=== PATIENT | male | born 1960 | race Caucasian/White ===

== ENCOUNTER 2021-06-19 19:50 | Outpatient (CLI) | payer MEDICAID, SELFPAY | END 2021-06-19 19:51 | disposition home or self-care (01) | LOC: LBO 19:51 | PROVIDERS: PCP Preventive Medicine Undersea and Hyperbaric Medicine; Visit Provider Preventive Medicine Undersea and Hyperbaric Medicine | DX: C09.9 Malignant neoplasm of tonsil, unspecified (principal) | CPT/HCPCS: 36415; 82565 ==

== ENCOUNTER 2021-07-17 00:54 | Outpatient (RCR) | payer MEDICAID, SELFPAY ==
[2021-07-10 08:00] LABS: Absolute Basophil Count 0.07 10^3/uL (0.0-0.2); Absolute Monocyte Count 1.42 10^3/uL (0.1-0.8); Absolute Neutrophil Count 9.31 10^3/uL (1.2-6.7); Basophils % 0.5; Eosinophils % 2.4; HCT 42.5 % (40.0-50.0); HGB 13.8 g/dL (13.5-17.5); Immature Grans % 0.7; Lymphocytes % 21.7; MCH 30.5 pg (27.0-33.0); MCHC 32.5 % (32.0-36.0); MPV 11.3 fL (8.0-11.0); Monocytes % 9.9; Neutrophils % 64.8; Nucleated RBC 0 %; Platelet Count 319 10^3/uL (130-400); RBC 4.52 10^6/uL (4.36-5.78); RDW 15.9 % (11.8-14.1); RDW-SD 54.4 fL; WBC 14.36 10^3/uL (4.4-10.8)
[2021-07-10 08:08] LABS: Absolute Eosinophil Count 0.34 10^3/uL (0.0-0.7); Absolute Lymphocyte Count 3.12 10^3/uL (1.2-3.4)
[2021-07-10 08:14] LABS: ALT 14 U/L (16-63); AST 17 U/L (15-37); Albumin 3.5 g/dL (3.4-5.0); Alkaline Phosphatase 56 U/L (46-116); Anion Gap 8.1 mmol/L (3-11); BUN 22 mg/dL (7-18); Bilirubin, Total 0.6 mg/dL (0.2-1.0); CO2 27.9 mmol/L (21.0-32.0); CREATININE 1.1 mg/dL (0.70-1.30); Chloride 105 mmol/L (98-107); Glucose 92 mg/dL (74-106); Magnesium 2.1 mg/dL (1.8-2.4); Sodium 141 mmol/L (136-145)
[2021-07-10] MEDS: Normal Saline Flush 10 ML SYR IVP (10:00)
== END 2021-07-23 23:59 | disposition home or self-care (01) ==
LOC: INF 00:54
PROVIDERS: Nurse Practitioner Family; PCP Preventive Medicine Undersea and Hyperbaric Medicine; Visit Provider Internal Medicine Hematology & Oncology
DX: C09.9 Malignant neoplasm of tonsil, unspecified (principal)
CPT/HCPCS: 36591; 80053; 83735; 85025

== ENCOUNTER 2021-08-21 07:45 | Outpatient (RCR) | payer MEDICAID, SELFPAY ==
[2021-07-24] MEDS: Normal Saline Flush 10 ML SYR IVP (08:15)
[2021-07-24 08:28] LABS: Abs Immature Grans 0.02 10^3/uL (0.0-0.06); Absolute Basophil Count 0.03 10^3/uL (0.0-0.2); Absolute Eosinophil Count 0.14 10^3/uL (0.0-0.7); Absolute Lymphocyte Count 1.21 10^3/uL (1.2-3.4); Absolute Monocyte Count 0.65 10^3/uL (0.1-0.8); Basophils % 0.5; Eosinophils % 2.1; HCT 37.1 % (40.0-50.0); Immature Grans % 0.3; Lymphocytes % 18.5; MCH 30.6 pg (27.0-33.0); MCHC 32.3 % (32.0-36.0); MCV 94.6 fL (80-95); Monocytes % 9.9; Neutrophils % 68.7; Nucleated RBC 0 %; Platelet Count 199 10^3/uL (130-400); RBC 3.92 10^6/uL (4.36-5.78); RDW 14.4 % (11.8-14.1); RDW-SD 49.8 fL; WBC 6.55 10^3/uL (4.4-10.8)
[2021-07-24 08:43] LABS: ALT 20 U/L (16-63); AST 11 U/L (15-37); Albumin 3.3 g/dL (3.4-5.0); Alkaline Phosphatase 52 U/L (46-116); Anion Gap 7.7 mmol/L (3-11); BUN 22 mg/dL (7-18); Bilirubin, Total 0.4 mg/dL (0.2-1.0); CO2 30.3 mmol/L (21.0-32.0); CREATININE 1.1 mg/dL (0.70-1.30); Calcium 8.9 mg/dL (8.5-10.1); Chloride 103 mmol/L (98-107); Glucose 100 mg/dL (74-106); Magnesium 1.7 mg/dL (1.8-2.4); Potassium 3.9 mmol/L (3.5-5.1); Sodium 141 mmol/L (136-145); Total Protein 7.6 g/dL (6.4-8.2)
[2021-07-31] MEDS: Normal Saline Flush 10 ML SYR IVP (09:17)
[2021-07-31 09:31] LABS: Abs Immature Grans 0.01 10^3/uL (0.0-0.06); Absolute Basophil Count 0.02 10^3/uL (0.0-0.2); Absolute Lymphocyte Count 0.91 10^3/uL (1.2-3.4); Absolute Monocyte Count 0.51 10^3/uL (0.1-0.8); Absolute Neutrophil Count 2.55 10^3/uL (1.2-6.7); Basophils % 0.5; Eosinophils % 2.4; HCT 36.2 % (40.0-50.0); HGB 11.7 g/dL (13.5-17.5); Immature Grans % 0.2; Lymphocytes % 22.2; MCH 30.4 pg (27.0-33.0); MCHC 32.3 % (32.0-36.0); MPV 10.8 fL (8.0-11.0); Monocytes % 12.4; Neutrophils % 62.3; Nucleated RBC 0 %; Platelet Count 147 10^3/uL (130-400); RBC 3.85 10^6/uL (4.36-5.78); RDW 14.1 % (11.8-14.1); RDW-SD 48.5 fL
[2021-07-31 09:44] LABS: ALT 28 U/L (16-63); AST 14 U/L (15-37); Albumin 3.4 g/dL (3.4-5.0); Alkaline Phosphatase 54 U/L (46-116); BUN 31 mg/dL (7-18); Bilirubin, Total 0.6 mg/dL (0.2-1.0); CREATININE 1.2 mg/dL (0.70-1.30); Calcium 8.8 mg/dL (8.5-10.1); Chloride 102 mmol/L (98-107); Glucose 95 mg/dL (74-106); Magnesium 1.4 mg/dL (1.8-2.4); Potassium 4.2 mmol/L (3.5-5.1); Sodium 141 mmol/L (136-145); Total Protein 7.2 g/dL (6.4-8.2)
[2021-08-07] MEDS: Normal Saline Flush 10 ML SYR IVP (08:06)
[2021-08-07 08:10] LABS: Abs Immature Grans 0.01 10^3/uL (0.0-0.06); Absolute Basophil Count 0.01 10^3/uL (0.0-0.2); Absolute Eosinophil Count 0.04 10^3/uL (0.0-0.7); Absolute Neutrophil Count 2.18 10^3/uL (1.2-6.7); Basophils % 0.3; Eosinophils % 1.3; HGB 10.5 g/dL (13.5-17.5); Immature Grans % 0.3; Lymphocytes % 16.4; MCH 30.8 pg (27.0-33.0); MCHC 32.8 % (32.0-36.0); MCV 93.8 fL (80-95); MPV 10.3 fL (8.0-11.0); Monocytes % 9.9; Neutrophils % 71.8; Nucleated RBC 0 %; Platelet Count 102 10^3/uL (130-400); RBC 3.41 10^6/uL (4.36-5.78); RDW 13.8 % (11.8-14.1); RDW-SD 47.5 fL; WBC 3.04 10^3/uL (4.4-10.8)
[2021-08-07 08:37] LABS: Albumin 3.2 g/dL (3.4-5.0); Alkaline Phosphatase 51 U/L (46-116); BUN 31 mg/dL (7-18); Bilirubin, Total 0.4 mg/dL (0.2-1.0); CREATININE 1.3 mg/dL (0.70-1.30); Calcium 8.4 mg/dL (8.5-10.1); Estimated GFR 56.12 (mL/min/1.73m2); Glucose 92 mg/dL (74-106); Potassium 4.3 mmol/L (3.5-5.1); Sodium 143 mmol/L (136-145); Total Protein 6.6 g/dL (6.4-8.2)
[2021-08-07 08:38] LABS: ALT 32 U/L (16-63); AST 14 U/L (15-37); Anion Gap 5.7 mmol/L (3-11); CO2 33.3 mmol/L (21.0-32.0); Chloride 104 mmol/L (98-107); Magnesium 1.4 mg/dL (1.8-2.4)
[2021-08-14 08:26] LABS: Absolute Eosinophil Count 0.02 10^3/uL (0.0-0.7); Absolute Lymphocyte Count 0.73 10^3/uL (1.2-3.4); Absolute Monocyte Count 0.32 10^3/uL (0.1-0.8); Eosinophils % 0.6; HCT 30.3 % (40.0-50.0); Lymphocytes % 22.3; MCH 31.1 pg (27.0-33.0); MCV 94.1 fL (80-95); MPV 10.2 fL (8.0-11.0); Monocytes % 9.8; Neutrophils % 67.3; Nucleated RBC 0 %; RBC 3.22 10^6/uL (4.36-5.78); RDW 13.4 % (11.8-14.1); RDW-SD 46.4 fL; WBC 3.27 10^3/uL (4.4-10.8)
[2021-08-14] MEDS: Normal Saline Flush 10 ML SYR IVP (08:28)
[2021-08-14 08:39] LABS: ALT 24 U/L (16-63); AST 13 U/L (15-37); Albumin 3.3 g/dL (3.4-5.0); Alkaline Phosphatase 51 U/L (46-116); Anion Gap 6.8 mmol/L (3-11); BUN 22 mg/dL (7-18); Bilirubin, Total 0.5 mg/dL (0.2-1.0); CO2 31.2 mmol/L (21.0-32.0); CREATININE 1.3 mg/dL (0.70-1.30); Calcium 8.2 mg/dL (8.5-10.1); Chloride 103 mmol/L (98-107); Estimated GFR 56.12 (mL/min/1.73m2); Glucose 108 mg/dL (74-106); Magnesium 1.1 mg/dL (1.8-2.4); Potassium 4.1 mmol/L (3.5-5.1); Sodium 141 mmol/L (136-145); Total Protein 6.6 g/dL (6.4-8.2)
[2021-08-14 08:42] LABS: Platelet Count 82 10^3/uL (130-400)
[2021-08-21] MEDS: Normal Saline Flush 10 ML SYR IVP (07:57)
[2021-08-21 08:20] LABS: Abs Immature Grans 0.01 10^3/uL (0.0-0.06); Absolute Eosinophil Count 0.02 10^3/uL (0.0-0.7); Absolute Lymphocyte Count 0.39 10^3/uL (1.2-3.4); Absolute Monocyte Count 0.18 10^3/uL (0.1-0.8); Absolute Neutrophil Count 1.11 10^3/uL (1.2-6.7); Eosinophils % 1.2; HCT 26.1 % (40.0-50.0); HGB 8.7 g/dL (13.5-17.5); Immature Grans % 0.6; Lymphocytes % 22.8; MCH 31.4 pg (27.0-33.0); MCHC 33.3 % (32.0-36.0); MCV 94.2 fL (80-95); MPV 10.9 fL (8.0-11.0); Monocytes % 10.5; Neutrophils % 64.9; Nucleated RBC 0 %; Platelet Count 65 10^3/uL (130-400); RBC 2.77 10^6/uL (4.36-5.78); RDW 13.5 % (11.8-14.1); RDW-SD 46.2 fL
[2021-08-21 08:28] LABS: WBC 1.71 10^3/uL (4.4-10.8)
[2021-08-21 08:38] LABS: Diff Comment Diff Reviewed; RBC Morphology Normal
[2021-08-21 08:41] LABS: ALT 28 U/L (16-63); AST 13 U/L (15-37); Albumin 2.9 g/dL (3.4-5.0); Alkaline Phosphatase 49 U/L (46-116); Anion Gap 5.3 mmol/L (3-11); BUN 22 mg/dL (7-18); Bilirubin, Total 0.4 mg/dL (0.2-1.0); CO2 32.7 mmol/L (21.0-32.0); CREATININE 1.3 mg/dL (0.70-1.30); Calcium 7.8 mg/dL (8.5-10.1); Chloride 104 mmol/L (98-107); Estimated GFR 56.12 (mL/min/1.73m2); Glucose 92 mg/dL (74-106); Magnesium 1.1 mg/dL (1.8-2.4); Sodium 142 mmol/L (136-145); Total Protein 6.2 g/dL (6.4-8.2)
== END 2021-08-22 23:59 | disposition home or self-care (01) ==
LOC: INF 07:45
PROVIDERS: Nurse Practitioner Family; PCP Preventive Medicine Undersea and Hyperbaric Medicine; Visit Provider Internal Medicine Hematology & Oncology
DX: C09.9 Malignant neoplasm of tonsil, unspecified (principal); Z45.2 Encounter for adjustment and management of vascular access device
CPT/HCPCS: 36591; 80053; 83735; 85025

== ENCOUNTER 2021-08-28 02:05 | Outpatient (RCR) | payer MEDICAID, SELFPAY ==
[2021-08-28] MEDS: Normal Saline Flush 10 ML SYR IVP (08:15)
[2021-08-28 08:55] LABS: Absolute Lymphocyte Count 0.24 10^3/uL (1.2-3.4); Absolute Monocyte Count 0.14 10^3/uL (0.1-0.8); Absolute Neutrophil Count 0.57 10^3/uL (1.2-6.7); HCT 24.5 % (40.0-50.0); HGB 8.2 g/dL (13.5-17.5); Lymphocytes % 25.3; MCH 30.8 pg (27.0-33.0); MCHC 33.5 % (32.0-36.0); MCV 92.1 fL (80-95); MPV 10.4 fL (8.0-11.0); Monocytes % 14.7; Nucleated RBC 0 %; RBC 2.66 10^6/uL (4.36-5.78); RDW 13.7 % (11.8-14.1); RDW-SD 44.7 fL
[2021-08-28 09:07] LABS: WBC 0.95 10^3/uL (4.4-10.8)
[2021-08-28 09:18] LABS: Diff Comment Agrees w/ Instrument; Platelet Count 72 10^3/uL (130-400); RBC Morphology Normal
[2021-08-28 09:25] LABS: ALT 28 U/L (16-63); AST 15 U/L (15-37); Albumin 3.1 g/dL (3.4-5.0); Alkaline Phosphatase 44 U/L (46-116); Anion Gap 7.5 mmol/L (3-11); BUN 27 mg/dL (7-18); Bilirubin, Total 0.4 mg/dL (0.2-1.0); CO2 32.5 mmol/L (21.0-32.0); CREATININE 1.3 mg/dL (0.70-1.30); Calcium 7.4 mg/dL (8.5-10.1); Chloride 104 mmol/L (98-107); Estimated GFR 56.12 (mL/min/1.73m2); Glucose 100 mg/dL (74-106); Potassium 3.5 mmol/L (3.5-5.1); Sodium 144 mmol/L (136-145); Total Protein 6.2 g/dL (6.4-8.2)
== END 2021-09-22 23:59 | disposition home or self-care (01) ==
LOC: INF 02:05
PROVIDERS: Nurse Practitioner Family; PCP Preventive Medicine Undersea and Hyperbaric Medicine; Visit Provider Internal Medicine Hematology & Oncology
DX: C09.9 Malignant neoplasm of tonsil, unspecified (principal); Z45.2 Encounter for adjustment and management of vascular access device
CPT/HCPCS: 36591; 80053; 83735; 85025

== ENCOUNTER 2021-08-30 12:06 | Emergency (ER) | payer MEDICAID, SELFPAY ==
[2021-08-30 12:12] VITALS: BP 146/88; PULSE 61; RESP 18; TEMP 36.6; O2SAT 98
--- NOTE | 2021-08-30 12:15 | DI.US_ITS ---
Exam(s) US EXTREMITY VENOUS BI EXAM: US EXTREMITY VENOUS BI CLINICAL HISTORY: leg swelling and pain. TECHNIQUE: Bilateral lower extremity venous ultrasound performed using grayscale, color-flow, and sp ectral Doppler analysis. COMPARISON: No exams were available for comparison FINDINGS: The bilateral common femoral, femoral and popliteal veins demonstrate normal compressibility, augment ation, and color Doppler. The posterior tibial veins are patent. The saphenofemoral junctions are unr emarkable. There is no evidence of a Short's cyst. The soft tissues are unremarkable. IMPRESSION: Right: Negative for DVT Left: Negative for DVT DATA REPOSITORY:
--- NOTE | 2021-08-30 12:20 | ED.GENADUL_ITS ---
Discharge Plan Disposition Patient Disposition: HOME Condition: Stable Discharge Details Clinical Impression: Knee pain, Leg swelling Primary Care Provider: Tomy Pinto ED Provider: Oscar Perkins Home Meds and New Rx's Prescriptions: Continued metoprolol tartrate 100 mg tablet 100 mg PO BID RF: 0 meloxicam [Mobic] 7.5 mg tablet 7.5 mg PO BID PRNRF: 0 magnesium 100 mg Tablet 100 mg PO BID RF: 0 lorazepam 1 mg tablet 1 mg PO PRN PRNRF: 0 Discharge Instructions Instructions: Leg Edema (ED) Additional Instructions: your ultrasound did not show a blood clot follow up with your primary care provider and oncologist if you feel more ill, have severe worsening pain, difficulty breathing or fevers return to the emergency department Medical Decision Making 61 yo male who has oral cancer and goes to [facility] comes in with bilateral knee pain for weeks and today his provider advised he come here for an ultrasound for dvt as they felt his left leg was more swollen. He denies chest pain or dyspnea. He denies falls or trauma. He is ambulating at his baseline with a cane. He has mild pitting edema of both legs of the distal legs. He localizes the pain to the anterior knees and has no swelling or deformity. He has full range of motion of the knees and normal distal sensation and cap refill. I suspect his pain is due to osteoarthritis, given lack of trauma do not feel xrays indicated. Will obtian u/s to evaluate for dvt given his cancer history. u/s negative and he remains stable, no new symptoms, will d/c and have him f/u with his pcp and return precautions given Differential Diagnosis Differential Diagnosis: dvt, osteoarthritis HPI General Mode of arrival: ambulatory . Date/Time Provider Initiated Documentation: 08/30/21 12:13 . Limitations to Documentation: no limitations . Information obtained by: patient . History of Present Illness 61 year old M presents to the emergency department with the chief complaint of leg pain, described as moderate, Patient reports no radiation. Patient started experiencing this week(s) (1) and it has been constant. No relieving factors improve symptom(s), No exacerbating factors reported . Patient notes no other symptoms.. Patient did receive the following treatments prior to arrival, none Related Data Home Medications Medication Instructions Recorded Confirmed lorazepam 1 mg PO PRN PRN 08/30/21 08/30/21 magnesium 100 mg PO BID 08/30/21 08/30/21 meloxicam [Mobic] 7.5 mg PO BID PRN 08/30/21 08/30/21 metoprolol tartrate 100 mg PO BID 08/30/21 08/30/21 Allergies Allergy/AdvReac Type Severity Reaction Status Date / Time No Known Allergies Allergy Unverified 08/30/21 12:15 General Stated Complaint: Vascular LIDA: 3 Review of Systems All systems reviewed & are unremarkable except as noted in HPI and below Constitutional Constitutional: Denies chills, Denies fever(s) and Denies weakness Cardiovascular Cardiovascular: Denies chest pain and Denies dyspnea Respiratory Respiratory: Denies cough and Denies dyspnea Gastrointestinal Gastrointestinal: Denies abdominal pain, Denies nausea and Denies vomiting Genitourinary Genitourinary: Denies dysuria Integumentary/Breasts Skin/Breast: Denies rash Neurologic Neurologic: Denies weakness [facility] Active Problem List (Updated 08/30/21 @ 13:30 by Oscar Perkins MD) Knee pain (Acute) Leg swelling (Acute) Social History Smoking/Tobacco Use Status: Never Smoking risk assessment performed?: Yes Alcohol Intake: never Substance use type: does not use Do you feel safe at home: Yes Do you feel safe in your relationship?: Yes Exam Const General: no acute distress Orientation: alert HENAL Head: normal to inspection Ears: external ears normal General nose exam: external nose normal Mouth: moist mucous membranes Eyes General: appearance normal, both eyes and all related structures Neck Neck: normal visual inspection Resp Effort & Inspection: normal respiratory effort and able to speak in complete sentences Cardio Rate: regular rate Skin General skin exam: no rashes or lesions noted Neuro General: patient alert and patient oriented x3 Extrem General: capillary refill normal Psych Mental Status: mental status grossly normal Course Vital Signs Vital signs: Vital Signs Temperature 36.6 C 08/30/21 12:12 Pulse 61 08/30/21 12:12 Respiratory Rate 18 08/30/21 12:12 Blood Pressure 146/88 H 08/30/21 12:12 Pulse Oximetry 98 08/30/21 12:12 Temperature 36.6 C 08/30/21 12:12 Pulse 61 08/30/21 12:12 Respiratory Rate 18 08/30/21 12:12 Respiratory Effort Non-Labored 08/30/21 12:18 Blood Pressure 146/88 H 08/30/21 12:12 Pulse Oximetry 98 08/30/21 12:12 Oxygen Delivery Method Room Air 08/30/21 12:12 Oxygen Flow Rate 0 08/30/21 12:12 Pain Level 7 08/30/21 12:12
== END 2021-08-30 14:08 | disposition home or self-care (01) ==
PROVIDERS: Emergency Provider Emergency Medicine; PCP Preventive Medicine Undersea and Hyperbaric Medicine
DX: R22.43 Localized swelling, mass and lump, lower limb, bilateral (principal); M25.562 Pain in left knee; M25.561 Pain in right knee
CPT/HCPCS: 99284; 93970; 99283

== ENCOUNTER 2022-03-23 07:43 | Outpatient (CLI) | payer MEDICAID, SELFPAY ==
--- OUTSIDE RECORDS SUMMARY | 2022-03-23 07:47 | XMS_ITS | Encounter Summary ---
:1960 Author Organization [facility] [place] [address] Care Team Providers Name Role Phone Ava Morales MD Primary Care Provider Encounter Details Date Type Department Care Team Description 03/21/2022 Office Visit Radiation Oncology at Tomy Pinto, Squamous cell [facility] carcinoma of palatine [address] [place] [address] [place] [phone] RADIATION ONCOLOGY [phone] [address], [place] [address] Social History Tobacco Use Types Packs/Day Years Used Date Never Smoker Smokeless Tobacco: Never Used Alcohol Use Standard Drinks/Week Comments Not Currently 0 (1 standard drink = 0.6 oz pure alcoho l) Financial Resource Strain Answer Date Recorded How hard is it for you to pay for the very basics like Not h brigette at all 07/10/2021 food, housing, medical care, and heating? Food Insecurity Answer Date Recorded Within the past 12 months, you worried that your food would Never true 07/10/2021 run out before you got money to buy more. Within the past 12 months, the food you bought just didn't N ot asked last and you didn't have money to get more. Transportation Needs Answer Date Recorded In the past 12 months, has lack of transportation kept you f rom Yes 07/10/2021 medical appointments or from getting medications? In the past 12 months, has lack of transportation kept you f rom Yes 07/10/2021 meetings, work, or getting things needed for daily living? Housing Stability Answer Date Recorded In the last 12 months, was there a time when you were not ab le No 07/10/2021 to pay the mortgage or rent on time? In the last 12 months, how many places have you lived? 1 07/10/2021 In the last 12 months, was there a time when you did not hav e a No 07/10/[address] sleep or slept in a prison (including now)? Sex Assigned at Date Recorded Not on file documented as of this encounter Last Filed Vital Signs Vital Sign Reading Time Taken Comments Blood Pressure 131/89 03/21/2022 2:26 PM EDT Pulse 98 03/21/2022 2:26 PM EDT Temperature 36.9 ??C (98.4 ??F) 03/21/2022 2:26 PM EDT Respiratory Rate 18 03/21/2022 2:26 PM EDT Oxygen Saturation 98% 03/21/2022 2:26 PM EDT Inhaled Oxygen Concentration - - Weight 127.1 kg (280 lb 3.2 03/21/2022 2:26 PM with fli p flops oz) EDT Height - - Body Mass Index 40.2 11/30/2021 1:32 PM EST documented in this encounter Progress Notes Tomy Pinto MD - 03/21/2022 2:30 PM EDT Images from the original note were not included. Radiation Oncology Follow Up Patient Visit PATIENT NAME: Miriam Anaya DATE OF : 1960 ONCOLOGIC HISTORY DIAGNOSIS / TREATMENT OVERVIEW?? 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 Definitive chemoradiotherapy. ?? TREATMENT DETAILS Treatment Intent Curative Site Treated Primary, involved nodes, elective josé luis basins Technique VMAT, SIB Adaptive Plan Required Yes - due to tumor regression / anatomic changes Concurrent Chemo Y ONC BCA CHEMO (AMB) 07/10/2021 07/24/2021 07/31/2021 Day, Cycle Day 1, Cycle 1 Day 15, Cycle 1 Day 22, Cycle 1 CISplatin (Platinol) IV 40 mg/m2/dose 40 mg/m2/dose 40 mg/m2/dose ?? ONC BCA CHEMO (AMB) 08/07/2021 08/14/2021 08/21/2021 Day, Cycle Day 29, Cycle 1 Day 36, Cycle 1 Day 43, Cycle 1 CISplatin (Platinol) IV 30 mg/m2/dose 30 mg/m2/dose 30 mg/m2/dose ?? Clinical Trial No TECHNICAL DETAILS ? Total Dose: 70 Gy @ 2 Gy/fxn, 59.5 Gy @ 1.7 Gy/fxn, 56 Gy @ 1.6 Gy/fxn ? PLAN IMAGES ? Post-therapy course: Time from therapy completion: ~ 6 months INTERVAL HISTORY: no interval issues since last visit. Currently, he has the following symptoms: Symptom Description Intervention Pain Denies Dysphagia Difficulty with meats and dry foods, otherwise tolerating most foods. Somewhat improved. Xerostomia / Dysgeusia Minimal xerostomia, dysgeusia to ~ 90% normal Biotene, EtOH-based mouthwash Neck Fibrosis / Lymphedema / Pain Notes tightness of left neck, mild. Notes increasing lymphedema submental area. Dental Edentulous Nutrition Issues / Weight Loss Weight relatively stable over the past few weeks Altered strength/sensation Inability to raise left shoulder, stable since prior to initiation of treatment. Feeding Tube Not Present Skin Denies Otalgia / Hearing Changes Stable tinnitus, hearing unchanged Smoking Status Not smoking Voice Changes Slightly raspy, worsening but still modest Other ECOG PS: 0 Grade ECOG PERFORMANCE STATUS 0 Fully active, able to carry on all pre-disease performance without restriction 1 Restricted in physically strenuous activity but ambulatory and able to carry out work of a light or sedentary nature 2 Ambulatory and capable of all selfcare but unable to carry out any work activities; up and about > 50% of waking hours 3 Capable of only limited selfcare; confined to bed or chair more than 50% of waking hours 4 Completely disabled; cannot carry on any selfcare; totally confined to bed or chair EXAM Vitals: 03/21/22 1426 BP: 131/89 Patient Position: Sitting Pulse: 98 Resp: 18 Temp: 36.9 ??C (98.4 ??F) TempSrc: Temporal SpO2: 98% Weight: 127.1 kg (280 lb 3.2 oz) Physical Exam Constitutional: Appearance: He is well-developed. HENT: Mouth/Throat: Comments: Visual inspection of OC and OP revealed no evidence of suspicious masses or lesions. Palpation revealed no suspicious masses and no induration along the posterior tongue. Moisture good. Pt edentulous. Eyes: Pupils: Pupils are equal, round, and reactive to light. Neck: Comments: Palpation reveals no adenopathy in cervical, SCLV, ICLV josé luis basins. High level fibrosisleft neck, mild tenderness to palpation. Lymphedema, submental, moderate. Cardiovascular: Rate and Rhythm: Normal rate. Pulmonary: Effort: Pulmonary effort is normal. Breath sounds: Normal breath sounds. Skin: Findings: No erythema. Neurological: Mental Status: He is alert and oriented to person, place, and time. Cranial Nerves: No cranial nerve deficit. Psychiatric: Behavior: Behavior normal. Procedures: Flexible laryngoscopy was performed. The right naris was anesthetized with aerosolized lidocaine, and the laryngoscope was passed without difficulty. The nasopharynx was visualized and was without masses or lesions. The oropharynx, larynx, and piriform sinuses were visualized and were without masses or lesions. The vocal cords apposed without difficulty. HISTORY Allergies as of 03/21/2022 ??? (No Known Allergies) Past Medical History: Diagnosis Date ??? Essential hypertension 04/12/2021 ??? JOHN not on CPAP (though recommended) 04/12/2021 Past Surgical History: Procedure Laterality Date ??? IR MEDIPORT PLACEMENT 06/27/2021 IR Mediport Placement 06/27/[address] [facility] INTERVENTIONL RAD ??? PRO BX/REMV, LYMPH NODE, DEEP CERV Left 05/19/2021 BIOPSY OR EXCISION OF LYMPH NODE(S), OPEN, DEEP CERVICAL NODES (WRVU 6.74) performed by River Cordoba MD at [facility] MAIN OR ??? PRO LARYNGOSCOPY, DIRCT, OP SCOPE, BIOPSY Left 05/19/2021 LARYNGOSCOPY, MICROSCOPE, WITH BIOPSY (WRVU 3.55) performed by River Cordoba MD at [facility] MAIN OR ??? PRO OTOLARYNGOLOGIC EXAM UNDER GENERAL ANESTHESIA Midline 05/19/2021 OTOLARYNGOLOGIC EXAM UNDER ANESTHESIA (WRVU 1.51) performed by River Cordoba MD at [facility] MAIN OR Social History Socioeconomic History ??? Marital status: Single Spouse name: Not on file ??? Number of children: Not on file ??? Years of education: Not on file ??? Highest education level: Not on file Occupational History ??? Not on file Tobacco Use ??? Smoking status: Never Smoker ??? Smokeless tobacco: Never Used Vaping Use ??? Vaping Use: Never used Substance and Sexual Activity ??? Alcohol use: Not Currently ??? Drug use: Not on file ??? Sexual activity: Not on file Other Topics Concern ??? Not on file Social History Narrative ??? Not on file Social Determinants of Health Financial Resource Strain: Low Risk ??? Difficulty of Paying Living Expenses: Not hard at all Food Insecurity: Unknown ??? Worried About Running Out of Food in the Last Year: Never true ??? Ran Out of Food in the Last Year: Not on file Transportation Needs: Unmet Transportation Needs ??? Lack of Transportation (Medical): Yes ??? Lack of Transportation (Non-Medical): Yes Physical Activity: Not on file Housing Stability: Low Risk ??? Unable to Pay for Housing in the Last Year: No ??? Number of Places Lived in the Last Year: 1 ??? Unstable Housing in the Last Year: No No family history on file. ROS: I reviewed and agree with the nursing review of systems accompanying this encounter. The remainder of the comprehensive review of systems was negative with the exception of the pertinent positivesand negatives noted above. MEDICATIONS Current Outpatient Medications on File Prior to Visit Medication Sig Dispense Refill ??? dilTIAZem CD (Cardizem CD) 240 mg Capsule, Sust. Release 24 hr Take 240 mg by mouth daily. ??? loperamide (IMODIUM A-D) 2 mg Tablet Take 2 mg by mouth 4 times daily as needed for Diarrhea. Maximum 16 mg in 24 hours ??? meloxicam (MOBIC) 7.5 mg Tablet 2 times daily. ??? acetaminophen (Tylenol) 500 mg Tablet Take 1,000 mg by mouth every 6 hours as needed for Pain. ??? metoprolol tartrate (Lopressor) 50 mg Tablet Take 75 mg by mouth 2 times daily. ??? Sodium Fluoride (Clinpro 5000) 1.1 % Paste Put a pea sized amount on toothbrush, brush twice daily. Do not swallow. (Patient not taking: Reported on 03/21/2022) 100 mL 3 ??? emollient base (CREAM BASE TOP) Apply topically. Jeans Cream. Apply to area of radiation twice aday but no less than 2 hours before a treatment. ??? pantothenic Ac-Min Oil-Pet,Hyd (Aquaphor) 41 % Ointment Apply topically. ??? LORazepam (Ativan) 1 mg Tablet Take one to two pills by mouth a 1/2 hour prior to radiation therapy (Patient not taking: No sig reported) 50 tablet 0 ??? magnesium oxide (Mag-Ox) 400 mg (241.3 mg magnesium) Tablet Take 1 tablet by mouth 2 times daily. (Patient not taking: No sig reported) 60 tablet 5 ??? prochlorperazine (Compazine) 10 mg Tablet TAKE 1 TABLET BY MOUTH EVERY 6 HOURS NEEDED FOR NAUSEA (Patient not taking: No sig reported) 30 tablet 3 ??? traMADoL (Ultram) 50 mg Tablet Take 0.5-1 tablets by mouth as needed. (Patient not taking: No sig reported) 30 tablet 0 ??? oxyCODONE (Roxicodone) 5 mg Tablet Take 1 tablet by mouth every 4 hours as needed for Pain. (Patient not taking: No sig reported) 45 tablet 0 No current facility-administered medications on file prior to visit. IMAGING/LAB I have personally reviewed the imaging reports and images referenced in the oncologic hx and agree with the assessment as stated. Further pertinent imaging data below CT HN w/ contrast 11/16 : ASSESSMENT / PLAN Disease Status: ANGE clinically and on imaging. Toxicity: ?? Xerostomia / Dysgeusia: expected toxicities, discussed expectation of improvement ?? Dysphagia: moderate, tolerating ?? Left shoulder / trapezius weakness: likely secondary to malignant involvement, we discussed that he may not see improvement despite resolution of malignancy ?? Dental: has not yet seen dentist, Rx for high fluoride toothpaste prescribed, encouraged to see dentist in the near future. ?? Thyroid Function: WNL at last visit FU: follow per HN grid documented in this encounter Plan of Treatment Upcoming Encounters Date Type Specialty Care Team Description 03/30/2022 Office Visit Hematology and Oncology Kristan Perry MD [facility] [address] ONCOLOGY [address]PT. [address], [place] [address] (Wo rk) documented as of this encounter Visit Diagnoses Diagnosis Squamous cell carcinoma of palatine tons il Malignant neoplasm of tonsil documented in this encounter Care Teams Container Filler Relationship Specialty Start Date End Date Ava Morales MD PCP - General Family Medicine 04/04/[address] [place] [phone] documented as of this encounter
--- OUTSIDE RECORDS SUMMARY | 2022-03-23 07:47 | XMS_ITS | Encounter Summary ---
:1960 Author Organization [facility] [place] [address] Care Team Providers Name Role Phone Ava Morales MD Primary Care Provider Encounter Details Date Type Department Care Team Description 02/08[facility]20[facility] [address] [phone] Social History Tobacco Use Types Packs/Day Years [...] place to sleep or slept in a chcf (including now)? Sex Assigned at Date Recorded Not on file documented as of this encounter Miscellaneous Notes Telephone Encounter - MarinJacinto Mathew - 02/08/2022 1:28 PM EDT Pt currently has [facility] managed Medicaid. I called [phone] to obtain prior auth for this pt's CT of the neck and soft tissue. The case was denied and I was asked to submit additional clinical information. I faxed the last couple of office notes to [phone] for their review. We are waiting to hear the final results of this case. Case # [id number] documented in this encounter Plan of Treatment Upcoming Encounters Date Type Specialty Care Team Description 03/30/2022 Office Visit Hematology and Oncology Kristan Perry MD [facility] DR ONCOLOGY DEPT. [place], [place] [address] (Wo rk) documented as of this encounter Visit Diagnoses Not on filedocumented in this encounter Care Teams Plasterer Journeyman Relationship Specialty Start Date End Date Ava Morales MD PCP - General Family Medicine 04/04/[address] [place] [phone] documented as of this encounter
--- OUTSIDE RECORDS SUMMARY | 2022-03-23 07:47 | XMS_ITS | Encounter Summary ---
:1960 Author Organization [facility] [place] [address] Care Team Providers Name Role Phone Ava Morales MD Primary Care Provider Encounter Details Date Type Department Care Team Description 11/24[facility]20[facility] [address] [phone] Social History Tobacco Use [...] place to sleep or slept in a halfway (including now)? Sex Assigned at Date Recorded Not on file documented as of this encounter Miscellaneous Notes Telephone Encounter - Maryanne Sykes - 11/24/2021 10:35 AM EST Miriam called me back about his lab work and CT scan. He still wants to have the [facility] draw his blood on Saturday11/29/21 and then is fine to have an IV start for his CT scan. He is going to remind his nurse on Saturday that she needs to draw his labs on Saturday. Miriam was happy with the new plan. documented in this encounter Plan of Treatment Upcoming Encounters Date Type Specialty Care Team Description 03/30/2022 Office Visit Hematology and Oncology Kristan Perry MD [facility] [address] ONCOLOGY DEPT. [place], [place] [address] (Wo rk) documented as of this encounter Visit Diagnoses Not on filedocumented in this encounter Care Teams Smalltalk Developer Relationship Specialty Start Date End Date Ava Morales MD PCP - General Family Medicine 04/04/[address] [place] [phone] documented as of this encounter
--- OUTSIDE RECORDS SUMMARY | 2022-03-23 07:47 | XMS_ITS | Encounter Summary ---
:1960 Author Organization [facility] [place] [address] Care Team Providers Name Role Phone Ava Morales MD Primary Care Provider Reason for Visit Reason Comments Follow-up Encounter Details Date Type Department Care Team Description 11/30/2021 Office Visit Hematology and Edwar Perry MD [facility] [place] [address] Tonsil cancer; Oncology at [facility] Pamela Bright APRN [facility] [place] [address] [place], [place] [id number] Social History Tobacco Use Types Packs/Day Years [...] place to sleep or slept in a mcc (including now)? Sex Assigned at Date Recorded Not on file documented as of this encounter Last Filed Vital Signs Vital Sign Reading Time Taken Comments Blood Pressure 109/69 11/30/2021 10:37 AM EST Pulse 64 11/30/2021 10:37 AM EST Temperature 36.2 ??C (97.2 ??F) 11/30/2021 10:37 AM EST Respiratory Rate 19 11/30/2021 10:37 AM EST Oxygen Saturation 98% 11/30/2021 10:37 AM EST Inhaled Oxygen Concentration - - Weight 129.8 kg (286 lb 3.2 oz) 11/30/2021 10:37 AM EST Height 176.3 cm (5' 9.41) 11/30/2021 10:37 AM EST Body Mass Index 41.77 11/30/2021 10:37 AM EST documented in this encounter Progress Notes Edwar Perry MD - 11/30/2021 11:00 AM EST Images from the original note were not included. Head and Neck Cancer Medical Oncology Patient Active Problem List Diagnosis ??? 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 L parotid mass noted 09/2020; progressive enlargement, local pain, headache B. 7 X 6 cm L upper mass at evaluation -02/2021, FNA X 2 nondiagnostic C. EUA 05/19/2021: small L BOT mass, Bx: p16 (+) non-keratinizing SCCa, HPV type 33 (+), L neck Bx nondiagnostic D. Definitive chemoradiation (weekly cisplatin) 07/10 - 08/31/2021; 70 Gy, total cisplatin 210 mg/m2 Definitive Chemoradiation Patient's Name: Miriam Anaya Tx End Date: 08/31/2021 Year 1 pre tx wk1 wk2 wk3 wk4 wk5 wk6 wk7 3 mo 6mo 9mo 11/29/21 03/01/22 06/01/22 ON ACTIVE TREATMENT COMPLETED TREATMENT [place] - MD x x [place] x Med Onc x x x x x x x x x x Rad Onc x x x x x x x x x x Screen for Need of Lung Ca Screening x Speech x PRN PRN x PRN Soc Work x PRN PRN PRN PRN PT PRN PRN PRN Nutrition x x x x x x x x x PRN G-tube x remove Dental Consult x Mediport x remove PET/CT x x PRN Labs-CBC, CMP, Mg x x x x x x x x PRN TSH x PRN 1 to 5 YEARS 12mo 15mo 18mo 21mo 24mo 2.5yrs 3yrs 3.5yrs 4yrs 4.5yrs 5yrs 08/31/22 11/29/22 03/01/23 06/01/23 08/31/23 03/01/24 08/31/24 03/01/25 08/31/25 03/01/26 08/31/26 COMPLETED TREATMENT [place] - MD x x x [place] AP x Med Onc x x x Rad Onc x x x x Speech PRN Soc Work PRN PT PRN Nutrition PRN CT neck x Labs: CBC, CMP PRN PRN PRN PRN Labs:TSH x x x x PCP Lung imaging* x x x x PCP *Lung imaging: <10 pack-years: not needed >10 pack-years and high risk (age 55+, 30+ P-Y tobacco history within 15 years, willing/able to consider lung ca tx): consider ordering CT Chest Screening Lung Cancer. > 10 pack-years and intermediate risk (age 50+, 20+ P-Y, willing/able to consider lung ca tx): consider ordering Chest Xray PA/lateral. Over 5 YEARS: Alternate annual follow-up appointments between [place] AP and MD, beginning with AP at 6-year appt. ??? Dysphagia ??? Claustrophobia Difficulty with MRI, PET/CT scanning ??? History of gout ??? Essential hypertension ??? JOHN not on CPAP (though recommended) ??? Neck mass ??? Morbid obesity with BMI of 50.0-59.9, adult ??? Chronic atrial fibrillation Three month restaging visit. He has been recovering slowly but surely from the very difficult chemoradiation course. His swallowing has improved, taste sensation is improved but still not normal. He denies recent aspiration or obstruction problems. He is eating a larger variety of foods but still has to stick with mostly very soft/moist textures. His pharyngitis pain from radiation has resolved and is no longer needing pain medication. The mass in his left neck has largely resolved size camarena, still feels thick. He no longer has neck tenderness. His overall mobility remains quite limited. He is able to get around the house but rarely gets out of the house. He has had no recent falls nor hospitalizations. He was getting home physical therapy but has been discharged to continue exercises on his own. Physical exam: He is in good spirits. Alert, conversant. Vocal phonation and articulation are normal Oral exam shows no visible tumor, no residual mucositis. Tongue is mobile. No trismus. Neck exam shows ill-defined thickening in a roughly 3 cm area in the left mid neck. There is residual radiation hyperpigmentation but no breakdown. The lungs are clear Cardiac exam shows atrial fibrillation, good rate control Abdomen is massively obese but nontender, without obvious hepatosplenomegaly Extremities show 1+ chronic thickening of the tissue but no pitting edema. Neurologic exam shows as before a weak gait but this is unchanged. Reflexes trace. Lab work from 11/29/2021 at [facility] showed a white count of 3.76, hemoglobin down at 8.7 with MCV 103.8, and platelets 182. TSH was 2.88. Electrolytes are normal, hepatic enzymes normal, albumin 3.5, creatinine 1.10. Random glucose was 95. Additional blood work to work-up the anemia was done today: Latest Reference Range & Units 11/30/21 12:[address] % 0.7 - 2.6 % 2.[address] Abs 0.030 - 0.120 x10(6)/mcL 0.060 Immature Retic% 0.0 - 15.6 % 15.0 Reticulated Hgb 31.3 - 40.2 pg 36.1 Folate Lvl 4.8 - 24.2 ng/mL 4.9 Iron 45 - 160 mcg/dL 72 TIBC 250 - 450 mcg/dL 236 (L) Iron Saturation 20 - 50 % 31 Ferritin 30 - 400 ng/mL 1,432 (H) [1] Vitamin B-12 232 - 1,245 pg/mL 336 TSH 0.27 - 4.20 mcIU/mL 2.97 [2] Restaging CT scan was done because he was unable to tolerate the PET/CT due to claustrophobia. This showed, similar to his exam, residual thickening but no obvious active lymphadenopathy in the neck: CT chest: no signs of metastases. A few intrapulmonary lymph nodes, and a small area at L base with GGO, likely inflammatory. Impression: Slowly recovering from generally toxic course of chemoradiation, but fortunately he has had a least a good partial response and possibly a physiologic complete response. It is not surprising that he has residual thickening of the tissue in the neck given the bulk of tumor at the start. With out the metabolic information of PET/CT, however, the nature of this thickening is uncertain. Anemiais likely multifactorial, certainly there is no clear evidence of nutritional deficiencies nor of hemolysis. Plan: Observation. Reimage the neck at his next follow-up visit at 3 months. Will recheck CBC at that point as well. Edwar Perry MD, FACP journeyman welder Hematology/Oncology Section [place] [phone] Voice recognition software used for this note; please excuse community outreach worker errors. I personally reviewed past medical, surgical, family medical histories, reviewed current medications, vital signs, labs, and performed full review of systems. These are documented below the narrative for clarity and succinctness. Outpatient Medications Marked as Taking for the 11/30/21 encounter (Office Visit) with Edwar Perry MD Medication Sig Dispense Refill ??? dilTIAZem CD (Cardizem CD) 240 mg Capsule, Sust. Release 24 hr Take 240 mg by mouth daily. ??? metoprolol tartrate (Lopressor) 50 mg Tablet Take 75 mg by mouth 2 times daily. Review of Systems: Review of systems is negative for other FOREST TECHNOLOGY PROFESSOR, bone, pulmonary, cardiac, GI, , extremity, neurologic, endocrine, skin, constitutional, emotional, or functional problems. Vitals Flowsheet Row Office Visit from 11/30/2021 in Hematology and Oncology at [facility] Weight 129.8 kg (286 lb 3.2 oz) Height 176.3 cm (5' 9.41) BSA (Calculated - sq m) 2.52 sq meters BMI (Calculated) 41.76 Temp 36.2 ??C (97.2 ??F) Temp src Temporal Heart Rate 64 Resp 19 BP 109/69 BP Location Right arm Patient Position Sitting SpO2 98 % Body surface area is 2.52 meters squared. Wt Readings from Last 3 Encounters: 11/30/21 129.8 kg (286 lb 3.2 oz) 08/31/21 (!) 144.5 kg (318 lb 9.6 oz) 08/30/21 (!) 147.8 kg (325 lb 12.8 oz) No results found for this or any previous visit (from the past 72 hour(s)). ++++++++++++++++++++++++++++++++++++++++++++++++++++ documented in this encounter Plan of Treatment Upcoming Encounters Date Type Specialty Care Team Description 03/30/2022 Office Visit Hematology and Oncology Kristan Perry MD [facility] DR ONCOLOGY DEPT. [place] [phone] (Wo rk) documented as of this encounter Results Folate, serum (11/30/2021 12:33 PM EST) athologist Signature Folate Lvl 4.9 4.8 - 24.2 [facility] ng/mL [facility] Specimen Anatomical Collection Method Collection Time Receive d Time (Source) Location / / Volume Laterality Blood 11/30/2021 12:33 11/30/2021 PM EST 12:53 PM EST Resulting Agency Comment Spec In Lab Pamela Bright APRN CHEMISTRY ORDERABLES Performing Organization Address City/State/[place] [address] Vitamin B12 (11/30/2021 12:33 PM EST) athologist Signature Vitamin B-12 336 232 - 1,245 [facility]AS[facility] pg/mL [facility] Specimen Anatomical Collection Method Collection Time Receive d Time (Source) Location / / Volume Laterality Blood 11/30/2021 12:33 11/30/2021 PM EST 12:53 PM EST Resulting Agency Comment Spec In Lab Pamela Bright PSYCHOLOGY ASSISTANT CHEMISTRY ORDERABLES Performing Organization Address City/[facility]/[place] [address] (ABNORMAL) Ferritin (11/30/2021 12:33 PM EST) athologist Signature Ferritin 1,432 (H) 30 - 400 ADRIENNE CHARLY ng/mL [facility] Comment: Pediatric reference ranges not verified at [facility], interpret with caution. Reference ranges for females greater trip n 50 years of age approach values for men, i.e., 30-400 ng/mL. Specimen Anatomical Collection Method Collection Time Receive d Time (Source) Location / / Volume Laterality Blood 11/30/2021 12:33 11/30/2021 PM EST 12:53 PM EST Resulting Agency Comment Spec In Lab Pamela Bright PSYCHOLOGY ASSISTANT CHEMISTRY ORDERABLES Performing Organization Address City/[facility]/[place] [address] (ABNORMAL) Iron and TIBC (11/30/2021 12:33 PM EST) Analysis Performed At Patho logist Time Signature Iron 72 45 - 160 [facility] mcg/dL [facility] TIBC 236 (L) 250 - 450 [facility] mcg/dL [facility] Iron Saturation 31 20 - 50 % [facility] Specimen Anatomical Collection Method Collection Time Receive d Time (Source) Location / / Volume Laterality Blood 11/30/2021 12:33 11/30/2021 PM EST 12:53 PM EST Resulting Agency Comment Spec In Lab Pamela Bright PSYCHOLOGY ASSISTANT CHEMISTRY ORDERABLES Performing Organization Address City/[facility]/[place] [address] Reticulocyte Count (11/30/2021 12:33 PM EST) P athologist Signature Retic Ct % 2.0 0.7 - 2.6 [facility] % [facility] Retic Ct Abs 0.060 0.030 - ADRIENNE CHARLY 0.120 [facility] x10(6)/[facility] Immature Retic% 15.0 0.0 - 15.6 [facility] K % [facility] Reticulated Hgb 36.1 31.3 - [facility] 40.2 pg [facility] Specimen Anatomical Collection Method Collection Time Receive d Time (Source) Location / / Volume Laterality Blood 11/30/2021 12:33 11/30/2021 PM EST 12:53 PM EST Resulting Agency Comment Spec In Lab Pamela Bright APRN HEMATOLOGY ORDERABLES Performing Organization Address City/State/[place] [address] documented in this encounter Visit Diagnoses Diagnosis Tonsil cancer Malignant neoplasm of tonsil Anemia, unspecified type documented in this encounter Care Teams Toe Puller Relationship Specialty Start Date End Date Ava Morales MD PCP - General Family Medicine 04/04/[address] [place] [phone] documented as of this encounter
--- OUTSIDE RECORDS SUMMARY | 2022-03-23 07:47 | XMS_ITS | Encounter Summary ---
:1960 Author Organization [facility] [address] Care Team Providers Name Role Phone Ava Morales MD Primary Care Provider Reason for Referral Diagnostic Test (Routine) - Closed Specialty Diagnoses / Procedures Referred By Contact Refer red To Contact Diagnoses Squamous cell carcinoma of palatine tonsil Tomy Pinto MD Procedures CT Neck Soft Tissue w Contrast (Generic) [facility] [place] [address] Referral ID Status Reason Start Date Expiration Date Visits V isits Requested Authorized [id number] Closed Specialty 12/01/2021 06/03/2023 1 1 Service Requested Encounter Details Date Type Department Care Team Description 11/30/2021 Office Visit Radiation Oncology at Tomy Pinto, Squamous cell [facility] [place] carcinoma of palatine [facility] [address] [place] [address] [place] [address] [phone] Social History Tobacco Use Types Packs/Day Years [...] place to sleep or slept in a detention (including now)? Sex Assigned at Date Recorded Not on file documented as of this encounter Last Filed Vital Signs Vital Sign Reading Time Taken Comments Blood Pressure 112/75 11/30/2021 2:14 PM EST Pulse 72 11/30/2021 2:14 PM EST Temperature 36.1 ??C (96.9 ??F) 11/30/2021 2:14 PM EST Respiratory Rate - - Oxygen Saturation 100% 11/30/2021 2:14 PM EST Inhaled Oxygen Concentration - - Weight - - Height - - Body Mass Index - - documented in this encounter Progress Notes Tomy Pinto MD - 11/30/2021 2:00 PM EST Images from the original note were [...] Post-therapy course: Time from therapy completion: ~ 3 months INTERVAL HISTORY: no interval issues since last telephone visit. He continues to have VNA support. Currently, he has the following symptoms: Symptom Description Intervention Pain Denies Dysphagia Difficulty with meats and dry foods, otherwise tolerating most foods Xerostomia / Dysgeusia Minimal xerostomia, dysgeusia to ~ 80% normal [place]otene Neck Fibrosis / Lymphedema / Pain Notes tightness of left neck Dental Edentulous Nutrition Issues / Weight Loss Weight relatively stable over the past few weeks Altered strength/sensation Inability to raise left shoulder, stable since prior to initiation of treatment. Feeding Tube Not Present Skin Denies Otalgia / Hearing Changes Now constant tinnitus, hearing unchanged Smoking Status Not smoking Voice Changes Slightly raspy Other Improvement in lightheadedness when arising, able to ambulate short distances, do basic ADLs without difficulty ECOG PS: 0 Grade ECOG PERFORMANCE STATUS [...] confined to bed or chair EXAM Vitals: 11/30/21 1414 BP: 112/75 Patient Position: Sitting Pulse: 72 Temp: 36.1 ??C (96.9 ??F) TempSrc: Temporal SpO2: 100% Physical Exam Constitutional: Appearance: He is well-developed. HENT: Mouth/Throat: Comments: Visual inspection of OC and OP revealed no evidence of suspicious masses or lesions. Palpation revealed no suspicious masses and no induration along the posterior tongue. Moisture good. Pt edentulous. Eyes: Pupils: Pupils are equal, round, and reactive to light. Neck: Comments: Palpation reveals no adenopathy in cervical, SCLV, ICLV josé luis basins. Cardiovascular: Rate and Rhythm: Normal rate. Pulmonary: Effort: Pulmonary effort is normal. Breath sounds: Normal breath sounds. Skin: Findings: No erythema. Neurological: Mental Status: He is alert and oriented to person, place, and time. Cranial Nerves: No cranial nerve deficit. Psychiatric: Behavior: Behavior normal. Procedures: deferred, NPL performed in ENT HISTORY Allergies as of 11/30/2021 ??? (No Known Allergies) Past Medical History: Diagnosis Date ??? Essential hypertension 04/12/2021 ??? JOHN not on CPAP (though recommended) 04/12/2021 Past Surgical History: Procedure Laterality Date ??? IR MEDIPORT PLACEMENT 06/27/2021 IR Mediport Placement 06/27/2021 [facility] Ram[facility] [place] [facility] INTERVENTIONL RAD ??? PRO BX/REMV, LYMPH NODE, DEEP CERV Left 05/19/2021 BIOPSY OR EXCISION OF LYMPH NODE(S), OPEN, DEEP CERVICAL NODES (WRVU 6.74) performed by River Cordoba MD at [facility] MAIN OR ??? PRO LARYNGOSCOPY, DIRCT, OP SCOPE, BIOPSY Left 05/19/2021 LARYNGOSCOPY, MICROSCOPE, WITH BIOPSY (WRVU 3.55) performed by River Cordoba MD at [facility] MAIN OR ??? PRO OTOLARYNGOLOGIC EXAM UNDER GENERAL ANESTHESIA Midline 05/19/2021 OTOLARYNGOLOGIC EXAM UNDER ANESTHESIA (WRVU 1.51) performed by River Cordoba MD at [facility] MAIN OR Social History Socioeconomic History ??? Marital status: Single Spouse name: None ??? Number of children: None ??? Years of education: None ??? Highest education level: None Occupational History ??? None Tobacco Use ??? Smoking status: Never Smoker ??? Smokeless tobacco: Never Used Vaping Use ??? Vaping Use: Never used Substance and Sexual Activity ??? Alcohol use: Not Currently ??? Drug use: None ??? Sexual activity: None Other Topics Concern ??? None Social History Narrative ??? None Social Determinants of Health Financial Resource Strain: [...] Unstable Housing in the Last Year: No History reviewed. No pertinent family history. ROS: I reviewed and agree with the [...] Take 240 mg by mouth daily. ??? meloxicam (MOBIC) 7.5 mg Tablet 2 times daily. ??? acetaminophen (Tylenol) 500 mg Tablet Take 1,000 mg by mouth every 6 hours as needed for Pain. ??? metoprolol tartrate (Lopressor) 50 mg Tablet Take 75 mg by mouth 2 times daily. ??? emollient base (CREAM BASE TOP) Apply [...] No sig reported) 50 tablet 0 ??? loperamide (IMODIUM A-D) 2 mg Tablet Take 2 mg by mouth 4 times daily as needed for Diarrhea. Maximum 16 mg in 24 hours ??? magnesium oxide (Mag-Ox) 400 mg (241.3 [...] as stated. Further pertinent imaging data below EXAMINATION: CT NECK SOFT TISSUE W CONTRAST (GENERIC) ?? CLINICAL HISTORY: Head/neck cancer, assess treatment response ? TECHNIQUE: CT neck performed after the intravenous administration of contrast. . 110 cc of Omnipaque 350 administered. ?? COMPARISON: CT neck 07/26/2021 and 05/25/2021. ?? FINDINGS: The necrotic left neck mass has nearly resolved with extensive residual soft tissue inflammatory changes/scarring. No new masses. Diffuse mucosal edema involving the oropharynx and supraglottic larynx consistent with posttreatment changes. No discrete masses along the visualized upper aerodigestive tract. No salivary gland masses. Normal thyroid gland. Right central line is in place. Visualized paranasal sinuses are clear. ?? IMPRESSION ?? 1. Left necrotic neck mass has nearly resolved with extensive residual nonspecific soft tissue inflammation/scarring. EXAMINATION: CT CHEST W CONTRAST ?? CLINICAL HISTORY: Head/neck cancer, assess treatment response ?? TECHNIQUE: 3.75 mm thick axial contiguous sections were obtained through the chest via helical acquisition after the intravenous administration of 110.0 ml of OMNIPAQUE 350.00 mg/ml. Thin-section reconstructions as well as coronal and sagittal reformatted images were generated. ?? COMPARISON: CT chest 05/25/2021 ?? FINDINGS: Pulmonary parenchyma: An approximately 23 x 20 x 8 mm discoid groundglass opacity in the basal left lower lobe abutting the major fissure, with eccentric peripheral fissural 5 mm solid-appearing nodular component, the latter being apparent on series 4 image 192 of prior (allowing for low lung volumes from shallow inspiration), likely reflecting an intrapulmonary lymph node. A few 1 to 2 mm nodules on the right on series 7 images 75, 104, 172, 228 and 317. Cluster of perifissural small nodules on the right see series 7 images 253, 257, 265 and 272, also favored to be intrapulmonary lymph nodes, with at least some faintly visible on series 4 image 185 of prior. ?? Airways: No significant findings. Pleura: No pleural effusion. Lymph nodes: No lymphadenopathy. Heart, pericardium, and great vessels: Right 2IJ central venous catheter, tip in the mid SVC. Other mediastinal structures: No significant findings. Lower neck: CT neck reported separately. Upper abdomen: Unchanged cholelithiasis and small hypoattenuating lesions in the liver, likely cysts. Body wall soft tissues: No significant findings. Skeletal structures: No suspicious lytic or sclerotic lesions. ?? IMPRESSION 1. Discoid groundglass opacity in basal left lower lobe, indeterminate, question focal inflammatory/infectious process. Consider low radiation dose noncontrast chest CT follow-up in 3 months, with or without interval empiric treatment, to look for persistence versus position. 2. A few 1 to 2 mm nodules in the right lung, as well as some perifissural nodules compatible with intrapulmonary lymph nodes. Latest Reference Range & Units 11/30/21 12:33 TSH 0.27 - 4.20 mcIU/mL 2.97 [1] [1] Reference Interval (mcIU/mL): Females: First Trimester: 0.23-3.88 Second Trimester: 0.22-3.90 Third Trimester: 0.44-4.66 ASSESSMENT / PLAN Disease Status: ANGE clinically, but as he is unable to get a PET-CT the residual changes in his neckare of unclear significance. He has had a dramatic [place], but has residual small volume mass in his left neck. As such, it would be reasonable to get a CT HN w/ contrast at his next visit to ensure stability. Toxicity: ?? Xerostomia / Dysgeusia: expected toxicities, discussed expectation of improvement ?? Dysphagia: moderate, tolerating ?? Left shoulder / trapezius weakness: likely secondary to malignant involvement, we discussed that he may not see improvement despite resolution of malignancy ?? Dental: has not yet seen dentist, Rx for high fluoride toothpaste prescribed, encouraged to see dentist in the near future. ?? Thyroid Function: WNL today FU: follow per HN grid documented in this encounter Plan of Treatment Upcoming Encounters Date Type Specialty Care Team Description 03/30/2022 Office Visit Hematology and Oncology Kristan Perry MD [facility] DR ONCOLOGY DEPT. 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
--- OUTSIDE RECORDS SUMMARY | 2022-03-23 07:47 | XMS_ITS | Encounter Summary ---
:1960 Author Organization [facility] [place] [place] [address] Care Team Providers Name Role Phone Ava Morales MD Primary Care Provider Encounter Details Date Type Department Care Team Description 11/23[facility]21 [facility] [address] [phone] Social History Tobacco Use [...] place to sleep or slept in a fdc (including now)? Sex Assigned at Date Recorded Not on file documented as of this encounter Miscellaneous Notes Telephone Encounter - Maryanne Sykes - 11/23/2021 10:14 AM EST I called and left VM about his concern for getting around 11/30/21 at . I reassured him that if he came to the main entrance that security would be there to help him with the wheelchair and to his appointment. Then after that the transport people would get him to each appointment after that. I told him to call back when he got the message. documented in this encounter Plan of Treatment Upcoming Encounters Date Type Specialty Care Team Description 03/30/2022 Office Visit Hematology and Oncology Kristan Perry MD [facility] [address] ONCOLOGY DEPT. [place], [place] [address] (Wo rk) documented as of this encounter Visit Diagnoses Not on filedocumented in this encounter Care Teams Hand Etcher Relationship Specialty Start Date End Date Ava Morales MD PCP - General Family Medicine 04/04/[address] [place] [phone] documented as of this encounter
--- OUTSIDE RECORDS SUMMARY | 2022-03-23 07:47 | XMS_ITS | Encounter Summary ---
:1960 Author Organization [facility] Address [facility] [place] [address] Care Team Providers Name Role Phone Ava Morales MD Primary Care Provider Encounter Details Date Type Department Care Team Description 03/01/2022 Orders Only Hematology and Oncol moraima at [facility] Gwendolyn Stahl [facility] [place] [phone] Social History Tobacco Use Types Packs/Day Years [...] place to sleep or slept in a senior living (including now)? Sex Assigned at Date Recorded Not on file documented as of this encounter Plan of Treatment Upcoming Encounters Date Type Specialty Care Team Description 03/30/2022 Office Visit Hematology and Oncology Kristan Perry MD [facility] DR ONCOLOGY DEPT. [place], [place] [address] (Wo rk) documented as of this encounter Visit Diagnoses Not on filedocumented in this encounter Care Teams Meeting Manager Relationship Specialty Start Date End Date Ava Morales MD PCP - General Family Medicine 04/04/21 [address] [place] [phone] documented as of this encounter
--- OUTSIDE RECORDS SUMMARY | 2022-03-23 07:47 | XMS_ITS | Encounter Summary ---
:1960 Author Organization [facility] [place] [address] Care Team Providers Name Role Phone Ava Morales MD Primary Care Provider Encounter Details Date Type Department Care Team Description 11/30/2021 Hospital Encounter Hematology and Anemia, unspecified Oncology at [facility] [place] [address] Social History Tobacco Use Types Packs/Day [...] to sleep or slept in a senior care (including now)? Sex Assigned at Date Recorded Not on file documented as of this encounter Medications at Time of Discharge Medication Sig Dispensed Refills Start Date End Date Sodium Fluoride (Clinpro Put a pea sized 100 mL 3 2021 5000) 1.1 % Paste amount on toothbrush, brush twice daily. Do not swallow. dilTIAZem CD (Cardizem CD) Take 240 mg by mouth 0 240 mg Capsule, Sust. daily. Release 24 hr emollient base (CREAM BASE Apply topically. 0 TOP) Jeans Cream. Apply to area of radiation twice a day but no less than 2 hours before a treatment. pantothenic Ac-Min Apply topically. 0 Oil-Pet,Hyd (Aquaphor) 41 % Ointment LORazepam (Ativan) 1 mg Take one to two 50 tablet 0 021 Tablet pills by mouth a 1/2 hour prior to radiation therapy loperamide (IMODIUM A-D) 2 Take 2 mg by mouth 4 0 mg Tablet times daily as needed for Diarrhea. Maximum 16 mg in 24 hours magnesium oxide (Mag-Ox) Take 1 tablet by 60 tablet 5 07/24 400 mg (241.3 mg magnesium) mouth 2 times daily. TabletIndications: Tonsil cancer, Hypomagnesemia prochlorperazine TAKE 1 TABLET BY 30 tablet 3 07/14/2021 (Compazine) 10 mg MOUTH EVERY 6 HOURS TabletIndications: Tonsil NEEDED FOR NAUSEA cancer, Chemotherapy induced nausea and vomiting traMADoL (Ultram) 50 mg Take 0.5-1 tablets 30 tablet 0 05/25 TabletIndications: Tonsil by mouth as needed. cancer oxyCODONE (Roxicodone) 5 mg Take 1 tablet by 45 tablet 0 Tablet mouth every 4 hours as needed for Pain. meloxicam (MOBIC) 7.5 mg 2 times daily. 0 021 Tablet acetaminophen (Tylenol) 500 Take 1,000 mg by 0 mg Tablet mouth every 6 hours as needed for Pain. metoprolol tartrate Take 75 mg by mouth 0 (Lopressor) 50 mg Tablet 2 times daily. documented as of this encounter Progress Notes Carissa Graham RN - 11/30/2021 12:37 PM EST Patient Name: Miriam Anaya Patient Age: 61 y.o. Birthdate: 1960 Admit date: 11/30/2021 Attending Physician: No att. providers found Access visit. See MAR and/or flowsheet. documented in this encounter Plan of Treatment Upcoming Encounters Date Type Specialty Care Team Description 03/30/2022 Office Visit Hematology and Oncology Kristan Perry MD [facility] [address] ONCOLOGY DEPT. [place], [place] [address] (Wo rk) documented as of this encounter Procedures Procedure Name Priority Date/Time Associated Diagnosis Comme nts HC IRON BINDING Routine 11/30/2021 12:33 PM Anemia, unspecifie d Results for this CAPACITY EST type procedure are i n the results section. HC RETIC,AUTO Routine 11/30/2021 12:33 PM Anemia, unspecified Results for this INCLUDES RETHE & EST type procedure a re in IRF the results section. TSH Routine 11/30/2021 12:33 PM Results for this EST procedure are i n the results section. HC FOLATE, SERUM Routine 11/30/2021 12:33 PM Anemia, unspecifi ed Results for this EST type procedure are i n the results section. HC FERRITIN, SERUM Routine 11/30/2021 12:33 PM Anemia, unspeci fied Results for this EST type procedure are i n the results section. HC VITAMIN B12 Routine 11/30/2021 12:33 PM Anemia, unspecified Results for this SERUM EST type procedure are i n the results section. documented in this encounter Results TSH (11/30/2021 12:33 PM EST) P athologist Signature TSH 2.97 0.27 - 4.20 ADRIENNE CHARLY mcIU/mL [facility] Comment: Reference Interval (mcIU/mL): Females: ??First Trimester: 0.23-3.88 ??Second Trimester: 0.22-3.90 ??Third Trimester: 0.44-4.66 Specimen Anatomical Collection Method Collection Time Receive d Time (Source) Location / / Volume Laterality Blood Venous Draw / 11/30/2021 12:33 11/30/2021 Unknown PM EST 12:56 PM EST Resulting Agency Comment Spec In Lab Tomy Pinto MD CHEMISTRY ORDERABLES Performing Organization Address City/[facility]/[place] [address] Reticulocyte Count (11/30/2021 12:33 PM EST) P athologist Signature Retic Ct % 2.0 0.7 - 2.6 [facility] Retic Ct Abs 0.060 0.030 - [facility] 0.120 [place] x10(6)/[facility] LABORATORY Immature Retic% 15.0 0.0 - 15.6 [facility] K [facility] Reticulated Hgb 36.1 31.3 - [facility] 40.2 [facility] LABORATORY Specimen Anatomical Collection Method Collection Time Receive d Time (Source) Location / / Volume Laterality Blood 11/30/2021 12:33 11/30/2021 PM EST 12:53 PM EST Resulting Agency Comment Spec In Lab Pamela Bright APRN HEMATOLOGY ORDERABLES Performing Organization Address City/[facility]/[place] [address] (ABNORMAL) Iron and TIBC (11/30/2021 12:33 PM EST) Analysis Performed At Patho logist Time Signature Iron 72 45 - 160 [facility] mcg/dL [facility] TIBC 236 (L) 250 - 450 [facility] mcg/dL [facility] Iron Saturation 31 20 - 50 % [facility] Specimen Anatomical Collection Method Collection Time Receive d Time (Source) Location / / Volume Laterality Blood 11/30/2021 12:33 11/30/2021 PM EST 12:53 PM EST Resulting Agency Comment Spec In Lab Pamela Bright APRN CHEMISTRY ORDERABLES Performing Organization Address City/[facility]/[place] [address] (ABNORMAL) Ferritin (11/30/2021 12:33 PM EST) athologist Signature Ferritin 1,432 (H) 30 - 400 ADRIENNE MUSTAFACOCK ng/mL [facility] Comment: Pediatric reference ranges not verified at [facility], interpret with caution. Reference ranges for females greater trip n 50 years of age approach values for men, i.e., 30-400 ng/mL. Specimen Anatomical Collection Method Collection Time Receive d Time (Source) Location / / Volume Laterality Blood 11/30/2021 12:33 11/30/2021 PM EST 12:53 PM EST Resulting Agency Comment Spec In Lab Pamela Bright APRN CHEMISTRY ORDERABLES Performing Organization Address [facility]/ZIP [facility] [place] [address] Vitamin B12 (11/30/2021 12:33 PM EST) athologist Signature Vitamin B-12 336 232 - 1,245 ADRIENNE CHARLY pg/mL [facility] Specimen Anatomical Collection Method Collection Time Receive d Time (Source) Location / / Volume Laterality Blood 11/30/2021 12:33 11/30/2021 PM EST 12:53 PM EST Resulting Agency Comment Spec In Lab Pamela Bright APRN CHEMISTRY ORDERABLES Performing Organization Address City/[facility] [place] [address] Folate, serum (11/30/2021 12:33 PM EST) athologist Signature Folate Lvl 4.9 4.8 - 24.2 ADRIENNE VARGASCHARLY ng/mL [facility] Specimen Anatomical Collection Method Collection Time Receive d Time (Source) Location / / Volume Laterality Blood 11/30/2021 12:33 11/30/2021 PM EST 12:53 PM EST Resulting Agency Comment Spec In Lab Pamela Bright APRN CHEMISTRY ORDERABLES Performing Organization Address City/[facility] [place] [address] documented in this encounter Visit Diagnoses Diagnosis Anemia, unspecified type documented in this encounter Care Teams Ratings Analyst Relationship Specialty Start Date End Date Ava Morales MD PCP - General Family Medicine 04/04/[address] [place] [phone] documented as of this encounter
--- OUTSIDE RECORDS SUMMARY | 2022-03-23 07:47 | XMS_ITS | Encounter Summary ---
:1960 Author Organization [facility] [place] [address] Care Team Providers Name Role Phone Ava Morales MD Primary Care Provider Reason for Referral Diagnostic Test (Routine) - Closed Specialty Diagnoses / Procedures Referred By Contact Refer red To Contact Radiology Diagnoses Tonsil cancer Pamela Bright APRN [facility] Rad Ct Scan Procedures CT Chest w Contrast [facility] [place], [place] [id number] [place] [phone] Referral ID Status Reason Start Date Expiration Date Visits V isits Requested Authorized [id number] Closed Specialty 11/04/2021 05/03/2022 1 1 Service Requested Diagnostic Test (Routine) - Closed Specialty Diagnoses / Procedures Referred By Contact Refer red To Contact Radiology Diagnoses Tonsil cancer Pamela Bright APRN [facility] Rad Ct Scan Procedures CT Neck Soft Tissue w Contrast (Generic) [facility] [place] [address] [place] [address] Referral ID Status Reason Start Date Expiration Date Visits V isits Requested Authorized [id number] Closed Specialty 11/04/2021 05/03/2022 1 1 Service Requested Reason for Visit Diagnostic Test (Routine) - Closed Specialty Diagnoses / Procedures Referred By Contact Refer red To Contact Radiology Diagnoses Tonsil cancer Pamela Bright, FILIBERTO [facility] Scan Procedures CT Neck Soft Tissue w Contrast (Generic) [facility] [place] [address] [place] [phone] Referral ID Status Reason Start Date Expiration Date Visits V isits Requested Authorized [id number] Closed Specialty 11/04/2021 05/03/2022 1 1 Service Requested Encounter Details Date Type Department Care Team Description 11/30/[address] [place] [facility] Pamela Bright, Tonsil cancer [facility] [place] [address] [place] [address] [phone] (Wo rk) Social History Tobacco Use Types Packs/Day Years [...] Sig Dispensed Refills Start Date End Date dilTIAZem CD (Cardizem CD) Take 240 mg [...] times daily. documented as of this encounter Plan of Treatment Upcoming Encounters Date Type Specialty Care Team Description 03/30/2022 Office Visit Hematology and Oncology Kristan Perry MD [facility] DR ONCOLOGY DEPT. [place], [place] [address] (Wo rk) documented as of this encounter Procedures Procedure Name Priority Date/Time Associated Diagnosis Comme nts CT CHEST W CONTRAST Routine 11/30/2021 9:47 AM Tonsil cancer R esults for this EST procedure are i n the results section. CT NECK SOFT TISSUE Routine 11/30/2021 9:47 AM Tonsil cancer R esults for this W CONTRAST EST procedure are i n the results section. documented in this encounter Results CT Chest w Contrast (11/30/2021 9:47 AM EST) Anatomical Region Laterality Modality Chest Computed Tomography Specimen (Source) Anatomical Location Collection Method / Collectio n Time Received Time / Laterality Volume Impressions 11/30/2021 1:45 PM EST 1. ??Discoid groundglass opacity in basal left lower lobe, indeterminate, question focal inflammatory/infectious p rocess. Consider low radiation dose noncontrast chest CT follow-up in 3 ida hs, with or without interval empiric treatment, to look for persistence versu s position. 2. ??A few 1 to 2 mm nodules in the righ t lung, as well as some perifissural nodules compatible with intrapulmonary l ymph nodes. I have personally reviewed the image(s) and the resident's interpretation and agree with the findings, Shayy Henderson MD at 11/30/2021 1:45 PM Thank you for letting us participate in the care of this patient. ??If you are a health care provider and have any questi ons regarding this report, please contact the number below. ??For patients who have questions please contact the health career services director that requested your imaging first. ? Narrative 11/30/2021 1:45 PM EST EXAMINATION: CT CHEST W CONTRAST CLINICAL HISTORY: Head/neck cancer, asse ss treatment response TECHNIQUE: 3.75 mm thick axial contiguou s sections were obtained through the chest via helical acquisition after the intravenous administration of 110.0 ml of OMNIPAQUE 350.00 mg/ml. Thin-section reconstructions as well as coronal and sagittal reformatted images were generat ed. COMPARISON: CT chest 05/25/2021 FINDINGS: Pulmonary parenchyma: An approximately 23 x 20 x 8 mm discoid groundglass opacity in the basal left lower lobe abutting the major fissure, w ith eccentric peripheral fissural 5 mm solid-appearing nodular component, the l atter being apparent on series 4 image 192 of prior (allowing for low lung volu mes from shallow inspiration), likely reflecting an intrapulmonary lymph node. A few 1 to 2 mm nodules on the right on series 7 images 75, 104, 172, 228 and 317. Cluster of perifissural small nodules on the right see series 7 images 253, 257, 265 and 272, also favored to be intrapul monary lymph nodes, with at least some faintly visible on series 4 image 185 of prior. Airways: No significant findings. Pleura: No pleural effusion. Lymph nodes: No lymphadenopathy. Heart, pericardium, and great vessels: R ight 2IJ central venous catheter, tip in the mid SVC. Other mediastinal structures: No signifi cant findings. Lower neck: CT neck reported separately. Upper abdomen: Unchanged cholelithiasis and small hypoattenuating lesions in the liver, likely cysts. Body wall soft tissues: No significant f indings. Skeletal structures: No suspicious lytic or sclerotic lesions. Procedure Note Shayy Henderson MD - 11/30/2021Formatt ing of this note might be different from the original. EXAMINATION: CT CHEST W CONTRAST CLINICAL HISTORY: Head/neck cancer, asse ss treatment response TECHNIQUE: 3.75 mm thick axial contiguou s sections were obtained through the chest via helical acquisition after the intravenous administration of 110.0 ml of OMNIPAQUE 350.00 mg/ml. Thin-section reconstructions as well as coronal and sagittal reformatted images were generat ed. COMPARISON: CT chest 05/25/2021 FINDINGS: Pulmonary parenchyma: An approximately 23 x 20 x 8 mm discoid groundglass opacity in the basal left lower lobe abutting the major fissure, w ith eccentric peripheral fissural 5 mm solid-appearing nodular component, the l atter being apparent on series 4 image 192 of prior (allowing for low lung volu mes from shallow inspiration), likely reflecting an intrapulmonary lymph node. A few 1 to 2 mm nodules on the right on series 7 images 75, 104, 172, 228 and 317. Cluster of perifissural small nodules on the right see series 7 images 253, 257, 265 and 272, also favored to be intrapul monary lymph nodes, with at least some faintly visible on series 4 image 185 of prior. Airways: No significant findings. Pleura: No pleural effusion. Lymph nodes: No lymphadenopathy. Heart, pericardium, and great vessels: R ight 2IJ central venous catheter, tip in the mid SVC. Other mediastinal structures: No signifi cant findings. Lower neck: CT neck reported separately. Upper abdomen: Unchanged cholelithiasis and small hypoattenuating lesions in the liver, likely cysts. Body wall soft tissues: No significant f indings. Skeletal structures: No suspicious lytic or sclerotic lesions. IMPRESSION 1. Discoid groundglass opacity in basal left lower lobe, indeterminate, question focal inflammatory/infectious p rocess. Consider low radiation dose noncontrast chest CT follow-up in 3 ida hs, with or without interval empiric treatment, to look for persistence versu s position. 2. A few 1 to 2 mm nodules in the right lung, as well as some perifissural nodules compatible with intrapulmonary l ymph nodes. I have personally reviewed the image(s) and the resident's interpretation and agree with the findings, Shayy Henderson MD at 11/30/2021 1:45 PM Thank you for letting us participate in the care of this patient. If you are a health care provider and have any questi ons regarding this report, please contact the number below. For patients w ho have questions please contact the health career services director that requested your imaging first. Pamela Bright APRN IMG CT ORDERABLES CT Neck Soft Tissue w Contrast (Generic) (11/30/2021 9:47 AM EST) Anatomical Region Laterality Modality Neck, Head Computed Tomography Specimen (Source) Anatomical Location Collection Method / Collectio n Time Received Time / Laterality Volume Impressions 11/30/2021 11:17 AM EST 1. ??Left necrotic neck mass has nearly resolved with extensive residual nonspecific soft tissue inflammation/sca rring. 2. ??No recurrent masses. Thank you for letting us participate in the care of this patient. ??If you are a health care provider and have any questi ons regarding this report, please contact the number below. ??For patients who have questions please contact the health career services director that requested your imaging first. ? Narrative 11/30/2021 11:17 AM EST EXAMINATION: CT NECK SOFT TISSUE W CONTRAST (GENERIC) CLINICAL HISTORY: Head/neck cancer, asse ss treatment response TECHNIQUE: CT neck performed after the intravenous administration of contrast. . 110 cc of Omnipaque 350 administered. COMPARISON: CT neck 07/26/2021 and 05/25/2021. FINDINGS: The necrotic left neck mass has nearly r esolved with extensive residual soft tissue inflammatory changes/scarring. No new masses. Diffuse mucosal edema involving the oropharynx and supraglotti c larynx consistent with posttreatment changes. No discrete masses along the vi sualized upper aerodigestive tract. No salivary gland masses. Normal thyroid gl and. Right central line is in place. Visualized paranasal sinuses are clear. Procedure Note Donny Cordova MD - 11/30/2021Formatti ng of this note might be different from the original. EXAMINATION: CT NECK SOFT TISSUE W CONTR AST (GENERIC) CLINICAL HISTORY: Head/neck cancer, asse ss treatment response TECHNIQUE: CT neck performed after the intravenous administration of contrast. . 110 cc of Omnipaque 350 administered. COMPARISON: CT neck 07/26/2021 and 05/25/2021. FINDINGS: The necrotic left neck mass has nearly r esolved with extensive residual soft tissue inflammatory changes/scarring. No new masses. Diffuse mucosal edema involving the oropharynx and supraglotti c larynx consistent with posttreatment changes. No discrete masses along the vi sualized upper aerodigestive tract. No salivary gland masses. Normal thyroid gl and. Right central line is in place. Visualized paranasal sinuses are clear. IMPRESSION 1. Left necrotic neck mass has nearly re solved with extensive residual nonspecific soft tissue inflammation/sca rring. 2. No recurrent masses. Thank you for letting us participate in the care of this patient. If you are a health care provider and have any questi ons regarding this report, please contact the number below. For patients w ho have questions please contact the health career services director that requested your imaging first. Pamela Bright APRN IMG CT ORDERABLES documented in this encounter Visit Diagnoses Diagnosis Tonsil cancer Malignant neoplasm of tonsil documented in this encounter Administered Medications Inactive Administered Medications - up to 3 most recent administrations Medication Order MAR Action Action Date Dose Rate Site iohexoL (Omnipaque) (350 mg/mL) Given 11/30/2021 9:47 AM EST 110 mLs solution 0-200 mL 0-200 mL, Intravenous, ONCE PRN, 1 dose, Starting on Evy 11/30/21 at 0947, Until Evy 11/30/21 at 0947, Per Protocol, Warning Vesicant/Irritant Medication , Radiology Contrast, Routine documented in this encounter Care Teams Feed Grinder Relationship Specialty Start Date End Date Ava Morales MD PCP - General Family Medicine 04/04/[address] [place] [phone] documented as of this encounter
--- OUTSIDE RECORDS SUMMARY | 2022-03-23 07:47 | XMS_ITS | Encounter Summary ---
:1960 Author Organization [facility] [place] [address] Care Team Providers Name Role Phone Ava Morales MD Primary Care Provider Encounter Details Date Type Department Care Team Description 11/24/2021 [facility] [address] [phone] Social History Tobacco Use [...] place to sleep or slept in a long term (including now)? Sex Assigned at Date Recorded Not on file documented as of this encounter Miscellaneous Notes Telephone Encounter - Maryanne Sykes - 11/24/2021 10:15 AM EST I called the [facility] and confirmed that they could draw his labs Saturday. I was instructedto send the lab orders to them at [phone]. I sent them after the call. documented in this encounter Plan of Treatment Upcoming Encounters Date Type Specialty Care Team Description 03/30/2022 Office Visit Hematology and Oncology Kristan Perry MD [facility] ONCOLOGY DEPT. [place], [place] [address] (Wo rk) documented as of this encounter Visit Diagnoses Not on filedocumented in this encounter Care Teams Naval Science Teacher Relationship Specialty Start Date End Date Ava Morales MD PCP - General Family Medicine 04/04/[address] [place] [phone] documented as of this encounter
--- OUTSIDE RECORDS SUMMARY | 2022-03-23 07:47 | XMS_ITS | Clinical Summary ---
:1960 Author Organization [facility] [place] [address] Care Team Providers Name Role Phone Ava Morales MD Primary Care Provider Allergies No known active allergies Medications Medication Sig Dispensed Refills Start Date End Date Status metoprolol tartrate Take 75 mg by 0 Active (Lopressor) 50 mg Tablet mouth 2 times daily. acetaminophen (Tylenol) Take 1,000 mg by 0 Active 500 mg Tablet mouth every 6 hours as needed for Pain. meloxicam (MOBIC) 7.5 mg 2 times daily. 0 05/24/2021 Active Tablet oxyCODONE (Roxicodone) 5 Take 1 tablet by 45 tablet 0 06/07/20 21 Active mg Tablet mouth every 4 hours as needed for Pain. Additional Information Patient not taking. Reported on 11/06/2021 traMADoL (Ultram) 50 mg Take 0.5-1 tablets by 30 tablet 0 05/25 Active TabletIndications: Tonsil cancer mouth as needed. Additional Information Patient not taking. Reported on 11/06/2021 prochlorperazine (Compazine) 10 TAKE 1 TABLET BY 30 tablet 3 1 Active mg TabletIndications: Tonsil MOUTH EVERY 6 HOURS cancer, Chemotherapy induced NEEDED FOR NAUSEA nausea and vomiting Additional Information Patient not taking. Reported on 11/06/2021 loperamide (IMODIUM A-D) 2 mg Take 2 mg by mouth 4 0 Active Tablet times daily as needed for Diarrhea. Maximum 16 mg in 24 hours magnesium oxide (Mag-Ox) 400 Take 1 tablet by mouth 2 60 tablet 5 07/24/2021 Active mg (241.3 mg magnesium) times daily. TabletIndications: Tonsil cancer, Hypomagnesemia Additional Information Patient not taking. Reported on 11/30/2021 LORazepam (Ativan) 1 mg Take one to two pills by 50 tablet 0 1 09/25/2020 Active Tablet mouth a 1/2 hour prior to radiation therapy Additional Information Patient not taking. Reported on 11/30/2021 emollient base (CREAM BASE Apply topically. Jeans 0 Active TOP) Cream. Apply to area of radiation twice a day but no less than 2 hours before a treatment. pantothenic Ac-Min Apply topically. 0 Active Oil-Pet,Hyd (Aquaphor) 41 % Ointment dilTIAZem CD (Cardizem CD) Take 240 mg by mouth daily. 0 Active 240 mg Capsule, Sust. Release 24 hr Sodium Fluoride (Clinpro Put a pea sized amount on 100 mL 3 11/30/2021 Active 5000) 1.1 % Paste toothbrush, brush twice daily. Do not swallow. Additional Information Patient not taking. Reported on 03/21/2022 Hospital, Clinic, or Other Ordered Dose Route Frequency Start Date End Date Status Facility Administered Medication lidocaine (Xylocaine) 4 % (40 Top ONCE PRN 03/21/2022 Active mg/mL) solution Active Problems Problem Noted Date Dysphagia 07/10/2021 Claustrophobia 06/20/2021 Overview: Difficulty with MRI, PET/CT scanning History of gout 06/20/2021 Tonsil cancer 06/19/2021 Overview: Formatting of this note is dif ferent from the original. cT1 N3 M0, p16(+), never-smoker (AJCC 8t h ed) A. L parotid mass noted 09/2020; progress alana enlargement, local pain, headache B. 7 X 6 cm L upper mass at evaluation -02/2021, FNA X 2 nondiagnostic C. EUA 05/19/2021: small L BOT mass, Bx: p16 (+) non-keratinizing SCCa, HPV type 33 (+), L neck Bx nondiagnostic D. Definitive chemoradiation (weekly cis platin) 07/10 - 08/31/2021; 70 Gy, total cisplatin 210 mg/m2 Definitive Chemoradiation Patient's Name: Miriam Anaya 2-8 Tx End Date: 08/31/2021 Year 1 pre tx wk1 wk2 wk3 wk4 wk5 wk6 wk 7 3 mo 6mo 9mo 11/29/21 03/01/22 06/01/22 ON ACTIVE TREATMENT COMPLETED TREATMENT [place] - [place] x x [place] - [facility] x Med Onc x x [...] 5 YEARS 12mo 15mo 18mo 21mo 24mo 2. 5yrs 3yrs 3.5yrs 4yrs 4.5yrs 5yrs 08/31/22 11/29/22 03/01/23 06/01/2306/1503/01/24 08/31/24 03/01/25 08/31/25 03/01/26 08/31/26 COMPLETED TREATMENT [place] - x x x [facility] - AP x Med Onc x x x Rad Onc x x x x Speech PRN Soc Work PRN PT PRN Nutrition PRN CT neck x Labs: CBC, CMP PRN PRN PRN PRN Labs:TSH x x x x PCP Lung imaging* x x x x PCP *Lung imaging: <10 pack-years: not neede d >10 pack-years and high risk (age 55+, 30+ P-Y tobacco history within 15 years, willing/able to consider lung ca tx): consider ordering CT Chest Screening Lung Cancer. > 10 pack-years and intermediate risk ( age 50+, 20+ P-Y, willing/able to consider lung ca tx): consider ordering Chest Xray PA/lateral. Over 5 YEARS: Alternate annual follow-up appointments between [place] AP and MD, beginning with AP at 6-year appt. Essential hypertension 04/12/2021 JOHN not on CPAP (though recommended) 04/12/2021 Neck mass 03/16/2021 Morbid obesity with BMI of 50.0-59.9, adult 03/16/2021 Chronic atrial fibrillation 03/16/2021 Encounters Date Type Specialty Care Team Description 03/21/2022 Office Visit Radiation Oncology Tomy Pinto MD carcinoma of palatine tonsil 03/15/2022 Ancillary Procedure Radiology Ava Morales MD 03/01/2022 Orders Only Hematology and Gwendolyn Stahl Oncology 02/08/2022 Telephone Hematology and Jacinto Marin Oncology L from Last 3 Months Social History Tobacco Use Types Packs/Day Years [...] place to sleep or slept in a snf (including now)? Sex Assigned at Date Recorded Not on file Last Filed Vital Signs Vital Sign Reading [...] with fli p flops oz) EDT Height 177.8 cm (5' 10) 11/30/2021 1:32 PM EST Body Mass Index 40.2 11/30/2021 1:32 PM EST Plan of Treatment Upcoming Encounters Date Type Specialty Care Team Description 03/30/2022 Office Visit Hematology and Oncology Kristan Perry MD [facility] ONCOLOGY DEPT. [place], [place] [address] (Wo rk) Health Maintenance Due Date Last Done Comments Covid-19 Vaccine (#1) 1965 Pneumococcal Vaccine: At-Risk 5-64yrs (1 - PCV) 1966 HIV screen 1978 Hepatitis C Screening 1978 Lipid Screening 1978 Tdap adult 1979 Tetanus vaccine 1979 Colonoscopy 2005 Zoster vaccine (1 of 2) 2010 Influenza (Flu) vaccine (1 of 1 - Influenza standard 05/24/2021 series) Diabetes Screening (HgbA1C or Glucose) 04/13/2024 Medical Devices Implanted Type Area Powder Shoveler Device Shelf Model / Identifier Expiration Serial / Date Lot Port Infusion 8fr Cath Power Injectable Lp 1lum Ct Ti [id number]/27/2021 IMPLANTS CR [employer] - CR 11/20/2022 [id number] / Implanted: Qty: 1 on 06/27/2021 by Cyril Ram PA BARD / [id number] Procedures Procedure Name Priority Date/Time Associated Diagnosis Comme nts CT SCAN (SCAN) 03/16/2022 12:00 AM Result s for this EDT procedure are i n the results section. FILM LIBRARY - Routine 03/15/2022 12:00 AM Result s for this STORAGE ONLY CT EDT procedure ar e in NECK the results section. CT SCAN (SCAN) 03/13/2022 12:00 AM Result s for this EDT procedure are i n the results section. from Last 3 Months Results SCAN DOC: CT SCAN (03/16/2022 12:00 AM EDT)Only the most recent of2 results within the time period is included. Narrative This result has an attachment that is no t available. Unknown MEDIA MGR SCAN EXT ORDR/RSLT Film Library- Storage Only CT Neck (03/15/2022 12:00 AM EDT) Specimen (Source) Anatomical Location Collection Method / Collectio n Time Received Time / Laterality Volume Narrative RAD - 03/16/2022 11:43 AM EDT This exam is auto-finalizing. It's purpo se is for storage only. 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
--- OUTSIDE RECORDS SUMMARY | 2022-03-23 07:47 | XMS_ITS | Encounter Summary ---
:1960 Author Organization [facility] [place] [address] Care Team Providers Name Role Phone Ava Morales MD Primary Care Provider Reason for Visit Reason Comments Follow-up Review CT scan and labs Encounter Details Date Type Department Care Team Description 11/30/2021 Office Visit Otolaryngology at [facility] Squamous cell [facility] Subhash Gil [place] [address] [place] [address] tonsil [phone] [facility] DE[facility] [place], [place] [address] Social History Tobacco Use Types [...] Sign Reading Time Taken Comments Blood Pressure - - Pulse - - Temperature - - Respiratory Rate - - Oxygen Saturation - - Inhaled Oxygen Concentration - - Weight 129.7 kg (286 lb) 11/30/2021 1:32 PM EST Height 177.8 cm (5' 10) 11/30/2021 1:32 PM EST Body Mass Index 41.04 11/30/2021 1:32 PM EST documented in this encounter Progress Notes River Cord[facility] MD - 11/30/2021 1:20 PM EST Images from the original note were not included. Subjective Patient ID: Miriam Anaya is a 61 y.o. male. HPI 60 yo M 60-year-old male with morbid obesity (BMI 48) who??become aware of a small mass in the posterior inferior aspect of the left parotid region x 8 months?? increased in size and has become symptomatic with pain and pressure sensation. Denies TMJ issue, as well as denying facial nerve change, accessory nerve dysfunction, change in taste/speech/breathing/voice. FNAB x 2 unrevealing Examination: morbid obesity, 7 x 6 cm fixed mass left neck levels 2,3, unremarkable pharynx Could not tolerate PET CT Taken to the OR for endoscopy and smal lesion noted junction of left BOT to inferior palatine tonsil, open bx of neck mass done A - LEFT lower tonsil, biopsy: Non-keratinizing squamous cell carcinoma, p16 positive. (see Discussion) B - LEFT deep neck biopsy: Fibroadipose tissue and muscle with fibrosis and patchy non-specific chronic ??inflammation. January 2021: Large left neck necrotic mass against lateral aspect of external carotid. Some mild left BOT asymmetry New neck and chest CT pending 04.24.21 Management: cT1 N3 M0, p16(+), never-smoker (AJCC 8th [...] 08/31/2021; 70 Gy, total cisplatin 210 mg/m2 He is feeling rather well. And reports that he continues to improve slowly. He remains in good spirits. He still feels weak but this is slowly also improving and is now able to do all of his ADLs independently. He is eating relatively various soft consistencies, such as eggs, soups, and other fluids are well- tolerated. His taste sensation is better. He is still easily fatigued but has had no fainting episodes. He reports that about 1 mo ago needed re-hydration in ED. No residual throat or mouth pain. COmpleted new CTs earlier which are reviewed Past Medical History: Diagnosis Date ??? Essential hypertension 04/12/2021 ??? JOHN not on CPAP (though recommended) 04/12/2021 Past Surgical History: Procedure Laterality Date ??? IR MEDIPORT PLACEMENT 06/27/2021 IR Mediport Placement 06/27/2021 Cyril Ram PA [facility] RAD ??? PRO BX/REMV, LYMPH NODE, DEEP CERV Left 05/19/2021 BIOPSY OR EXCISION OF LYMPH NODE(S), OPEN, DEEP CERVICAL NODES (WRVU 6.74) performed by [facility] MD at [facility] OR ??? PRO LARYNGOSCOPY, DIRCT, OP SCOPE, BIOPSY Left 05/19/2021 LARYNGOSCOPY, MICROSCOPE, WITH BIOPSY (WRVU 3.55) performed by [facility] Cordoba MD at [facility] OR ??? PRO OTOLARYNGOLOGIC EXAM UNDER GENERAL ANESTHESIA Midline 05/19/2021 OTOLARYNGOLOGIC EXAM UNDER ANESTHESIA (WRVU 1.51) performed by [facility] Cordoba MD at [facility] OR Patient Active Problem List Diagnosis Code ??? Neck mass R22.1 ??? Morbid obesity with BMI of 50.0-59.9, adult E66.01, Z68.43 ??? Chronic atrial fibrillation I48.20 ??? Essential hypertension I10 ??? JOHN not on CPAP (though recommended) G47.33 ??? Tonsil cancer C09.9 ??? Claustrophobia F40.240 ??? History of gout Z87.39 ??? Dysphagia R13.10 Current Outpatient Medications: ??? dilTIAZem CD (Cardizem CD) 240 mg Capsule, Sust. Release 24 hr, Take 240 mg by mouth daily., Disp: , Rfl: ??? meloxicam (MOBIC) 7.5 mg Tablet, 2 times daily., Disp: , Rfl: ??? acetaminophen (Tylenol) 500 mg Tablet, Take 1,000 mg by mouth every 6 hours as needed for Pain.,Disp: , Rfl: ??? metoprolol tartrate (Lopressor) 50 mg Tablet, Take 75 mg by mouth 2 times daily., Disp: , Rfl: ??? Sodium Fluoride (Clinpro 5000) 1.1 % Paste, Put a pea sized amount on toothbrush, brush twice daily. Do not swallow., Disp: 100 mL, Rfl: 3 ??? emollient base (CREAM BASE TOP), Apply topically. Jeans Cream. Apply to area of radiation twice a day but no less than 2 hours before a treatment., Disp: , Rfl: ??? pantothenic Ac-Min Oil-Pet,Hyd (Aquaphor) 41 % Ointment, Apply topically., Disp: , Rfl: ??? LORazepam (Ativan) 1 mg Tablet, Take one to two pills by mouth a 1/2 hour prior to radiation therapy (Patient not taking: No sig reported), Disp: 50 tablet, Rfl: 0 ??? loperamide (IMODIUM A-D) 2 mg Tablet, Take 2 mg by mouth 4 times daily as needed for Diarrhea. Maximum 16 mg in 24 hours, Disp: , Rfl: ??? magnesium oxide (Mag-Ox) 400 mg (241.3 mg magnesium) Tablet, Take 1 tablet by mouth 2 times daily. (Patient not taking: No sig reported), Disp: 60 tablet, Rfl: 5 ??? prochlorperazine (Compazine) 10 mg Tablet, TAKE 1 TABLET BY MOUTH EVERY 6 HOURS NEEDED FOR NAUSEA (Patient not taking: No sig reported), Disp: 30 tablet, Rfl: 3 ??? traMADoL (Ultram) 50 mg Tablet, Take 0.5-1 tablets by mouth as needed. (Patient not taking: No sig reported), Disp: 30 tablet, Rfl: 0 ??? oxyCODONE (Roxicodone) 5 mg Tablet, Take 1 tablet by mouth every 4 hours as needed for Pain. (Patient not taking: No sig reported), Disp: 45 tablet, Rfl: 0 No current facility-administered medications for this visit. Facility-Administered Medications Ordered in Other Visits: ??? heparin (pf) (porcine) (100 units/mL) flush 5 mL syringe 500 Units, 5 mL, Intravenous, Once PRN,Edwar Perry MD ??? sodium chloride 0.9 % (flush) (BD PosiFlush Normal Saline 0.9) flush 20 mL, 20 mL, Intravenous, Q1 Min PRN, Edwar Perry MD No Known Allergies Review of Systems: A comprehensive Review of Systems is completed and except as noted in the HPI is negative for constitutional, neurologic, respiratory, cardiac, vascular, immune, GI, , MSK, endocrine, skin, and functional systems which are reviewed. No family history on file. There is no pertinent family history of otolaryngology problems. Social History Socioeconomic History ??? Marital status: [...] Unstable Housing in the Last Year: No Review of Systems Objective Physical Exam Vitals and nursing note reviewed. Constitutional: General: He is not in acute distress. Appearance: He is well-developed. He is obese. He is not diaphoretic (post chemoradiation, tired looking). HENT: Head: Normocephalic. Jaw: No trismus. Right Ear: Tympanic membrane, ear canal and external ear normal. No tenderness. No middle ear effusion. Left Ear: Tympanic membrane, ear canal and external ear normal. No tenderness. No middle ear effusion. Nose: Septal deviation present. No nasal deformity or mucosal edema. Right Turbinates: Enlarged. Left Turbinates: Enlarged. Mouth/Throat: Lips: No lesions. Mouth: Mucous membranes are dry. No oral lesions (post radiation). Dentition: No gum lesions. Tongue: No lesions. Tongue does not deviate from midline. Palate: No mass. Pharynx: Uvula midline. No oropharyngeal exudate. Comments: No lesion appreciated within the oral cavity or pharynx but patient has a prominent base of tongue Eyes: General: No scleral icterus. Conjunctiva/sclera: Conjunctivae normal. Pupils: Pupils are equal, round, and reactive to light. Neck: Thyroid: No thyroid mass or thyromegaly. Vascular: No carotid bruit. Trachea: No tracheal deviation. Pulmonary: Effort: Pulmonary effort is normal. No respiratory distress. Breath sounds: No stridor. Musculoskeletal: Cervical back: Normal range of motion and neck supple. Lymphadenopathy: Cervical: No cervical adenopathy (s/p radiation therapy. remarkable improvement in left neck mass with skin radiation changes. No palpable mass noted). Skin: General: Skin is warm. Findings: No erythema. Neurological: Mental Status: He is alert and oriented to person, place, and time. Cranial Nerves: No cranial nerve deficit. Deep Tendon Reflexes: Reflexes are normal and symmetric. Psychiatric: Behavior: Behavior normal. Thought Content: Thought content normal. Judgment: Judgment normal. In view of the patient's symptoms and for complete evaluation, a flexible laryngoscopy is indicated. +++++++++++++++++++++++++++++++++++++++++++++++++++++++++++++++++++ Procedure: Flexible Laryngoscopy Indications: Evaluation for mucosal lesion of the upper airway Procedure and findings: The nasal mucosae are topicalized with oxymetazoline/lidocaine anesthesia. The flexible endoscope is passed through the nasal cavities and evaluation of the nasopharynx, oropharynx and larynx is performed. All of the visualized mucosae are normal except for the following: Base of tongue intact, no lesion. No tonsillar asymmetry. Larynx normal Vocal cord mobility normal CT neck and chest reviewed with patient: The necrotic left neck mass has nearly resolved with extensive residual soft tissue inflammatory changes/scarring. No new masses. Diffuse mucosal edema involving the oropharynx and supraglottic larynx consistent with posttreatment changes. No discrete masses along the visualized upper aerodigestive tract. No salivary gland masses. Normal thyroid gland. Right central line is in place. Visualized paranasal sinuses are clear. Discoid groundglass opacity in basal left lower lobe, indeterminate, question focal inflammatory/infectious process. Consider low radiation dose noncontrast chest CT follow-up in 3 months, with or without interval empiric treatment, to look for persistence versus position. 2. A few 1 to 2 mm nodules in the right lung, as well as some perifissural nodules compatible with intrapulmonary lymph nodes. ASSESSMENT/PLAN: Based on today's findings patient appears clinically to be ANGE. Will continue with regular follow ups and further imaging modalities. Long discussion regarding post therapy side effects and purpose of speech therapy. Assessment and Plan No problem-specific Assessment & Plan notes found for this encounter. documented in this encounter Plan of Treatment Upcoming Encounters Date Type Specialty Care Team Description 03/30/2022 Office Visit Hematology and Oncology Kristan Perry MD [facility] [address] ONCOLOGY DEPT. [place], [place] [address] (Wo rk) documented as of this encounter Visit Diagnoses Diagnosis Squamous cell carcinoma of left tonsil documented in this encounter Care Teams Billing And Insurance Coordinator Relationship Specialty Start Date End Date Ava Morales MD PCP - General Family Medicine 04/04/[address] [place] [phone] documented as of this encounter
--- OUTSIDE RECORDS SUMMARY | 2022-03-23 07:47 | XMS_ITS | Encounter Summary ---
:1960 Author Organization [facility] Address [address] [place] [address] Care Team Providers Name Role Phone Ava Morales MD Primary Care Provider Encounter Details Date Type Department Care Team Description 03/15/2022 Ancillary Procedure Radiology Library at Dana Morales, [facility] [address] [place] [phone] (Wo rk) Social History Tobacco Use Types [...] place to sleep or slept in a retirement (including now)? Sex Assigned at Date Recorded Not on file documented as of this encounter Plan of Treatment Upcoming Encounters Date Type Specialty Care Team Description 03/30/2022 Office Visit Hematology and Oncology Kristan Perry MD [facility] DR ONCOLOGY DEPT. [place], [place] [address] (Wo rk) documented as of this encounter Procedures Procedure Name Priority Date/Time Associated Diagnosis Comme nts FILM LIBRARY - Routine 03/15/2022 12:00 AM Result s for this STORAGE ONLY CT EDT procedure ar e in NECK the results section. documented in this encounter Results Film Library- Storage Only CT Neck (03/15/2022 12:00 AM EDT) Specimen (Source) Anatomical Location Collection Method / Collectio n Time Received Time / Laterality Volume Narrative [facility] - 03/16/2022 11:43 AM EDT This exam is auto-finalizing. It's purpo se is for storage only. Ava Morales MD IMG FILM LIBRARY ORDERABLES Performing Organization Address City/State/ZIP Code Phon e Number [place], [place] documented in this encounter Visit Diagnoses Not on filedocumented in this encounter Care Teams Information Systems Technician Relationship Specialty Start Date End Date Ava Morales MD PCP - General Family Medicine 04/04/21 [address] [place] [phone] documented as of this encounter
--- OUTSIDE RECORDS SUMMARY | 2022-03-23 07:48 | XMS_ITS | Encounter Summary ---
:1960 Author Organization [facility] [place] [address] Care Team Providers Name Role Phone Ava Morales MD Primary Care Provider Encounter Details Date Type Department Care Team Description 08/16/2021 Office Visit Radiation Oncology at [facility] Iglesia MD Tonsil cancer [address] RADIATION ONCOLOGY [facility] [phone] Social History Tobacco Use Types Packs/Day Years [...] place to sleep or slept in a assisted (including now)? Sex Assigned at Date Recorded Not on file documented as of this encounter Last Filed Vital Signs Vital Sign Reading Time Taken Comments Blood Pressure 111/77 08/16/2021 11:24 AM EST Pulse 63 08/16/2021 11:24 AM EST Temperature 36.5 ??C (97.7 ??F) 08/16/2021 11:24 AM EST Respiratory Rate 18 08/16/2021 11:24 AM EST Oxygen Saturation 100% 08/16/2021 11:24 AM EST Inhaled Oxygen Concentration - - Weight 150.7 kg (332 lb 3.2 08/16/2021 11:24 AM with fl ip flops oz) EST Height - - Body Mass Index 48.37 08/14/2021 9:05 AM EST documented in this encounter Progress Notes Iglesia Cuello MD - 08/16/2021 11:30 AM EST Images from the original note were not included. ON TREATMENT VISIT NOTE Miriam Anaya is a 61 y.o. 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 Definitive chemoradiotherapy. Current treatment dose: 52 Gy in 26 fractions. Anticipated total dose: 70 Gy in 35 fractions. Concomitant Therapy: Y ONC BCA CHEMO (AMB) 07/10/2021 07/24/2021 07/31/2021 Day, Cycle Day 1, Cycle 1 Day 15, Cycle 1 Day 22, Cycle 1 CISplatin (Platinol) IV 40 mg/m2/dose 40 mg/m2/dose 40 mg/m2/dose ONC BCA CHEMO (AMB) 08/07/2021 Day, Cycle Day 29, Cycle 1 CISplatin (Platinol) IV 30 mg/m2/dose Plan Images: Evaluation of Port Verification Films: PORT films have been reviewed, please see ARIA for details. Changes in medical condition Pain: Skin tender. Not taking any OTC/narcotic pain medications. Secretions/Dryness: Thick secretions. Denies xerostomia, severe dysgeusia. Using SW rinses & Biotene. Swallowing Function: Occasional food hanging up, but rare. Nutrition / G tube: No feeding tube. All by mouth. Tolerating regular diet, limited by dysgeusia. Skin: Skin creams are more painful / burning. GI: -Nausea: No recent nausea/vomiting. -Bowels: constipation Other: ativan pretreatment working well Nutrition Assessment: Weight : 155.3kg initial Change: 152.0 => 152.0 kg => 150.7 kg Objective: Vitals: 08/16/21 1124 BP: 111/77 Patient Position: Sitting Pulse: 63 Resp: 18 Temp: 36.5 ??C (97.7 ??F) TempSrc: Temporal SpO2: 100% Weight: (!) 150.7 kg (332 lb 3.2 oz) SKIN: small area of dry desquamation around prior incisional site. MUCOSA: no mucositis. No thrush. Assessment: Mild toxicity, significant tumor shrinkage. CTCAE TOXICITY GRADES (see below for isaacs): Site Grade Skin 1 Xerostomia 0 Pharyngeal Mucositis 0 Dysphagia 0 Hoarseness 0 TREATMENT RESPONSE: significant tumor shrinkage Plan: ?? Continue RT per prescription ?? Pain control: ?? Tylenol prn ?? Ativan 2mg pretreatment ?? Skin: rec start using silvadene to areas of desquamation / tenderness ?? Mucositis: ?? Pain control: see above ?? Oral hygiene consisting of baking soda/salt rinse at least 8 times daily ?? Alimentation: ballistics tester following ?? Weight stable, all by mouth at this time. Emphasized need to maintain oral intake/weight. ?? GI: ?? N/V: no issues ?? Constipation: senna prn CTCAE v4.03 scales for reference Skin 0 1 2 3 4 No change from baseline Faint erythema or dry desquamation Moderate to brisk erythema; patchy moist desquamation mostly confined to skin folds & creases; moderate edema Moist desquamation in areas other than skin folds and creases; bleeding induced by minor trauma or abrasion Life threatening consequences; skin necrosis or ulceration of full thickness dermis; spontaneous bleeding; skin graft indicated Xerostomia 0 1 2 3 4 No change from baseline Symptomatic (dry or thick saliva) without significant dietary alteration Moderate sx: oral intake alterations (e.g. copious water, diet limited to purees or soft, moist foods) Inability to adequately aliment orally, TPN or PEG indicated NA Pharyngeal Mucositis: 0 1 2 3 4 No change from baseline Asymptomatic or mild symptoms; normal oral intake; mild pain but analgesia not indicated Moderate pain and analgesics indicated; altered oral intake; limiting instrumental ADLs Severe pain, unable to adequately aliment or hydrate orally; limiting self care ADLs Life threateningconsequences; urgent intervention indicated Dysphagia 0 1 2 3 4 No change from baseline Symptomatic, able to eat regular diet Symptomatic and altered eating/swallowing Severely altered eating/swallowing; tube feeds, TPN or hospitalization indicated Life threateningconsequences; urgent intervention indicated Hoarseness 0 1 2 3 4 No change from baseline Mild or intermittent voice change; fully understandable, self-resolves Moderate or persistent voice change; may require occasional repetition but understandable on telephone Severe voice change including predominantly whispered speech NA documented in this encounter Plan of Treatment Upcoming Encounters Date Type Specialty Care Team Description 03/30/2022 Office Visit Hematology and Oncology Kristan Perry MD [facility] DR ONCOLOGY DEPT. [place], [place] [address] (Wo rk) documented as of this encounter Visit Diagnoses Diagnosis Tonsil cancer Malignant neoplasm of tonsil documented in this encounter Care Teams Pony Rougher Relationship Specialty Start Date End Date Ava Morales MD PCP - General Family Medicine 04/04/[address] [place] [phone] documented as of this encounter
--- OUTSIDE RECORDS SUMMARY | 2022-03-23 07:48 | XMS_ITS | Encounter Summary ---
:1960 Author Organization [facility] [place] [address] Care Team Providers Name Role Phone Ava Morales MD Primary Care Provider Encounter Details Date Type Department Care Team Description 10/04/2021 TH Visit Radiation Oncology Tomy Pinto us cell (TeleHealth) at [facility] MD Elissa carcinoma of [address] [facility] [id number] RADIATION [phone] ONCOLOGY [place], [place] [address] Social History Tobacco Use Types [...] place to sleep or slept in a usp (including now)? Sex Assigned at Date Recorded Not on file documented as of this encounter Progress Notes Tomy Pinto MD - 10/04/2021 9:00 AM EST I spoke with Mr. Anaya. His lab values, drawn by the VNA suggest dehydration with mild hypokalemia and hypochloremia. He states that his condition is not much changed, he is drinking slightly more but eating minimally. He still becomes very lightheaded, with a racing heartbeat, when rising from bed. He states that the VNA is of limited assistance. I again encouraged him to proceed to the ED for evaluation, and that we were concerned about his inability to effectively care for himself, his electrolyte abnormalities, potential cardiac issues, and dehydration / weight loss. He again said that he wouldconsider his options. I will touch base with him next week. documented in this encounter Plan of Treatment Upcoming Encounters Date Type Specialty Care Team Description 03/30/2022 Office Visit Hematology and Oncology Kristan Perry MD [facility] DR ONCOLOGY DEPT. [place], [place] [address] (Wo rk) documented as of this encounter Visit Diagnoses Diagnosis Squamous cell carcinoma of palatine tons il Malignant neoplasm of tonsil documented in this encounter Care Teams Retail Sales Manager Relationship Specialty Start Date End Date Ava Morales MD PCP - General Family Medicine 04/04/[address] [place] [phone] documented as of this encounter
--- OUTSIDE RECORDS SUMMARY | 2022-03-23 07:48 | XMS_ITS | Encounter Summary ---
:1960 Author Organization [facility] [place] [address] Care Team Providers Name Role Phone Ava Morales MD Primary Care Provider Encounter Details Date Type Department Care Team Description 10/25/2021 TH Visit Radiation Oncology Tomy Pinto us cell (TeleHealth) at [facility] MD Elissa carcinoma of [address] [facility] [phone] RADIATION [phone] ONCOLOGY [place], [place] [address] Social History Tobacco Use Types [...] place to sleep or slept in a custodial (including now)? Sex Assigned at Date Recorded Not on file documented as of this encounter Progress Notes Tomy Pinto MD - 10/25/2021 1:30 PM EST Images from the original note were not included. FOLLOW UP VISIT NOTE Miriam Anaya is a 61 y.o. 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 Definitive chemoradiotherapy completed 08/31/21. He is seen today via telephone visit at his request, due to travel considerations and COVID. Anticipated total dose: 70 Gy in 35 fractions. Concomitant Therapy: Y ONC BCA CHEMO (AMB) 07/10/2021 07/24/2021 07/31/2021 Day, Cycle Day 1, Cycle 1 Day 15, Cycle 1 Day 22, Cycle 1 CISplatin (Platinol) IV 40 mg/m2/dose 40 mg/m2/dose 40 mg/m2/dose ONC BCA CHEMO (AMB) 08/07/2021 08/14/2021 08/21/2021 Day, Cycle Day 29, Cycle 1 Day 36, Cycle 1 Day 43, Cycle 1 CISplatin (Platinol) IV 30 mg/m2/dose 30 mg/m2/dose 30 mg/m2/dose Plan Images: Intercurrent History: recently hospitalized at [facility] due to syncope, found to be in Afib w/ RVR, Metoprolol dose increased to 75 mg BID, Diltiazem 240 mg added to cardiac regimen. Since discharge he notes improvement in his dyspnea, dizziness / tachycardia when standing, and overall ability to ambulate. Changes in medical condition Pain: no head / neck pain, just associated with knees. Tylenol prn. Secretions/Dryness: Dysgeusia is moderate, significantly improved; xerostomia is present, moderate. Swallowing Function: Able to swallow softer solids with liquids, does not tolerate chewy foods Nutrition / G tube: No feeding tube. All by mouth. Eating three meals a day, but modest amounts. Drinking fluids. Skin: very dry GI: -Nausea: No recent nausea/vomiting. -Bowels: bowels moving regularly Other: - since discharge improvement in lightheadedness, able to stand up without lightheadedness, able to do light activities but very rapidly winded with lightheadedness. - weight slightly increased since hospitalization - PT is coming to the house starting yesterday, twice weekly - VNA thrice weekly Nutrition Assessment: Weight : 155.3kg initial Change: 136 => 130 kg Objective: There were no vitals filed for this visit. Assessment: improvement CTCAE TOXICITY GRADES (see below for isaacs): Site Grade Skin 3 Xerostomia 2 Pharyngeal Mucositis 0 Dysphagia 0 Hoarseness 0 Plan: ?? Pain control: ?? Tylenol prn ?? Skin: Silvadene to areas of desquamation / tenderness, AP ?? Mucositis: ?? Pain control: see above ?? Oral hygiene consisting of baking soda/salt rinse at least 8 times daily ?? Alimentation: microsoft bi consultant following ?? Weight decreased per report, all by mouth at this time. Emphasized need to maintain oral intake/weight. ?? GI: ?? N/V: no issues ?? Constipation: senna prn ?? FU: Follow up visit in 2-3 weeks, CT 11/30/20 20 minutes of this 20 minute visit were spent in discussion CTCAE v4.03 scales for reference Skin 0 [...] and Oncology Kristan Perry MD [facility] DR ONCOLOGY DEPT. [place], [place] [address] (Wo rk) documented as of this encounter Visit Diagnoses Diagnosis Squamous cell carcinoma of palatine tons il Malignant neoplasm of tonsil documented in this encounter Care Teams Engineering Faculty Relationship Specialty Start Date End Date Ava Morales MD PCP - General Family Medicine 04/04/[address] [place] [phone] documented as of this encounter
--- OUTSIDE RECORDS SUMMARY | 2022-03-23 07:48 | XMS_ITS | Encounter Summary ---
:1960 Author Organization [facility] [place] [address] Care Team Providers Name Role Phone Ava Morales MD Primary Care Provider Encounter Details Date Type Department Care Team Description 07/31/2021 [facility] [address] ONCOLOGY DEPT. [place], [place] [phone] Social History Tobacco Use Types Packs/Day Years [...] place to sleep or slept in a penitentiary (including now)? Sex Assigned at Date Recorded Not on file documented as of this encounter Last Filed Vital Signs Vital Sign Reading Time Taken Comments Blood Pressure 133/78 07/31/2021 10:23 AM EST Pulse - - Temperature 36.1 ??C (97 ??F) 07/31/2021 10:23 AM EST Respiratory Rate 16 07/31/2021 10:23 AM EST Oxygen Saturation 100% 07/31/2021 10:23 AM EST Inhaled Oxygen Concentration - - Weight 147.9 kg (326 lb) 07/31/2021 10:23 AM EST Height 176.5 cm (5' 9.49) 07/31/2021 10:23 AM EST Body Mass Index 47.47 07/31/2021 10:23 AM EST documented in this encounter Progress Notes Edwar Perry MD - 07/31/2021 10:15 AM EST Images from the original note were not included. Hematology/Oncology Clinic [facility] Patient Active Problem List Diagnosis ??? Tonsil [...] Bx nondiagnostic D. Definitive chemoradiation (weekly cisplatin) instituted 07/10/2021 ??? Dysphagia ??? Claustrophobia Difficulty with MRI, PET/CT scanning ??? History of gout ??? Essential hypertension ??? JOHN not on CPAP (though recommended) ??? Neck mass ??? Morbid obesity with BMI of 50.0-59.9, adult ??? Chronic atrial fibrillation ONCBCN ONCOLOGY (AMB) 07/10/2021 07/24/2021 Day, Cycle Day 1, Cycle 1 Day 15, Cycle 1 CISplatin (Platinol) IV 40 mg/m2/dose = 109 mg 40 mg/m2/dose = 109 mg Med onc checkup and dose #3 chemo; due for RT fraction #14. No acute problems since last week. He continues to tolerate chemotherapy well, with no significant nausea or vomiting. No hearing deterioration, no peripheral neuropathy symptoms. He is no longer having any drainage from the left neck mass. This is shrunken considerably since starting treatment, and his simulation has had to be redone once again. He has been trying to keep up with hydration but admits that it is a challenge. Water still tastes satisfactory, but he forgets to push hydration. Taste buds in general are deteriorating. He is still struggling to find things that taste good and have a consistency that is easy to swallow. He is not having major odynophagia. Bowels have been regular for the most part. No cardiac symptoms from his chronic atrial fibrillation. We talked about magnesium supplementation last week, and he obtained the magnesium oxide tablets buthas not started them. I increased the magnesium supplement in the IV with chemotherapy and at his postchemotherapy hydration visit. Physical exam: He looks well, in no acute distress. Vocal phonation is clear. Oral exam is benign, no visible infections. No trismus. Is prominent tongue makes it impossible for me to see the tonsils. Neck exam shows persistent disease on the left, although much reduced in size from starting treatment. The tumor mass is now solid, down to about 4 x 5 cm. There is no drainage. The chest is clear Right chest Mediport is benign Cardiac exam shows atrial fibrillation with borderline tachycardia Abdomen is massively obese but otherwise benign without obvious hepatosplenomegaly Extremities show chronic 1+ nonpitting edema in both ankles. Neurologic exam is grossly normal. No stigmata of Elen's syndrome. Reflexes trace at the knees. Gait is antalgic. Labs: Electrolytes normal, BUN up slightly at 31, creatinine stable at 1.2. Hepatic enzymes normal. Magnesium is a bit lower this week at 1.4. White count is 4.1, hemoglobin 11.7, platelets 147. Impression: Tolerating curative intent chemoradiation well. Slight reduction in the left neck mass, optimistically due to response of the cancer but more likely due to cessation of fluid accumulation inside the tumor. Fortunately he is tolerating chemoradiation well. Hypomagnesemia. Plan: Proceed with chemotherapy and radiation as planned. Encouraged his efforts at trial and error discovery of tolerable foods. Encouraged his efforts to increase his hydration. He will begin the magnesium tablets 400 mg twice a day and we will continue IV supplementation. Edwar Perry MD, FACP door fitter Hematology/Oncology Section [facility]/[address] [id number] Voice recognition software used for this note; please excuse head operator errors. I personally reviewed past medical, surgical, family medical histories, reviewed current medications, vital signs, labs, and performed full review of systems. These are documented below the narrative for clarity and succinctness. Outpatient Medications Marked as Taking for the 07/31/21 encounter (Office Visit) with Edwar Perry MD Medication Sig Dispense Refill ??? LORazepam (Ativan) 1 mg Tablet Take one to two pills by mouth a 1/2 hour prior to radiation therapy 50 tablet 0 ??? prochlorperazine (Compazine) 10 mg Tablet TAKE 1 TABLET BY MOUTH EVERY 6 HOURS NEEDED FOR NAUSEA 30 tablet 3 ??? meloxicam (MOBIC) 7.5 mg Tablet 2 times daily. ??? metoprolol tartrate (Lopressor) 50 mg Tablet Take 50 mg by mouth 2 times daily. Current Facility-Administered Medications for the 07/31/21 encounter (Office Visit) with Edwar Perry MD Medication Dose Route Frequency Provider Last Rate Last Admin ??? lidocaine (Xylocaine) 4 % (40 mg/mL) solution Topical (Top) Once PRN Tomy Pinto MD ??? lidocaine (Xylocaine) 4 % (40 mg/mL) solution Topical (Top) Once PRN Tomy Pinto MD Review of Systems: Review of systems is negative for other ENTRY WRITER, bone, pulmonary, cardiac, GI, , extremity, neurologic, endocrine, skin, constitutional, emotional, or functional problems. Vitals Office Visit from 07/31/2021 in Hematology/Oncology at [facility] Weight 147.9 kg (326 lb) Height 176.5 cm (5' 9.49) BSA (Calculated - sq m) 2.69 sq meters BMI (Calculated) 47.46 Temp 36.1 ??C (97 ??F) Temp src Temporal Heart Rate Source Right, NIBP Resp 16 BP 133/78 BP Location Right arm Patient Position Sitting SpO2 100 % Karnofsky Score 80 Body surface area is 2.69 meters squared. Wt Readings from Last 3 Encounters: 07/31/21 (!) 147.9 kg (326 lb) 07/27/21 (!) 153.5 kg (338 lb 6.4 oz) 07/26/21 (!) 153 kg (337 lb 3.2 oz) No results found for this or any previous visit (from the past 72 hour(s)). ++++++++++++++++++++++++++++++++++++++++++++++++++++ documented in this encounter Plan of Treatment Upcoming Encounters Date Type Specialty Care Team Description 03/30/2022 Office Visit Hematology and Oncology Kristan Perry MD [facility] DR ONCOLOGY DEPT. [place], [place] [address] (Wo rk) documented as of this encounter Visit Diagnoses Diagnosis Tonsil cancer Malignant neoplasm of tonsil documented in this encounter Care Teams Siene Maker Relationship Specialty Start Date End Date Ava Morales MD PCP - General Family Medicine 04/04/[address] [place] [phone] documented as of this encounter
--- OUTSIDE RECORDS SUMMARY | 2022-03-23 07:48 | XMS_ITS | Encounter Summary ---
:1960 Author Organization [facility] [place] [address] Care Team Providers Name Role Phone Ava Morales MD Primary Care Provider Reason for Visit Reason Comments IV Medication hydration, mag, antiemetics Treatment/Therapy Plan Authorization (Routine) - Closed Specialty Diagnoses / Procedures Referred By Contact Refer red To Contact Diagnoses Tonsil cancer Edwar Perry MD [facility] Infusion Procedures TC PALONOSETRON HCL, 25MCG, INJECTION (ALOXI) TC APREPITANT, 1 MG, INJECTION TC CISPLATIN, POWDER OR SOLUTION, 10MG, INJECTION J2469 palonosetron (Aloxi) 0.25 MG J0185 aprepitant (CINVANTI) 130 MG J9060 CISplatin (Platinol) 109 MG [facility] [address] [place] [address] [place] [phone] Fax: Referral ID Status Reason Start Date Expiration Date Visits Requ ested Visits Authorized [id number] Closed 07/10/2021 09/22/2021 99 99 Encounter Details Date Type Department Care Team Description 08/03/2021 Infusion Hematology Oncology at [facility] Tonsil cancer [address] [place] [phone] Social History Tobacco Use Types [...] Sign Reading Time Taken Comments Blood Pressure 130/91 08/03/2021 10:14 AM EST Pulse 95 08/03/2021 10:14 AM EST Temperature 36.2 ??C (97.1 ??F) 08/03/2021 10:14 AM EST Respiratory Rate 22 08/03/2021 10:14 AM EST Oxygen Saturation 100% 08/03/2021 10:14 AM EST Inhaled Oxygen Concentration - - Weight 151.2 kg (333 lb 6.4 oz) 08/03/2021 10:14 AM EST Height 176.5 cm (5' 9.5) 08/03/2021 10:14 AM EST Body Mass Index 48.53 08/03/2021 10:14 AM EST documented in this encounter Progress Notes Tristin Hardwick RN - 08/03/2021 10:00 AM EST INFUSION THERAPY ADMINISTRATION NOTES DIAGNOSIS: Tonsil cancer REASON FOR VISIT: Hydration, Mag, antiemetics SUBJECTIVE Miriam Anaya offers no complaints. OBJECTIVE IV ACCESS: Mediport REACTIONS (DESCRIPTION, TIME, INTERVENTION AND EFFECTIVENESS) none ASSESSMENT Miriam Anaya was awake, alert and tolerated treatment well. Mediport flushed with 20 cc NS & 500 units of Heparin prior to de-access. PLAN Return to clinic as scheduled. documented in this encounter Plan of Treatment Upcoming Encounters Date Type Specialty Care Team Description 03/30/2022 Office Visit Hematology and Oncology Kristan Perry MD [facility] DR ONCOLOGY DEPT. [place], [place] [address] (Wo rk) documented as of this encounter Visit Diagnoses Diagnosis Tonsil cancer Malignant neoplasm of tonsil documented in this encounter Administered Medications Inactive Administered Medications - up to 3 most recent administrations Medication Order MAR Action Action Date Dose Rate Site dexamethasone (Decadron) Given 08/03/2021 10:35 AM EST 5.2 mg injection 5.2 mg 5.2 mg (rounded from 5 mg), Intravenous, ONCE, 1 dose, On Evy 08/03/21 at 1000 heparin (pf) (porcine) (100 units/mL) Given 08/03/2021 12:34 PM EST 500 Units flush 5 mL syringe 500 Units 500 Units, Intravenous, ONCE PRN, Starting on Evy 08/03/21 at 0812, Until Evy 08/03/21 at 1450, Line Care, Refer to Intravenous (IV) Procedure: Accessing Implanted Vascular Access Devices (654) procedure and/or Intravenous (IV) Job Aid: Adult Flushing & Catheter Care (2588) job aid for additional information regarding guidelines and administration., Routine magnesium sulfate 2 g in sterile water New Bag 08/03/2021 10:3 8 AM EST 2 g 25 mL/hr 50 mL infusion 2 g, Intravenous, ONCE, 1 dose, On Evy 08/03/21 at 1000, Administer over 120 Minutes ondansetron (Zofran) tablet 16 mg Given 08/03/2021 10:33 AM EST 16 mg 16 mg, Oral, ONCE, 1 dose, On Evy 08/03/21 at 1000, Routine sodium chloride 0.9 % (flush) (BD PosiFlush Given 07/24 12:34 PM EST 20 mLs Normal Saline 0.9) flush 5-20 mL 5-20 mL, Intravenous, EVERY 1 MIN PRN, Starting on Evy 08/03/21 at 0812, Until Evy 08/03/21 at 1450, Line Care, Flush pertains to all indwelling lines. Flush per protocol found in the job aid using the link provided on this medication record. Refer to Intravenous (IV) Job Aid: Adult Flushing & Catheter Care (5884) job aid for additional information regarding guidelines and administration., Routine sodium chloride 0.9% infusion New Bag 08/03/2021 10:32 AM EST 1,000 mLs 1000 mL/hr 1,000 mL, at 1,000 mL/hr, Intravenous, CONTINUOUS, Starting on Evy 08/03/21 at 1000, Until Evy 08/03/21 at 1059 documented in this encounter Care Teams Commercial Sales Representative Relationship Specialty Start Date End Date Ava Morales MD PCP - General Family Medicine 04/04/[address] [place] [phone] documented as of this encounter
--- OUTSIDE RECORDS SUMMARY | 2022-03-23 07:48 | XMS_ITS | Encounter Summary ---
:1960 Author Organization [facility] [place] [address] Care Team Providers Name Role Phone Ava Morales MD Primary Care Provider Encounter Details Date Type Department Care Team Description 08/27/2021 Orders Only Hematology/Oncology at [facility] [address] [place], [place] HEMATOLOGY ONCO LOGY [phone] [place], [place] [phone] (Wo rk) Social History Tobacco Use Types [...] Hematology and Oncology Kristan Perry MD [facility] DR ONCOLOGY DEPT. [place], [place] [address] (Wo rk) documented as of this encounter Visit Diagnoses Not on filedocumented in this encounter Care Teams Construction Laborer Relationship Specialty Start Date End Date Ava Morales MD PCP - General Family Medicine 04/04/21 [address] [place] [address] documented as of this encounter
--- OUTSIDE RECORDS SUMMARY | 2022-03-23 07:48 | XMS_ITS | Encounter Summary ---
:1960 Author Organization [place] [address] Care Team Providers Name Role Phone Ava Morales MD Primary Care Provider Encounter Details Date Type Department Care Team Description 09/27/2021 [facility] [address] HEMATOLOGY AND ONCOLOGY [place], [place] [address] [place] [address] [phone] (Wo rk) Social History Tobacco Use Types [...] this encounter Miscellaneous Notes Telephone Encounter - Leslie Rendon RD - 09/29/2021 2:28 PM EST Note created in error. documented in this encounter Plan of Treatment Upcoming Encounters Date Type Specialty Care Team Description 03/30/2022 Office Visit Hematology and Oncology Kristan Perry MD [facility] ER DR ONCOLOGY DEPT. [place], [place] [address] (Wo rk) documented as of this encounter Visit Diagnoses Not on filedocumented in this encounter Care Teams Pig Caster Relationship Specialty Start Date End Date Ava Morales MD PCP - General Family Medicine 04/04/[address] [place] [phone] documented as of this encounter
--- OUTSIDE RECORDS SUMMARY | 2022-03-23 07:48 | XMS_ITS | Encounter Summary ---
:1960 Author Organization [facility] [address] Care Team Providers Name Role Phone Ava Morales MD Primary Care Provider Reason for Visit Reason Comments IV Access Hydration, Mag Treatment/Therapy Plan Authorization (Routine) - Closed Specialty Diagnoses / Procedures Referred By Contact Refer red To Contact Diagnoses Tonsil cancer Edwar Perry MD [facility] Infusion Procedures TC PALONOSETRON HCL, 25MCG, INJECTION (ALOXI) TC APREPITANT, 1 MG, INJECTION TC CISPLATIN, POWDER OR SOLUTION, 10MG, INJECTION J2469 palonosetron (Aloxi) 0.25 MG J0185 aprepitant (CINVANTI) 130 MG J9060 CISplatin (Platinol) 109 MG [facility] [address] [place] [address] [place] [phone] Fax: Referral ID Status Reason Start Date Expiration Date Visits Requ ested Visits Authorized [id number] Closed 07/10/2021 09/22/2021 99 99 Encounter Details Date Type Department Care Team Description 08/24/2021 Infusion Hematology Oncology at [facility] Tonsil cancer [address] [place] [phone] Social History Tobacco Use Types [...] place to sleep or slept in a [place] health care facility (including now)? Sex Assigned at Date Recorded Not on file documented as of this encounter Last Filed Vital Signs Vital Sign Reading Time Taken Comments Blood Pressure 132/88 08/24/2021 10:33 AM EST Pulse 88 08/24/2021 10:33 AM EST Temperature 36.1 ??C (96.9 ??F) 08/24/2021 10:33 AM EST Respiratory Rate 20 08/24/2021 10:33 AM EST Oxygen Saturation 100% 08/24/2021 10:33 AM EST Inhaled Oxygen Concentration - - Weight 149.2 kg (329 lb) 08/24/2021 10:33 AM EST Height 176.5 cm (5' 9.5) 08/24/2021 10:33 AM EST Body Mass Index 47.89 08/24/2021 10:33 AM EST documented in this encounter Progress Notes Loli Napier RN - 08/24/2021 11:30 AM EST INFUSION THERAPY ADMINISTRATION NOTES DIAGNOSIS: Tonsil cancer REASON FOR VISIT: Hydration, Mag, antiemetics SUBJECTIVE Miriam Anaya offers no complaints today OBJECTIVE VSS IV ACCESS: Mediport REACTIONS (DESCRIPTION, TIME, INTERVENTION [...] Visit Hematology and Oncology Kristan Perry MD [facility] DR ONCOLOGY DEPT. [place], [place] [address] (Wo rk) documented as of this encounter Visit Diagnoses Diagnosis Tonsil cancer Malignant neoplasm of tonsil documented in this encounter Administered Medications Inactive Administered Medications - up to 3 most recent administrations Medication Order MAR Action Action Date Dose Rate Site dexamethasone (Decadron) Given 08/24/2021 11:03 AM EST 5.2 mg injection 5.2 mg 5.2 mg (rounded from 5 mg), Intravenous, ONCE, 1 dose, On Evy 08/24/21 at 1100 heparin (pf) (porcine) (100 units/mL) Given 08/24/2021 1:[address] 500 Units flush 5 mL syringe 500 Units 500 Units, Intravenous, ONCE PRN, Starting on Evy 08/24/21 at 1031, Until Evy 08/24/21 at 1518, Line Care, Refer to Intravenous (IV) Procedure: Accessing Implanted Vascular Access Devices (654) procedure and/or Intravenous (IV) Job Aid: Adult Flushing & Catheter Care (3245) job aid for additional information regarding guidelines and administration., Routine magnesium sulfate 2 g in sterile water New Bag 08/24/2021 11:0 4 AM EST 2 g 25 mL/hr 50 mL infusion 2 g, Intravenous, ONCE, 1 dose, On Evy 08/24/21 at 1100, Administer over 120 Minutes ondansetron (Zofran) tablet 16 mg Given 08/24/2021 10:59 AM EST 16 mg 16 mg, Oral, ONCE, 1 dose, On Evy 08/24/21 at 1100, Routine sodium chloride 0.9 % (flush) (BD PosiFlush Given 08/24/2021 1:05 PM EST 20 mLs Normal Saline 0.9) flush 5-20 mL 5-20 mL, Intravenous, EVERY 1 MIN PRN, Starting on Evy 08/24/21 at 1031, Until Evy 08/24/21 at 1518, Line Care, Flush pertains to all indwelling lines. Flush per protocol found in the job aid using the link provided on this medication record. Refer to Intravenous (IV) Job Aid: Adult Flushing & Catheter Care (1722) job aid for additional information regarding guidelines and administration., Routine sodium chloride 0.9% infusion New Bag 08/24/2021 10:51 AM EST 1,000 mLs 1000 mL/hr 1,000 mL, at 1,000 mL/hr, Intravenous, CONTINUOUS, Starting on Evy 08/24/21 at 1100, Until Evy 08/24/21 at 1159 documented in this encounter Care Teams Network Technician Relationship Specialty Start Date End Date Ava Morales MD PCP - General Family Medicine 04/04/[address] [place] [phone] documented as of this encounter
--- OUTSIDE RECORDS SUMMARY | 2022-03-23 07:48 | XMS_ITS | Encounter Summary ---
:1960 Author Organization [facility] [place] [address] Care Team Providers Name Role Phone Ava Moraels MD Primary Care Provider Encounter Details Date Type Department Care Team Description 08/02/2021 Office Visit Radiation Oncology at Tomy Pinto, Squamous cell [facility] carcinoma of palatine [address] [place] [address] [place] [address] RADIATION ONCOLOGY [phone] [place], [place] [address] Social History Tobacco Use Types [...] Sign Reading Time Taken Comments Blood Pressure 119/88 08/02/2021 12:10 PM EST Pulse 77 08/02/2021 12:10 PM EST Temperature 36 ??C (96.8 ??F) 08/02/2021 12:10 PM EST Respiratory Rate 18 08/02/2021 12:10 PM EST Oxygen Saturation 99% 08/02/2021 12:10 PM EST Inhaled Oxygen - - Concentration Weight 152 kg (335 lb 3.2 08/02/2021 12:10 with sandals , room 2 oz) PM EST Height - - Body Mass Index 48.81 07/31/2021 10:23 AM EST documented in this encounter Progress Notes Carter Reeves MD - 08/02/2021 12:00 PM EST Images from the original note were not included. ON TREATMENT VISIT NOTE Miriam Anaya is a 61 y.o. 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 Definitive chemoradiotherapy. Current treatment dose: 32 Gy in 16 fractions. Anticipated total dose: 70 Gy in 35 fractions. Concomitant Therapy: Y ONC BCA CHEMO (AMB) 07/10/2021 07/24/2021 07/31/2021 Day, Cycle Day 1, Cycle 1 Day 15, Cycle 1 Day 22, Cycle 1 CISplatin (Platinol) IV 40 mg/m2/dose 40 mg/m2/dose 40 mg/m2/dose Plan Images: Evaluation of Port Verification Films: PORT films have been reviewed, please see ARIA for details. Changes in medical condition Pain: Left sided and occipital headaches resolved. Not taking any OTC/narcotic pain medications. Minimal occasional discomfort associated with the left neck mass. Secretions/Dryness: Thick secretions. Denies xerostomia, moderate dysgeusia. Using SW rinses & Biotene. Swallowing Function: Occasional food hanging up, but rare. Nutrition / G tube: No feeding tube. All by mouth. Tolerating regular diet, limited by dysgeusia. Skin: Discomfort associated with skin erosion left neck, minor GI: -Nausea: No recent nausea/vomiting. Has not taken compazine in a few weeks. -Bowels: loose stools, prior diarrhea has resolved. Other: ativan pretreatment working well Nutrition Assessment: Weight : 155.3kg initial Change: 154.0 => 152.0 kg Objective: Vitals: 08/02/21 1210 BP: 119/88 Patient Position: Sitting Pulse: 77 Resp: 18 Temp: 36 ??C (96.8 ??F) SpO2: 99% Weight: (!) 152 kg (335 lb 3.2 oz) SKIN: fixed mass spanning levels II-IV in the left neck, with associated skin erythema and a small area of skin breakdown. MUCOSA: no mucositis Assessment: Mild toxicity, significant tumor shrinkage. Adaptive plan started today. CTCAE TOXICITY GRADES (see below for isaacs): Site Grade Skin 1 Xerostomia 0 Pharyngeal Mucositis 0 Dysphagia 0 Hoarseness 0 TREATMENT RESPONSE: No change Plan: ?? Continue RT per prescription ?? Pain control: ?? Tylenol prn ?? Ativan 2mg pretreatment ?? Skin: Jeans cream, AP prn ?? Mucositis: ?? Pain control: see above ?? Oral hygiene consisting of baking soda/salt rinse at least 8 times daily ?? Alimentation: streetcar repairer following ?? Weight stable, all by mouth at this time. Emphasized need to maintain oral intake/weight. Attending Statement: I saw the patient with Dr. Reeves and agree with the history, physical, assessment, and plan as stated. -Tomy Pinto MD, PhD CTCAE v4.03 scales for reference Skin 0 [...] Visit Hematology and Oncology Kristan Perry MD [facility] DR ONCOLOGY DEPT. [place], [place] [address] (Wo rk) documented as of this encounter Visit Diagnoses Diagnosis Squamous cell carcinoma of palatine tons il Malignant neoplasm of tonsil documented in this encounter Care Teams Stave Cutter Relationship Specialty Start Date End Date Ava Morales MD PCP - General Family Medicine 04/04/[address] [place] [phone] documented as of this encounter
--- OUTSIDE RECORDS SUMMARY | 2022-03-23 07:48 | XMS_ITS | Encounter Summary ---
:1960 Author Organization [facility] [place] [address] Care Team Providers Name Role Phone Ava Morales MD Primary Care Provider Encounter Details Date Type Department Care Team Description 09/27/2021 Telephone Hematology/Oncology at Gustavo Rendon [address] Canceled (D-CANCELLED [facility] BY DEPARTMENT) [address] [place], [place] HEMATOLOGY AND [phone] ONCOLOGY [phone] [place], [place] [address] (Wo rk) Social History Tobacco Use Types [...] a time when you did not hav cheyanne mittal No 07/10/[address] or slept in a fpc (including now)? Sex Assigned at Date Recorded Not on file documented as of this encounter Miscellaneous Notes Telephone Encounter - Page, Leslie Bowers RD - 09/27/2021 8:44 AM EST Nutrition Progress Note Spoke with patient over the phone today. He reports he talked with his PCP over the phone today. Patient said PCP has referred him to cardiology and PT but these appointments are still pending. Patientis interested in having VNA and home health services but these are also not yet scheduled. He reports he needs help showering, cleaning his house and getting his mail, none of which have been done in weeks. Patient ate 1/2 can of chicken noodle soup this morning and said this is the most he has consumed in several days. He had some gagging while eating but forced himself to finish. His says his urineis dark. Patient reports that the main obstacles to PO intake are being light headed and heart racing when getting up out of bed. He can only mobilize for very short periods of time due to these symptoms. He was able to gather some drinks to keep in his bedroom today and says he will try to increase his beverage intake. Encouraged patient to try to make a trip to the kitchen to get some food that he can keep with him in the bedroom as well. Patient reports he has lost weight and now weighs 280# on his home scale. He weighed 318# one month ago in clinic. Patient also still has some dysgeusia although says this is improving. Strongly encouraged increased PO intake. Wt Readings from Last 3 Encounters: 08/31/21 (!) 144.5 kg (318 lb 9.6 oz) 08/30/21 (!) 147.8 kg (325 lb 12.8 oz) 08/28/21 (!) 145.5 kg (320 lb 12.8 oz) Reminded patient that his next appointment is with Dr. Pinto on 10/04. Patient said he was hoping to see both Dr. Pinto and Dr. Perry in [place] on the same day. Patient says if this isn't possible,he would prefer to have bloodwork done and to see Dr. Perry in [facility]. Relayed this to Dr. Perry. Will call patient again on 10/02. documented in this encounter Plan of Treatment Upcoming Encounters Date Type Specialty Care Team Description 03/30/2022 Office Visit Hematology and Oncology Kristan Perry MD [facility] ER DR ONCOLOGY DEPT. [place], [place] [address] (Wo rk) documented as of this encounter Visit Diagnoses Not on filedocumented in this encounter Care Teams Buckle Attacher Relationship Specialty Start Date End Date Ava Morales MD PCP - General Family Medicine 04/04/[address] [place] [phone] documented as of this encounter
--- OUTSIDE RECORDS SUMMARY | 2022-03-23 07:48 | XMS_ITS | Encounter Summary ---
:1960 Author Organization [facility] Address [facility] [address] Care Team Providers Name Role Phone Ava Morales MD Primary Care Provider Encounter Details Date Type Department Care Team Description 09/29/2021 Telephone Radiation Oncology a t [facility] [place] [place] Tomy Pinto [place] [phone] RADIATION ONCOLOGY [phone] [place], [place] [address] (Wo rk) Social History Tobacco [...] this encounter Miscellaneous Notes Telephone Encounter - Tomy iPnto MD - 09/29/2021 11:53 AM EST I spoke with Mr. Anaya. He states that he continues to be effectively immobile, and states that he is barely able to sit on the edge of the bed and get to the bathroom. He continues to eat minimally, and is hydrating some, noting some improvement over the past few days. He notes lightheadedness and dizziness when arising. I discussed concerns that he is not safe at home, and that the head and neck oncology team recommended admission to the hospital for evaluation and likely rehabilitation. He statedthat a visiting nurse is coming today, and there are planned blood draws, and he would like to wait for that evaluation prior to making any decisions. I will touch base with him Saturday after we have the lab values and VNA assessment. documented in this encounter Plan of Treatment Upcoming Encounters Date Type Specialty Care Team Description 03/30/2022 Office Visit Hematology and Oncology Kristan Perry MD [facility] DR ONCOLOGY DEPT. [place], [place] [address] (Wo rk) documented as of this encounter Visit Diagnoses Not on filedocumented in this encounter Care Teams Surveillance Camera Technician Relationship Specialty Start Date End Date Ava Morales MD PCP - General Family Medicine 04/04/[address] [place] [phone] documented as of this encounter
--- OUTSIDE RECORDS SUMMARY | 2022-03-23 07:48 | XMS_ITS | Encounter Summary ---
:1960 Author Organization [facility] [place] [address] Care Team Providers Name Role Phone Ava Morales MD Primary Care Provider Reason for Referral Diagnostic Test (Routine) - Closed Specialty Diagnoses / Procedures Referred By Contact Refer red To Contact Radiology Diagnoses Tonsil cancer Cris Enriquez APRN [facility] Rad Ct Scan Procedures CT Chest w Contrast [facility] [place] [address] [place] [address] Referral ID Status Reason Start Date Expiration Date Visits V isits Requested Authorized [id number] Closed Specialty 11/04/2021 05/03/2022 1 1 Service Requested Diagnostic Test (Routine) - Closed Specialty Diagnoses / Procedures Referred By Contact Refer red To Contact Radiology Diagnoses Tonsil cancer Cris Enriquez APRN [facility] Rad Ct Scan Procedures CT Neck Soft Tissue w Contrast (Generic) [facility] [place] [address] [place] [address] Referral ID Status Reason Start Date Expiration Date Visits V isits Requested Authorized [id number] Closed Specialty 11/04/2021 05/03/2022 1 1 Service Requested Encounter Details Date Type Department Care Team Description 10/10/2021 Orders Only Hematology and Oncology Cris Enriquez Tonsil cancer at [facility] [place] FILIBERTO [facility] Subhash preciado [facility] [place] [address] [place] [address] [phone] (Wo rk) Social History Tobacco Use Types [...] documented as of this encounter Miscellaneous Notes Addendum Note - Cris Enriquez APRN - 10/10/2021 3:55 PM EST Addended by: CRIS ENRIQUEZ on: 10/12/2021 03:35 PM Modules accepted: Orders Addendum Note - Cris Enriquez APRN - 10/10/2021 3:55 PM EST Addended by: CRIS ENRIQUEZ on: 10/13/2021 11:10 AM Modules accepted: Orders documented in this encounter Plan of Treatment Upcoming Encounters Date Type Specialty Care Team Description 03/30/2022 Office Visit Hematology and Oncology Kristan Perry MD [facility] DR ONCOLOGY DEPT. [place] [phone] (Wo rk) Scheduled Orders Name Type Priority Associated Diagnoses Order S chedule CBC (with Diff) Lab Routine Tonsil cancer Expected: 0 11/30/2021 (Approximate), Expires: 2022 Comprehensive metabolic Lab Routine Tonsil cancer Exp ected: 11/30/2021 panel (non-fasting) (Approxi mate), Expires: 2022 documented as of this encounter Results CT Chest w Contrast [...] who have questions please contact the health child care assistant that requested your imaging first. ? Electronically signed by: Shayy Henderson MD, [facility] ([phone]), at 11/30/2021 1:45 PM Narrative 11/30/2021 1:45 PM EST EXAMINATION: CT [...] ho have questions please contact the health child care assistant that requested your imaging first. Electronically signed by: Shayy Henderson MD, [facility] ([phone]), at 11/30/2021 1:45 PM Cris Enriquez FILIBERTO IMG CT ORDERABLES CT Neck Soft Tissue [...] who have questions please contact the health child care assistant that requested your imaging first. ? Electronically signed by: Donny Cordova [facility] ([phone]), at 11/30/2021 11:17 AM Narrative 11/30/2021 11:17 AM EST EXAMINATION: CT [...] ho have questions please contact the health child care assistant that requested your imaging first. Electronically signed by: Donny Cordova [facility] ([phone]), at 11/30/2021 11:17 AM Cris Enriquez APRN IMG CT ORDERABLES documented in this encounter Visit Diagnoses Diagnosis Tonsil cancer Malignant neoplasm of tonsil Tonsil cancer Malignant neoplasm of tonsil documented in this encounter Care Teams Manager School Relationship Specialty Start Date End Date Ava Morales MD PCP - General Family Medicine 04/04/[address] [place] [phone] documented as of this encounter
--- OUTSIDE RECORDS SUMMARY | 2022-03-23 07:48 | XMS_ITS | Encounter Summary ---
:1960 Author Organization [facility] [place] [address] Care Team Providers Name Role Phone Ava Morales MD Primary Care Provider Reason for Visit Reason Comments Chemotherapy Cycle 1, Day 22; Cisplat + I V mag Treatment/Therapy Plan Authorization (Routine) - Closed Specialty Diagnoses / Procedures Referred By Contact Refer red To Contact Diagnoses Tonsil cancer Edwar Perry MD [facility] Infusion Procedures TC PALONOSETRON HCL, 25MCG, INJECTION (ALOXI) TC APREPITANT, 1 MG, INJECTION TC CISPLATIN, POWDER OR SOLUTION, 10MG, INJECTION J2469 palonosetron (Aloxi) 0.25 MG J0185 aprepitant (CINVANTI) 130 MG J9060 CISplatin (Platinol) [address] [facility] [place] [phone] Fax: Referral ID Status Reason Start Date Expiration Date Visits Requ ested Visits Authorized [id number] Closed 07/10/2021 09/22/2021 99 99 Encounter Details Date Type Department Care Team Description 07/31/2021 Infusion Hematology Oncology at [facility] Tonsil cancer [address] [place] [address] [phone] Social History Tobacco Use Types [...] documented as of this encounter Progress Notes Obdulio Napoles RN - 07/31/2021 11:00 AM EST INFUSION THERAPY ADMINISTRATION NOTES DIAGNOSIS: Tonsillar cancer CYCLE #: Cycle 1, Day 22 - Cisplatin and magnesium infusion REASON FOR VISIT: To receive chemotherapy and magnesium replacement. SUBJECTIVE: Miriam offers no complaints. He denies diarrhea and will not need imodium today. OBJECTIVE: Seen by provider. Ready to treat. LAB DATA: WBC - 4.1, H/H - 11.7/36.2.1, Plt Ct - 147, ANC - 2.55, Lytes wnl, BUN/CR - 1.2/31, MG++ -1.4 - will received ~3 grams of magnesium today, until he had to leave d/t ride. IV ACCESS: Port accessed off site. Flushes readily with brisk blood return. Pre administration: Chemotherapy orders independently verified for drug name, route, and dosage per patient's height, weight and BSA by OBDULIO NAPOLES, NGUYEN and Staff Pharmacist(s). REACTIONS (DESCRIPTION, TIME, INTERVENTION AND EFFECTIVENESS) none ASSESSMENT: Miriam was awake, alert and tolerated treatment well. Port flushed with 20 cc's of NS and 500 units of heparin and de-accessed. PLAN: Return to clinic per routine. documented in this encounter Plan of Treatment Upcoming Encounters Date Type Specialty Care Team Description 03/30/2022 Office Visit Hematology and Oncology Kristan Perry MD [facility] DR ONCOLOGY DEPT. [place], [place] [address] (Wo rk) documented as of this encounter Visit Diagnoses Diagnosis Tonsil cancer Malignant neoplasm of tonsil documented in this encounter Administered Medications Inactive Administered Medications - up to 3 most recent administrations Medication Order MAR Action Action Date Dose Rate Site aprepitant (CINVANTI) injection Given 07/31/2021 11:43 AM EST 13 0 mg Emul 130 mg 130 mg, Intravenous, ONCE, 1 dose, On Sat07/31/21 at 1145, Alternative administration of IV push over 2 minutes is a recommendation from the engineer technical staff. Administer prior to chemotherapy., Routine CISplatin (Platinol) 109 mg in New Bag 07/31/2021 12:54 PM EST 109 mg 359 mL/hr sodium chloride 0.9% 359 mL infusion 109 mg (rounded from 108.8 mg = 40 mg/m2/dose ? 2.72 m2 Treatment Plan BSA from Recorded weight), Intravenous, ONCE, 1 dose, On Sat07/31/21 at 1245, Administer over 60 Minutes, Warning Vesicant/Irritant Medication dexamethasone (Decadron) injection 10 mg Given 07/31/2021 11:43 AM EST 10 mg 10 mg, Intravenous, ONCE, 1 dose, On Sat07/31/21 at 1145, Administer prior to chemotherapy heparin (pf) (porcine) (100 units/mL) Given 07/31/2021 2:[address] 500 Units flush 5 mL syringe 500 Units 500 Units, Intravenous, ONCE PRN, Starting on Sat07/31/21 at 1123, Until Sat07/31/21 at 1750, Line Care, Refer to Intravenous (IV) Procedure: Accessing Implanted Vascular Access Devices (654) procedure and/or Intravenous (IV) Job Aid: Adult Flushing & Catheter Care (3732) job aid for additional information regarding guidelines and administration., Routine magnesium sulfate 2 g in sterile water New Bag 07/31/2021 1:20 PM EST 2 g 25 mL/hr 50 mL infusion 2 g, Intravenous, EVERY 2 HOURS PRN, 2 doses, Starting on Sat07/31/21 at 1130, Until Sat07/31/21 at 1411, Administer over 120 Minutes, for electrolyte replacement, Total dose is 4 grams. New Bag 07/31/2021 11:43 AM EST 2 g 25 mL/hr palonosetron (Aloxi) (0.05 mg/mL) injection Given 04/2021 11:43 AM EST 0.25 mg 0.25 mg 0.25 mg, Intravenous, ONCE, 1 dose, On Sat07/31/21 at 1145, Administer over 30 seconds. Administer prior to chemotherapy, Routine sodium chloride 0.9 % (flush) (BD PosiFlush Given 07/31/2021 2:12 PM EST 20 mLs Normal Saline 0.9) flush 5-20 mL 5-20 mL, Intravenous, EVERY 1 MIN PRN, Starting on Sat07/31/21 at 1123, Until Sat07/31/21 at 1750, Line Care, Flush pertains to all indwelling lines. Flush per protocol found in the job aid using the link provided on this medication record. Refer to Intravenous (IV) Job Aid: Adult Flushing & Catheter Care (4821) job aid for additional information regarding guidelines and administration., Routine sodium chloride 0.9% infusion New Bag 07/31/2021 12:58 PM EST 500 mLs 500 mL/hr 500 mL, at 500 mL/hr, Intravenous, CONTINUOUS, Starting on Sat07/31/21 at 1345, Until Sat07/31/21 at 1444, Post CISplatin sodium chloride 0.9% infusion New Bag 07/31/2021 11:31 AM EST 1,000 mLs 1000 mL/hr 1,000 mL, at 1,000 mL/hr, Intravenous, CONTINUOUS, Starting on Sat07/31/21 at 1145, Until Sat07/31/21 at 1244, Pre-CISplatin documented in this encounter Care Teams Plasma Processing Technician Relationship Specialty Start Date End Date Ava Morales MD PCP - General Family Medicine 04/04/[address] [place] [phone] documented as of this encounter
--- OUTSIDE RECORDS SUMMARY | 2022-03-23 07:48 | XMS_ITS | Encounter Summary ---
:1960 Author Organization [facility] Address [address] [place] [address] Care Team Providers Name Role Phone Ava Morales MD Primary Care Provider Reason for Visit Reason Onset Date Comments Follow-up 09/20/2021 trying to schedule a ppointment with Dr. Perry Encounter Details Date Type Department Care Team Description 09/20/2021 Telephone Hematology/Oncology at Supriya French RN Follow-up (trying to [facility] schedule appointment [address] Dr[address] Perry) [place] [phone] Social History Tobacco Use Types Packs/Day Years [...] place to sleep or slept in a alf (including now)? Sex Assigned at Date Recorded Not on file documented as of this encounter Miscellaneous Notes Telephone Encounter - Supriya French RN - 09/20/2021 3:17 PM EST Called Miriam to see about scheduling follow up with Dr. Perry on SaturdaySep 25 as pt had been hospitalized for failure to thrive and LE edema at [facility]. (we have requested those records. Pt states he has follow up with PCP on SaturdaySep 25 at 1115 and he would prefer to see Dr. Perry and Dr. Pinto on same day and is willing to go to [facility] to do this. Dr. Perry fine with this. Abbey Krishnan RN nursenavigator will discuss at head and neck meeting today. documented in this encounter Plan of Treatment Upcoming Encounters Date Type Specialty Care Team Description 03/30/2022 Office Visit Hematology and Oncology Kristan Perry MD [facility] DR ONCOLOGY DEPT. [place], [place] [address] (Wo rk) documented as of this encounter Visit Diagnoses Not on filedocumented in this encounter Care Teams Studio Technician Relationship Specialty Start Date End Date Ava Morales MD PCP - General Family Medicine 04/04/[address] [place] [phone] documented as of this encounter
--- OUTSIDE RECORDS SUMMARY | 2022-03-23 07:48 | XMS_ITS | Encounter Summary ---
:1960 Author Organization [facility] [place] [address] Care Team Providers Name Role Phone Ava Morales MD Primary Care Provider Encounter Details Date Type Department Care Team Description 08/07/2021 Notes [facility] OFF[facility] OF CARE [address] [place] [phone] Social History Tobacco Use Types Packs/Day Years [...] documented as of this encounter Progress Notes Shasta Garcia MSW - 08/07/2021 10:28 AM EST Follow up with pt during his infusion visit today. Pt indicated he was managing fairly well day to day at home. He continues to schedule his won rides and they are working out well. He feels his treatments are working and he is please with the progress he is making. He is about half way through his treatments. Pt did not identify any new needs today. Offered support. Reminded pt of [facility] availability and contact information. Will follow for support and resources. Brief assessment Supportive Counseling documented in this encounter Plan of Treatment Upcoming Encounters Date Type Specialty Care Team Description 03/30/2022 Office Visit Hematology and Oncology Kristan Perry MD [facility] [address] ONCOLOGY DEPT. [place], [place] [address] (Wo rk) documented as of this encounter Visit Diagnoses Not on filedocumented in this encounter Care Teams Delimber Operator Relationship Specialty Start Date End Date Ava Morales MD PCP - General Family Medicine 04/04/[address] [place] [phone] documented as of this encounter
--- OUTSIDE RECORDS SUMMARY | 2022-03-23 07:48 | XMS_ITS | Encounter Summary ---
:1960 Author Organization [facility] Address [address] [place] [address] Care Team Providers Name Role Phone Ava Morales MD Primary Care Provider Encounter Details Date Type Department Care Team Description 11/03/2021 Orders Only Hematology and Edwar Perry, Tonsil ca ncer; Oncology at [facility] Dysphagia, unspecified type; [facility] His tory of gout; Drive Morbid obesity with BMI of 50.0-59.9, [place] [phone] ONCOLOGY DEPT. [phone] [place], [place] [address] Social History Tobacco Use Types [...] place to sleep or slept in a half-way (including now)? Sex Assigned at Date Recorded Not on file documented as of this encounter Plan of Treatment Upcoming Encounters Date Type Specialty Care Team Description 03/30/2022 Office Visit Hematology and Oncology Kristan Perry MD [facility] [address] ONCOLOGY DEPT. [place], [place] [address] (Wo rk) Scheduled Orders Name Type Priority Associated Diagnoses Order S chedule Comprehensive metabolic Lab Routine Tonsil c ancer Expected: 11/06/2021 panel (non-fasting) Dysphagia, unspecifie d (Approximate), type Expires: 11/04/2022 History of gout Morbid obesity with BMI of 50.0-59.9, adult CBC (with Diff) Lab Routine Tonsil cancer Expected: 11/06/2021 Dysphagia, unspecified (Appr oximate), type Expires: 11/04/2022 History of gout Morbid obesity with BMI of 50.0-59.9, adult TSH Lab Routine Tonsil cancer Expected: 11/06/2021 Dysphagia, unspecified (Appr oximate), type Expires: 11/04/2022 History of gout Morbid obesity with BMI of 50.0-59.9, adult documented as of this encounter Visit Diagnoses Diagnosis Tonsil cancer Malignant neoplasm of tonsil Dysphagia, unspecified type History of gout Personal history of other endocrine, met abolic, and immunity disorders Morbid obesity with BMI of 50.0-59.9, ad ult Morbid obesity documented in this encounter Care Teams Salvage Engineer Relationship Specialty Start Date End Date Ava Morales MD PCP - General Family Medicine 04/04/21 [address] [place] [phone] documented as of this encounter
--- OUTSIDE RECORDS SUMMARY | 2022-03-23 07:48 | XMS_ITS | Encounter Summary ---
:1960 Author Organization [facility] [place] [address] Care Team Providers Name Role Phone Ava Morales MD Primary Care Provider Encounter Details Date Type Department Care Team Description 08/07/2021 Office Visit Hematology/Oncology Dior Tipton To nsil cancer; at [facility] A, AUTOMATIC FURNACE OPERATOR Hypomagnesemia; [address] [place] [address] DR Chemotherapy induced nausea and vomiting ; [place], [place] HEMATOLOGY Neck mass [phone] ONCOLOGY [phone] [place] [address] Social History Tobacco Use Types Packs/Day Years [...] Sign Reading Time Taken Comments Blood Pressure 109/78 08/07/2021 9:01 AM EST Pulse 105 08/07/2021 9:01 AM EST Temperature 36.3 ??C (97.3 ??F) 08/07/2021 9:01 AM EST Respiratory Rate 24 08/07/2021 9:01 AM EST Oxygen Saturation 98% 08/07/2021 9:01 AM EST Inhaled Oxygen Concentration - - Weight 149.5 kg (329 lb 9.6 oz) 08/07/2021 9:01 AM EST Height 176.5 cm (5' 9.49) 08/07/2021 9:01 AM EST Body Mass Index 47.99 08/07/2021 9:01 AM EST documented in this encounter Patient Instructions Patient InstructionsMaDior ngo APRN - 08/07/2021 9:00 AM EST Miriam, Here are suggestions to get you bowels working better. Get some Senna tablets (trade name is Senekot), start with one twice a day. You can increase or decrease as needed. If the Senna does not help after a few days, I would suggest adding Miralax powder, taken once dailyin juice or water, usually helps patients maintain bowel regularity. (generic name for this is polyethylene glycol 3350). Please make every effort to drink a MINIMUM of 64 ounces of fluids daily. This is very important [facility] health during your treatments. documented in this encounter Progress Notes Dior Tipton APRN - 08/07/2021 9:00 AM EST Subjective: Patient ID: Miriam Anaya is a 61 y.o. male. Patient Active Problem List Diagnosis Code ??? Neck mass R22.1 ??? Morbid obesity with BMI of 50.0-59.9, adult E66.01, Z68.43 ??? Chronic atrial fibrillation I48.20 ??? Essential hypertension I10 ??? JOHN not on CPAP (though recommended) G47.33 ??? Tonsil cancer C09.9 ??? Claustrophobia F40.240 ??? History of gout Z87.39 ??? Dysphagia R13.10 HPI ??? Tonsil cancer ? cT1 N3 M0, p16(+), never-smoker (AJCC 8th ed) A. L parotid mass noted 09/2020; progressive enlargement, local pain, headache B. 7 X 6 cm L upper mass at evaluation -02/2021, FNA X 2 nondiagnostic C. EUA 05/19/2021: small L BOT mass, Bx: p16 (+) non-keratinizing SCCa, HPV type 33 (+), L neck Bx nondiagnostic D. Definitive chemoradiation (weekly cisplatin) instituted 07/10/2021 ? Dysphagia ??? Claustrophobia ? Difficulty with MRI, PET/CT scanning ? History of gout ??? Essential hypertension ??? JOHN not on CPAP (though recommended) ??? Neck mass ??? Morbid obesity with BMI of 50.0-59.9, adult ??? Chronic atrial fibrillation ?? ONCBCN ONCOLOGY (AMB) 07/10/2021 07/24/2021 Day, Cycle Day 1, Cycle 1 Day 15, Cycle 1 CISplatin (Platinol) IV 40 mg/m2/dose = 109 mg 40 mg/m2/dose = 109 mg ?? Med onc checkup and dose #3 chemo; [...] chemotherapy and at his postchemotherapy hydration visit. INTERVAL HPI 08/07/21 ??Miriam Anaya is a 61 yo male diagnosed with T1N3M0 scc tonsilar cancer in 05/13. (See history as summarized above.) Miriam returns to the [facility]- oncology clinic in [facility] today for evaluation and planned C1D29 treatment with Cisplatin and concurrent RT. Today, Miriam says he is doing pretty well. He is having very little pain with swallowing. He says the worst side effect so far is the lack of taste. He has found a few things that still have flavor, like eggs and home fries. He is experimenting with different foods. Miriam says his saliva is getting thicker. He has found drinking priscilla arcenio and using Biotin to to helpful and uses them before he eats. He does not have a feeding tube. He does have protein shakes at home. He is feeling more tired. Today he felt a little lightheaded compared to other mornings. He did not have breakfast. Weight and BP stable today. He feels the left neck mass is even smaller. No drainage. Applying cream to radiation area. Miriam experienced constipation this week, with no BM for 2-3 days. Normally coffee keeps him regularbut lately it doesn't taste good. We discussed using Senna twice daily for regularity, and add Miralax as needed. His bowels are moving better today. Miriam is trying to keep up with his hydration at home. He thinks he may not be getting up to 64 ounces a day and will focus more on that. Miriam reports increased tinnitus this week. He states he had infrequent tinnitus pre-chemo that would occur once every month or so. However, last week he noticed about 10 fleeting episodes. He denies fever or chills. He denies shortness of breath, cough or chest pain. Miriam also reports an interesting side effect of black specks he sees in the toilet after urination.He denies blood in urine. He denies painful urination or flow issues. He had no other new aches or pains to report. He denies numbness or tingling. No Known Allergies Current Medications ??? emollient base (CREAM BASE TOP) ??? pantothenic Ac-Min Oil-Pet,Hyd (Aquaphor) 41 % Ointment ??? LORazepam (Ativan) 1 mg Tablet ??? loperamide (IMODIUM A-D) 2 mg Tablet ??? magnesium oxide (Mag-Ox) 400 mg (241.3 mg magnesium) Tablet ??? prochlorperazine (Compazine) 10 mg Tablet ??? traMADoL (Ultram) 50 mg Tablet ??? oxyCODONE (Roxicodone) 5 mg Tablet ??? meloxicam (MOBIC) 7.5 mg Tablet ??? acetaminophen (Tylenol) 500 mg Tablet ??? metoprolol tartrate (Lopressor) 50 mg Tablet ??? lidocaine (Xylocaine) 4 % (40 mg/mL) solution ??? lidocaine (Xylocaine) 4 % (40 mg/mL) solution Social History Tobacco Use ??? Smoking status: Never Smoker ??? Smokeless tobacco: Never Used Vaping Use ??? Vaping Use: Never used Substance Use Topics ??? Alcohol use: Not Currently ??? Drug use: Not on file Review of Systems Constitutional: Positive for fatigue. HENT: Negative for mouth sores, trouble swallowing and voice change. Not much tastes good Respiratory: Negative for cough and shortness of breath. Cardiovascular: Negative for chest pain and palpitations. Gastrointestinal: Positive for constipation. Negative for diarrhea and nausea. Genitourinary: Negative for difficulty urinating, dysuria and hematuria. Musculoskeletal: Negative. Neurological: Negative. Negative for dizziness and weakness. Hematological: Left neck mass feels smaller Psychiatric/Behavioral: Negative. Objective: Physical Exam Vitals reviewed. Constitutional: Appearance: Normal appearance. HENT: Mouth/Throat: Mouth: Mucous membranes are moist. Pharynx: Oropharynx is clear. No posterior oropharyngeal erythema. Neck: Comments: Left neck mass Cardiovascular: Rate and Rhythm: Regular rhythm. Tachycardia present. Comments: Heart tones distant. Pulmonary: Breath sounds: No wheezing or rales. Abdominal: General: Bowel sounds are normal. Tenderness: There is no abdominal tenderness. Lymphadenopathy: Cervical: Cervical adenopathy present. Skin: General: Skin is warm and dry. Comments: Red on left neck Neurological: Mental Status: He is alert and oriented to person, place, and time. Psychiatric: Mood and Affect: Mood normal. Thought Content: Thought content normal. BP 109/78 (Patient Position: Sitting) Pulse (!) 105 Temp 36.3 ??C (97.3 ??F) (Temporal) Resp 24 Ht 176.5 cm (5' 9.49) Wt (!) 149.5 kg (329 lb 9.6 oz) SpO2 98% BMI 47.99 kg/m?? LABS 08/07/21 WBC 3.04; ANC 2.18; H/H 10.5/ 32.0; PLT 102; BUN 31; CREAT 1.3 (up from 1.2 on 07/31 and 1.1 on 07/24); MAG 1.4; LFTs normal. Assessment and Plan: Assessment: ??Miriam Anaya is a 61 yo male diagnosed with T1N3M0 scc tonsilar cancer in 05/13. (See history as summarized above.) Miriam returns to the [facility]- oncology clinic in [facility] today for evaluation and planned C1D29 treatment with Cisplatin and concurrent RT. Miriam is having a GR1 tinnitus and mild fatigue. Otherwise tolerating therapy well. Discussed with Dr. Perry regarding dose reduction. CBC and CMP and MAG reviewed with Miriam today. Creatnine increasing also, Magnesium decreasing Plan: Proceed with C1D29 Cisplatin today with supplemental 2 mg IVPB Magnesium. Dose reduction today to 30mg/m2 for tinnitus and creatinine. Encourage increased efforts to drink 2 quarts daily. Senna tabs daily with Miralax also if needed. RTC 08/10 for hydration. RTC 08/14 for labs, visit and C1D35. documented in this encounter Plan of Treatment Upcoming Encounters Date Type Specialty Care Team Description 03/30/2022 Office Visit Hematology and Oncology Kristan Perry MD [facility] DR ONCOLOGY DEPT. [place] [address] (Wo rk) documented as of this encounter Visit Diagnoses Diagnosis Tonsil cancer Malignant neoplasm of tonsil Hypomagnesemia Disorders of magnesium metabolism Chemotherapy induced nausea and vomiting Nausea with vomiting Neck mass Swelling, mass, or lump in head and neck documented in this encounter Care Teams Publication Editor Relationship Specialty Start Date End Date Ava Morales MD PCP - General Family Medicine 04/04/[address] [place] [phone] documented as of this encounter
--- OUTSIDE RECORDS SUMMARY | 2022-03-23 07:48 | XMS_ITS | Encounter Summary ---
:1960 Author Organization [facility] [place] [address] Care Team Providers Name Role Phone Ava Morales MD Primary Care Provider Encounter Details Date Type Department Care Team Description 08/07/2021 [facility] Tonsil cancer [address] HEMATOLOGY AND [phone] ONCOLOGY [phone] [place], [place] [address] (Wo rk) Social History Tobacco [...] place to sleep or slept in a fci (including now)? Sex Assigned at Date Recorded Not on file documented as of this encounter Progress Notes Julieta, Leslie Bowers RD - 08/07/2021 9:30 AM EST [facility] Nutrition Assessment Progress Note Miriam Millergarret Diagnosis: Stage 3 Tonsil Cancer Assessment: Nutrition Screen 08/07/2021 Reason for assessment Symptom management Total MST Score - Functional Status 08/07/2021 Appetite Similar compared to usual intake Xerostomia Present Odynophagia Present Dysgeusia Present Impaired wound healing - Patient complains of continued taste changes. He has xerostomia as well, using BSSW. Patient also reports some constipation which he discussed with Loida Tipton earlier today. He goes up to 5 days without BM. Food History, Access and Intake 08/07/2021 Patient Reported Diet Regular Use of oral nutritional supplements Other Patient reports he continues to experiment with foods. He eats slovak muffin or toast for breakfast and does rely on some prepared/frozen foods. He says he needs to drink more. He drinks some water but also priscilla arcenio, juice and tea. He drinks low carb protein drink occasionally. Food Insecurity Screening 07/10/2021 Within the past 12 months, you worried that your food would run out before you got the money to buy more. 1 Malnutrition Characteristics 08/07/2021 Insufficient Energy Intake Less than or equal to 70% for 7 days Unintended Weight Loss 1-2% in a week Wt Readings from Last 3 Encounters: 08/07/21 (!) 149.5 kg (329 lb 9.6 oz) 08/03/21 (!) 151.2 kg (333 lb 6.4 oz) 08/02/21 (!) 152 kg (335 lb 3.2 oz) BMI 47.99 330# 10oz on 07/10??(treatment start date) 333# on 06/19 333# on 05/19 Weight is up 3# compared to weight 7 days ago (326# on 07/31). Weight tends to trend up by mid/end ofweek. Fluctuations seem likely due to fluid status. Weight of 329# is similar to weight of 330# on 07/10, when patient started treatment one month ago. Medications: Ativan with RT, Imodium prn, Mag-Ox, compazine prn, tramadol, oxycodone, meloxicam, tylenol prn, metoprolol Patient started RT and weekly Cisplatin on 07/10. 08/07 labs: Ca 8.4L, BG 92, BUN 31H, Creat 1.3, Alb 3.2L, Tbili 0.4, AlkPhos 51, Na 143, K 4.3, AST 14L, ALT 32, WBC 3.04, ANC 2.19, Mg 1.4L Nutrition Diagnosis 08/07/2021 Problems Involuntary weight loss Etiology (related to) Daily H/N radiation therapy;Chemotherapy Signs and Symptoms > 5 % uinintentional weight loss in 1 month (Severe) Improved, though with weight fluctuations. Estimated needs based on current weigh tof 149.5 k kcals (20 kcal/kg) obese 120 g protein (0.8 g/kg) ~2.9 L fluid Intervention: * Encouraged adequate intake to maintain weight during treatment. Patient is interested in pursuing weight loss after treatment. * Encouraged continuing to experiment with different foods that may have more appealing taste. Follow Up: On 08/14 Note: Please see Hematology/Oncology malnutrition flowsheet for complete RD assessment/documentation documented in this encounter Plan of Treatment Upcoming Encounters Date Type Specialty Care Team Description 03/30/2022 Office Visit Hematology and Oncology Kristan Perry MD [facility] DR ONCOLOGY DEPT. [place], [place] [address] (Wo rk) documented as of this encounter Visit Diagnoses Diagnosis Tonsil cancer Malignant neoplasm of tonsil documented in this encounter Care Teams Inside Sales Associate Relationship Specialty Start Date End Date Ava Morales MD PCP - General Family Medicine 04/04/21 [address] [place] [address] documented as of this encounter
--- OUTSIDE RECORDS SUMMARY | 2022-03-23 07:48 | XMS_ITS | Encounter Summary ---
:1960 Author Organization [facility] [place] [address] Care Team Providers Name Role Phone Ava Morales MD Primary Care Provider Encounter Details Date Type Department Care Team Description 08/21/2021 [facility] [address] ONCOLOGY DEPT. [place], [place] [phone] Social History Tobacco Use Types Packs/Day Years [...] Sign Reading Time Taken Comments Blood Pressure 128/78 08/21/2021 8:45 AM EST Pulse 95 08/21/2021 8:45 AM EST Temperature 36.4 ??C (97.5 ??F) 08/21/2021 8:45 AM EST Respiratory Rate 20 08/21/2021 8:45 AM EST Oxygen Saturation 98% 08/21/2021 8:45 AM EST Inhaled Oxygen Concentration - - Weight 148.3 kg (327 lb) 08/21/2021 8:45 AM EST Height 176.5 cm (5' 9.49) 08/21/2021 8:45 AM EST Body Mass Index 47.61 08/21/2021 8:45 AM EST documented in this encounter Progress Notes Edwar Perry MD - 08/21/2021 8:45 AM EST Images from the original note were not included. Hematology/Oncology Clinic [facility] Patient Active Problem List Diagnosis [...] 109 mg 40 mg/m2/dose = [address] [facility] 07/31/2021 08/07/2021 Day, Cycle Day 22, Cycle 1 Day 29, Cycle 1 CISplatin (Platinol) IV 40 mg/m2/dose = 109 mg 30 mg/m2/dose = [address] [facility] 08/14/2021 Day, Cycle Day 36, Cycle 1 CISplatin (Platinol) IV 30 mg/m2/dose = 82 mg Med Onc checkup and possible dose #6 concurrent chemo. He is doing as well as can be expected. Energy level is declining but he is keeping up with ADLs independently. He is skin in the radiation field, particularly on the left low neck, is getting more tender. Silvadene was prescribed last week but he has not been able to get this from the pharmacy, possibly because of an insurance question but will be checking in with the pharmacy today. He is rinsing his mouth regularly. He has very minimal mucositis. His major challenge is dysgeusia, as before. He is able to tolerate chicken noodle soup out of the camp, and scrambled eggs or poached eggs toast but very little else in terms of food variety. Needs ofall sorts are difficult. He did increase his magnesium supplement to 400 mg tablet twice a day. With all of this he is noted that his bowels have been a bit loose, but has had no miriam diarrhea. He remains free of peripheral neuropathy. However, the tinnitus that he has had for many years has been slowly become prominent and more persistent. He denies miriam hearing acuity loss. He has had no problems with his Mediport. He has noted some increased swelling in his left leg but no calf or thigh pain. Physical exam: He looks well, in quiet good spirits Oral exam is clean; Mallampati 4 exposure limits my view of the posterior pharynx. Tongue is mobile.No halitosis. Neck shows persistent deep fixed zone 2 adenopathy, approximately 4 x 3 cm, but only about a centimeter in thickness. The skin in the radiation field shows grade 3 erythema and focal grade 3 dry desquamation. It is tender. The lungs are clear Cardiac exam shows atrial fibrillation with reasonable rate Right chest Mediport is benign Abdomen is obese but otherwise normal, quiet bowel sounds, no hepatosplenomegaly Extremities show trace pitting edema, chronic on the right and a bit more prominent than before on the left. Neurologic exam is grossly normal with antalgic gait from his knee arthritis as before. Cranial nerves normal. Reflexes trace. Labs: Today's white count is 1.71 with ANC 1110. Hemoglobin down to 8.7. Platelets down to 65,000. Electrolytes are essentially normal, BUN 22, creatinine 1.3 which is stable. Hepatic enzymes normal. Albumin down to 2.9. Magnesium low but stable at 1.1. 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 His tolerance to chemotherapy is diminishing but just acceptable for ongoing treatment today. I was notsure about whether or not we would try to give him chemotherapy next week but I think the better part of valor would be to hold chemotherapy after today's dose of 30 mg per meter squared. Plan: 1. Proceed with today's chemotherapy dose, 30 mg per metered squared cisplatin. Same supportive care. Follow-up later this week for additional hydration, antiemetic, and IV magnesium. 2. We will make today's the last dose of chemotherapy, but reserve an infusion appointment next weekfor fluids and IV magnesium. 3. 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 He will call his pharmacy while he is getting chemotherapy today to make sure the medicine is ready for pickup. 4. Follow-up on 08/28 with Dior Tipton APRN. I will be at [facility] that day but reachable by phone. Edwar Perry MD, FACP community artist Hematology/Oncology Section [facility]/[address] [id number] Voice recognition software used for this note; please excuse enamel applier errors. I personally reviewed past medical, surgical, family medical histories, reviewed current medications, vital signs, labs, and performed full review of systems. These are documented below the narrative for clarity and succinctness. Outpatient Medications Marked as Taking for the 08/21/21 encounter (Office Visit) with Viv Perry MD Medication Sig Dispense Refill ??? silver sulfADIAZINE (Silvadene) 1 % Cream Apply to peeling skin 2-3 times daily as needed. 400 gPRN ??? emollient base (CREAM BASE TOP) Apply topically. Jeans Cream. Apply to area of radiation twice aday but no less than 2 hours before a treatment. ??? pantothenic Ac-Min Oil-Pet,Hyd (Aquaphor) 41 % Ointment Apply topically. ??? LORazepam (Ativan) 1 mg Tablet Take one to two pills by mouth a 1/2 hour prior to radiation therapy 50 tablet 0 ??? magnesium oxide (Mag-Ox) 400 mg (241.3 mg magnesium) Tablet Take 1 tablet by mouth 2 times daily. 60 tablet 5 ??? meloxicam (MOBIC) 7.5 mg Tablet 2 times daily. ??? metoprolol tartrate (Lopressor) 50 mg Tablet Take 50 mg by mouth 2 times daily. Current Facility-Administered Medications for the 08/21/21 encounter (Office Visit) with Edwar Perry MD Medication Dose Route Frequency Provider Last Rate Last Admin ??? lidocaine (Xylocaine) 4 % (40 mg/mL) solution Topical (Top) Once PRN Tomy Pinto MD ??? lidocaine (Xylocaine) 4 % (40 mg/mL) solution Topical (Top) Once PRN Tomy Pinto MD Review of Systems: Review of systems is negative for other MANAGER GIFT, bone, pulmonary, cardiac, GI, , extremity, neurologic, endocrine, skin, constitutional, emotional, or functional problems. Vitals Office Visit from 08/21/2021 in Hematology/Oncology at [facility] Weight 148.3 kg (327 lb) Height 176.5 cm (5' 9.49) BSA (Calculated - sq m) 2.7 sq meters BMI (Calculated) 47.61 Temp 36.4 ??C (97.5 ??F) Temp src Temporal Heart Rate 95 Heart Rate Source Right, NIBP Resp 20 BP 128/78 SpO2 98 % Karnofsky Score 70 Body surface area is 2.7 meters squared. Wt Readings from Last 3 Encounters: 08/21/21 (!) 148.3 kg (327 lb) 08/18/21 (!) 148.3 kg (327 lb) 08/16/21 (!) 150.7 kg (332 lb 3.2 oz) No results found for this or any previous visit (from the past 72 hour(s)). ++++++++++++++++++++++++++++++++++++++++++++++++++++ documented in this encounter Plan of Treatment Upcoming Encounters Date Type Specialty Care Team Description 03/30/2022 Office Visit Hematology and Oncology Kristan Perry MD [facility] DR ONCOLOGY DEPT. [place], [place] [address] (Wo rk) documented as of this encounter Visit Diagnoses Diagnosis Tonsil cancer Malignant neoplasm of tonsil documented in this encounter Care Teams Exercise Physiologist Relationship Specialty Start Date End Date Ava Morales MD PCP - General Family Medicine 04/04/[address] [place] [phone] documented as of this encounter
--- OUTSIDE RECORDS SUMMARY | 2022-03-23 07:48 | XMS_ITS | Encounter Summary ---
:1960 Author Organization [facility] [place] [address] Care Team Providers Name Role Phone Ava Morales MD Primary Care Provider Reason for Visit Reason Comments IV Access hydration, antiemetics, magn esium Treatment/Therapy Plan Authorization (Routine) - Closed Specialty Diagnoses / Procedures Referred By Contact Refer red To Contact Diagnoses Tonsil cancer Edwar Perry MD [facility] Infusion Procedures TC PALONOSETRON HCL, 25MCG, INJECTION (ALOXI) TC APREPITANT, 1 MG, INJECTION TC CISPLATIN, POWDER OR SOLUTION, 10MG, INJECTION J2469 palonosetron (Aloxi) 0.25 MG J0185 aprepitant (CINVANTI) 130 MG J9060 CISplatin (Platinol) 109 MG [facility] DR [facility] [place] [phone] Fax: Referral ID Status Reason Start Date Expiration Date Visits Requ ested Visits Authorized [id number] Closed 07/10/2021 09/22/2021 99 99 Encounter Details Date Type Department Care Team Description 08/18/2021 Infusion Hematology Oncology at [facility] Tonsil cancer [address] [place] [phone] Social History Tobacco Use Types [...] Sign Reading Time Taken Comments Blood Pressure 136/83 08/18/2021 9:54 AM EST Pulse 89 08/18/2021 9:54 AM EST Temperature 36.3 ??C (97.3 ??F) 08/18/2021 9:54 AM EST Respiratory Rate 18 08/18/2021 9:54 AM EST Oxygen Saturation 100% 08/18/2021 9:54 AM EST Inhaled Oxygen Concentration - - Weight 148.3 kg (327 lb) 08/18/2021 9:54 AM EST Height 176.5 cm (5' 9.49) 08/18/2021 9:54 AM EST Body Mass Index 47.61 08/18/2021 9:54 AM EST documented in this encounter Progress Tristin Matthews RN - 08/18/2021 10:00 AM EST INFUSION THERAPY ADMINISTRATION NOTES DIAGNOSIS: Tonsil cancer REASON FOR VISIT: Hydration, Mag, antiemetics SUBJECTIVE Miriam Anaya offers no complaints other than sore left neck from XRT. OBJECTIVE VSS IV ACCESS: Mediport REACTIONS (DESCRIPTION, [...] [facility] DR ONCOLOGY DEPT. [place], [place] [address] (Wo rk) documented as of this encounter Visit Diagnoses Diagnosis Tonsil cancer Malignant neoplasm of tonsil documented in this encounter Administered Medications Inactive Administered Medications - up to 3 most recent administrations Medication Order MAR Action Action Date Dose Rate Site dexamethasone (Decadron) Given 08/18/2021 10:17 AM EST 5.2 mg injection 5.2 mg 5.2 mg (rounded from 5 mg), Intravenous, ONCE, 1 dose, On Sat08/18/21 at 1000 heparin (pf) (porcine) (100 units/mL) Given 08/18/2021 12:10 PM EST 500 Units flush 5 mL syringe 500 Units 500 Units, Intravenous, ONCE PRN, Starting on Sat08/18/21 at 0820, Until Sat08/18/21 at 1535, Line Care, Refer to Intravenous (IV) Procedure: Accessing Implanted Vascular Access Devices (654) procedure and/or Intravenous (IV) Job Aid: Adult Flushing & Catheter Care (7240) job aid for additional information regarding guidelines and administration., Routine magnesium sulfate 2 g in sterile water New Bag 08/18/2021 10:2 0 AM EST 2 g 25 mL/hr 50 mL infusion 2 g, Intravenous, ONCE, 1 dose, On Sat08/18/21 at 1000, Administer over 120 Minutes ondansetron (Zofran) tablet 16 mg Given 08/18/2021 10:17 AM EST 16 mg 16 mg, Oral, ONCE, 1 dose, On Sat08/18/21 at 1000, Routine sodium chloride 0.9 % (flush) (BD PosiFlush Given 07/25 12:10 PM EST 20 mLs Normal Saline 0.9) flush 5-20 mL 5-20 mL, Intravenous, EVERY 1 MIN PRN, Starting on Sat08/18/21 at 0820, Until Sat08/18/21 at 1535, Line Care, Flush pertains to all indwelling lines. Flush per protocol found in the job aid using the link provided on this medication record. Refer to Intravenous (IV) Job Aid: Adult Flushing & Catheter Care (7439) job aid for additional information regarding guidelines and administration., Routine sodium chloride 0.9% infusion New Bag 08/18/2021 10:17 AM EST 1,000 mLs 1000 mL/hr 1,000 mL, at 1,000 mL/hr, Intravenous, CONTINUOUS, Starting on Sat08/18/21 at 1000, Until Sat08/18/21 at 1059 documented in this encounter Care Teams Community Services Coordinator Relationship Specialty Start Date End Date Ava Morales MD PCP - General Family Medicine 04/04/[address] [place] [phone] documented as of this encounter
--- OUTSIDE RECORDS SUMMARY | 2022-03-23 07:48 | XMS_ITS | Encounter Summary ---
:1960 Author Organization [facility] [place] [address] Care Team Providers Name Role Phone Ava Morales MD Primary Care Provider Encounter Details Date Type Department Care Team Description 09/06/2021 TH Visit Radiation Oncology Tomy Pinto us cell (TeleHealth) at [facility] MD Elissa carcinoma of pal[address] [facility]il [facility] [phone] RADIATION [phone] ONCOLOGY [place], [place] [address] Social History Tobacco Use Types [...] time when you did not hav e daxa No 07/10/[address] or slept in a jail (including now)? Sex Assigned at Date Recorded Not on file documented as of this encounter Progress Notes Tomy Pinto MD - 09/06/2021 7:30 AM EST Images from the original note [...] mg/m2/dose 30 mg/m2/dose 30 mg/m2/dose Plan Images: Changes in medical condition Pain: soreness of throat, making it difficult to swallow. Not taking any OTC/narcotic pain medications. Secretions/Dryness: Thick secretions still present. Occasional xerostomia, severe dysgeusia. Using BSSW rinses & Biotene. Swallowing Function: Occasional food hanging up, but rare. Nutrition / G tube: No feeding tube. All by mouth. Tolerating regular diet, limited by dysgeusia andfatigue. States that he is eating in a limited fashion, with significant weight loss on his home scale. Some fluids. Skin: Skin creams are more painful / burning, using Silvadene. GI: -Nausea: No recent nausea/vomiting. -Bowels: constipation Other: -Very fatigued, he notes some symptoms of depression. -Diminished swelling in legs, Dopper (-) for DVT at ED. He does note some mild erythema left dorsal foot. Nutrition Assessment: Weight : 155.3kg initial Change: 152.0 => 152.0 kg => 150.7 kg => 148.3 => 147.7 => 136 (home scale) Objective: There were no vitals filed for this visit. Assessment: He wants to minimize travel so assessment by phone today. He continues to struggle with oral intake. CTCAE TOXICITY GRADES (see below for isaacs): Site Grade Skin 3 Xerostomia 2 Pharyngeal Mucositis 0 Dysphagia 0 Hoarseness 0 Plan: ?? Pain control: ?? Tylenol prn ?? Skin: Silvadene to areas of desquamation / tenderness, AP ?? Mucositis: ?? Pain control: see above ?? Oral hygiene consisting of baking soda/salt rinse at least 8 times daily ?? Alimentation: musical instrument maker following ?? Weight decreased per report, all by mouth at this time. Emphasized need to maintain oral intake/weight. ?? GI: ?? N/V: no issues ?? Constipation: senna prn ?? FU: I will talk by phone in two weeks, see him in one month per his request. I will also discuss IVF and labs with Dr. Perry. CTCAE v4.03 scales for reference Skin 0 [...] and Oncology Kristan Perry MD [facility] DR ONCOLOGY DEPT. 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
--- OUTSIDE RECORDS SUMMARY | 2022-03-23 07:48 | XMS_ITS | Encounter Summary ---
:1960 Author Organization [facility] [place] [address] Care Team Providers Name Role Phone Ava Morales MD Primary Care Provider Reason for Visit Reason Onset Date Comments Anorexia 09/11/2021 Encounter Details Date Type Department Care Team Description 09/11/2021 Notes [facility] [place] [phone] Social History Tobacco Use Types Packs/Day [...] place to sleep or slept in a correction (including now)? Sex Assigned at Date Recorded Not on file documented as of this encounter Progress Notes Rina Apodaca RN - 09/11/2021 10:20 AM EST Caller: Miriam Anaya Relationship: patient Clarified Two Patient Identifiers: [x] Reason For Call: Anorexia Assessment/Symptom Review (onset, location, duration, what makes it better or worse, pertinent positives and negatives): Patient reports he has not been able to eat or drink consistently to keep up with nutrition for two weeks since finishing chemotherapy and radiation. States he is almost bedridden and cannot get out ofbed to preform ADLs. Resorting to urinating in trash can. States his feet are swollen and painful and this impedes his ability to walk. Review of Systems Related to Reason for Call: System POS NEG Not Applicable Head (ENT /Neuro) [] [x] [] Cardiac [] [x] [] Respiratory [] [x] [] GI [x] [] [] [x] [] [] Musculoskeletal [x] [] [] Integumentary [] [x] [] Mental Health [] [x] [] Select Specific Decision Support Tool Used: Consulted with Dr Edwar Perry, advised patient to be seen in the ED. Patient agreed with plan and stated that he would go to [facility]. Report called to [facility]. Faxed over office note and med list. Name of Guideline/Protocol Used: Provider consulted Disposition/Plan of Care: ED Patient/Caregiver verbalizes understanding of plan of care: yes Patient/Caregiver agrees with plan: yes Advised patient/caregiver to: to go to the ED for evaluation Patient/Caregiver demonstrates understanding via teach back: yes documented in this encounter Plan of Treatment Upcoming Encounters Date Type Specialty Care Team Description 03/30/2022 Office Visit Hematology and Oncology Kristan Perry MD [facility] DR ONCOLOGY DEPT. [place] [address] (Wo rk) documented as of this encounter Visit Diagnoses Not on filedocumented in this encounter Care Teams Manager Mba Relationship Specialty Start Date End Date Ava Morales MD PCP - General Family Medicine 04/04/[address] [place] [phone] documented as of this encounter
--- OUTSIDE RECORDS SUMMARY | 2022-03-23 07:48 | XMS_ITS | Encounter Summary ---
:1960 Author Organization [facility] [place] [address] Care Team Providers Name Role Phone Ava Morales MD Primary Care Provider Encounter Details Date Type Department Care Team Description 08/14/2021 [facility] Tonsil cancer [address] HEMATOLOGY AND [address] ONCOLOGY [phone] [place], [place] [address] (Wo rk) Social History Tobacco [...] place to sleep or slept in a skilled nursing (including now)? Sex Assigned at Date Recorded Not on file documented as of this encounter Progress Notes Julieta, Nelson E, RD - 08/14/2021 10:30 AM EST [facility] Nutrition Assessment Progress Note Miriam Sumner Jaclyn Diagnosis: Stage III SCC left tonsil HPV(+) Assessment: Nutrition Screen 08/14/2021 Reason for assessment Symptom management Total MST Score 0 Functional Status 08/14/2021 Appetite Similar compared to usual intake Xerostomia Present Odynophagia - Dysgeusia Present Impaired wound healing - Patient is still struggling with taste changes, though he continues to experiment with finding foods that are appealing. No N/V. His constipation has improved. Patient does have thick secretions and is using SW rinses and biotene mouth wash. Food History, Access and Intake 08/14/2021 Patient Reported Diet Regular Use of oral nutritional supplements - Food that are tolerable in terms of taste include fried cauliflower, hot cocoa, eggs, ham and rice.Cori arcenio is most appealing for drinks. Dairy foods do not taste good, so he is avoiding these. He drinks low carb protein shake 4 days/week. Food Insecurity Screening 07/10/2021 Within the past 12 months, you worried that your food would run out before you got the money to buy more. 1 Malnutrition Characteristics 08/14/2021 Insufficient Energy Intake Less than or equal to 70% for 7 days Unintended Weight Loss 1-2% in a week Wt Readings from Last 3 Encounters: 08/14/21 (!) 147.9 kg (326 lb) 08/10/21 (!) 150.3 kg (331 lb 6.4 oz) 08/09/21 (!) 152 kg (335 lb) 08/07/21 329# 08/02/21 335# 330# 10oz on 07/10??(treatment start date) 333# on 06/19 333# on 05/19 360# on 03/16 BMI: 47.46 Weight continues to fluctuate. He is 4# below weight at start of treatment (1.2% body weight loss inone month); 3# below weight one week ago (1.0% body weight). 34# loss in past six months (9.4% body weight loss)--not clinically significant. Medications: Ativan before RT, Imodium prn, MagOx, Compazine prn, Tramadol prn, Oxycodone prn, Meloxicam, Tylenol prn, Metoprolol Patient started Cisplatin and daily RT on 07/10 Labs on 08/14: Ca 8.2, BG 108, BUN 22H, Creat 1.3, Alb 3.3, TBili 0.5, AlkPhos 51, Na 141, K 4.1, AST 13L, ALT 24, WBC 3.27, H/H 30.3, platelet 82L, ANC 2.2, Mg 1.1L Nutrition Diagnosis 08/14/2021 Problems Involuntary weight loss Etiology (related to) Daily H/N radiation therapy Signs and Symptoms 1-2 % weight loss in 1 week (Non severe/moderate) fluctuations--3# loss in past week (1% body weight) Estimated needs based on 147.9 k kcals (20 kcal/kg) obese) 120 g protein (0.8 g/kg) ~2.9 L fluid Intervention: * Encouraged adequate intake to maintain weight during treatment. He is doing well with trying different foods despite taste changes. * Encouraged having his protein shake once daily. Follow Up: On 08/21 Note: Please see Hematology/Oncology malnutrition flowsheet for complete RD assessment/documentation documented in this encounter Plan of Treatment Upcoming Encounters Date Type Specialty Care Team Description 03/30/2022 Office Visit Hematology and Oncology Kristan Perry MD [facility] [place], [place] [address] (Wo rk) documented as of this encounter Visit Diagnoses Diagnosis Tonsil cancer Malignant neoplasm of tonsil documented in this encounter Care Teams Palliative Nurse Relationship Specialty Start Date End Date Ava Morales MD PCP - General Family Medicine 04/04/[address] [place] [phone] documented as of this encounter
--- OUTSIDE RECORDS SUMMARY | 2022-03-23 07:48 | XMS_ITS | Encounter Summary ---
:1960 Author Organization [facility] [place] [place] [address] Care Team Providers Name Role Phone Ava Morales MD Primary Care Provider Encounter Details Date Type Department Care Team Description 09/18/2021 [facility] [address] HEMATOLOGY AND ONCOLOGY [place], [place] [phone] [place] [address] [phone] (Wo rk) Social History Tobacco Use Types [...] Telephone Encounter - Leslie Rendon RD - 09/18/2021 9:31 AM EST Nutrition Follow-Up Spoke with patient over the phone today. He reports he had a [facility] and said the mainproblems were weakness, dehydration, and pain/swelling in foot. He denied having any vomiting. Patient was unable to ambulate at home due to his foot problem, and thus had difficulty obtaining food anddrinks. He says he is still unsure of the cause of his foot swelling but thinks it was related to high uric acid levels. This has improved since he was discharged and he is now mobile; he was also senthome with a walker. Patient reported he was in Afib during his stay and heart rate would become veryelevated when he mobilized. He says his metoprolol dose was increased. Encouraged patient to eat and drink today. He was unable to eat a lot of solids during his inpatientstay due to taste changes but thinks the taste of foods is starting to return now. He plans to have some soup this morning. Discussed how taste would start to slowly return and to expand on the flavorsthat are appealing. Patient says he has to make phone calls today to follow-up on cardiac consult and home services. Will call patient on 09/27/20 to follow-up and see in person on 10/04/20. documented in this encounter Plan of Treatment Upcoming Encounters Date Type Specialty Care Team Description 03/30/2022 Office Visit Hematology and Oncology Kristan Perry MD [facility] ONCOLOGY DEPT. [place], [place] [address] (Wo rk) documented as of this encounter Visit Diagnoses Not on filedocumented in this encounter Care Teams Search Specialist Relationship Specialty Start Date End Date Ava Morales MD PCP - General Family Medicine 04/04/[address] [place] [phone] documented as of this encounter
--- OUTSIDE RECORDS SUMMARY | 2022-03-23 07:48 | XMS_ITS | Encounter Summary ---
:1960 Author Organization [facility] [place] [address] Care Team Providers Name Role Phone Ava Morales MD Primary Care Provider Encounter Details Date Type Department Care Team Description 08/02/2021 Unscheduled Encounter Hematology/Oncology Julieta, Leslie Bowers RD Tonsil cancer at [address] HEMATOLOGY AND [address] ONCOLOGY [phone] [place], [place] [address] Social History Tobacco Use Types [...] Progress Notes Julieta, Leslie Bowers RD - 08/02/2021 10:30 AM EST [facility] Nutrition Assessment Progress Note Miriam Millergarret Diagnosis: Stage 3 Tonsil Cancer Assessment: Nutrition Screen 08/02/2021 Reason for assessment Symptom management Total MST Score - Functional Status 08/02/2021 Appetite - Odynophagia Present Dysgeusia Present Impaired wound healing - Patient complains of taste changes being quite bothersome. He also has some xerostomia which he describes as muck mouth. He is using BSSW for this. Food History, Access and Intake 08/02/2021 Patient Reported Diet Regular Use of oral nutritional supplements - Patient experimented with different foods yesterday. Certain things have a more tolerable, though not necessarily good, taste: pancakes, blueberries, cookies, hamburger (no bun), chicken noodle soup, pepper, fried eggs. Other foods taste just plain bad: oatmeal, bread, pasta, beef stroganoff, milk. He is drinking water mostly as well as some juice. He occasionally has a low carb protein drink. Food Insecurity Screening 07/10/2021 Within the past 12 months, you worried that your food would run out before you got the money to buy more. 1 Wt Readings from Last 3 Encounters: 07/31/21 (!) 147.9 kg (326 lb) 07/27/21 (!) 153.5 kg (338 lb 6.4 oz) 07/26/21 (!) 153 kg (337 lb 3.2 oz) BMI 47.6 Patient's weight has had some wide fluctuations-- around 325# for week of 07/17 then up to 338# on 07/27, then back down to 326# on 07/31. Question edema and/or measurement errors involved. 330# 10oz on 07/10 (treatment start date) 333# on 06/19 333# on 05/19 Patient reports he does feel he has lost weight as his pants fit more loosely in waist. Medications: Ativan with RT, compazine prn, meloxicam, metoprolol, imodium prn, mag-ox, tramadol prn, oxycodone prn, tylenol. Patient started RT and weekly cisplatin on 07/10. Labs on 07/31: Ca 8.8, BG 95, BUN 31H, Creat 1.2, Alb 3.4, TBili 0.6, AlkPhos 54, Na 141, K 4.2, AST 14, ALT 28, WBC 4.1L, H/H 11.7/36.2L, platelet 147, ANC 2.55, Mg 1.4. Malnutrition Characteristics 08/02/2021 Insufficient Energy Intake Less than or equal to 70% for 7 days Unintended Weight Loss 1-2% in a week Nutrition Diagnosis 08/02/2021 Problems Involuntary weight loss Etiology (related to) Daily H/N radiation therapy;Chemotherapy Signs and Symptoms > 5 % uinintentional weight loss in 1 month (Severe) Estimated needs based on 147.9 k kcals (20 kcal/kg) obese 118 grams protein (0.8 g/kg) ~2.9 L fluid Intervention: * Encouraged adequate intake to maintain weight through treatment. * Encouraged good oral care for dysgeusia. Patient is doing his best to experiment with different foods to see what he can tolerate. Follow Up: On 08/07 Note: Please see Hematology/Oncology malnutrition flowsheet for complete RD assessment/documentation documented in this encounter Plan of Treatment Upcoming Encounters Date Type Specialty Care Team Description 03/30/2022 Office Visit Hematology and Oncology Kristan Perry MD [facility] ONCOLOGY DEPT. [place], [place] [address] (Wo rk) documented as of this encounter Visit Diagnoses Diagnosis Tonsil cancer Malignant neoplasm of tonsil documented in this encounter Care Teams Drapery Head Former Relationship Specialty Start Date End Date Ava Morales MD PCP - General Family Medicine 04/04/[address] [place] [phone] documented as of this encounter
--- OUTSIDE RECORDS SUMMARY | 2022-03-23 07:48 | XMS_ITS | Encounter Summary ---
:1960 Author Organization [facility] [place] [address] Care Team Providers Name Role Phone Ava Morales MD Primary Care Provider Encounter Details Date Type Department Care Team Description 08/09/2021 Office Visit Radiation Oncology at [facility], Squamous cell [facility] carcinoma of palatine [address] [place] [address] [place] [address] RADIATION ONCOLOGY [phone] [place], [place] [address] Social History Tobacco Use Types [...] Sign Reading Time Taken Comments Blood Pressure 125/82 08/09/2021 11:57 AM EST Pulse 86 08/09/2021 11:57 AM EST Temperature 36.8 ??C (98.2 ??F) 08/09/2021 11:57 AM EST Respiratory Rate 20 08/09/2021 11:57 AM EST Oxygen Saturation 100% 08/09/2021 11:57 AM EST Inhaled Oxygen Concentration - - Weight 152 kg (335 lb) 08/09/2021 11:57 AM with flip fl ops EST Height - - Body Mass Index 48.78 08/07/2021 9:01 AM EST documented in this encounter Progress Notes Tomy Pinto MD - 08/09/2021 12:00 PM EST Images from the original note were not included. ON TREATMENT VISIT NOTE Miriam Anaya is a 61 y.o. 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 Definitive chemoradiotherapy. Current treatment dose: 32 Gy in 21 fractions. Anticipated total dose: 70 Gy in [...] neck mass. Secretions/Dryness: Thick secretions. Denies xerostomia, severe dysgeusia. Using SW rinses & Biotene. Swallowing Function: Occasional food hanging up, but rare. Nutrition / G tube: No feeding tube. All by mouth. Tolerating regular diet, limited by dysgeusia. Skin: Discomfort associated with skin changes left neck, minor GI: -Nausea: No recent nausea/vomiting. Has not taken compazine in a few weeks. -Bowels: constipation Other: ativan pretreatment working well Nutrition Assessment: Weight : 155.3kg initial Change: 152.0 => 152.0 kg Objective: Vitals: 08/09/21 1157 BP: 125/82 Patient Position: Sitting Pulse: 86 Resp: 20 Temp: 36.8 ??C (98.2 ??F) TempSrc: Temporal SpO2: 100% Weight: (!) 152 kg (335 lb) SKIN: fixed mass spanning levels II-IV in the left neck now diminished, with associated skin erythema and a small area of skin breakdown. MUCOSA: no mucositis. No thrush. Assessment: Mild [...] at least 8 times daily ?? Alimentation: tower crane operator following ?? Weight stable, all by mouth [...] [facility] DR ONCOLOGY DEPT. [place], [place] [address] (Wo rk) documented as of this encounter Visit Diagnoses Diagnosis Squamous cell carcinoma of palatine tons il Malignant neoplasm of tonsil documented in this encounter Care Teams Liturgical Music Director Relationship Specialty Start Date End Date Ava Morales MD PCP - General Family Medicine 04/04/[address] [place] [phone] documented as of this encounter
--- OUTSIDE RECORDS SUMMARY | 2022-03-23 07:48 | XMS_ITS | Encounter Summary ---
:1960 Author Organization [facility] [place] [address] Care Team Providers Name Role Phone Ava Morales MD Primary Care Provider Encounter Details Date Type Department Care Team Description 09/11/2021 [facility] [address] HEMATOLOGY AND ONCOLOGY [place], [place] [address] [place] [address] [phone] (Wo rk) Social History Tobacco Use Types [...] Telephone Encounter - Leslie Rendon RD - 09/11/2021 1:15 PM EST Nutrition Progress Note Attempted to reach patient by phone; left voicemail as there was no answer. Per Rina Apodaca's note from today, patient was advised to go to ED. documented in this encounter Plan of Treatment Upcoming Encounters Date Type Specialty Care Team Description 03/30/2022 Office Visit Hematology and Oncology Kristan Perry MD [facility] [address] ONCOLOGY DEPT. [place], [place] [address] (Wo rk) documented as of this encounter Visit Diagnoses Not on filedocumented in this encounter Care Teams Simulation Educator Relationship Specialty Start Date End Date Ava Morales MD PCP - General Family Medicine 04/04/[address] [place] [phone] documented as of this encounter
--- OUTSIDE RECORDS SUMMARY | 2022-03-23 07:48 | XMS_ITS | Encounter Summary ---
:1960 Author Organization [facility] [place] [address] Care Team Providers Name Role Phone Ava Morales MD Primary Care Provider Reason for Visit Reason Comments IV Medication Hydration Encounter Details Date Type Department Care Team Description 08/31/2021 Infusion Hematology Oncology at [facility] emotherapy induced nausea and vomiting; [facility] Tonsil cancer [address] [place] [address] [phone] Social History Tobacco Use Types Packs/Day [...] place to sleep or slept in a care home (including now)? Sex Assigned at Date Recorded Not on file documented as of this encounter Last Filed Vital Signs Vital Sign Reading Time Taken Comments Blood Pressure 132/89 08/31/2021 9:11 AM EST Pulse 103 08/31/2021 9:11 AM EST Temperature 36.3 ??C (97.3 ??F) 08/31/2021 9:11 AM EST Respiratory Rate 22 08/31/2021 9:11 AM EST Oxygen Saturation 99% 08/31/2021 9:11 AM EST Inhaled Oxygen Concentration - - Weight 144.5 kg (318 lb 9.6 oz) 08/31/2021 9:11 AM EST Height 176.5 cm (5' 9.5) 08/31/2021 9:11 AM EST Body Mass Index 46.37 08/31/2021 9:11 AM EST documented in this encounter Progress Notes Hawa Garg RN - 08/31/2021 11:00 AM EST INFUSION THERAPY ADMINISTRATION NOTES DIAGNOSIS: Head & Neck CA REASON FOR VISIT: Hydration SUBJECTIVE Mr. Anaya is here for his IV hydration. Today is his final day of radiation therapy. Reports that last night he had some bleeding in his mouth/throat that was running down the back of his throat. He was spitting out blood last night. Continues to have some bleeding today but much less than last night,per patient. Dr. Perry notified of bleeding. Would like Mr. Anaya to see ENT. OBJECTIVE LAB DATA: n/a Pre administration: Orders independently verified for drug name, route, and dosage by Vladislav Garg RN and pharmacist on-site. REACTIONS (DESCRIPTION, TIME, INTERVENTION AND EFFECTIVENESS) none ASSESSMENT Mr. Anaya was awake, alert and he tolerated treatment well. PLAN Radiation therapy today. ENT appt scheduled for today at 1:45. Miriam was reminded to call in the interim with any questions/concerns. documented in this encounter Plan of Treatment Upcoming Encounters Date Type Specialty Care Team Description 03/30/2022 Office Visit Hematology and Oncology Kristan Perry MD [facility] DR ONCOLOGY DEPT. [place], [place] [address] (Wo rk) documented as of this encounter Visit Diagnoses Diagnosis Chemotherapy induced nausea and vomiting Nausea with vomiting Tonsil cancer Malignant neoplasm of tonsil documented in this encounter Administered Medications Inactive Administered Medications - up to 3 most recent administrations Medication Order MAR Action Action Date Dose Rate Site sodium chloride 0.9% New Bag 08/31/2021 10:09 AM 1,000 mLs 664 mL /hr infusion EST 1,000 mL, at 750 mL/hr, Intravenous, ONCE, 1 dose, On Evy 08/31/21 at 1015 documented in this encounter Care Teams Applied Researcher Relationship Specialty Start Date End Date Ava Morales MD PCP - General Family Medicine 04/04/[address] [place] [phone] documented as of this encounter
--- OUTSIDE RECORDS SUMMARY | 2022-03-23 07:48 | XMS_ITS | Encounter Summary ---
:1960 Author Organization [facility] [place] [address] Care Team Providers Name Role Phone Ava Morales MD Primary Care Provider Encounter Details Date Type Department Care Team Description 08/21/2021 Notes Only [facility] OFFICE OF CARE [address] [place] [phone] Social History Tobacco Use Types Packs/Day Years [...] encounter Progress Notes Shasta Garcia MSW - 08/21/2021 10:07 AM EST Follow up with pt during his infusion visit today. Pt indicated today was his last chemotherapy and the middle of next week is his last RT treatment. Pt indicated his rides are going well overall. Pt indicated he is managing day to day at home and does what he feels up to. He has let his house chores go but will get caught up on those things eventually. 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 Pt did not identify any new needs today. Offered support. Reminded pt of [facility] [employer] availability and contact information. Will continue to follow. documented in this encounter Plan of Treatment Upcoming Encounters Date Type Specialty Care Team Description 03/30/2022 Office Visit Hematology and Oncology Kristan Perry MD [facility] [address] ONCOLOGY DEPT. [place], [place] [address] (Wo rk) documented as of this encounter Visit Diagnoses Not on filedocumented in this encounter Care Teams Assistant Service Manager Relationship Specialty Start Date End Date Ava Morales MD PCP - General Family Medicine 04/04/[address] [place] [phone] documented as of this encounter
--- OUTSIDE RECORDS SUMMARY | 2022-03-23 07:48 | XMS_ITS | Encounter Summary ---
:1960 Author Organization [facility] [place] [address] Care Team Providers Name Role Phone Ava Morales MD Primary Care Provider Encounter Details Date Type Department Care Team Description 11/06/2021 TH Visit Hematology/Oncology at [place], joana Kulkarni MD Tonsil cancer (TeleHealth) [facility] [address] [place], [place] ONCOLOGY DEPT. [phone] [place] [address] [phone] (Wo rk) Social History Tobacco Use Types [...] documented as of this encounter Progress Notes Edwar Perry MD - 11/06/2021 2:00 PM EST Hematology/Oncology Telephone Office Visit [facility] Patient Active Problem List Diagnosis ??? Tonsil [...] 03/01/22 06/01/22 ON ACTIVE TREATMENT COMPLETED TREATMENT Derik - MD x x [place] - AP x Med Onc x x [...] 08/31/24 03/01/25 08/31/25 03/01/26 08/31/26 COMPLETED TREATMENT Derik - MD x x x [place] - AP x Med Onc x x [...] 5 YEARS: Alternate annual follow-up appointments between [place] AP and MD, beginning with AP at 6-year appt. ??? Dysphagia ??? Claustrophobia Difficulty with MRI, PET/CT scanning ??? History of gout ??? Essential hypertension ??? JOHN not on CPAP (though recommended) ??? Neck mass ??? Morbid obesity with BMI of 50.0-59.9, adult ??? Chronic atrial fibrillation We had scheduled an in person clinic checkup for today but Miriam could not get a ride. He is now 9 weeks from completion of chemotherapy and radiation. We discussed his situation by phone. He tells me he is feeling rather well. Things have been improving relative to a month ago. He is in good spirits. He is still weak and wobbly on his feet and cannotget out of the house without feeling dizzy, but is able to get up and around the house and do all ofhis ADLs independently. He is eating relatively well, taste sensation is improving. Large pieces of meat are still problematic but eggs, soups, and other fluids are well- tolerated. His taste sensation is subpar but slowly improving. He is still easily fatigued but has had no fainting episodes. He has not yet tried climbing stairs. No residual throat or mouth pain He has [facility]NA services 3 times per week. They have been checking his vital signs. He has not needed anyother interventions. He was getting home physical therapy but he was discharged as being functionally independent. The left neck mass is still palpable but much softer than pretreatment. Impression: Slowly recovering after a very toxic chemoradiation course. Plan: No additional interventions at this point. He is scheduled for follow-up for multidisciplinaryrestaging visit on 11/30/2021 in [place]. Edwar Perry MD, FACP haulpak driver Hematology/Oncology Section [facility] [address] Voice recognition software used for this note; please excuse cheese packer errors. I personally reviewed past medical, surgical, family medical histories, reviewed current medications, vital signs, labs, and performed full review of systems. These are documented below the narrative for clarity and succinctness. Outpatient Medications Marked as Taking for the 11/06/21 encounter (TH Visit (TeleHealth)) with Edwar Perry MD Medication Sig Dispense Refill ??? dilTIAZem CD (Cardizem CD) 240 mg Capsule, Sust. Release 24 hr Take 240 mg by mouth daily. ??? magnesium oxide (Mag-Ox) 400 mg (241.3 mg magnesium) Tablet Take 1 tablet by mouth 2 times daily. 60 tablet 5 ??? acetaminophen (Tylenol) 500 mg Tablet Take 1,000 mg by mouth every 6 hours as needed for Pain. ??? metoprolol tartrate (Lopressor) 50 mg Tablet Take 75 mg by mouth 2 times daily. ++++++++++++++++++++++++++++++++++++++++++++++++++++ documented in this encounter Plan of Treatment Upcoming Encounters Date Type Specialty Care Team Description 03/30/2022 Office Visit Hematology and Oncology Kristan Perry MD [facility] DR ONCOLOGY DEPT. [place], [place] [address] (Wo rk) documented as of this encounter Visit Diagnoses Diagnosis Tonsil cancer Malignant neoplasm of tonsil documented in this encounter Care Teams Shuttle Van Driver Relationship Specialty Start Date End Date Ava Morales MD PCP - General Family Medicine 04/04/21 [address] [place] [phone] documented as of this encounter
--- OUTSIDE RECORDS SUMMARY | 2022-03-23 07:48 | XMS_ITS | Encounter Summary ---
:1960 Author Organization [facility] [place] [address] Care Team Providers Name Role Phone Ava Morales MD Primary Care Provider Encounter Details Date Type Department Care Team Description 08/28/2021 Notes Only [facility] OFFICE OF CARE [address] [place] [address] [phone] Social History Tobacco Use Types Packs/Day Years [...] place to sleep or slept in a nursing home (including now)? Sex Assigned at Date Recorded Not on file documented as of this encounter Progress Notes Shasta Garcia MSW - 08/28/2021 9:43 AM EST Follow up with pt during his infusion visit today. Pt indicated his chemotherapy is done and he is in for hydration. He expects to be done with his RT treatments this . He indicted the weekend was challenging as he had little energy and did not have much intake. Pt indicated he does not have anyone that checks on him on the weekends but he likes his time alone. Offered support. Pt continues to manage his own rides through his insurance. He did not identify any new needs today. Reminded pt of ENGINEER PROCESS availability and contact information. Will continue to follow for support and resources. Brief assessment Supportive Counseling documented in this encounter Plan of Treatment Upcoming Encounters Date Type Specialty Care Team Description 03/30/2022 Office Visit Hematology and Oncology Kristan Perry MD [facility] DR ONCOLOGY DEPT. [place], [place] [address] (Wo rk) documented as of this encounter Visit Diagnoses Not on filedocumented in this encounter Care Teams Goggles Assembler Relationship Specialty Start Date End Date Ava Morales MD PCP - General Family Medicine 04/04/21 [address] [place] [address] documented as of this encounter
--- OUTSIDE RECORDS SUMMARY | 2022-03-23 07:48 | XMS_ITS | Encounter Summary ---
:1960 Author Organization [facility] [place] [address] Care Team Providers Name Role Phone Ava Morales MD Primary Care Provider Reason for Visit Reason Comments Chemotherapy Cycle 1, Day 29 Treatment/Therapy Plan Authorization (Routine) - Closed Specialty Diagnoses / Procedures Referred By Contact Refer red To Contact Diagnoses Tonsil cancer Edwar Perry MD [facility] Infusion Procedures TC PALONOSETRON HCL, 25MCG, INJECTION (ALOXI) TC APREPITANT, 1 MG, INJECTION TC CISPLATIN, POWDER OR SOLUTION, 10MG, INJECTION J2469 palonosetron (Aloxi) 0.25 MG J0185 aprepitant (CINVANTI) 130 MG J9060 CISplatin (Platinol) [address] [place] [phone] Fax: Referral ID Status Reason Start Date Expiration Date Visits Requ ested Visits Authorized [id number] Closed 07/10/2021 09/22/2021 99 99 Encounter Details Date Type Department Care Team Description 08/07/2021 Infusion Hematology Oncology at [place] [facility]; [facility] Dysphagia, unspecified type [address] [place] [phone] Social History Tobacco Use Types [...] documented as of this encounter Progress Notes Tristin Hardwick RN - 08/07/2021 10:00 AM EST INFUSION THERAPY ADMINISTRATION NOTES DIAGNOSIS: Tonsillar cancer CYCLE #: Cycle 1, Day 29 - Cisplatin and magnesium infusion REASON FOR VISIT: To receive chemotherapy and magnesium replacement. SUBJECTIVE: Miriam offers no complaints. He denies diarrhea and will not need imodium today. OBJECTIVE: Seen by provider. Ready to treat. Cisplatin dose lowered d/t tinnitus. LAB DATA: [facility] at [facility] for treatment. Mag 1.4 & will get 4 gm today IV. IV ACCESS: Port accessed off site. Flushes readily with brisk blood return. Pre administration: Chemotherapy orders independently verified for drug name, route, and dosage per patient's height, weight and BSA by Tristin Hardwick, NGUYEN and Staff Pharmacist(s). REACTIONS (DESCRIPTION, TIME, [...] and Oncology Kristan Perry MD [facility] ONCOLOGY DEPT. [place], [place] [address] (Wo rk) documented as of this encounter Visit Diagnoses Diagnosis Tonsil cancer Malignant neoplasm of tonsil Dysphagia, unspecified type documented in this encounter Administered Medications Inactive Administered Medications - up to 3 most recent administrations Medication Order MAR Action Action Date Dose Rate Site aprepitant (CINVANTI) injection Given 08/07/2021 10:11 AM EST 13 0 mg Emul 130 mg 130 mg, Intravenous, ONCE, 1 dose, On Sat08/07/21 at 1015, Alternative administration of IV push over 2 minutes is a recommendation from the hand spring former. Administer prior to chemotherapy., Routine CISplatin (Platinol) 82 mg in New Bag 08/07/2021 11:18 AM EST 82 m g 332 mL/hr sodium chloride 0.9% 332 mL infusion 82 mg (rounded from 81.6 mg = 30 mg/m2/dose ? 2.72 m2 Treatment Plan BSA from Recorded weight), Intravenous, ONCE, 1 dose, On Sat08/07/21 at 1115, Administer over 60 Minutes, Warning Vesicant/Irritant Medication dexamethasone (Decadron) injection 10 mg Given 08/07/2021 10:07 AM EST 10 mg 10 mg, Intravenous, ONCE, 1 dose, On Sat08/07/21 at 1015, Administer prior to chemotherapy heparin (pf) (porcine) (100 units/mL) Given 08/07/2021 2:[address] 500 Units flush 5 mL syringe 500 Units 500 Units, Intravenous, ONCE PRN, Starting on Sat08/07/21 at 0954, Until Sat08/07/21 at 1613, Line Care, Refer to Intravenous (IV) Procedure: Accessing Implanted Vascular Access Devices (298) procedure and/or Intravenous (IV) Job Aid: Adult Flushing & Catheter Care (1292) job aid for additional information regarding guidelines and administration., Routine magnesium sulfate 2 g in sterile water New Bag 08/07/2021 10:1 7 AM EST 2 g 25 mL/hr 50 mL infusion 2 g, Intravenous, EVERY 2 HOURS PRN, 2 doses, Starting on Sat08/07/21 at 1004, Until Sat08/07/21 at 1613, Administer over 120 Minutes, for electrolyte replacement, Total dose is 4 grams. palonosetron (Aloxi) (0.05 mg/mL) injection Given 07/24 10:09 AM EST 0.25 mg 0.25 mg 0.25 mg, Intravenous, ONCE, 1 dose, On Sat08/07/21 at 1015, Administer over 30 seconds. Administer prior to chemotherapy, Routine sodium chloride 0.9 % (flush) (BD PosiFlush Given 08/07/2021 2:06 PM EST 20 mLs Normal Saline 0.9) flush 5-20 mL 5-20 mL, Intravenous, EVERY 1 MIN PRN, Starting on Sat08/07/21 at 0954, Until Sat08/07/21 at 1613, Line Care, Flush pertains to all indwelling lines. Flush per protocol found in the job aid using the link provided on this medication record. Refer to Intravenous (IV) Job Aid: Adult Flushing & Catheter Care (2185) job aid for additional information regarding guidelines and administration., Routine sodium chloride 0.9% infusion New Bag 08/07/2021 10:05 AM EST 1,000 mLs 1000 mL/hr 1,000 mL, at 1,000 mL/hr, Intravenous, CONTINUOUS, Starting on Sat08/07/21 at 1015, Until Sat08/07/21 at 1114, Pre-CISplatin sodium chloride 0.9% infusion New Bag 08/07/2021 11:26 AM EST 500 mLs 500 mL/hr 500 mL, at 500 mL/hr, Intravenous, CONTINUOUS, Starting on Sat08/07/21 at 1215, Until Sat08/07/21 at 1314, Post CISplatin documented in this encounter Care Teams Call Out Operator Relationship Specialty Start Date End Date Ava Morales MD PCP - General Family Medicine 04/04/[address] [place] [phone] documented as of this encounter
--- OUTSIDE RECORDS SUMMARY | 2022-03-23 07:48 | XMS_ITS | Encounter Summary ---
:1960 Author Organization [facility] [place] [address] Care Team Providers Name Role Phone Ava Morales MD Primary Care Provider Reason for Visit Reason Comments Chemotherapy Cisplatin Head And Neck Cancer Treatment/Therapy Plan Authorization (Routine) - Closed Specialty Diagnoses / Procedures Referred By Contact Refer red To Contact Diagnoses Tonsil cancer Edwar Perry MD [facility] Infusion Procedures TC PALONOSETRON HCL, 25MCG, INJECTION (ALOXI) TC APREPITANT, 1 MG, INJECTION TC CISPLATIN, POWDER OR SOLUTION, 10MG, INJECTION J2469 palonosetron (Aloxi) 0.25 MG J0185 aprepitant (CINVANTI) 130 MG J9060 CISplatin (Platinol) 109 MG [facility] [address] [place] [address] [place] [phone] Fax: Referral ID Status Reason Start Date Expiration Date Visits Requ ested Visits Authorized [id number] Closed 07/10/2021 09/22/2021 99 99 Encounter Details Date Type Department Care Team Description 08/21/2021 Infusion Hematology Oncology at [facility] Tonsil cancer [address] [place] [address] [phone] Social History Tobacco Use Types [...] documented as of this encounter Progress Notes Hawa Garg RN - 08/21/2021 9:00 AM EST INFUSION THERAPY ADMINISTRATION NOTES DIAGNOSIS: Head & Neck CA CYCLE #: 1 Day 43 REASON FOR VISIT: Cisplatin Chemotherapy SUBJECTIVE Mr. Anaya is here for his C1D43 Cisplatin chemotherapy and magnesium. He saw Dr. Perry prior to infusion, has no questions/concerns and is ready for treatment today. OBJECTIVE LAB DATA: Labs drawn today at [facility]. Wbc 1.71, hgb 8.7, plts 65k, anc 1.11, Magnesium 1.1, potassium 4.0, creatinine 1.3, BUN 22 Pre administration: Chemotherapy orders independently verified for drug name, route, and dosage per patient's height, weight and BSA by Vladislav Garg, NGUYEN and pharmacist on-site. REACTIONS (DESCRIPTION, TIME, INTERVENTION AND EFFECTIVENESS) none ASSESSMENT Mr. Anaya was awake, alert and he tolerated treatment well. PLAN Return to clinic daily for XRT and infusion on for hydration. Patient was reminded to call in the interim with any questions/concerns. documented in this encounter Plan of Treatment Upcoming Encounters Date Type Specialty Care Team Description 03/30/2022 Office Visit Hematology and Oncology Kristan Perry MD [facility] DR ONCOLOGY DEPT. [place], [place] [address] (Wo rk) documented as of this encounter Visit Diagnoses Diagnosis Tonsil cancer Malignant neoplasm of tonsil documented in this encounter Administered Medications Inactive Administered Medications - up to 3 most recent administrations Medication Order MAR Action Action Date Dose Rate Site aprepitant (CINVANTI) injection Given 08/21/2021 11:47 AM EST 13 0 mg Emul 130 mg 130 mg, Intravenous, ONCE, 1 dose, On Sat08/21/21 at 1000, Alternative administration of IV push over 2 minutes is a recommendation from the experimental display builder. Administer prior to chemotherapy., Routine CISplatin (Platinol) 82 mg in New Bag 08/21/2021 12:30 PM EST 82 m g 332 mL/hr sodium chloride 0.9% 332 mL infusion 82 mg (rounded from 81.6 mg = 30 mg/m2/dose ? 2.72 m2 Treatment Plan BSA from Recorded weight), Intravenous, ONCE, 1 dose, On Sat08/21/21 at 1100, Administer over 60 Minutes, Warning Vesicant/Irritant Medication dexamethasone (Decadron) injection 10 mg Given 08/21/2021 11:42 AM EST 10 mg 10 mg, Intravenous, ONCE, 1 dose, On Sat08/21/21 at 1000, Administer prior to chemotherapy heparin (pf) (porcine) (100 units/mL) Given 08/21/2021 2:[address] 500 Units flush 5 mL syringe 500 Units 500 Units, Intravenous, ONCE PRN, Starting on Sat08/21/21 at 0941, Until Sat08/21/21 at 1756, Line Care, Refer to Intravenous (IV) Procedure: Accessing Implanted Vascular Access Devices (054) procedure and/or Intravenous (IV) Job Aid: Adult Flushing & Catheter Care (1595) job aid for additional information regarding guidelines and administration., Routine magnesium sulfate 2 g in sterile water New Bag 08/21/2021 11:5 3 AM EST 2 g 25 mL/hr 50 mL infusion 2 g, Intravenous, EVERY 2 HOURS PRN, 2 doses, Starting on Sat08/21/21 at 0945, Until Sat08/21/21 at 1419, Administer over 120 Minutes, for electrolyte replacement, Total dose is 4 grams. New Bag 08/21/2021 9:53 AM EST 2 g 25 mL/hr palonosetron (Aloxi) (0.05 mg/mL) injection Given 07/25 11:45 AM EST 0.25 mg 0.25 mg 0.25 mg, Intravenous, ONCE, 1 dose, On Sat08/21/21 at 1000, Administer over 30 seconds. Administer prior to chemotherapy, Routine sodium chloride 0.9 % (flush) (BD PosiFlush Given 08/21/2021 2:21 PM EST 20 mLs Normal Saline 0.9) flush 5-20 mL 5-20 mL, Intravenous, EVERY 1 MIN PRN, Starting on Sat08/21/21 at 0941, Until Sat08/21/21 at 1756, Line Care, Flush pertains to all indwelling lines. Flush per protocol found in the job aid using the link provided on this medication record. Refer to Intravenous (IV) Job Aid: Adult Flushing & Catheter Care (4671) job aid for additional information regarding guidelines and administration., Routine sodium chloride 0.9% infusion New Bag 08/21/2021 9:52 AM EST 1,000 mLs 500 mL/hr 1,000 mL, at 1,000 mL/hr, Intravenous, CONTINUOUS, Starting on Sat08/21/21 at 1000, Until Sat08/21/21 at 1059, Pre-CISplatin sodium chloride 0.9% infusion New Bag 08/21/2021 12:25 PM EST 500 mLs 500 mL/hr 500 mL, at 500 mL/hr, Intravenous, CONTINUOUS, Starting on Sat08/21/21 at 1200, Until Sat08/21/21 at 1259, Post CISplatin documented in this encounter Care Teams Administration Manager Relationship Specialty Start Date End Date Ava Morales MD PCP - General Family Medicine 04/04/[address] [place] [phone] documented as of this encounter
--- OUTSIDE RECORDS SUMMARY | 2022-03-23 07:48 | XMS_ITS | Encounter Summary ---
:1960 Author Organization [facility] [place] [address] Care Team Providers Name Role Phone Ava Morales MD Primary Care Provider Encounter Details Date Type Department Care Team Description 08/23/2021 Office Visit Radiation Oncology at [facility], Squamous cell [facility] carcinoma of palatine [address] [place] [address] [place] [address] RADIATION ONCOLOGY [phone] [place], [place] [address] Social History Tobacco Use Types [...] Sign Reading Time Taken Comments Blood Pressure 116/73 08/23/2021 10:54 AM EST Pulse 84 08/23/2021 10:54 AM EST Temperature 36.8 ??C (98.2 ??F) 08/23/2021 10:54 AM EST Respiratory Rate 20 08/23/2021 10:54 AM EST Oxygen Saturation 96% 08/23/2021 10:54 AM EST Inhaled Oxygen Concentration - - Weight - - Height - - Body Mass Index - - documented in this encounter Progress Notes Tomy Pinto MD - 08/23/2021 11:00 AM EST Images from the original note were not included. ON TREATMENT VISIT NOTE Miriam Anaya is a 61 y.o. 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 Definitive chemoradiotherapy. Current treatment dose: 60 Gy in 30 fractions. Anticipated total dose: 70 Gy in [...] mg/m2/dose 30 mg/m2/dose 30 mg/m2/dose Plan Images: Evaluation of Port [...] Skin creams are more painful / burning, now using Silvadene. GI: -Nausea: No recent nausea/vomiting. -Bowels: constipation Other: ativan pretreatment working well Nutrition Assessment: Weight : 155.3kg initial Change: 152.0 => 152.0 kg => 150.7 kg => 148.3 Objective: Vitals: 08/23/21 1054 BP: 116/73 Patient Position: Sitting Pulse: 84 Resp: 20 Temp: 36.8 ??C (98.2 ??F) SpO2: 96% SKIN: wet desquamation left neck, brisk erythema anterior neck MUCOSA: no mucositis. No thrush. Assessment: Moderate toxicity, significant tumor shrinkage. CTCAE TOXICITY GRADES (see below for isaacs): Site Grade Skin 3 Xerostomia 2 Pharyngeal Mucositis 0 Dysphagia 0 Hoarseness 0 TREATMENT RESPONSE: significant tumor shrinkage Plan: ?? Continue RT per prescription ?? Pain control: ?? Tylenol prn ?? Ativan 2mg pretreatment ?? Skin: Silvadene to areas of desquamation / tenderness, AP ?? Mucositis: ?? Pain control: see above ?? Oral hygiene consisting of baking soda/salt rinse at least 8 times daily ?? Alimentation: outside sales manager following ?? Weight stable, all by mouth [...] MD [facility] DR ONCOLOGY DEPT. [place], [place] [address] (Wo rk) documented as of this encounter Visit Diagnoses Diagnosis Squamous cell carcinoma of palatine tons il Malignant neoplasm of tonsil documented in this encounter Care Teams Installations Inspector Relationship Specialty Start Date End Date Ava Morales MD PCP - General Family Medicine 04/04/[address] [place] [phone] documented as of this encounter
--- OUTSIDE RECORDS SUMMARY | 2022-03-23 07:48 | XMS_ITS | Encounter Summary ---
:1960 Author Organization [facility] [place] [address] Care Team Providers Name Role Phone Ava Morales MD Primary Care Provider Reason for Visit Reason Comments IV Medication IV hydration and meds Encounter Details Date Type Department Care Team Description 08/28/2021 Infusion Hematology Oncology at [facility] cancer; [facility] Chemotherapy induced nausea and vomiting; [address] [place] [address] Social History Tobacco Use Types [...] documented as of this encounter Progress Notes Ava Goodwin RN - 08/28/2021 9:00 AM EST INFUSION THERAPY ADMINISTRATION NOTES DIAGNOSIS: Tonsillar cancer REASON FOR VISIT: Hydration SUBJECTIVE: Miriam states he had a poor weekend. He was fatigued and had no appetite. OBJECTIVE: VSS. Seen by provider. Will receive magnesium. LABS: WBC - 0.95, H/H - 8.2/24.5, Plt Ct - 72, ANC - 0.57, Lytes wnl, Bun/Cr - 27/1.3, MG ++ - 1.0 IV ACCESS: Port accessed without difficulty. Flushes readily with brisk blood return. REACTIONS (DESCRIPTION, TIME, INTERVENTION AND EFFECTIVENESS) none ASSESSMENT: Miriam was awake, alert and tolerated treatment well. Port flushed with 20 cc's of NS and 500 units of heparin and de-accessed. PLAN: Return to clinic as planned. He will go to [facility] lab today for a type and screen in anticipation for a blood transfusion. documented in this encounter Plan of Treatment Upcoming Encounters Date Type Specialty Care Team Description 03/30/2022 Office Visit Hematology and Oncology Kristan Perry MD [facility] DR ONCOLOGY DEPT. [place], [place] [address] (Wo rk) documented as of this encounter Visit Diagnoses Diagnosis Tonsil cancer Malignant neoplasm of tonsil Chemotherapy induced nausea and vomiting Nausea with vomiting Hypomagnesemia Disorders of magnesium metabolism documented in this encounter Administered Medications Inactive Administered Medications - up to 3 most recent administrations Medication Order MAR Action Action Date Dose Rate Site magnesium sulfate 2 g in New Bag 08/28/2021 11:21 AM EST 2 g 25 mL/hr sterile water 50 mL infusion 2 g, Intravenous, ONCE, 1 dose, On 08/28/21 at 1015, Administer over 120 Minutes magnesium sulfate 2 g in sterile water New Bag 08/28/2021 9:45 AM EST 2 g 25 mL/hr 50 mL infusion 2 g, Intravenous, ONCE, 1 dose, On Sat08/28/21 at 1200, Administer over 120 Minutes sodium chloride 0.9% infusion New Bag 08/28/2021 9:15 AM EST 1,000 mLs 750 mL/hr 1,000 mL, at 750 mL/hr, Intravenous, ONCE, 1 dose, On Sat08/28/21 at 0945 documented in this encounter Care Teams Land Surveying Survey Worker Relationship Specialty Start Date End Date Ava Morales MD PCP - General Family Medicine 04/04/21 [address] [place] [phone] documented as of this encounter
--- OUTSIDE RECORDS SUMMARY | 2022-03-23 07:48 | XMS_ITS | Encounter Summary ---
:1960 Author Organization [facility] [place] [address] Care Team Providers Name Role Phone Ava Morales MD Primary Care Provider Encounter Details Date Type Department Care Team Description 10/11/2021 [facility] [address] HEMATOLOGY AND ONCOLOGY [place], [place] [phone] [place] [address] [phone] (Wo rk) Social History Tobacco Use Types [...] Telephone Encounter - Leslie Rendon RD - 10/11/2021 2:04 PM EST Nutrition Follow-Up Attempted to call patient today; left voicemail as there was no answer. Will continue to try to reach him. documented in this encounter Plan of Treatment Upcoming Encounters Date Type Specialty Care Team Description 03/30/2022 Office Visit Hematology and Oncology Kristan Perry MD [facility] DR ONCOLOGY DEPT. [place], [place] [address] (Wo rk) documented as of this encounter Visit Diagnoses Not on filedocumented in this encounter Care Teams Returned Materials Inspector Relationship Specialty Start Date End Date Ava Morales MD PCP - General Family Medicine 04/04/[address] [place] [phone] documented as of this encounter
--- OUTSIDE RECORDS SUMMARY | 2022-03-23 07:48 | XMS_ITS | Encounter Summary ---
:1960 Author Organization [facility] [place] [address] Care Team Providers Name Role Phone Ava Morales MD Primary Care Provider Encounter Details Date Type Department Care Team Description 07/31/2021 Notes [facility] OFFICE OF CARE [address] [place] [phone] Social History Tobacco Use Types Packs/Day Years [...] as of this encounter Progress Notes Shasta Gacria MSW - 07/31/2021 11:29 AM EST Follow up with pt during his infusion visit today. Pt indicated he is doing fairly well overall. He is pleased with the progress he is making. He continues to manage at home day to day. His transportation is working out for the most part and he knows how to schedule his rides. Last minute changes are challenging to accommodate. Pt did not identify any new needs today. Offered support. Reminded pt of IMAGE SCIENTIST availability and contact information. Will follow for support and resources. Brief assessment Supportive Counseling documented in this encounter Plan of Treatment Upcoming Encounters Date Type Specialty Care Team Description 03/30/2022 Office Visit Hematology and Oncology Kristan Perry MD [facility] ONCOLOGY DEPT. [place], [place] [address] (Wo rk) documented as of this encounter Visit Diagnoses Not on filedocumented in this encounter Care Teams Conservation Coordinator Relationship Specialty Start Date End Date Ava Morales MD PCP - General Family Medicine 04/04/[address] [place] [phone] documented as of this encounter
--- OUTSIDE RECORDS SUMMARY | 2022-03-23 07:48 | XMS_ITS | Encounter Summary ---
:1960 Author Organization [facility] [place] [address] Care Team Providers Name Role Phone Ava Morales MD Primary Care Provider Encounter Details Date Type Department Care Team Description 08/30/2021 Office Visit Radiation Oncology at Tomy Pinto, Squamous cell [facility] carcinoma of palatine [address] [place] [address] [place] [address] RADIATION ONCOLOGY [phone] [place], [place] [address] Social History Tobacco Use Types [...] place to sleep or slept in a intermediate (including now)? Sex Assigned at Date Recorded Not on file documented as of this encounter Last Filed Vital Signs Vital Sign Reading Time Taken Comments Blood Pressure 158/81 08/30/2021 11:00 AM EST Pulse 114 08/30/2021 11:00 AM EST Temperature 36.7 ??C (98 ??F) 08/30/2021 11:00 AM EST Respiratory Rate 20 08/30/2021 11:00 AM EST Oxygen Saturation 98% 08/30/2021 11:00 AM EST Inhaled Oxygen Concentration - - Weight 147.8 kg (325 lb 12.8 oz) 08/30/2021 11:00 AM EST Height - - Body Mass Index 47.44 08/28/2021 8:28 AM EST documented in this encounter Progress Notes Tomy Pinto MD - 08/30/2021 11:15 AM EST Images from the original note were not included. ON TREATMENT VISIT NOTE Miriam Anaya is a 61 y.o. 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 Definitive chemoradiotherapy. Current treatment dose: 68 Gy in 34 fractions. Anticipated total dose: 70 Gy in [...] details. Changes in medical condition Pain: Skin tender 2/10. Minimal oropharyngeal pain. Not taking any OTC/narcotic pain medications. Secretions/Dryness: Thick secretions. Denies xerostomia, severe dysgeusia. Using SW rinses & Biotene. Swallowing Function: Occasional food hanging up, but rare. Nutrition / G tube: No feeding tube. All by mouth. Tolerating regular diet, limited by dysgeusia andfatigue. Minimal oral intake over past few days. Skin: Skin creams are more painful / burning, now using Silvadene. GI: -Nausea: No recent nausea/vomiting. -Bowels: constipation Other: ativan pretreatment working well. -Very fatigued, difficult getting out of bed because of fatigue and due to knee pain. -He has swelling of bilateral LE as well as increasing pain associated with L > R. He did receiveIV hydration on Saturday and PRBCs on Saturday. Nutrition Assessment: Weight : 155.3kg initial Change: 152.0 => 152.0 kg => 150.7 kg => 148.3 => 147.7 Objective: Vitals: 08/30/21 1100 BP: 158/81 Pulse: (!) 114 Resp: 20 Temp: 36.7 ??C (98 ??F) SpO2: 98% Weight: (!) 147.8 kg (325 lb 12.8 oz) SKIN: wet desquamation left neck, brisk erythema anterior neck MUCOSA: no mucositis. No thrush. EXT: Calf on left tender to palpation, 3+ edema bilaterally. Assessment: Moderate toxicity, significant tumor shrinkage. Concern for DVT today, edema is bilateral and likelyrelated to fluid overload, he has L > R edema (which is atypical for him) as as tenderness of theleft calf. We discussed management, and he will go to the ED at [facility] for evaluation given the complexities with transportation and outpatient evaluation. He was in agreement with this plan. CTCAE TOXICITY GRADES (see below for isaacs): [...] at least 8 times daily ?? Alimentation: lead simulation modeling engineer following ?? Weight slightly decreased, all by mouth at this time. Emphasized need to maintain oral intake/weight. ?? GI: ?? N/V: no issues ?? Constipation: senna prn ?? LE edema / pain: concern for DVTs, to ED for evaluation. CTCAE v4.03 scales for reference Skin 0 [...] Visit Hematology and Oncology Kristan Perry MD [facility] ONCOLOGY DEPT. [place], [place] [address] (Wo rk) Scheduled Orders Name Type Priority Associated Diagnoses Order S chedule US Extremity Complete Imaging Routine Squamous cell carci noma Expected: 08/30/2021, Doppler Left of palatine tonsil Expires: 03/01/2022 documented as of this encounter Visit Diagnoses Diagnosis Squamous cell carcinoma of palatine tons il Malignant neoplasm of tonsil documented in this encounter Care Teams Plastic Tubing Insulation Supervisor Relationship Specialty Start Date End Date Ava Morales MD PCP - General Family Medicine 04/04/[address] [place] [phone] documented as of this encounter
--- OUTSIDE RECORDS SUMMARY | 2022-03-23 07:48 | XMS_ITS | Encounter Summary ---
:1960 Author Organization [facility] [place] [address] Care Team Providers Name Role Phone Ava Morales MD Primary Care Provider Encounter Details Date Type Department Care Team Description 08/28/2021 [facility] Tonsil cancer [address] HEMATOLOGY AND [address] ONCOLOGY [phone] [place], [place] [address] (Wo rk) Social History Tobacco [...] documented as of this encounter Progress Notes Julieta Nelson Elissa, RD - 08/28/2021 11:30 AM EST [facility] Nutrition Assessment Progress Note Miriam Anaya Diagnosis: tonsil cancer Assessment: SCC left tonsil stage III Nutrition Screen 08/30/2021 08/21/2021 Reason for assessment Symptom management - Total MST Score - 0 Functional Status 08/30/2021 08/21/2021 Appetite Reduced compared to usual intake Similar compared to usual intake Xerostomia Present Present Odynophagia - - Dysgeusia Present Present Impaired wound healing - - Fatigue Grade 1 - Patient had a hard weekend, really not feeling well. He reports he didn't eat at all yesterday. He continues to have taste changes and thick sputum. Food History, Access and Intake 08/30/2021 08/21/2021 Patient Reported Diet - Regular Use of oral nutritional supplements Other Other Patient continues with PO intake, though very little this weekend due to feeling poorly overall. He has a low carb protein drink (his preference) at home but drinks this only a few times a week and does not want to increase. Malnutrition Characteristics 08/14/2021 08/07/2021 Insufficient Energy Intake Less than or equal to 70% for 7 days Less than or equal to 70% for 7 days Wt Readings from Last 3 Encounters: 08/30/21 (!) 147.8 kg (325 lb 12.8 oz) 08/28/21 (!) 145.5 kg (320 lb 12.8 oz) 08/24/21 (!) 149.2 kg (329 lb) 08/21/21 327# 07/10 330# start of treatment Patient has lost 10# in past 7 weeks since start of treatment (weight has varied) (3.1% body weight)--not clinically significant. Medications: Ativan before RT, Imodium prn, Mag-Ox, Compazine prn, Tramadol prn, Oxycodone prn, Meloxicam, Tylenol, Metoprolol ?? Final chemo (cisplatin) 08/21 and RT ending on 08/30. ?? Labs on 08/28: Ca 7.4L, BG 100, BUN 27H, Creat 1.3, Alb 3.1L, TBili 0.4, AlkPhos 44, Na 144, AST 14, ALT 28, Mg 1.0, WBC 0.95L, H/H 8.2/24.5L, platelet 72L, ANC 0.57L Nutrition Diagnosis 08/30/2021 08/21/2021 Problems Involuntary weight loss Involuntary weight loss Etiology (related to) Daily H/N radiation therapy;Chemotherapy Daily H/N radiation therapy Signs and Symptoms > 2 % unintentional weight loss in 1 week (Severe) 1-2 % weight loss in 1 week(Non severe/moderate) Patient has lost 10# in past 7 weeks since start of treatment (weight has varied) (3.1% body weight)--not clinically significant Estimated needs based on current weight of 145.5 k kcals (20 kcal/kg) obese 116 g pro (0.8 g/kg) ~2.9 L fluid (1 ml/kcal) Intervention: * Encouraged patient to increase PO intake to prevent further weight loss. Discussed taking a few bites every couple hours. * Encouraged caloric drinks if he is unable to consume solid foods. He is not interested in increasing protein drink intake and declined samples of [place] Instant Breakfast. Previously provided Ensure Plus to patient. He also has a low carb protein shake of his choice at home. Follow Up: on 09/06 Note: Please see Hematology/Oncology malnutrition flowsheet for complete RD assessment/documentation documented in this encounter Plan of Treatment Upcoming Encounters Date Type Specialty Care Team Description 03/30/2022 Office Visit Hematology and Oncology Kristan Perry MD [facility] DR ONCOLOGY DEPT. [place], [place] [address] (Wo rk) documented as of this encounter Visit Diagnoses Diagnosis Tonsil cancer Malignant neoplasm of tonsil documented in this encounter Care Teams Manager Internet Relationship Specialty Start Date End Date Ava Morales MD PCP - General Family Medicine 04/04/[address] [place] [phone] documented as of this encounter
--- OUTSIDE RECORDS SUMMARY | 2022-03-23 07:48 | XMS_ITS | Encounter Summary ---
:1960 Author Organization [facility] [place] [address] Care Team Providers Name Role Phone Ava Morales MD Primary Care Provider Reason for Visit Reason Onset Date Comments Follow-up 09/28/2021 VNA services Encounter Details Date Type Department Care Team Description 09/28/2021 Telephone Hematology/Oncology at Supriya French RN Follow-up ([facility] services) [address] [phone] Social History Tobacco Use Types Packs/Day [...] Telephone Encounter - Supriya French RN - 09/28/2021 8:23 AM EST Spoke with Sandra and [facility] home health and hospice [phone]. They will be admitting pt tomorrow to [facility] for nursing, PT and home health aides. Notes requested from PCP office and VNA visits.Dr. Perry and Millie updated. documented in this encounter Plan of Treatment Upcoming Encounters Date Type Specialty Care Team Description 03/30/2022 Office Visit Hematology and Oncology Kristan Perry MD [facility] DR ONCOLOGY DEPT. [place], [place] [address] (Wo rk) documented as of this encounter Visit Diagnoses Not on filedocumented in this encounter Care Teams Regulator Inspector Relationship Specialty Start Date End Date Ava Morales MD PCP - General Family Medicine 04/04/[address] [place] [phone] documented as of this encounter
--- OUTSIDE RECORDS SUMMARY | 2022-03-23 07:48 | XMS_ITS | Encounter Summary ---
:1960 Author Organization [facility] [place] [address] Care Team Providers Name Role Phone Ava Morales MD Primary Care Provider Encounter Details Date Type Department Care Team Description 09/29/2021 [facility] [address] HEMATOLOGY AND ONCOLOGY [place], [place] [phone] [place] [address] [phone] (Wo rk) Social History Tobacco Use Types [...] Encounter - Leslie Rendon RD - 09/29/2021 10:06 AM EST Nutrition Follow-Up Called and spoke with Miriam today. He reports he is drinking far better but still not enough, urine is still dark. He still is not eating very much at all but plans to bring some food into his bedroom today to have on hand in there. Patient reports [facility] will be visiting this afternoon. He says he has two episodes of vertigo while lying down yesterday. He was able to walk to his living room yesterday but his head was spinning as he did so. Patient says he will not be able to attend appointment with Dr. Pinto on 10/04 as I cannot get outto the car right now. He requests a phone call from Dr. Perry if possible, saying he missed a call from him last week. Will relay this to team. Encouraged increased PO intake. Will continue to f/u by phone. documented in this encounter Plan of Treatment Upcoming Encounters Date Type Specialty Care Team Description 03/30/2022 Office Visit Hematology and Oncology Kristan Perry MD [facility] ONCOLOGY DEPT. [place], [place] [address] (Wo rk) documented as of this encounter Visit Diagnoses Not on filedocumented in this encounter Care Teams Apprentice Carpenter Relationship Specialty Start Date End Date Ava Morales MD PCP - General Family Medicine 04/04/[address] [place] [phone] documented as of this encounter
--- OUTSIDE RECORDS SUMMARY | 2022-03-23 07:48 | XMS_ITS | Encounter Summary ---
:1960 Author Organization [facility] [place] [address] Care Team Providers Name Role Phone Ava Morales MD Primary Care Provider Encounter Details Date Type Department Care Team Description 08/31/2021 Notes Only [facility] OFF[facility] OF CARE [address] [place] [phone] Social History Tobacco Use Types Packs/Day Years [...] encounter Progress Notes Shasta Garcia MSW - 08/31/2021 12:17 PM EST Informed pt needs to go to Dr. Donohue, ENT in [facility] today at 1:45pm after his visit at [facility]. TC Lundberg [phone] who transports pt and they need to hear from Pt's insurance [employer] to change his schedule of rides for today. Supriya French, RN and EMT INTERMEDIATE spoke with [employer] and they approved the change in plans for pt's rides today. Lundberg will pick remover pt from [facility] and transport him to Dr. Donohue's office for 1:45 pm visit. Lundberg will pick pt up at 2:15 from that visit to transport home. Pt aware of this plan. documented in this encounter Plan of Treatment Upcoming Encounters Date Type Specialty Care Team Description 03/30/2022 Office Visit Hematology and Oncology Kristan Perry MD [facility] DR ONCOLOGY DEPT. [place], [place] [address] (Wo rk) documented as of this encounter Visit Diagnoses Not on filedocumented in this encounter Care Teams Steel Grinder Relationship Specialty Start Date End Date Ava Morales MD PCP - General Family Medicine 04/04/21 [address] [place] [phone] documented as of this encounter
--- OUTSIDE RECORDS SUMMARY | 2022-03-23 07:48 | XMS_ITS | Encounter Summary ---
:1960 Author Organization [facility] [address] Care Team Providers Name Role Phone Ava Morales MD Primary Care Provider Reason for Visit Reason Comments IV Access hydration, mag, anti-emetics Treatment/Therapy Plan Authorization (Routine) - Closed Specialty Diagnoses / Procedures Referred By Contact Refer red To Contact Diagnoses Tonsil cancer Edwar Perry MD [facility] Infusion Procedures TC PALONOSETRON HCL, 25MCG, INJECTION (ALOXI) TC APREPITANT, 1 MG, INJECTION TC CISPLATIN, POWDER OR SOLUTION, 10MG, INJECTION J2469 palonosetron (Aloxi) 0.25 MG J0185 aprepitant (CINVANTI) 130 MG J9060 CISplatin (Platinol) [address] [facility] DR [facility] [place] [phone] Fax: Referral ID Status Reason Start Date Expiration Date Visits Requ ested Visits Authorized [id number] Closed 07/10/2021 09/22/2021 99 99 Encounter Details Date Type Department Care Team Description 08/10/2021 Infusion Hematology Oncology at [facility] Tonsil cancer [address] [place] [phone] Social History Tobacco Use Types [...] Sign Reading Time Taken Comments Blood Pressure 132/86 08/10/2021 9:52 AM EST Pulse 80 08/10/2021 9:52 AM EST Temperature 36.2 ??C (97.1 ??F) 08/10/2021 9:52 AM EST Respiratory Rate 20 08/10/2021 9:52 AM EST Oxygen Saturation 100% 08/10/2021 9:52 AM EST Inhaled Oxygen Concentration - - Weight 150.3 kg (331 lb 6.4 oz) 08/10/2021 9:52 AM EST Height 176.5 cm (5' 9.5) 08/10/2021 9:52 AM EST Body Mass Index 48.24 08/10/2021 9:52 AM EST documented in this encounter Progress Notes Loli Napier RN - 08/10/2021 10:00 AM EST INFUSION THERAPY ADMINISTRATION NOTES [...] and Oncology Kristan Perry MD [facility] DR ONCOLOGY DEPT. [place], [place] [address] (Wo rk) documented as of this encounter Visit Diagnoses Diagnosis Tonsil cancer Malignant neoplasm of tonsil documented in this encounter Administered Medications Inactive Administered Medications - up to 3 most recent administrations Medication Order MAR Action Action Date Dose Rate Site dexamethasone (Decadron) Given 08/10/2021 10:17 AM EST 5.2 mg injection 5.2 mg 5.2 mg (rounded from 5 mg), Intravenous, ONCE, 1 dose, On Evy 08/10/21 at 1015 heparin (pf) (porcine) (100 units/mL) Given 08/10/2021 12:20 PM EST 500 Units flush 5 mL syringe 500 Units 500 Units, Intravenous, ONCE PRN, Starting on Evy 08/10/21 at 0956, Until Evy 08/10/21 at 1439, Line Care, Refer to Intravenous (IV) Procedure: Accessing Implanted Vascular Access Devices (654) procedure and/or Intravenous (IV) Job Aid: Adult Flushing & Catheter Care (8552) job aid for additional information regarding guidelines and administration., Routine magnesium sulfate 2 g in sterile water New Bag 08/10/2021 10:2 3 AM EST 2 g 25 mL/hr 50 mL infusion 2 g, Intravenous, ONCE, 1 dose, On Evy 08/10/21 at 1015, Administer over 120 Minutes ondansetron (Zofran) tablet 16 mg Given 08/10/2021 10:16 AM EST 16 mg 16 mg, Oral, ONCE, 1 dose, On Evy 08/10/21 at 1015, Routine sodium chloride 0.9 % (flush) (BD PosiFlush Given 07/24 12:20 PM EST 20 mLs Normal Saline 0.9) flush 5-20 mL 5-20 mL, Intravenous, EVERY 1 MIN PRN, Starting on Evy 08/10/21 at 0956, Until Evy 08/10/21 at 1439, Line Care, Flush pertains to all indwelling lines. Flush per protocol found in the job aid using the link provided on this medication record. Refer to Intravenous (IV) Job Aid: Adult Flushing & Catheter Care (9802) job aid for additional information regarding guidelines and administration., Routine sodium chloride 0.9% infusion New Bag 08/10/2021 10:09 AM EST 1,000 mLs 1000 mL/hr 1,000 mL, at 1,000 mL/hr, Intravenous, CONTINUOUS, Starting on Evy 08/10/21 at 1015, Until Evy 08/10/21 at 1114 documented in this encounter Care Teams Manufacturing Baker Relationship Specialty Start Date End Date Ava Morales MD PCP - General Family Medicine 04/04/[address] [place] [phone] documented as of this encounter
--- OUTSIDE RECORDS SUMMARY | 2022-03-23 07:48 | XMS_ITS | Encounter Summary ---
:1960 Author Organization [place] [place] [address] Care Team Providers Name Role Phone Ava Morales MD Primary Care Provider Encounter Details Date Type Department Care Team Description 08/14/2021 [facility] Tonsil [facility] [address] ONCOLOGY DEPT. [place], [place] [phone] Social History Tobacco Use Types Packs/Day Years [...] Sign Reading Time Taken Comments Blood Pressure 120/65 08/14/2021 9:05 AM EST Pulse 78 08/14/2021 9:05 AM EST irregular Temperature 36.3 ??C (97.3 ??F) 08/14/2021 9:05 AM EST Respiratory Rate 16 08/14/2021 9:05 AM EST Oxygen Saturation 98% 08/14/2021 9:05 AM EST Inhaled Oxygen Concentration - - Weight 147.9 kg (326 lb) 08/14/2021 9:05 AM EST Height 176.5 cm (5' 9.49) 08/14/2021 9:05 AM EST Body Mass Index 47.47 08/14/2021 9:05 AM EST documented in this encounter Progress Notes Edwar Perry MD - 08/14/2021 9:30 AM EST Images from the original note were not included. Hematology/Oncology Clinic [facility] Patient Active Problem List Diagnosis ??? Tonsil [...] 109 mg 40 mg/m2/dose = 109 mg [facility] ONCOLOGY (AMB) 07/31/2021 08/07/2021 Day, Cycle Day 22, Cycle 1 Day 29, Cycle 1 CISplatin (Platinol) IV 40 mg/m2/dose = 109 mg 30 mg/m2/dose = 82 mg Medical oncology checkup prior to anticipated dose #5 of chemotherapy. Today is radiation fraction 24. He is scheduled to complete radiation on Thursday 08/30. No acute problems since last week. His taste buds continue to decline. He is working hard at findingfoods that he finds tolerable. Cori arcenio, fried eggs, and hot chocolate top the list. His bowels are regular with no recurrence of diarrhea. Copious sticky phlegm remains a problem in the throat. He is rinsing his mouth regularly. Fortunately he is not having much pharyngeal mucositis pain and has had no obstruction or aspiration events. At last week's visit he was complaining of increased tinnitus, and we reduce the cisplatin dose to 30 mg/m??. He continues to have intermittent tinnitus but it is not progressive. He denies peripheral neuropathy. Energy level is down a bit, but he continues doing ADLs independently. He has occasional palpitations from his chronic atrial fibrillation but no chest pain. Physical exam: He is in quite good spirits as before, in no acute distress Voice is well phonated and articulated Oral exam shows no evidence of candidiasis. Bulky tongue interferes with visualization of the pharynx. He has no trismus. Neck exam shows no adenopathy on the right; the left neck mass continues to diminish, now approximating 1 cm in thickness and about 4 cm in diameter. There is no drainage. There is some irritation overthe skin. Skin in the radiation field shows grade 1 diffuse erythema The lungs are clear Cardiac exam shows atrial fibrillation with reasonable rate Right chest Mediport is benign Abdomen is obese, without hepatosplenomegaly or masses Extremities normal, no clubbing cyanosis or edema Neurologic exam is stable, gait independent and somewhat antalgic from his knee arthritis. Cranial nerves are normal Labs: Today's electrolytes are normal although magnesium continues to decline at 1.1. Creatinine stable at 1.3, BUN 22. Hepatic enzymes normal. Albumin stable at 3.3. Today's white count is 3.27 with ANC 2200, hemoglobin 10.0; platelets have declined to 82,000. Impression: Regionally advanced tonsil cancer, tolerating curative intent chemoradiation reasonably well with good symptomatic tolerance. Progressive tinnitus stabilized with dose reduction of cisplatin. Thrombocytopenia is a bit more worrisome, and may interfere with chemotherapy by next week. Hypomag nesemia, despite copious intravenous and oral supplementation. Plan: 1. Increase oral magnesium supplement to 400 mg 3 times a day. He tells me he was taking 2 tablets at once, and he may be able to retain the ion better with the dose spread out over the day. 2. Proceed with cisplatin 30 mg per metered squared today. Reevaluate next week. If thrombocytopeniaworsens down to the 50,000 threshold, I would consider switching to cetuximab. 3. We will make arrangements for moving his post chemo hydration visit to one side or the other of the holiday. 4. I will go ahead and request a visit and infusion appointment for 08/28. Whether he gets supportivecare or chemotherapy that day will depend on the clinical situation. 5. I applauded his efforts at trying to maintain his nutrition, and validated the rigors of this regimen. Edwar Perry MD, FACP counseling psychologist Hematology/Oncology Section [facility]/[address] [address] Voice recognition software used for this note; please excuse integrated circuit layout designer errors. I personally reviewed past medical, surgical, family medical histories, reviewed current medications, vital signs, labs, and performed full review of systems. These are documented below the narrative for clarity and succinctness. Outpatient Medications Marked as Taking for the 08/14/21 encounter (Office Visit) with Viv Perry MD Medication Sig Dispense Refill ??? emollient base (CREAM BASE TOP) Apply [...] times daily. Current Facility-Administered Medications for the 08/14/21 encounter (Office Visit) with Edwar Perry MD Medication Dose Route Frequency Provider Last Rate Last Admin ??? lidocaine (Xylocaine) 4 % (40 mg/mL) solution Topical (Top) Once PRN Tomy Pinto MD ??? lidocaine (Xylocaine) 4 % (40 mg/mL) solution Topical (Top) Once PRN Tomy Pinto MD Review of Systems: Review of systems is negative for other SHOP LEAD, bone, pulmonary, cardiac, GI, , extremity, neurologic, endocrine, skin, constitutional, emotional, or functional problems. Vitals Office Visit from 08/14/2021 in Hematology/Oncology at [facility] Weight 147.9 kg (326 lb) Height 176.5 cm (5' 9.49) BSA (Calculated - sq m) 2.69 sq meters BMI (Calculated) 47.46 Temp 36.3 ??C (97.3 ??F) Temp src Temporal Heart Rate 78 [irregular] Heart Rate Source Right, NIBP Resp 16 BP 120/65 BP Location Right arm Patient Position Sitting SpO2 98 % Karnofsky Score 80 Body surface area is 2.69 meters squared. Wt Readings from Last 3 Encounters: 08/14/21 (!) 147.9 kg (326 lb) 08/10/21 (!) 150.3 kg (331 lb 6.4 oz) 08/09/21 (!) 152 kg (335 lb) No results found for this or any previous visit (from the past 72 hour(s)). ++++++++++++++++++++++++++++++++++++++++++++++++++++ documented in this encounter Plan of Treatment Upcoming Encounters Date Type Specialty Care Team Description 03/30/2022 Office Visit Hematology and Oncology Kristan Perry MD [facility] DR ONCOLOGY DEPT. [place], [place] [address] (Wo rk) documented as of this encounter Visit Diagnoses Diagnosis Tonsil cancer Malignant neoplasm of tonsil documented in this encounter Care Teams Science Job Titles Relationship Specialty Start Date End Date Ava Morales MD PCP - General Family Medicine 04/04/[address] [place] [phone] documented as of this encounter
--- OUTSIDE RECORDS SUMMARY | 2022-03-23 07:48 | XMS_ITS | Encounter Summary ---
:1960 Author Organization [facility] [address] Care Team Providers Name Role Phone Ava Morales MD Primary Care Provider Encounter Details Date Type Department Care Team Description 08/31/2021 Notes Only Radiation Oncology at [facility] Tomy MD [address] RADIATION ONCOLOGY [place], [place] [phone] [place] [address] [phone] (Wo rk) Social History Tobacco Use Types [...] encounter Progress Notes Tomy Pinto MD - 08/31/2021 1:00 PM EST Images from the original note were not included. Radiation Oncology Treatment Summary PATIENT NAME: Miriam Anaya DATE OF : 1960 DIAGNOSIS / TREATMENT OVERVIEW Miriam Anaya is a 61 y.o. 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 Definitive chemoradiotherapy. TREATMENT DETAILS Treatment Intent Curative Site Treated [...] IV 30 mg/m2/dose 30 mg/m2/dose 30 mg/m2/dose Clinical Trial No TECHNICAL DETAILS Total Dose: 70 Gy @ 2 Gy/fxn, 59.5 Gy @ 1.7 Gy/fxn, 56 Gy @ 1.6 Gy/fxn PLAN IMAGES CLINICAL COURSE Miriam Anaya had the following toxicities at the end of treatment (CTCAE v4.03): Site Grade Skin 3 Xerostomia 2 Pharyngeal Mucositis 0 Dysphagia 0 Hoarseness 0 Feeding Tube: N FOLLOW UP Per [facility] protocol documented in this encounter Plan of Treatment Upcoming Encounters Date Type Specialty Care Team Description 03/30/2022 Office Visit Hematology and Oncology Kristan Perry MD [facility] DR ONCOLOGY DEPT. [place], [place] [address] (Wo rk) documented as of this encounter Visit Diagnoses Not on filedocumented in this encounter Care Teams Tosser Relationship Specialty Start Date End Date Ava Morales MD PCP - General Family Medicine 04/04/[address] [place] [phone] documented as of this encounter
--- OUTSIDE RECORDS SUMMARY | 2022-03-23 07:48 | XMS_ITS | Encounter Summary ---
:1960 Author Organization [facility] [place] [address] Care Team Providers Name Role Phone Ava Morales MD Primary Care Provider Reason for Visit Reason Comments Chemotherapy Cycle 1, Day 36 - Cisplatin/ Magnesium Treatment/Therapy Plan Authorization (Routine) - Closed Specialty Diagnoses / Procedures Referred By Contact Refer red To Contact Diagnoses Tonsil cancer Edwar Perry MD [facility] Hem Onc Infusion Procedures TC PALONOSETRON HCL, 25MCG, INJECTION (ALOXI) TC APREPITANT, 1 MG, INJECTION TC CISPLATIN, POWDER OR SOLUTION, 10MG, INJECTION J2469 palonosetron (Aloxi) 0.25 MG J0185 aprepitant (CINVANTI) 130 MG J9060 CISplatin (Platinol) [address] [facility] [address] [facility] [place] [phone] Fax: Referral ID Status Reason Start Date Expiration Date Visits Requ ested Visits Authorized [id number] Closed 07/10/2021 09/22/2021 99 99 Encounter Details Date Type Department Care Team Description 08/14/2021 Infusion Hematology Oncology at [facility] Tonsil cancer [address] [place] [phone] Social History Tobacco Use Types [...] documented as of this encounter Progress Notes Brianda Ibrahima Longoria RN - 08/14/2021 10:00 AM EST INFUSION THERAPY ADMINISTRATION NOTES DIAGNOSIS: Tonsillar cancer CYCLE #: Cycle 1, Day 36 - Cisplatin/Magnesium REASON FOR VISIT: To receive planned chemotherapy concurrent with radiation. SUBJECTIVE: Miriam offers no complaints. OBJECTIVE: Seen by provider. Ready to treat. LAB DATA: WBC - 3.27, H/H - 10.0/30.3, Plt Ct - 82, ANC - 2.20, BUN/CR - 22/1.3, Mag 1.1 (will receive 4 grams magnesium today). IV ACCESS: Port accessed off site. Flushes readily with brisk blood return. Pre administration: Chemotherapy orders independently verified for drug name, route, and dosage per patient's height, weight and BSA by Ally RN, Marleen Goodwin RN and Staff Pharmacist(s). REACTIONS (DESCRIPTION, TIME, INTERVENTION AND EFFECTIVENESS) none ASSESSMENT: Miriam was awake, alert and tolerated treatment well. Port flushed with 20 ml NS and 500 units Heparin then deaccessed. PLAN: Return to clinic per routine. documented in this encounter Plan of Treatment Upcoming Encounters Date Type Specialty Care Team Description 03/30/2022 Office Visit Hematology and Oncology Kristan Perry MD [facility] DR ONCOLOGY DEPT. [place], [place] [address] (Wo rk) documented as of this encounter Visit Diagnoses Diagnosis Tonsil cancer Malignant neoplasm of tonsil documented in this encounter Administered Medications Inactive Administered Medications - up to 3 most recent administrations Medication Order MAR Action Action Date Dose Rate Site aprepitant (CINVANTI) injection Given 08/14/2021 10:38 AM EST 13 0 mg Emul 130 mg 130 mg, Intravenous, ONCE, 1 dose, On Sat08/14/21 at 1015, Alternative administration of IV push over 2 minutes is a recommendation from the instructional developer. Administer prior to chemotherapy., Routine CISplatin (Platinol) 82 mg in New Bag 08/14/2021 11:19 AM EST 82 m g 332 mL/hr sodium chloride 0.9% 332 mL infusion 82 mg (rounded from 81.6 mg = 30 mg/m2/dose ? 2.72 m2 Treatment Plan BSA from Recorded weight), Intravenous, ONCE, 1 dose, On Sat08/14/21 at 1115, Administer over 60 Minutes, Warning Vesicant/Irritant Medication dexamethasone (Decadron) tablet 10 mg Given 08/14/2021 10:37 AM EST 10 mg 10 mg, Oral, ONCE, 1 dose, On Sat08/14/21 at 1015, Administer prior to chemotherapy, Routine heparin (pf) (porcine) (100 units/mL) Given 08/14/2021 12:58 PM EST 500 Units flush 5 mL syringe 500 Units 500 Units, Intravenous, ONCE PRN, Starting on Sat08/14/21 at 0951, Until Sat08/14/21 at 1750, Line Care, Refer to Intravenous (IV) Procedure: Accessing Implanted Vascular Access Devices (674) procedure and/or Intravenous (IV) Job Aid: Adult Flushing & Catheter Care (4620) job aid for additional information regarding guidelines and administration., Routine magnesium sulfate 2 g in sterile water New Bag 08/14/2021 11:0 1 AM EST 2 g 25 mL/hr 50 mL infusion 2 g, Intravenous, EVERY 2 HOURS PRN, 2 doses, Starting on Sat08/14/21 at 0956, Until Sat08/14/21 at 1258, Administer over 120 Minutes, for electrolyte replacement, Total dose is 4 grams. New Bag 08/14/2021 10:00 AM EST 2 g 25 mL/hr palonosetron (Aloxi) (0.05 mg/mL) injection Given 07/25 10:38 AM EST 0.25 mg 0.25 mg 0.25 mg, Intravenous, ONCE, 1 dose, On Sat08/14/21 at 1015, Administer over 30 seconds. Administer prior to chemotherapy, Routine sodium chloride 0.9 % (flush) (BD PosiFlush Given 07/25 12:58 PM EST 20 mLs Normal Saline 0.9) flush 5-20 mL 5-20 mL, Intravenous, EVERY 1 MIN PRN, Starting on Sat08/14/21 at 0951, Until Sat08/14/21 at 1750, Line Care, Flush pertains to all indwelling lines. Flush per protocol found in the job aid using the link provided on this medication record. Refer to Intravenous (IV) Job Aid: Adult Flushing & Catheter Care (9941) job aid for additional information regarding guidelines and administration., Routine sodium chloride 0.9% infusion New Bag 08/14/2021 10:00 AM EST 1,000 mLs 1000 mL/hr 1,000 mL, at 1,000 mL/hr, Intravenous, CONTINUOUS, Starting on Sat08/14/21 at 1015, Until Sat08/14/21 at 1114, Pre-CISplatin sodium chloride 0.9% infusion New Bag 08/14/2021 11:02 AM EST 500 mLs 500 mL/hr 500 mL, at 500 mL/hr, Intravenous, CONTINUOUS, Starting on Sat08/14/21 at 1215, Until Sat08/14/21 at 1314, Post CISplatin documented in this encounter Care Teams Fruit Packer Relationship Specialty Start Date End Date Ava Morales MD PCP - General Family Medicine 04/04/[address] [place] [phone] documented as of this encounter
--- OUTSIDE RECORDS SUMMARY | 2022-03-23 07:48 | XMS_ITS | Encounter Summary ---
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 Chemotherapy induced nausea and vomiting ; [address] [facility] [address] [place], [place] HEMATOLOGY [phone] ONCOLOGY [phone] [place] [address] Social History Tobacco Use Types [...] Sign Reading Time Taken Comments Blood Pressure 113/68 08/28/2021 8:28 AM EST Pulse 110 08/28/2021 8:28 AM EST Temperature 36.6 ??C (97.8 ??F) 08/28/2021 8:28 AM EST Respiratory Rate 24 08/28/2021 8:28 AM EST Oxygen Saturation 99% 08/28/2021 8:28 AM EST Inhaled Oxygen Concentration - - Weight 145.5 kg (320 lb 12.8 oz) 08/28/2021 8:28 AM EST Height 176.5 cm (5' 9.49) 08/28/2021 8:28 AM EST Body Mass Index 46.71 08/28/2021 8:28 AM EST documented in this encounter Progress Notes 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 INTERVAL HPI 08/28/21 ??Miriam Anaya is a 61 yo male diagnosed with T1N3M0 scc tonsilar cancer in 05/13. (See history as summarized above.) Miriam returns to the [facility] oncology clinic in [facility] today for evaluation following completion of Cisplatin and continuing RT - D33/35. Miriam is feeling unwell today. He says, yesterday was bad. He has been feeling extremely fatigued.He reports getting out of breath easily. His appetite was poor this weekend. He says he didn't eat or drink much yesterday. He says he just didn't feel like doing anything. He does try different foods when he feels up to it. His taste sensation is diminished. He does note that at other times during the week he feels hungry, but can't find anything that tastes good. He has lost 15 pounds since 08/09/21. He notes a dry mouth, especially at night. Cori arcenio helps the most to quench his dry mouth. He is making some saliva. He is not really having much mouth nor throat pain. He drinks protein shakes daily and is using Biotin also. He has been using Silvadene topically on his left neck. He some times doesn't put anything on, and leaves the skin open to air. Miriam is a concerned the firm nodule in his left neck base is still there. The skin is raw and sore, but not oozing. Miriam reports his gag reflux is getting worse, especially when he is trying to brush his tongue. He hasn't had much nausea. He is moving his bowls without difficulty. Miriam also has noticed increased swelling in his ankles. He has been working at his desk more latelyand thinks this could be contributing. I encouraged him to keep his legs elevated when he can. Tinnitus had decreased since Cisplatin dose was reduced. Miriam says he had several occurrences this week but they only lasted a couple of minutes. He has not had any fevers or chills. He denies numbness or tingling in hands or feet. No Known Allergies Current Medications ??? silver sulfADIAZINE (Silvadene) 1 % Cream ??? emollient base (CREAM BASE TOP) ??? [...] difficulty urinating, dysuria and hematuria. Musculoskeletal: Negative. Skin: Positive for color change. Red, sore skin left neck. Not oozing. Neurological: Negative. Negative for dizziness and weakness. Hematological: Left neck mass still present Psychiatric/Behavioral: Negative. Objective: Physical Exam Vitals reviewed. Constitutional: Comments: Pleasant, alert, tired-appearing male in NAD HENT: Mouth/Throat: Mouth: Mucous membranes are moist. Pharynx: Oropharynx is clear. No oropharyngeal exudate or posterior oropharyngeal erythema. Neck: Comments: Left neck mass Cardiovascular: Rate and Rhythm: Regular rhythm. Tachycardia present. Comments: Heart tones distant. Pulmonary: Breath sounds: No wheezing or rales. Abdominal: General: Bowel sounds are normal. Palpations: Abdomen is soft. Musculoskeletal: Right lower leg: Edema present. Left lower leg: Edema present. Comments: +1-2 ankles and lower LEs. Lymphadenopathy: Cervical: Cervical adenopathy present. Skin: General: Skin is warm and dry. Findings: Erythema present. Comments: Reddened, sloughing, tender skin left neck. No oozing. Neurological: Mental Status: He is alert and oriented to person, place, and time. Psychiatric: Mood and Affect: Mood normal. Thought Content: Thought content normal. BP 113/68 (Patient Position: Sitting) Pulse (!) 110 Temp 36.6 ??C (97.8 ??F) (Temporal) Resp 24 Ht 176.5 cm (5' 9.49) Wt (!) 145.5 kg (320 lb 12.8 oz) SpO2 99% BMI 46.71 kg/m?? LABS 08/28/21 WBC 0.95; ANC 0.57; H/H 8.2/24/5; PLT 72; BUN 27; CREAT 1.3; LFTs normal; K+ 3.5; MAG 1.0. LABS 08/07/21 WBC 3.04; ANC 2.18; H/H 10.5/ 32.0; PLT 102; BUN 31; CREAT 1.3 (up from 1.2 on 07/31 and 1.1 on 07/24); MAG 1.4; LFTs normal. Assessment and Plan: Assessment: ??Miriam Anaya is a 61 yo male diagnosed with T1N3M0 scc tonsilar cancer in 05/13. (See history as summarized above.) Miriam returns to the [facility] oncology clinic in [facility] today for evaluation on D3 RT. Cisplatin therapy was completed last week. . CBC and CMP and MAG reviewed with Miriam today. He is neutropenic, Thrombocytopenic and more anemic, labs show significant Hypomagnesemia also. Miriam is symptomatic from worsening anemia and magnesium. Plan: Will hydrate today with NS and give 4 grams Magnesium IVPB (over 4 hours). Plan transfusion with one unit PRBC tomorrow at [facility]. Continue RT - completing this week. Hydration . Reinforced neutropenic precautions and calling for fever 100.4 or greater. RTC for follow up with Dr. Perry in next 1-2 weeks. documented in this encounter Plan of Treatment Upcoming Encounters Date Type Specialty Care Team Description 03/30/2022 Office Visit Hematology and Oncology Kristan Perry MD [facility] DR ONCOLOGY DEPT. [place], [place] [address] (Wo rk) documented as of this encounter Visit Diagnoses Diagnosis Tonsil cancer Malignant neoplasm of tonsil Chemotherapy induced nausea and vomiting Nausea with vomiting Hypomagnesemia Disorders of magnesium metabolism documented in this encounter Care Teams Sampler Radioactive Waste Relationship Specialty Start Date End Date Ava Morales MD PCP - General Family Medicine 04/04/[address] [place] [phone] documented as of this encounter
--- OUTSIDE RECORDS SUMMARY | 2022-03-23 07:48 | XMS_ITS | Encounter Summary ---
:1960 Author Organization [place] [place] [address] Care Team Providers Name Role Phone Ava Morales MD Primary Care Provider Encounter Details Date Type Department Care Team Description 11/06/2021 [facility] [address] HEMATOLOGY AND ONCOLOGY [place], [place] [phone] [place] [address] [phone] (Wo rk) Social History Tobacco Use Types [...] Telephone Encounter - Leslie Rendon RD - 11/06/2021 1:55 PM EST Nutrition Note Spoke with patient over the phone day, he did not come to clinic to see Dr. Perry in person as scheduled. He reports he is doing better, taking medications and feeling out of shape but no longer dizzy when he mobilizes. He says home PT has ended but [facility] still visits Saturday, Saturday and Saturday. Patient reports his taste is 85-90% back, although the taste and texture of meat can be difficult.He is mostly eating canned foods--soups, beef stew but does occasionally have a full meal. He says he is still light on fluid intake but is trying to drink enough. He reports now weighing 275#, approximately 43# less than 318# two months ago on 08/31/21. He thinks he is at least weight stable if not re-gaining a bit of weight now. Patient has f/u appointments scheduled on 11/30/21 at [facility]. Will f/u as needed. documented in this encounter Plan of Treatment Upcoming Encounters Date Type Specialty Care Team Description 03/30/2022 Office Visit Hematology and Oncology Kristan Perry MD [facility] ONCOLOGY DEPT. [place], [place] [address] (Wo rk) documented as of this encounter Visit Diagnoses Not on filedocumented in this encounter Care Teams Hand Screen Printer Relationship Specialty Start Date End Date Ava Morales MD PCP - General Family Medicine 04/04/[address] [place] [phone] documented as of this encounter
--- OUTSIDE RECORDS SUMMARY | 2022-03-23 07:48 | XMS_ITS | Encounter Summary ---
:1960 Author Organization [facility] [place] [address] Care Team Providers Name Role Phone Ava Morales MD Primary Care Provider Encounter Details Date Type Department Care Team Description 10/04/2021 Tele[facility] [address] HEMATOLOGY AND ONCOLOGY [place], [place] [phone] [place] [address] [phone] (Wo rk) Social History Tobacco Use Types [...] place to sleep or slept in a longterm (including now)? Sex Assigned at Date Recorded Not on file documented as of this encounter Miscellaneous Notes Telephone Encounter - Leslie Rendon RD - 10/04/2021 1:53 PM EST Nutrition Progress Note Spoke with patient briefly today over the phone. VNA was with patient during our call, so conversation was kept short. Patient reports VNA is visiting Saturday, Saturday and Saturday. VNA note is now in patient's chart. Patient reports he is drinking more but not eating more. He reports the main obstacle to inadequate intake of food is his mobility. He still is dizzy when getting out of bed and cannot stay standing for long. VNA note reads that patient has fluids including protein shakes within reaching distance in his bedroom. Wt Readings from Last 3 Encounters: 08/31/21 (!) 144.5 kg (318 lb 9.6 oz) 08/30/21 (!) 147.8 kg (325 lb 12.8 oz) 08/28/21 (!) 145.5 kg (320 lb 12.8 oz) 276.8# on home scale on 09/29/20 Patient has lost 41# in the past month (13% body weight) according to most recent weight on home scale per VNA report--severe. Nutrition Problem: Involuntary weight loss related to poor mobility per patient as evidenced by 41# loss in past month (13% body weight)--severe. Intervention: * Again strongly encouraged increased PO intake of both foods and fluids to prevent further weight loss. Continue protein shakes. * Updated [facility] cancer team. Will call again on 10/11. documented in this encounter Plan of Treatment Upcoming Encounters Date Type Specialty Care Team Description 03/30/2022 Office Visit Hematology and Oncology Kristan Perry MD [facility] DE[facility]. [place] [address] (Wo rk) documented as of this encounter Visit Diagnoses Not on filedocumented in this encounter Care Teams Retail Security Professional Relationship Specialty Start Date End Date Ava Morales MD PCP - General Family Medicine 04/04/[address] [place] [phone] documented as of this encounter
--- OUTSIDE RECORDS SUMMARY | 2022-03-23 07:48 | XMS_ITS | Encounter Summary ---
:1960 Author Organization [facility] [place] [address] Care Team Providers Name Role Phone Ava Morales MD Primary Care Provider Encounter Details Date Type Department Care Team Description 09/06/2021 [facility]phone [facility] [address] HEMATOLOGY AND ONCOLOGY [place], [place] [phone] [place] [address] [phone] (Wo rk) Social History Tobacco Use Types [...] encounter Miscellaneous Notes Telephone Encounter - Leslie Rendon, RD - 09/06/2021 10:36 AM EST [facility] Nutrition Assessment Progress Note Miriam Anaya Diagnosis: SCC left tonsil stage III Wt Readings from Last 3 Encounters: 08/31/21 (!) 144.5 kg (318 lb 9.6 oz) 08/30/21 (!) 147.8 kg (325 lb 12.8 oz) 08/28/21 (!) 145.5 kg (320 lb 12.8 oz) BMI 46.37 07/10/21 330# start of treatment 299# on home scale today per patient. Patient has lost 12# (3.6% body weight) since start of treatment (07/10-08/31) which was 8 weeks ago,though weight has had some variance likely due to fluid status--not clinically significant Weight has likely further decreased per patient's report of home scale reading 299# today. Medications: ??Ativan before RT, Imodium prn, Mag-Ox, Compazine prn, Tramadol prn, Oxycodone prn, Meloxicam, Tylenol, Metoprolol Final chemo (cisplatin) 08/21 and RT ending on 08/30. No new labs. Assessment: Nutrition Screen 09/06/2021 08/30/2021 Reason for assessment Symptom management Symptom management Total MST Score - - Functional Status 09/06/2021 08/30/2021 Appetite Reduced compared to usual intake Reduced compared to usual intake Xerostomia Present Present Odynophagia Present - Dysgeusia Present Present Impaired wound healing - - Fatigue Grade 1 Grade 1 Patient continues to have severe weight changes which seemed to have worsened in the past couple of weeks. Everything has a burnt taste and even foods that were tolerable (chicken noodle soup) taste too terrible to eat now. Patient has a sore throat, not taking pain meds. No nausea/vomiting. He says his thick sputum is stronger than ever today. He uses BSSW and Biotine mouth rinse. He is also fatigued and says he feels depressed, lacking motivation to eat and drink. Food History, Access and Intake 09/06/2021 08/30/2021 Patient Reported Diet Regular - Who prepares meals? Patient/Self - Use of oral nutritional supplements Other Other Patient has been eating and drinking poorly for the past two weeks. Taste changes and depression/lowmotivation are the biggest obstacles. He says he has plenty of food in the house and friends who keep bringing him more. He does have grapefruit juice and cranberry juice as well as protein drinks and said he will work on increasing PO intake starting today. He may possibly get IV hydration closer to home. Intake History 09/06/2021 08/30/2021 Use of oral nutritional supplements Other Other Patient has low carb protein shakes of his choosing at home. Malnutrition Characteristics 08/14/2021 08/07/2021 Insufficient Energy Intake Less than or equal to 70% for 7 days Less than or equal to 70% for 7 days Patient has lost 12# (3.6% body weight) since start of treatment (07/10-08/31) which was 8 weeks ago,though weight has had some variance likely due to fluid status--not clinically significant Weight has likely further decreased per patient's report of home scale reading 299# today. Nutrition Diagnosis 09/06/2021 08/30/2021 Problems Involuntary weight loss Involuntary weight loss Etiology (related to) Daily H/N radiation therapy;Chemotherapy Daily H/N radiation therapy;Chemotherapy Signs and Symptoms Weight loss > 2 % unintentional weight loss in 1 week (Severe) Estimated needs based on current weight of 144.5 k kcals (20 kcal/kg) obese, weight loss 116 g pro (0.8 g/kg) ~2.9 L fluid (1 ml/kcal) Intervention: * Encouraged PO intake to avoid further weight loss. Discussed having at least protein shakes and juices which could provide some hydration as well. Encouraged patient that he may start to have some improvement in his taste changes in the coming weeks and to continue to try different foods. Explained that weight loss could impact his recovery. * Relayed patient's preference to not attend appointment on 09/[address] Perry. Follow Up: 09/11 phone call Note: Please see Hematology/Oncology malnutrition flowsheet for complete RD assessment/documentation documented in this encounter Plan of Treatment Upcoming Encounters Date Type Specialty Care Team Description 03/30/2022 Office Visit Hematology and Oncology Kristan Perry MD [facility] ER DR ONCOLOGY DEPT. [place], [place] [address] (Wo rk) documented as of this encounter Visit Diagnoses Not on filedocumented in this encounter Care Teams Analysis Lead Relationship Specialty Start Date End Date Ava Morales MD PCP - General Family Medicine 04/04/[address] [place] [phone] documented as of this encounter
--- OUTSIDE RECORDS SUMMARY | 2022-03-23 07:48 | XMS_ITS | Encounter Summary ---
:1960 Author Organization [place] [address] Care Team Providers Name Role Phone Ava Morales MD Primary Care Provider Encounter Details Date Type Department Care Team Description 08/06/2021 Orders Only Hematology/Oncology at [facility] [address] [place], [place] HEMATOLOGY ONCO LOG[place] [phone] [place], [place] [phone] (Wo rk) Social History Tobacco Use Types [...] Visit Hematology and Oncology Kristan Perry MD [facility] DR ONCOLOGY DEPT. [place], [place] [address] (Wo rk) documented as of this encounter Visit Diagnoses Not on filedocumented in this encounter Care Teams Conference Organizer Relationship Specialty Start Date End Date Ava Morales MD PCP - General Family Medicine 04/04/21 [address] [place] [address] documented as of this encounter
--- OUTSIDE RECORDS SUMMARY | 2022-03-23 07:48 | XMS_ITS | Encounter Summary ---
:1960 Author Organization [facility] [address] Care Team Providers Name Role Phone Ava Morales MD Primary Care Provider Encounter Details Date Type Department Care Team Description 09/20/2021 TH Visit Radiation Oncology Tomy Pinto us cell (TeleHealth) at [facility] MD Elissa carcinoma of [address] [facility] tonsil [facility] [phone] RADIATION [phone] ONCOLOGY [place], [place] [address] Social History Tobacco Use Types [...] encounter Progress Notes Tomy Pinto MD - 09/20/2021 7:30 AM EST Images from the original [...] mg/m2/dose 30 mg/m2/dose Plan Images: Intercurrent History: he was hospitalized for progressive LE edema and failure to thrive. We do not have records and are attempting to obtain them. He states that he was experiencing increasing pain and LE edema bilaterally, as well as tachycardia associated with any motion. He notes that he was taking little by mouth. It is unclear what interventions were performed, but he states that his edema resolved. He was discharged home. Changes in medical condition Pain: denies oropharyngeal pain. Secretions/Dryness: Thick secretions improving. Occasional xerostomia, improving dysgeusia but stillsignificant. Using BSSW rinses & Biotene. Swallowing Function: no issues, but minimal oral intake Nutrition / G tube: No feeding tube. All by mouth. He states that he is eating very little due to taste changes. Skin: no issues GI: -Nausea: No recent nausea/vomiting. -Bowels: no issues Other: -Continued fatigue -Diminished swelling in legs -He notes continued tachycardia when moving even minimally Objective: There were no vitals filed for this visit. Assessment: He continues to take minimal oral intake, and notes fatigue and dyspnea / tachycardia with minimal motion. He LE edema has returned to baseline. His oral intake is apparently limited by dysgeusia. CTCAE TOXICITY GRADES (see below for isaacs): Site Grade Skin 1 Xerostomia 2 Pharyngeal Mucositis 0 Dysphagia 0 Hoarseness 0 Plan: ?? Pain control: ?? Tylenol prn ?? Skin: AP prn ?? Mucositis: ?? Pain control: see above ?? Oral hygiene consisting of baking soda/salt rinse at least 8 times daily ?? Alimentation: pressure tester following ?? Weight unclear. Discussed need to get adequate oral intake of calories and fluids, and that this is critical. Discussed strategies to achieve this end. ?? GI: ?? N/V: no issues ?? Constipation: senna prn ?? FU: I will see him in two weeks, he is followed by Leslie Rendon as well. He knows to call us with concerns. 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
--- OUTSIDE RECORDS SUMMARY | 2022-03-23 07:48 | XMS_ITS | Encounter Summary ---
:1960 Author Organization [place] [address] Care Team Providers Name Role Phone Ava Morales MD Primary Care Provider Encounter Details Date Type Department Care Team Description 07/27/2021 [facility] [address] [phone] Social History Tobacco Use [...] place to sleep or slept in a residential (including now)? Sex Assigned at Date Recorded Not on file documented as of this encounter Plan of Treatment Upcoming Encounters Date Type Specialty Care Team Description 03/30/2022 Office Visit Hematology and Oncology Kristan Perry MD [facility] DR ONCOLOGY DEPT. [place], [place] [address] (Wo rk) documented as of this encounter Visit Diagnoses Not on filedocumented in this encounter Care Teams Nougat Cutter Machine Relationship Specialty Start Date End Date Ava Morales MD PCP - General Family Medicine 04/04/21 [address] [place] [address] documented as of this encounter
--- OUTSIDE RECORDS SUMMARY | 2022-03-23 07:48 | XMS_ITS | Encounter Summary ---
:1960 Author Organization [facility] [place] [address] Care Team Providers Name Role Phone Ava Morales MD Primary Care Provider Encounter Details Date Type Department Care Team Description 08/21/2021 [facility] Tonsil cancer [address] HEMATOLOGY [place] [address] ONCOLOGY [phone] [place], [place] [address] (Wo rk) Social History Tobacco [...] as of this encounter Progress Notes Julieta Leslie Bowers RD - 08/21/2021 9:30 AM EST [facility] Nutrition Assessment Progress Note Miriam Anaya Diagnosis: SCC left tonsil stage III Assessment: Nutrition Screen 08/21/2021 Reason for assessment Symptom management Total MST Score 0 Functional Status 08/21/2021 Appetite Similar compared to usual intake Xerostomia Present Odynophagia - Dysgeusia Present Impaired wound healing - Patient continues to have taste changes, though he is able to find some foods that are tolerable. Hehas thick secretions and says gingerale helps with this. Food History, Access and Intake 08/21/2021 Patient Reported Diet Regular Use of oral nutritional supplements Other Patient continues to experiment in tasting different foods to see which ones he can tolerate. He atepork fried rice, chicken noodle soup, eggs on toast, and vegetables this weekend. Meat and cheese are not tasting good right now. He thinks he is well hydrated, drinking cranberry juice, hot cocoa, coffee, tea, priscilla arcenio. Constipation has improved. He drinks low carb protein drink four times per week. Food Insecurity Screening 07/10/2021 Within the past 12 months, you worried that your food would run out before you got the money to buy more. 1 Intake History 08/21/2021 Use of oral nutritional supplements Other Malnutrition Characteristics 08/14/2021 Insufficient Energy Intake Less than or equal to 70% for 7 days Unintended Weight Loss 1-2% in a week Wt Readings from Last 3 Encounters: 08/21/21 (!) 148.3 kg (327 lb) 08/18/21 (!) 148.3 kg (327 lb) 08/16/21 (!) 150.7 kg (332 lb 3.2 oz) BMI 47.61 Weight has fluctuated during treatment, tending to rise toward end of the week. 330# on 07/10 start of treatment Patient has lost 3# in past 6 weeks (1% body weight) Medications: Ativan before RT, Imodium prn, Mag-Ox, Compazine prn, Tramadol prn, Oxycodone prn, Meloxicam, Tylenol, Metoprolol Final chemo (cisplatin) today per patient and RT ending on 08/30. Labs on 08/21: Ca 7.8, BG 92, BUN 22H, Creat 1.3, Alb 2.9L, TBili 0.4, AlkPhos 49, Na 142, K 4.0, AST 13, ALT 28, WBC 1.71L, H/H 8.7/26.1L, platelet 65L, ANC 1.11, Mg 1.1 Nutrition Diagnosis 08/21/2021 Problems Involuntary weight loss Etiology (related to) Daily H/N radiation therapy Signs and Symptoms 1-2 % weight loss in 1 week (Non severe/moderate) Improved--weight stable compared to 326# on 08/14 Estimated needs based on current weight of 148.3 k kcals (20 kcal/kg) obese 118 grams protein (0.8 g/kg) ~2.9 L fluid Intervention: * Encouraged adequate intake to maintain weight during treatment. He is doing well with trying different foods despite taste changes. * Encouraged having his protein shake once daily given distaste for meat and cheese. Reviewed protein sources. Follow Up: On 08/28 Note: Please see Hematology/Oncology malnutrition flowsheet for complete RD assessment/documentation documented in this encounter Plan of Treatment Upcoming Encounters Date Type Specialty Care Team Description 03/30/2022 Office Visit Hematology and Oncology Kristan Perry MD [facility] DR ONCOLOGY DEPT. [place], [place] [address] (Wo rk) documented as of this encounter Visit Diagnoses Diagnosis Tonsil cancer Malignant neoplasm of tonsil documented in this encounter Care Teams Networking Technology Instructor Relationship Specialty Start Date End Date Ava Morales MD PCP - General Family Medicine 04/04/[address] [place] [phone] documented as of this encounter
--- OUTSIDE RECORDS SUMMARY | 2022-03-23 07:49 | XMS_ITS | Encounter Summary ---
:1960 Author Organization [facility] [place] [address] Care Team Providers Name Role Phone Ava Morales MD Primary Care Provider Encounter Details Date Type Department Care Team Description 06/13/2021 Patient Outreach Hematology and [place]cology [place] [facility] [place] [facility] [place] [phone] Social History Tobacco Use Types Packs/Day [...] documented as of this encounter Progress Notes Abbey Krishnan RN - 06/16/2021 1:58 PM EDT Pre-radiation dental evaluation today at [facility]. Will facilitate referral to our Oral Surgery department and attempt to expedite extractions so that patient can be simulated for radiation. Dr. Pinto made aware of progress. documented in this encounter Plan of Treatment Upcoming Encounters Date Type Specialty Care Team Description 03/30/2022 Office Visit Hematology and Oncology Kristan Perry MD [facility] ER DR ONCOLOGY DEPT. [place], [place] [address] (Wo rk) documented as of this encounter Visit Diagnoses Not on filedocumented in this encounter Care Teams Glue Machine Operator Relationship Specialty Start Date End Date Ava Morales MD PCP - General Family Medicine 04/04/[address] [place] [phone] documented as of this encounter
--- OUTSIDE RECORDS SUMMARY | 2022-03-23 07:49 | XMS_ITS | Encounter Summary ---
:1960 Author Organization [facility] [place] [address] Care Team Providers Name Role Phone Ava Morales MD Primary Care Provider Encounter Details Date Type Department Care Team Description 07/10/2021 Notes Only [facility] OFFICE OF CARE [address] [place] [phone] Social History Tobacco Use Types Packs/Day Years [...] encounter Progress Notes Shasta Garcia MSW - 07/10/2021 11:13 AM EDT Follow up with pt during his infusion visit today. He is scheduling his own rides through [employer]. He is using [employer] as the ride vendor and feels this is working out better. He is managing day to day at home as best he can. He has a visiting nurse come once a week. He has a private cleaning person one time a month. He has someone who can run errands for him. Pt did not identify any new needs today. Offered support. Reminded pt of HEALTH COORDINATOR availability and contact information. Will follow for support and resources. documented in this encounter Plan of Treatment Upcoming Encounters Date Type Specialty Care Team Description 03/30/2022 Office Visit Hematology and Oncology Kristan Perry MD [facility] DR ONCOLOGY DEPT. [place], [place] [address] (Wo rk) documented as of this encounter Visit Diagnoses Not on filedocumented in this encounter Care Teams Cigar Head Holer Relationship Specialty Start Date End Date Ava Morales MD PCP - General Family Medicine 04/04/[address] [place] [phone] documented as of this encounter
--- OUTSIDE RECORDS SUMMARY | 2022-03-23 07:49 | XMS_ITS | Encounter Summary ---
:1960 Author Organization [facility] [place] [address] Care Team Providers Name Role Phone Ava Morales MD Primary Care Provider Reason for Referral Consultation (Routine) - Pending Review Specialty Diagnoses / Procedures Referred By Contact Refer red To Contact Radiation Oncology Diagnoses Squamous cell carcinoma of palatine tonsil Tomy Pinto MD St Rad Onc Office Procedures Simulation for Radiation Therapy Planning [address] [place] [phone] Fax: Referral ID Status Reason Start Expiration Visits Visits Date Date Requested Authorized [id number] Pending Consult, 06/14/2021 06/14/2022 36 36 Review Test & Treat Encounter Details Date Type Department Care Team Description 06/14/2021 Orders Only Radiation Oncology at Tomy Pinto, Squamous cell [facility] [place] of palatine [facility] [place] [id number] RADIATION ONCOLOGY [phone] [place], [place] [address] Social History Tobacco Use Types [...] [facility] DR ONCOLOGY DEPT. [place], [place] [address] (Wo rk) Scheduled Orders Name Type Priority Associated Diagnoses Order S chedule Simulation for Procedures Routine Squamous cell Ordered: Radiation Therapy carcinoma of palatine Planning tonsil documented as of this encounter Visit Diagnoses Diagnosis Squamous cell carcinoma of palatine tons il Malignant neoplasm of tonsil documented in this encounter Care Teams Employee Communications Specialist Relationship Specialty Start Date End Date Ava Morales MD PCP - General Family Medicine 04/04/[address] [place] [phone] documented as of this encounter
--- OUTSIDE RECORDS SUMMARY | 2022-03-23 07:49 | XMS_ITS | Encounter Summary ---
:1960 Author Organization [place] [address] Care Team Providers Name Role Phone Ava Morales MD Primary Care Provider Encounter Details Date Type Department Care Team Description 06/19/2021 [facility] Neck [address] HEMATOLOGY AND ONCOLOGY [address] [place] [address] [phone] (Wo rk) Social History Tobacco Use Types [...] documented as of this encounter Progress Notes Leslie Rendon RD - 06/19/2021 2:30 PM EDT Nutrition Note Met with patient briefly today following his discussion with Dr. Perry. He has been trying to eat more consistently since we spoke on the phone last week. He had 2 pieces of toast, scrambled eggs and pasta yesterday. Patient has his groceries delivered to him and has two friends who are helpful, though he does his own meal preparation. The main obstacle to PO intake currently is poorly controlled pain related to his cancer; he has headaches and pain when he opens his mouth to eat. Dr. Perry added tramadol today. Patient also recently had teeth extractions and so is healing from that. He is hoping to get through chemo/RT treatment without needing a feeding tube. He has purchased some protein drinks, peanut butter and other soft foods in preparation. Patient wonders today if it is possible to have help at home (with cleaning, chores, etc.) during treatment. Will relay this question to Shasta Garcia. Wt Readings from Last 3 Encounters: 06/19/21 (!) 151 kg (333 lb) 06/15/21 (!) 147.9 kg (326 lb) 06/07/21 (!) 148.1 kg (326 lb 6.4 oz) BMI 47.8 Intervention: * Again reviewed some of the side effects from treatment that can impact PO intake. * Encouraged optimizing PO intake before start of treatment. * Discussed likely need for soft, high calorie/protein foods during treatment. * Discussed possible need for enteral nutrition if patient is unable to meet his needs with PO intake during treatment. Will f/u with patient on 07/03. documented in this encounter Plan of Treatment Upcoming Encounters Date Type Specialty Care Team Description 03/30/2022 Office Visit Hematology and Oncology Kristan Perry MD [facility] DR ONCOLOGY DEPT. [place], [place] [address] (Wo rk) documented as of this encounter Visit Diagnoses Diagnosis Neck mass Swelling, mass, or lump in head and neck documented in this encounter Care Teams Paper Supervisor Relationship Specialty Start Date End Date Ava Morales MD PCP - General Family Medicine 04/04/[address] [place] [phone] documented as of this encounter
--- OUTSIDE RECORDS SUMMARY | 2022-03-23 07:49 | XMS_ITS | Encounter Summary ---
:1960 Author Organization [facility] [place] [address] Care Team Providers Name Role Phone Ava Morales MD Primary Care Provider Reason for Visit Reason Comments IV Access Port access for SIM Encounter Details Date Type Department Care Team Description 07/19/2021 Infusion Hematology Oncology at [facility] Tonsil cancer [address] [place] [phone] Social History Tobacco Use Types [...] encounter Progress Notes Hawa Garg RN - 07/19/2021 1:00 PM EDT Patient arrived to infusion area for Mediport access for radiation simulation today. Mediport Right chest accessed per protocol. Excellent blood return noted. Patient tolerated procedure well. Report given to Radiation Oncology therapist documented in this encounter Plan of Treatment Upcoming Encounters Date Type Specialty Care Team Description 03/30/2022 Office Visit Hematology and Oncology Kristan Perry MD [facility] DR ONCOLOGY DEPT. [place], [place] [address] (Wo rk) documented as of this encounter Visit Diagnoses Diagnosis Tonsil cancer Malignant neoplasm of tonsil documented in this encounter Care Teams Foundry Helper Relationship Specialty Start Date End Date Ava Morales MD PCP - General Family Medicine 04/04/[address] [place] [phone] documented as of this encounter
--- OUTSIDE RECORDS SUMMARY | 2022-03-23 07:49 | XMS_ITS | Encounter Summary ---
:1960 Author Organization [facility] [place] [address] Care Team Providers Name Role Phone Ava Morales MD Primary Care Provider Reason for Visit Consultation (Routine) - Closed Specialty Diagnoses / Procedures Referred By Contact Refer red To Contact Radiation Oncology Diagnoses Squamous cell carcinoma of palatine tonsil Tomy Pinto MD St [facility] Office Procedures Re-simulation for Radiation Therapy Planning [facility] [address] [place] [address] RADIATION ONCOLOGY [place], [place] [phone] Fax: Referral ID Status Reason Start Date Expiration Date Visits V isits Requested Authorized [id number] Closed Consult, 07/19/2021 07/19/2022 1 1 Test & Treat Encounter Details Date Type Department Care Team Description 07/19/2021 Ancillary Appointment Radiation Oncology at [facility] [place] MD [address] [place] [phone] RADIATION ONCOLOGY [phone] [place], [place] [address] Social History Tobacco Use Types [...] documented as of this encounter Progress Notes Lydia Allison RN - 07/19/2021 1:30 PM EDT Section of Radiation Oncology Contrast Information Safety Questions 1. Has the patient ever had an x-ray study before which involved injection of a contrast agent or x-ray dye? yes If yes, did the patient have any reaction to the injection? no If yes, please describe the reaction: 2. Is the patient allergic to any foods, medicines, or other substances? No Known Allergies 3. Has the patient received any contrast within the past 24 hours? no 4. Does the patient have any procedures scheduled in the next 24 hours? no 5. Does the patient have a history of renal/kidney problems or kidney surgery? 6. Does the patient have diabetes? no 7. Does the patient have high blood pressure? yes 8. Is the patient currently being treated for gout? no 9. If the answer to any of the questions #5-8 was yes, has the patient had a creatinine level and eGFR drawn within the past 45 days? Yes Lab Results Component Value Date CREATININE 0.93 04/13/2021 If no, when will it be drawn? 07/17/21 1.27 EGFR 61 A creatinine less than or equal to 1.6 and a eGFR of 45 or greater OK to proceed with IV contrast. If the creatinine is greater than 1.6 and the eGFR is less than 45, consult with the ordering provider. If an eGFR is less than 30, IV contrast should not be administered and another contrast agent may beordered by the provider (Visipaque). 10. Is the patient currently taking any of the following medications? (Actoplus Met, Avandamet, Glucovance, Janumet, Jendadueto, Kombiglyze, Metaglip, PrandiMet, Glugophage, Glumetza, Riomet, Metformin) If yes, when was last dose taken? 9. If patient is on any of the medications in question #10, consult with the ordering provider if the patient needs to stop the medication and if they will require further lab studies. Lydia Allison RN - 07/19/2021 1:[address] Contrast Simulation Nursing Note: Miriam Anaya [id number] 12/18/1986 IV ACCESS: Mediport. Please see infusion note GAUGE: BLOOD RETURN: yes CT simulation of: Head and neck MD present for contrast injection: Dr. Pinto Contrast material: Omnipaque 300mgI/ml Volume of Contrast Injected: 100 ml's Volume of Contrast wasted: 0 ml's Procedure done in Radiation Oncology CT Simulator Room __: No Reaction Any S/Sx of Infiltration/Extravasation: IV discontinued: Please see infusion note __: Reaction: Specify : none Comments: n/a Tomy Pinto MD - 07/19/2021 1:30 PM EDT Simulation was performed in anticipation of Adaptive radiotherapy for squamous cell carcinoma of thehead and neck. The consent was reviewed with the physician and signed by both the patient and physician. His port was accessed in anticipation of contrast administration. The patient was then brought to the simulation room and a time-out was performed per protocol. he was then placed on the simulationtable and a custom cushion was constructed for his neck. The lesional borders were marked with radio-opaque markers and a bolus was placed under physician supervision. A custom aquaplast mask was then created. The simulation CT scan was performed with contrast, images were reviewed and approved by thephysician, and tattoos were created by the therapy staff as indicated. The patient tolerated the procedure without difficulty, and was given a time to return to start radiotherapy. documented in this encounter Plan of Treatment Upcoming Encounters Date Type Specialty Care Team Description 03/30/2022 Office Visit Hematology and Oncology Kristan Perry MD [facility] DR ONCOLOGY DEPT. [place], [place] [address] (Wo rk) Scheduled Orders Name Type Priority Associated Diagnoses Order S chedule Re-simulation for Procedures Routine Squamous cell carcinoma Ordered: 07/19/2021 Radiation Therapy of palatine tonsil Planning documented as of this encounter Visit Diagnoses Not on filedocumented in this encounter Care Teams Sustain Engineer Relationship Specialty Start Date End Date Ava Morales MD PCP - General Family Medicine 04/04/[address] [place] [phone] documented as of this encounter
--- OUTSIDE RECORDS SUMMARY | 2022-03-23 07:49 | XMS_ITS | Encounter Summary ---
:1960 Author Organization [facility] [place] [address] Care Team Providers Name Role Phone Ava Morales MD Primary Care Provider Encounter Details Date Type Department Care Team Description 07/07/2021 Orders Only Hematology/Oncology at [facility], Loida iesha A, Tonsil cancer [facility] [address] [place], [place] HEMATOLOGY ONCO LOGY [phone] [place], [place] [phone] (Wo rk) Social History Tobacco Use Types [...] and Oncology Kristan Perry MD [facility] DR ONCOLOGY DEPT. [place], [place] [address] (Wo rk) Scheduled Orders Name Type Priority Associated Diagnoses Order S chedule CBC (with Diff) Lab STAT Tonsil cancer As Needed f or 10 Occurrences starting 2020 until 07/07/2022 Magnesium Lab STAT Tonsil cancer As Needed for 10 Occurrences starting 2020 until 07/07/2022 documented as of this encounter Visit Diagnoses Diagnosis Tonsil cancer Malignant neoplasm of tonsil documented in this encounter Care Teams Case Investigator Relationship Specialty Start Date End Date Ava Morales MD PCP - General Family Medicine 04/04/[address] [place] [phone] documented as of this encounter
--- OUTSIDE RECORDS SUMMARY | 2022-03-23 07:49 | XMS_ITS | Encounter Summary ---
:1960 Author Organization [facility] [place] [address] Care Team Providers Name Role Phone Ava Morales MD Primary Care Provider Encounter Details Date Type Department Care Team Description 07/24/2021 [facility] Neck [address] HEMATOLOGY AND ONCOLOGY [address] [place] [address] [phone] (Wo rk) Social History Tobacco Use Types [...] documented as of this encounter Progress Notes JulietaLeslieMIGUEL ÁNGEL - 07/24/2021 10:30 AM EDT [facility] Nutrition Assessment Progress Note Miriam Anaya Diagnosis: Tonsil Cancer stage 3 Assessment: Nutrition Screen 07/26/2021 Reason for assessment Symptom management Total MST Score - Functional Status 07/26/2021 Appetite - Odynophagia - Dysgeusia Present Impaired wound healing Present Patient complains of dysgeusia worsening over the past week. Many foods do not taste good. He continues to have some trismus--it is painful to open his mouth wide when eating due to neck mass. He reports diarrhea has improved. Food History, Access and Intake 07/26/2021 Patient Reported Diet Regular Use of oral nutritional supplements Other Patient reports he ate well over the past week. Fried eggs are one of the few foods which taste good. He has been eating soup and other easy to chew foods. He is drinking water, coffee, and juice. He drinks a low carb protein shake, though not every day. Discussed patient's plans for obtaining food. He has a friend sisal picker his order from [employer] once a month. He says he has another friend who can go to the store for him if he needs something more often. Food Insecurity Screening 07/10/2021 Within the past 12 months, you worried that your food would run out before you got the money to buy more. 1 Intake History 07/26/2021 Use of oral nutritional supplements Other Low Carb supplement, not daily Malnutrition Characteristics 07/26/2021 Insufficient Energy Intake Less than or equal to 70% for 7 days Unintended Weight Loss 1-2% in a week Improved (see below) Wt Readings from Last 3 Encounters: 07/26/21 (!) 154 kg (339 lb 6.4 oz) 07/24/21 (!) 147.4 kg (325 lb) 07/19/21 (!) 147.7 kg (325 lb 9.6 oz) BMI 47.32 330# 10oz on 07/10 (treatment start date) 333# on 06/19 333# on 05/19 ?? Patient is down 5# from treatment start date. He is weight stable over past week (07/17-07/24). Weight on 07/26 appears inaccurate. Medications: Imodium prn, Mag-Ox BID, compazine prn, tramadol prn, ativan before RT, oxycodone prn, meloxicam, tylenol, metoprolol. 07/24 labs: Ca 8.9, BG 100, BUN 22H, Creat 1.1, Alb 3.3L, TBili 0.4, AlkPhos 52, Na 141, K 3.8, AST 11L, ALT 20, WBC 6.55, H/H 12.0/37.1, platelet 199, ANC 4.5, Mg 1.7 Nutrition Diagnosis 06/14/2021 Problems Involuntary weight loss related to SCC tonsil stage III and treatment as evidenced by 5# weight loss (1.5% body weight) in past 2 weeks.--improved/stable Estimated needs based on 147.7 k kcals (20 kcal/kg) obese 118 grams protein (0.8 g/kg) ~2.9 L fluid Intervention: * Encouraged adequate intake to maintain weight through treatment. * Encouraged good oral care to help with dysgeusia. * Gave sample of Ensure Plus as alternative to his lower calorie protein shakes at home. Follow Up: on 07/31 Note: Please see Hematology/Oncology malnutrition flowsheet for complete RD assessment/documentation documented in this encounter Plan of Treatment Upcoming Encounters Date Type Specialty Care Team Description 03/30/2022 Office Visit Hematology and Oncology Kristan Perry MD [facility] DR ONCOLOGY DEPT. [place], [place] [address] (Wo rk) documented as of this encounter Visit Diagnoses Diagnosis Neck mass Swelling, mass, or lump in head and neck documented in this encounter Care Teams Golf Club Repairer Relationship Specialty Start Date End Date Ava Morales MD PCP - General Family Medicine 04/04/21 [address] [place] [address] documented as of this encounter
--- OUTSIDE RECORDS SUMMARY | 2022-03-23 07:49 | XMS_ITS | Encounter Summary ---
:1960 Author Organization [facility] Address [address] [place] [address] Care Team Providers Name Role Phone Ava Morales MD Primary Care Provider Encounter Details Date Type Department Care Team Description 06/15/2021 Procedure visit Maxillofacial Surgery Edita Dowling MD Dental abscess at [facility] [address] [place] [address] [place] [address] [phone] (Wo rk) Social History Tobacco Use Types [...] on file documented as of this encounter Patient Instructions Patient InstructionsAbbey Prado - 06/15/2021 9:35 AM EDT On the Day of Surgery: DO NOT rinse your mouth, smoke, or use a straw when drinking. Any of these could cause you to bleed more. You should remain at home, rest, and avoid alcoholic beverages. Discomfort: Strategy for pain: Take prescribed motrin/advil/ibuprofen (these are called NSAID) every 6 hours forpain over the next 2 days on a regular time frame. In between the 6 hour time frame you can supplement it with Tylenol 650mg and/or one vicodin/percocet/oxycodone (which ever one was prescribed) to bridge your pain till the next NSAID dose. Time the pain medicine so you take it before you go to bed. Be mindful of not taking more then 1000mg within a 6 hour time frame (not to exceed 4000mg in a 24 hour period). It is not uncommon for you to have some discomfort following a surgical procedure. This discomfort may last for three days or more. Pain relievers such as ibuprofen or Tylenol (acetaminophen) may be taken - please follow the directions on the bottle. Other discomforts you may experience include: slight earache, sore throat, numbness or tingling in the lips or chin, aches in other teeth, and tightness of the jaw muscles. Bleeding: It is normal for the extraction site to bleed post-operatively. If bleeding continues, place gauze directly over the socket and bite down gently, but firmly, for 20 minutes. Repeat this process as needed. If bleeding is heavy, keep head elevated or sit upright, avoid exercise, hot liquids,smoking, and drinking from straws. If the bleeding does not stop with pressure, try a lukewarm, damptea bag in place of the gauze for another 20 minutes. The tea bag will help to form blood clots and stop the bleeding. If bleeding continues, call your doctor. Swelling: To reduce immediate swelling after your procedure, apply an ice pack, with pressure, to the face over the area of the procedure. Ice should be applied for 15-20 minutes at a time, for the first 24 hours. After 24 hours, a moist warm compress may be helpful. Most swelling will occur within 24-48 hours following the procedure. Mouth Rinse: Vigorous mouth washing may cause bleeding to begin again if clots are not formed. DO NOT RINSE on the day of surgery. Begin rinsing one day after the procedure very gently with warm salt water (1/2 teaspoon per 8 oz. warm water). Continue rinsing 3-6 times a day for several days. This will keep surgical sites clean and will help with healing. Diet: It is best to eat light, soft foods, and drink plenty of liquids following a surgical procedure. Foods like, yogurt, pasta, eggs, soups, and ice cream are good choices. Avoid hot liquids for 24 hours after tooth extraction. Avoid foods that are difficult to chew. Once chewing becomes easier, youmay return to your normal diet. In General: If stitches are used, they will dissolve or unravel in about three days to one week. Avoid strenuous exercise, such as jogging and contact sports for at least one week following surgery. Swelling is usually most extensive 24- 48 hours following surgery, and usually takes 4-5 days to subside. Sockets can take 4-6 weeks to heal, and often heal from the inside out. It may take 10-14 days before you feel like your normal self again. Infection: Can occur at any time, but it is evident more often 4-7 days after a procedure. Please contact us at the numbers below if you have one or more of the following: ? Temperature elevation greater than 100.5 ? Worsening swelling after the initial 48 hour period ? Severe and worsening pain ? Pus or other foul drainage from the extraction site ? Foul smell or taste coming from the extraction site ? Generalized body chills or fever During business hours 8am-5pm M-F please call our office at [phone] otherwise call the main number [phone] and ask to connect with Dr. Dowling and if no response within 30 minutes please call and ask to speak with the ENT resident chlorination operator. documented in this encounter Progress Notes Sj Dowling MD - 06/15/2021 9:35 AM EDT Images from the original note were not included. Clinic Extraction Procedure 800 MG of Ibuprofen given prior to extraction Surgical Procedure: ?? Pt presents for the scheduled extraction of teeth #2, #3, #5, #14 and #15 with local anesthesia. Thepatient was brought to the office and the use of appropriate monitoring equipment was initiated. Indications for procedure: ?? A moment of truth followed to be certain that proposed treatment, the referral request and the patient consent all corroborated the same information. After appropriate local anesthesia was administeredthe patient underwent the surgical extraction of: ?? Teeth 2, 3, 5, 14 and 15. Flaps were elevated and extraction sites curetted; mucoperiosteum coapted with 3-0 chromic suture. Good hemostasis noted. Intraoperative patient noted headache and was given 800 mg of ibuprofen. ?? There was no evidence of injury to adjacent teeth, nerves or sinuses. The patient tolerated the procedure well, a complete set of instructions both written and verbal were reviewed with the patient. They were instructed to contact the clinic in the interm if there was any question or concern during the post operative period. ?? Comments: ?? Local Anesthesia: 4% Septocaine with 1:100k epi given locally 3 carpules and one carpule of lidocaine with epi.?? Postop Medications: Follow-up: .patent will see his dentist as needed to keep teeth healthy especially following radiation treatement which he will receive in [facility]. Stressed importance of dental health in light of chemoRx. documented in this encounter Plan of Treatment Upcoming Encounters Date Type Specialty Care Team Description 03/30/2022 Office Visit Hematology and Oncology Kristan Perry MD [facility] DR ONCOLOGY DEPT. [place], [place] [address] (Wo rk) documented as of this encounter Visit Diagnoses Diagnosis Dental abscess Periapical abscess without sinus documented in this encounter Care Teams Hawk Missile System Crewmember Relationship Specialty Start Date End Date Ava Morales MD PCP - General Family Medicine 04/04/21 [address] [place] [address] documented as of this encounter
--- OUTSIDE RECORDS SUMMARY | 2022-03-23 07:49 | XMS_ITS | Encounter Summary ---
:1960 Author Organization [facility] [place] [address] Care Team Providers Name Role Phone Ava Morales MD Primary Care Provider Encounter Details Date Type Department Care Team Description 07/10/2021 [facility] Tonsil cancer [address] ONCOLOGY DEPT. [place], [place] [phone] Social History Tobacco Use Types Packs/Day Years [...] Sign Reading Time Taken Comments Blood Pressure 94/75 07/10/2021 8:40 AM EDT Pulse 66 07/10/2021 8:40 AM EDT Temperature 35.4 ??C (95.7 ??F) 07/10/2021 8:40 AM EDT Respiratory Rate 20 07/10/2021 8:40 AM EDT Oxygen Saturation 98% 07/10/2021 8:40 AM EDT Inhaled Oxygen Concentration - - Weight 150 kg (330 lb 9.6 oz) 07/10/2021 8:40 AM EDT Height 175.3 cm (5' 9) 07/10/2021 8:40 AM EDT Body Mass Index 48.82 07/10/2021 8:40 AM EDT documented in this encounter Progress Notes Edwar Perry MD - 07/10/2021 8:45 AM EDT Images from the original note were not included. Hematology/Oncology Clinic [facility] Patient Active Problem List Diagnosis ??? Tonsil [...] of 50.0-59.9, adult ??? Chronic atrial fibrillation Here for initial dose of cisplatin chemotherapy and to start radiation treatment He underwent uncomplicated Mediport placement on 06/27. His cancer symptoms have progressed slightly,with intermittently increased pain in the left neck mass, and more frequent left otalgia. He notes that his left ear hearing acuity is diminished as well. He was on a second course of Augmentin which did not do much to change the erythema or neck swelling, or make an appreciable overall difference in the intermittent drainage that he still gets. The drainage is a mixture of serous fluid, purulent, and occasionally pink-tinged thick liquid. He has not had miriam bleeding from the tumor. Other chronic health issues are unchanged. He remains on metoprolol for chronic atrial fibrillation,has ambulatory impairment from arthritis and prior fractures in the legs. He has obstructive sleep apnea but does not use CPAP. He is still swallowing fine. Tumor pain is controlled mostly with Tylenol, with occasional doses of tramadol. Bowels are generally regular. Physical exam: He is in good spirits, in no acute distress He does come in walking with a cane Oral exam shows Mallampati 4 anatomy and I am unable to see the posterior pharynx or the tonsil tumor. Teeth are in good repair. Neck exam shows no adenopathy on the right; stable bulky tumor mass on the left proximately 8 x 10 cm. There is overlying erythema of the skin. There is no drainage today. The mass is fixed. Right tympanic membrane is clear; left tympanic membrane cannot be seen because of what appears to be compromise of the external canal but compression from the tumor The lungs are clear Cardiac exam shows atrial fibrillation with borderline tachycardia Right chest Mediport site is healing well Abdomen is obese but without overt hepatosplenomegaly Extremities show trace edema bilaterally, old fracture site in the right tibia Neurologic exam shows grossly normal cranial nerves, subjectively decreased left hearing function, antalgic but strong gait. Reflexes trace Labs: His white count remains elevated at 14.6 with an ANC of 9310, but there is no increase in immature granulocytes. Hemoglobin 13.8, platelets 319. Chemistry studies show normal electrolytes, BUN slightly elevated at 22, creatinine 1.1. Hepatic enzymes are normal. Albumin 3. 5. Impression: 60-year-old never smoker with p16 positive left tonsil cancer, with bulky left neck adenopathy. He has several comorbidities but none presenting an absolute contraindication to curative intent treatment. His BUN suggests slight dehydration this morning, which he readily admits to having had to get up very early to get here on time, skipping his usual fluid intake. Elevated white count andneck skin erythema I suspect are due to the tumor and not infection given the chronicity, lack of systemic infectious symptoms, and the lack of response to antibiotics previously. Plan: Proceed with first dose of cisplatin with full supportive care. Reiterated the schedule of return visit on for additional hydration and antiemetics. Monitor for any more definitive symptoms of infection, with a low threshold to reinstitute antibiotics. He will be meeting with our speech therapist and dietitian later today. Edwar Perry MD, FACP cable placer Hematology/Oncology Section [facility] [address] Voice recognition software used for this note; please excuse rib puller errors. I personally reviewed past medical, surgical, family medical histories, reviewed current medications, vital signs, labs, and performed full review of systems. These are documented below the narrative for clarity and succinctness. Outpatient Medications Marked as Taking for the 07/10/21 encounter (Office Visit) with Viv Perry MD Medication Sig Dispense Refill ??? amoxicillin-clavulanate (Augmentin) 875-125 mg Tablet Take 1 tablet by mouth 2 times daily. 20 tablet 0 ??? traMADoL (Ultram) 50 mg Tablet Take 0.5-1 tablets by mouth as needed. 30 tablet 0 ??? prochlorperazine (Compazine) 10 mg Tablet Take 1 tablet by mouth every 6 hours as needed for Nausea. 30 tablet 3 ??? acetaminophen (Tylenol) 500 mg Tablet Take 1,000 mg by mouth every 6 hours as needed for Pain. ??? metoprolol tartrate (Lopressor) 50 mg Tablet Take 50 mg by mouth 2 times daily. Current Facility-Administered Medications for the 07/10/21 encounter (Office Visit) with Edwar Perry MD Medication Dose Route Frequency Provider Last Rate Last Admin ??? lidocaine (Xylocaine) 4 % (40 mg/mL) solution Topical (Top) Once PRN Tomy Pinto MD ??? lidocaine (Xylocaine) 4 % (40 mg/mL) solution Topical (Top) Once PRN Tomy Pinto MD Review of Systems: Review of systems is negative for other COMMUNICATION CENTER COORDINATOR, bone, pulmonary, cardiac, GI, , extremity, neurologic, endocrine, skin, constitutional, emotional, or functional problems. Vitals Office Visit from 07/10/2021 in Hematology/Oncology at [facility] Weight 150 kg (330 lb 9.6 oz) Height 175.3 cm (5' 9) BSA (Calculated - sq m) 2.7 sq meters BMI (Calculated) 48.82 Temp 35.4 ??C (95.7 ??F) Temp src Temporal Heart Rate 66 Heart Rate Source NIBP Resp 20 BP 94/75 BP Location Left arm Patient Position Sitting SpO2 98 % Body surface area is 2.7 meters squared. Wt Readings from Last 3 Encounters: 07/10/21 (!) 150 kg (330 lb 9.6 oz) 06/28/21 (!) 157.4 kg (347 lb) 06/19/21 (!) 151 kg (333 lb) No results found for this or any previous visit (from the past 72 hour(s)). ++++++++++++++++++++++++++++++++++++++++++++++++++++ documented in this encounter Plan of Treatment Upcoming Encounters Date Type Specialty Care Team Description 03/30/2022 Office Visit Hematology and Oncology Kristan Perry MD [facility] DR ONCOLOGY DEPT. [place], [place] [address] (Wo rk) documented as of this encounter Visit Diagnoses Diagnosis Tonsil cancer Malignant neoplasm of tonsil documented in this encounter Care Teams Notereader Relationship Specialty Start Date End Date Ava Morales MD PCP - General Family Medicine 04/04/[address] [place] [phone] documented as of this encounter
--- OUTSIDE RECORDS SUMMARY | 2022-03-23 07:49 | XMS_ITS | Encounter Summary ---
:1960 Author Organization [facility] [place] [address] Care Team Providers Name Role Phone Ava Morales MD Primary Care Provider Reason for Visit Reason Comments IV Medication Hydration Head And Neck Cancer Treatment/Therapy Plan Authorization [...] 130 MG J9060 CISplatin (Platinol) 109 MG [facility] [address] [place] [address] [place] [phone] Fax: Referral ID Status Reason Start Date Expiration Date Visits Requ ested Visits Authorized [id number] Closed 07/10/2021 09/22/2021 99 99 Encounter Details Date Type Department Care Team Description 07/13/2021 Infusion Hematology Oncology at [facility] Tonsil cancer [address] [place] [phone] Social History Tobacco Use Types [...] Sign Reading Time Taken Comments Blood Pressure 122/75 07/13/2021 9:13 AM EDT Pulse 90 07/13/2021 9:13 AM EDT Temperature 36.1 ??C (96.9 ??F) 07/13/2021 9:13 AM EDT Respiratory Rate 24 07/13/2021 9:13 AM EDT Oxygen Saturation 98% 07/13/2021 9:13 AM EDT Inhaled Oxygen Concentration - - Weight 155.1 kg (342 lb) 07/13/2021 9:13 AM EDT Height 176.5 cm (5' 9.5) 07/13/2021 9:13 AM EDT Body Mass Index 49.78 07/13/2021 9:13 AM EDT documented in this encounter Progress Notes Hawa Garg RN - 07/13/2021 10:00 AM EDT INFUSION THERAPY ADMINISTRATION NOTES DIAGNOSIS: Head & Neck CA CYCLE: 1 Day 4 REASON FOR VISIT: Hydration SUBJECTIVE Mr. Anaya is here for hydration and IV Dexamethasone. He refused Ondansetron PO because he is not having any nausea. He verifies that he has Compazine at home if he develops nausea. He has some constipation x 2 days, plans to try prune juice later today. Advised that he may need to use Miralax and/or Senna/Colace if prune juice is not adequate. He also reports mild headache that has persisted since Saturday. He otherwise is feeling very well, eating well and has had good energy this week. OBJECTIVE Pre administration: Orders independently verified for drug name, route, and dosage by Vladislav Garg RN and pharmacist on-site. REACTIONS (DESCRIPTION, TIME, INTERVENTION AND EFFECTIVENESS) none ASSESSMENT Mr. Anaya was awake, alert and he tolerated treatment well. He took Lorazepam 2mg PO at 1030 prior to planned XRT following his hydration. RTs notified. PLAN Return to clinic daily for XRT and on Saturday with labs, appt and consideration of Cisplatin chemotherapy. He was reminded to call in the interim with any questions/concerns. documented in this encounter Plan of Treatment Upcoming Encounters Date Type Specialty Care Team Description 03/30/2022 Office Visit Hematology and Oncology Kristan Perry MD [facility] [address] ONCOLOGY DEPT. [place], [place] [address] (Wo rk) documented as of this encounter Visit Diagnoses Diagnosis Tonsil cancer Malignant neoplasm of tonsil documented in this encounter Administered Medications Inactive Administered Medications - up to 3 most recent administrations Medication Order MAR Action Action Date Dose Rate Site dexamethasone (Decadron) injection Given 07/13/2021 9:48 AM EDT 5.2 mg 5.2 mg 5.2 mg (rounded from 5 mg), Intravenous, ONCE, 1 dose, On Evy 07/13/21 at 0930 heparin (pf) (porcine) (100 units/mL) Given 07/13/2021 10:45 AM EDT 500 Units flush 5 mL syringe 500 Units 500 Units, Intravenous, ONCE PRN, Starting on Evy 07/13/21 at 0910, Until Evy 07/13/21 at 1341, Line Care, Refer to Intravenous (IV) Procedure: Accessing Implanted Vascular Access Devices (654) procedure and/or Intravenous (IV) Job Aid: Adult Flushing & Catheter Care (7563) job aid for additional information regarding guidelines and administration., Routine sodium chloride 0.9 % (flush) (BD PosiFlush Given 06/24 10:45 AM EDT 20 mLs Normal Saline 0.9) flush 5-20 mL 5-20 mL, Intravenous, EVERY 1 MIN PRN, Starting on Evy 07/13/21 at 0910, Until Evy 07/13/21 at 1341, Line Care, Flush pertains to all indwelling lines. Flush per protocol found in the job aid using the link provided on this medication record. Refer to Intravenous (IV) Job Aid: Adult Flushing & Catheter Care (6766) job aid for additional information regarding guidelines and administration., Routine sodium chloride 0.9% infusion New Bag 07/13/2021 9:40 AM EDT 1,000 mLs 1000 mL/hr 1,000 mL, at 1,000 mL/hr, Intravenous, CONTINUOUS, Starting on Evy 07/13/21 at 0930, Until Evy 07/13/21 at 1029 documented in this encounter Care Teams Meals On Wheels Driver Relationship Specialty Start Date End Date Ava Morales MD PCP - General Family Medicine 04/04/[address] [place] [phone] documented as of this encounter
--- OUTSIDE RECORDS SUMMARY | 2022-03-23 07:49 | XMS_ITS | Encounter Summary ---
:1960 Author Organization [place] [address] Care Team Providers Name Role Phone Ava Morales MD Primary Care Provider Encounter Details Date Type Department Care Team Description 06/28/2021 Patient Outreach Hematology and Oncology [place]elda Krishnan [place] [facility] [place] [facility] [place] [phone] Social History Tobacco Use Types Packs/Day [...] place to sleep or slept in a mcfp (including now)? Sex Assigned at Date Recorded Not on file documented as of this encounter Progress Notes Abbey Krishnan, RN - 06/28/2021 6:06 PM EDT Received a VM message from Faizan stating that [facility] is not reimbursing him for rides and he is hoping that a [facility] liason can help him fight this chiu. Returned call to Faizan and left him a VM message stating that I would relay his concerns to [place], Shasta Garcia, who is best poised to assist with rides and health insurance issues. Asked that he call me if he does not receive a call from yassine [place] the problem continues to persist despite Shasta's attempts to resolve it. Message routed to Shasta Garcia. documented in this encounter Plan of Treatment Upcoming Encounters Date Type Specialty Care Team Description 03/30/2022 Office Visit Hematology and Oncology Kristan Perry MD [facility] DR ONCOLOGY DEPT. [place], [place] [address] (Wo rk) documented as of this encounter Visit Diagnoses Not on filedocumented in this encounter Care Teams Aerodynamics Professor Relationship Specialty Start Date End Date Ava Morales MD PCP - General Family Medicine 04/04/[address] [place] [phone] documented as of this encounter
--- OUTSIDE RECORDS SUMMARY | 2022-03-23 07:49 | XMS_ITS | Encounter Summary ---
:1960 Author Organization [facility] [place] [address] Care Team Providers Name Role Phone Ava Morales MD Primary Care Provider Reason for Visit Reason Comments IV Medication hydration, mag Treatment/Therapy Plan Authorization (Routine) - Closed Specialty Diagnoses / Procedures Referred By Contact Refer red To Contact Diagnoses Tonsil cancer Edwar Perry MD [facility] Infusion Procedures TC PALONOSETRON HCL, 25MCG, INJECTION (ALOXI) TC APREPITANT, 1 MG, INJECTION TC CISPLATIN, POWDER OR SOLUTION, 10MG, INJECTION J2469 palonosetron (Aloxi) 0.25 MG J0185 aprepitant (CINVANTI) 130 MG J9060 CISplatin (Platinol) [address] [facility] [address] [place] [address] [place] [phone] Fax: Referral ID Status Reason Start Date Expiration Date Visits Requ ested Visits Authorized [id number] Closed 07/10/2021 09/22/2021 99 99 Encounter Details Date Type Department Care Team Description 07/27/2021 Infusion Hematology Oncology at [facility] Tonsil cancer [address] [place] [phone] Social History Tobacco Use Types [...] place to sleep or slept in a long-term (including now)? Sex Assigned at Date Recorded Not on file documented as of this encounter Last Filed Vital Signs Vital Sign Reading Time Taken Comments Blood Pressure 124/75 07/27/2021 9:48 AM EDT Pulse 86 07/27/2021 9:48 AM EDT Temperature 36.3 ??C (97.3 ??F) 07/27/2021 9:48 AM EDT Respiratory Rate 20 07/27/2021 9:48 AM EDT Oxygen Saturation 100% 07/27/2021 9:48 AM EDT Inhaled Oxygen Concentration - - Weight 153.5 kg (338 lb 6.4 oz) 07/27/2021 9:48 AM EDT Height 176.5 cm (5' 9.5) 07/27/2021 9:48 AM EDT Body Mass Index 49.26 07/27/2021 9:48 AM EDT documented in this encounter Progress Notes Loli Napier RN - 07/27/2021 10:00 AM EDT INFUSION THERAPY ADMINISTRATION NOTES DIAGNOSIS: Tonsil cancer REASON FOR VISIT: Hydration, Mag, antiemetics ALFREDO Anaya offers no complaints. Reports that diarrhea has subsided. OBJECTIVE IV ACCESS: Mediport REACTIONS (DESCRIPTION, TIME, [...] Hematology and Oncology Kristan Perry MD [facility] DR ONCOLOGY DEPT. [place], [place] [address] (Wo rk) documented as of this encounter Visit Diagnoses Diagnosis Tonsil cancer Malignant neoplasm of tonsil documented in this encounter Administered Medications Inactive Administered Medications - up to 3 most recent administrations Medication Order MAR Action Action Date Dose Rate Site dexamethasone (Decadron) Given 07/27/2021 10:25 AM EDT 5.2 mg injection 5.2 mg 5.2 mg (rounded from 5 mg), Intravenous, ONCE, 1 dose, On Evy 07/27/21 at 1015 heparin (pf) (porcine) (100 units/mL) Given 07/27/2021 12:20 PM EDT 500 Units flush 5 mL syringe 500 Units 500 Units, Intravenous, ONCE PRN, Starting on Evy 07/27/21 at 0948, Until Evy 07/27/21 at 1629, Line Care, Refer to Intravenous (IV) Procedure: Accessing Implanted Vascular Access Devices (654) procedure and/or Intravenous (IV) Job Aid: Adult Flushing & Catheter Care (6297) job aid for additional information regarding guidelines and administration., Routine magnesium sulfate 2 g in sterile water New Bag 07/27/2021 10:3 0 AM EDT 2 g 25 mL/hr 50 mL infusion 2 g, Intravenous, ONCE, 1 dose, On Evy 07/27/21 at 1015, Administer over 120 Minutes ondansetron (Zofran) tablet 16 mg Given 07/27/2021 10:19 AM EDT 16 mg 16 mg, Oral, ONCE, 1 dose, On Evy 07/27/21 at 1015, Routine sodium chloride 0.9 % (flush) (BD PosiFlush Given 12/2020 12:20 PM EDT 20 mLs Normal Saline 0.9) flush 5-20 mL 5-20 mL, Intravenous, EVERY 1 MIN PRN, Starting on Evy 07/27/21 at 0948, Until Evy 07/27/21 at 1629, Line Care, Flush pertains to all indwelling lines. Flush per protocol found in the job aid using the link provided on this medication record. Refer to Intravenous (IV) Job Aid: Adult Flushing & Catheter Care (1663) job aid for additional information regarding guidelines and administration., Routine sodium chloride 0.9% infusion New Bag 07/27/2021 10:25 AM EDT 1,000 mLs 1000 mL/hr 1,000 mL, at 1,000 mL/hr, Intravenous, CONTINUOUS, Starting on Evy 07/27/21 at 1015, Until Evy 07/27/21 at 1114 documented in this encounter Care Teams Barrel Marker Relationship Specialty Start Date End Date Ava Morales MD PCP - General Family Medicine 04/04/[address] [place] [phone] documented as of this encounter
--- OUTSIDE RECORDS SUMMARY | 2022-03-23 07:49 | XMS_ITS | Encounter Summary ---
:1960 Author Organization [facility] [place] [address] Care Team Providers Name Role Phone Ava Morales MD Primary Care Provider Encounter Details Date Type Department Care Team Description 06/12/2021 [facility] [address] HEMATOLOGY AND ONCOLOGY [place], [place] [phone] [place] [address] [phone] (Wo rk) Social History Tobacco Use Types [...] Telephone Encounter - Leslie Rendon RD - 06/14/2021 12:29 PM EDT [facility] Initial Assessment Patient Name: Miriam Anaya Diagnosis: SCC left tonsil stage III, HPV+ Seen By: Leslie Rednon RD Assessment: HPI Patient Active Problem List Diagnosis Code ??? Neck mass R22.1 ??? Morbid obesity with BMI of 50.0-59.9, adult E66.01, Z68.43 ??? Chronic atrial fibrillation I48.20 ??? Essential hypertension I10 ??? JOHN not on CPAP (though recommended) G47.33 Estimated body mass index is 46.83 kg/m?? as calculated from the following: Height as of 06/07/21: 177.8 cm (5' 10). Weight as of 06/07/21: 148.1 kg (326 lb 6.4 oz). Wt Readings from Last 3 Encounters: 06/07/21 (!) 148.1 kg (326 lb 6.4 oz) 05/25/21 (!) 156 kg (344 lb) 05/19/21 (!) 151 kg (333 lb) Patient reports 40# weight loss over summer 2020, but thinks he is now re- gaining some weight. Medications: meloxicam, augmentin, tramadol, lopressor, tylenol prn Patient has yet to start chemoradiation therapy Labs on 04/13/21: Ca 9.3, BG 109, BUN 17, Creat 0.93, Alb 4.4, TBili 0.5, AlkPhos 61, Na 140, K 3.9, AST 16, ALT 16. Nutrition Screen 06/14/2021 Reason for assessment Unintentional weight loss Total MST Score - Functional Status 06/14/2021 Appetite Similar compared to usual intake Odynophagia Present Patient reports he is consciously trying to increase PO intake after period of weight loss. The mainobstacle to PO intake is headaches that make it hard to leave the bed and difficulty opening his mouth very wide to eat due to pain. He does not have difficulty swallowing food. Food History, Access and Intake 06/14/2021 Patient Reported Diet Regular Breakfast: Coffee only, usually skips this meal. He used to eat eggs or cereal in the morning. Lunch: Jambalaya (takeout) Dinner: Leftovers from lunch Beverages: history of etoh abuse (did not discuss today) Patient reports he sometimes goes a couple of days without eating when he is suffering from headaches, then will eat a large amount when feeling better. He lives alone and makes his own meals, though does rely on some prepared foods and takeout. Discussed tube feeding briefly; patient does not seem interested at this point. Patient noted to have poor dentition per chart. Food Insecurity Screening 06/07/2021 Within the past 12 months, you worried that your food would run out before you got the money to buy more. 1 Nutrition Diagnosis 06/14/2021 Problems Involuntary weight loss related to pain (mainly headaches) as evidenced by 40# loss in summer 2020 with some recent re-gain per patient. Estimated needs based on 148.1 [id number] kcals (20 kcal/kg) 118 grams protein (0.8 g/kg) Nutrition Intervention: * Encouraged improved PO intake prior to treatment to optimize nutrition status. * Encouraged not skipping meals. Discussed having prepared foods on hand, cooking and freezing mealswhen able and possibly enrolling in Meals on Wheels (patient will consider). Monitoring and Evaluation: Will follow up with Mr. Anaya on 06/19 to re-evaluate. I have provided him with my card and contact information should he have any questions in the meantime. Thank you for this consult. Leslie Rendon RD documented in this encounter Plan of Treatment Upcoming Encounters Date Type Specialty Care Team Description 03/30/2022 Office Visit Hematology and Oncology Kristan Perry MD [facility] ONCOLOGY DEPT. [place], [place] [address] (Wo rk) documented as of this encounter Visit Diagnoses Not on filedocumented in this encounter Care Teams Deck Hand Relationship Specialty Start Date End Date Ava Morales MD PCP - General Family Medicine 04/04/[address] [place] [phone] documented as of this encounter
--- OUTSIDE RECORDS SUMMARY | 2022-03-23 07:49 | XMS_ITS | Encounter Summary ---
:1960 Author Organization [facility] [place] [address] Care Team Providers Name Role Phone Ava Morales MD Primary Care Provider Encounter Details Date Type Department Care Team Description 06/07/2021 Office Visit Radiation Oncology at [facility] Nurse, [place] [phone] Social History Tobacco Use Types Packs/Day [...] Description 03/30/2022 Office Visit Hematology and Oncology Krisatn Perry MD [facility] DR ONCOLOGY DEPT. [place], [place] [address] (Wo rk) documented as of this encounter Visit Diagnoses Not on filedocumented in this encounter Care Teams Acoustical Tile Carpenters Supervisor Relationship Specialty Start Date End Date Ava Morales MD PCP - General Family Medicine 04/04/21 [address] [place] [phone] documented as of this encounter
--- OUTSIDE RECORDS SUMMARY | 2022-03-23 07:49 | XMS_ITS | Encounter Summary ---
:1960 Author Organization [facility] [place] [address] Care Team Providers Name Role Phone Ava Morales MD Primary Care Provider Reason for Visit Consultation (Routine) - Closed Specialty Diagnoses / Procedures Referred By Contact Refer red To Contact Maxillofacial Surgery Diagnoses extract 2-3, 5, 14-15 06-13-21 Yo Thibodeaux DDS [facility] [address] [place] [address] [place] [phone] Fax: Referral ID Status Reason Start Date Expiration Date Visits Requ ested Visits Authorized [id number] Closed 06/14/2021 06/14/2022 1 1 Encounter Details Date Type Department Care Team Description 06/15/2021 Office Visit Maxillofacial Surgery Edita Dowling MD Dental abscess at [facility] [address] [place] [address] [place] [address] [phone] (Wo rk) Social History Tobacco Use Types [...] - Inhaled Oxygen Concentration - - Weight 147.9 kg (326 lb) 06/15/2021 9:39 AM EDT Height 177.8 cm (5' 10) 06/15/2021 9:39 AM EDT Body Mass Index 46.78 06/15/2021 9:39 AM EDT documented in this encounter Progress Notes Sj Dowling MD - 06/15/2021 9:30 AM EDT Images from the original note were not included. Oral & Maxillofacial Surgery Extraction Consult Miriam Anaya is a 60 y.o. male who is referred to us by Dr. Yo Jameson for consultation regarding dental extractions. A complete history of the Miriam 's symptoms and physical signs were reviewed with attention to initial findings and progression, pain, bleeding, swelling, lumps, bumps, drainage, dysphagia, odynophagia, paresthesia, dysarthria and systemic effects. Pertinent notations from today's history: ?? Pt is awaiting radiation and chemotherapy therapy ?? Extractions needed prior to start of treatment ?? Consult on 06/19 in [facility] to discuss next step for treatment and making of mask needed forradiation. ?? Denies dental pain Past Medical and Dental History: Past Medical History: Diagnosis Date ??? Essential hypertension 04/12/2021 ??? JOHN not on CPAP (though recommended) 04/12/2021 Patient Active Problem List Diagnosis Code ??? Neck mass R22.1 ??? Morbid obesity with BMI of 50.0-59.9, adult E66.01, Z68.43 ??? Chronic atrial fibrillation I48.20 ??? Essential hypertension I10 ??? JOHN not on CPAP (though recommended) G47.33 ??? meloxicam (MOBIC) 7.5 mg Tablet ??? amoxicillin-clavulanate (Augmentin) 875-125 mg Tablet ??? acetaminophen (Tylenol) 500 mg Tablet ??? metoprolol tartrate (Lopressor) 50 mg Tablet ??? LORazepam (Ativan) 1 mg Tablet ??? oxyCODONE (Roxicodone) 5 mg Tablet ??? tramadol HCl (TRAMADOL ORAL) ??? meloxicam (MOBIC) 15 mg Tablet No Known Allergies ROS with attention to cardiac, pulmonary, hepatic, renal, neurologic and dermatologic systems reviewed with relevant findings as noted. Physical Exam: Extraoral exam conducted including facial symmetry, sensory and motor function, alertness and appropriateness to questions and commands, range of jaw motion, TMJ function and skeletal architecture. Neck exam conducted with attention to normal musculature, vasculature and potential adenopathy. Intraoral exam including evaluation of tongue surface and consistency, floor of mouth, buccal and labial mucosa as well as maxillary and mandibular vestibules, hard and soft palate including soft palate elevation and oropharynx as well as dentition, dental arches, occlusion and salivary flow. Pertinent and remarkable findings include: Moderate obesity; limited range of mandibular motion; moderate gag reflex; draining fistula from left angle of mandible region with purulence, erythema and moderate facial swelling. Carious teeth as identified on panorex radiograph. Purulent exudate noted at the left mucogingival junction assoicated with#14. Radiographic Examination: Impression: Non-restorable and infected teeth Recommendations and Plans: Extracting teeth # 2, #3, #5, #14 and #15 Consents signed for same day extraction procedure in our clinic with local anesthetic Anticipated benefits and potential risks of the surgical intervention discussed were carefully reviewed with the patient and including but not limited to bleeding, infection, soft tissue dehiscence, delayed wound healing, sinus injuries, injuries to adjacent tissues both hard and soft and possible need for additional surgery. Questions regarding the proposed intervention were encouraged and answered. Time Statement: Thirty minutes was spent with the patient greater than 20 minutes of which included direct discussion regarding the clinical and radiographic findings where indicated, the potential diagnoses and a review of the natural history as well as treatment alternatives, their benefits and atten dant risks. This includes chart review and documentation. Miriam was given an opportunity to ask questions and instructed to contact us if further questions arise following the consultation. documented in this encounter Plan of Treatment Upcoming Encounters Date Type Specialty Care Team Description 03/30/2022 Office Visit Hematology and Oncology Kristan Perry MD [facility] [address] ONCOLOGY DEPT. [place], [place] [address] (Wo rk) documented as of this encounter Visit Diagnoses Diagnosis Dental abscess Periapical abscess without sinus documented in this encounter Care Teams Lap Regulator Relationship Specialty Start Date End Date Ava Morales MD PCP - General Family Medicine 04/04/[address] [place] [phone] documented as of this encounter
--- OUTSIDE RECORDS SUMMARY | 2022-03-23 07:49 | XMS_ITS | Encounter Summary ---
:1960 Author Organization [facility] [place] [address] Care Team Providers Name Role Phone Ava Morales MD Primary Care Provider Reason for Visit Reason Comments IV Access For CT Simulation Encounter Details Date Type Department Care Team Description 06/28/2021 Infusion Hematology Oncology at [facility] Tonsil cancer [address] [place] [phone] Social History Tobacco Use Types [...] encounter Progress Notes Hawa Garg RN - 06/28/2021 1:30 PM EDT Patient arrived to infusion area for IV access for CT Simulation for H&N CA. Patient with mediport Right chest, placed yesterday at [facility]. Incision well- approximated with no s/s of infection at incisional site. Some local swelling and bruising around incision noted. Patient has redness and blistering from dressing/tape which he removed earlier today and covered with Mepilex dressing. Mediport accessed per protocol with excellent blood return noted Patient tolerated procedure well. Report given to Radiation Oncology Nurse. At completion of SIM, flushed mediport with 20cc NS and 500 units Heparin. Port de-accessed. Incision covered with sterile mepilex dressing. Patient instructed to watch for s/s of infection including worsening or redness that isn't improving from tape, worsening swelling, drainage, warmth, fevers and/or chills. Patient verbalized understanding. documented in this encounter Plan of Treatment Upcoming Encounters Date Type Specialty Care Team Description 03/30/2022 Office Visit Hematology and Oncology Kristan Perry MD [facility] DR ONCOLOGY DEPT. [place], [place] [address] (Wo rk) documented as of this encounter Visit Diagnoses Diagnosis Tonsil cancer Malignant neoplasm of tonsil documented in this encounter Care Teams Rivet Spinner Relationship Specialty Start Date End Date Ava Morales MD PCP - General Family Medicine 04/04/[address] [place] [phone] documented as of this encounter
--- OUTSIDE RECORDS SUMMARY | 2022-03-23 07:49 | XMS_ITS | Encounter Summary ---
:1960 Author Organization [facility] Address [facility] [place] [address] Care Team Providers Name Role Phone Ava Morales MD Primary Care Provider Encounter Details Date Type Department Care Team Description 07/07/2021 Orders Only Hematology and Oncology at Edwar Perry MD [facility] Subhash preciado [place] [address] [place] [address] [phone] (Wo rk) Social History Tobacco Use Types [...] Visit Hematology and Oncology Kristan Perry MD [facility] [place], [place] [address] (Wo rk) documented as of this encounter Visit Diagnoses Not on filedocumented in this encounter Care Teams Microsoft Windows Engineer Relationship Specialty Start Date End Date Ava Morales MD PCP - General Family Medicine 04/04/[address] [place] [phone] documented as of this encounter
--- OUTSIDE RECORDS SUMMARY | 2022-03-23 07:49 | XMS_ITS | Encounter Summary ---
:1960 Author Organization [facility] [address] Care Team Providers Name Role Phone Ava Morales MD Primary Care Provider Reason for Referral Consultation (Routine) - Authorized Specialty Diagnoses / Procedures Referred By Contact Refer red To Contact Hematology and Oncology Diagnoses Squamous cell carcinoma of palatine tonsil Tomy Pinto, [facility] 3k Counts include 234 beds at the [facility] [address] [place] RADIATION ONCOLOGY [phone] [place] [address] Referral ID Status Reason Start Date Expiration Visits Visits Date Requested Authorized [id number] Authorized Assume 06/07/2021 06/07/2022 1 1 Subset of Care peech Therapy (Routine) - Closed Specialty Diagnoses / Procedures Referred By Contact Refer red To Contact Diagnoses Squamous cell carcinoma of palatine tonsil Tomy Pinto MD [place], [place], [facility] [place] [address] Referral ID Status Reason Start Date Expiration Date Visits V isits Requested Authorized [id number] Closed Evaluate and 06/07/2021 12/04/2021 12 12 Treat Reason for Visit Consultation (Routine) - Closed Specialty Diagnoses / Procedures Referred By Contact Refer red To Contact Radiation Oncology Diagnoses Squamous cell carcinoma of left tonsil Lelia Tyler, [employer] Stj Rad Onc Treatment [facility] D R [address] [facility] [place] [phone] Fax: Referral ID Status Reason Start Date Expiration Date Visits V isits Requested Authorized [id number] Closed Consult, 05/25/2021 05/25/2022 1 1 Test & Treat Encounter Details Date Type Department Care Team Description 06/07/2021 Office Visit Radiation Oncology at Tomy Pinto, Squamous cell [facility] carcinoma of palatine [address] [place] [address] [place] [address] RADIATION ONCOLOGY [phone] [place], [place] [address] Social History Tobacco Use Types [...] Sign Reading Time Taken Comments Blood Pressure 130/82 06/07/2021 9:26 AM EDT Pulse 59 06/07/2021 9:26 AM EDT Temperature 34.4 ??C (93.9 ??F) 06/07/2021 9:26 AM EDT Respiratory Rate 16 06/07/2021 9:26 AM EDT Oxygen Saturation 97% 06/07/2021 9:26 AM EDT Inhaled Oxygen Concentration - - Weight 148.1 kg (326 lb 6.4 oz) 06/07/2021 9:28 AM EDT Height 177.8 cm (5' 10) 06/07/2021 9:26 AM EDT Body Mass Index 46.83 06/07/2021 9:26 AM EDT documented in this encounter Progress Notes Tomy Pinto MD - 06/07/2021 10:00 AM EDT Images from the original note were not included. Radiation Oncology New Patient Visit PATIENT NAME: Miriam Anaya DATE OF : 1960 HISTORY OF PRESENT ILLNESS Miriam Anaya is a 60 y.o. 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 He noted growth over a 6 month period, starting in late 2019, which became progressively uncomfortable. He noted no changes in neurological function, swallowing, breathing, speaking, or taste. He was seen by his PCP in December, and was referred to Dr. Naranjo. FNA was non-diagnostic, and he was referred to Dr. Cordoba for definitive management, who he saw on 03/16/21. No focal lesion was noted on in- office pharyngolaryngoscopy. Further evaluation as noted below. He was unable to tolerate a PET-CT due to severe claustrophobia. Staging & Therapy EUA with laryngoscopy, biopsy 05/19/21: -Findings: has a friable lesion in the base of the left tonsil and very indurated fixed 7 cm left neck mass -Pathology: A - LEFT lower tonsil, biopsy: Non-keratinizing squamous cell carcinoma, p16 positive. Positive for HPV genotype 33. B - LEFT deep neck biopsy: Fibroadipose tissue and muscle with fibrosis and patchy non-specific chronic??inflammation. CT HN w/ contrast 05/25/21: large level IIA asha mass, irregular border indicative of YESIKA, invasion of left SCM, left parotid tail, left platysma, occlusion of left IJ, encasing carotid at least 100 degress. Increased central necrosis. Asha mass 5.8 cm max. Additional sub-cm borderline size left sidedLN are not significantly changed in size. Persistent soft tissue fullness of left tongue base. CT Chest w/ contrast 05/25/21: No evidence of metastatic disease within the chest. Other Pertinent Issues: None Currently, he has the following symptoms: Symptom Description Ongoing Intervention Oropharyngeal Pain Denies oral pain. Dysphagia Increased difficulty swallowing, associated with discomfort due to his neck Xerostomia / Dysgeusia Mild xerostomia / no dysgeusia Otalgia Denies Dental Issues / Trismus No dental care Nutritional Intake Diminished oral intake, attributed to anorexia and pain. ~ 40 lbs weight loss over past 6 months PEG Not present Neck Pain Neck pain on left, radiating up to his eye and along the temporal region. Ranges from a 2-8/10 Meloxican 7.5 mg BID, Acetaminophen 1000 mg TID. Tramadol occasionally Neck Fibrosis / Lymphedema Limitations in neck excursion due to pain. He notes drainage from his neck since his surgery. Currently on Augmentin (since Saturday) with diminished drainage HN sensory Changes Denies HN strength Changes Denies Voice Changes Denies Social Issues Travels 60 minutes to [facility] Tobacco / EtOH Never smoker, No EtOH currently Other Difficulty with sleeping due to pain ECOG PS: 2 Grade ECOG PERFORMANCE STATUS 0 Fully active, [...] totally confined to bed or chair EXAM There were no vitals filed for this visit. Physical Exam Constitutional: Appearance: He is well-developed. HENT: Mouth/Throat: Comments: Visual inspection of OC and OP revealed no evidence of suspicious masses or lesions, but due to body habitus visualization of posterior OP was challenging. Palpation revealed no suspicious masses and no induration along the posterior tongue. Moisture good. Pt with teeth in poor repair. Eyes: Pupils: Pupils are equal, round, and reactive to light. Neck: Comments: Palpation reveals a fixed mass spanning levels II-IV in the left neck, with associated skin erythema and a punctate are of skin breakdown.Otherwise no adenopathy in cervical, SCLV, ICLV asha basins. Cardiovascular: Rate and Rhythm: Normal rate. Pulmonary: Effort: Pulmonary effort is normal. Breath sounds: Normal breath sounds. Skin: Findings: No erythema. Neurological: Mental Status: He is alert and oriented to person, place, and time. Cranial Nerves: No cranial nerve deficit. Psychiatric: Behavior: Behavior normal. PROCEDURE Deferred, [place] reviewed HISTORY Allergies as of 06/07/2021 ??? (No Known Allergies) Past Medical History: Diagnosis Date ??? Essential hypertension 04/12/2021 ??? JOHN not on CPAP (though recommended) 04/12/2021 Past Surgical History: Procedure Laterality Date ??? PRO BX/REMV, LYMPH NODE, DEEP CERV Left 05/19/2021 BIOPSY OR EXCISION OF LYMPH NODE(S), OPEN, DEEP CERVICAL NODES (WRVU 6.74) performed by River Cordoba MD at [facility] MAIN OR ??? PRO LARYNGOSCOPY, DIRCT, OP SCOPE, BIOPSY Left 05/19/2021 LARYNGOSCOPY, MICROSCOPE, WITH BIOPSY (WRVU 3.55) performed by River Cordoba MD at [facility] MAIN OR ??? PRO OTOLARYNGOLOGIC EXAM UNDER GENERAL ANESTHESIA Midline 05/19/2021 OTOLARYNGOLOGIC EXAM UNDER ANESTHESIA (WRVU 1.51) performed by River Cordoba MD at [facility] MAIN OR Social History Socioeconomic History ??? [...] and Sexual Activity ??? Alcohol use: Not on file ??? Drug use: Not on file ??? Sexual activity: Not on file Other Topics Concern ??? Not on file Social History Narrative ??? Not on file Social Determinants of Health Financial Resource Strain: ??? Difficulty of Paying Living Expenses: Not on file Food Insecurity: ??? Worried About Running Out of Food in the Last Year: Not on file ??? Ran Out of Food in the Last Year: Not on file Transportation Needs: ??? Lack of Transportation (Medical): Not on file ??? Lack of Transportation (Non-Medical): Not on file Physical Activity: ??? Days of Exercise per Week: Not on file ??? Minutes of Exercise per Session: Not on file No family history on file. ROS: I reviewed and agree with the nursing review of systems accompanying this encounter. The remainder of the comprehensive review of systems was negative with the exception of the pertinent positivesand negatives noted above. MEDICATIONS Current Outpatient Medications on File Prior to Visit Medication Sig Dispense Refill ??? meloxicam (MOBIC) 7.5 mg Tablet ??? amoxicillin-clavulanate (Augmentin) 875-125 mg Tablet Take 1 tablet by mouth 2 times daily. 20 tablet 0 ??? tramadol HCl (TRAMADOL ORAL) Take by mouth as needed. ??? acetaminophen (Tylenol) 500 mg Tablet Take 1,000 mg by mouth every 6 hours as needed for Pain. ??? metoprolol tartrate (Lopressor) 50 mg Tablet Take 50 mg by mouth 2 times daily. ??? meloxicam (MOBIC) 15 mg Tablet Take 15 mg by mouth daily. No current facility-administered medications on file prior to visit. IMAGING I have personally reviewed the imaging reports and images referenced in the oncologic hx and agree with the assessment as stated. Further pertinent imaging data below LABORATORY VALUES CONTRAINDICATIONS TO RADIOTHERAPY NO YES: Date, site, dose (women only) X Prior Radiotherapy X Collagen-Vascular dz X ASSESSMENT /PLAN HN CANCER Staging CT HN / Chest EUA w/ DL ; Pathologic evaluation of the primary Further Staging He is unwilling to get a PET-CT due to concerns regarding claustrophobia Therapy Discussion Miriam Anaya has been referred to discuss definitive chemoradiotherapy. He is not a surgical candidate given his extensive clinical / radiographic YESIKA associated with his bulky adenopathy. We discussed the risks and benefits of radiotherapy in detail. he has been discussed at [facility] [place] and itwas recommended that we proceed with RESIDENCE LEASING AGENT. These recommendations are in line with NCCN recommendations. We discussed the rationale and logistics (including simulation, planning, and treatment) of definitive radiotherapy. We discussed the risks of therapy, including but not limited to short term sequelae(fatigue, skin erythema, mucositis, dysphagia, ageusia, xerostomia, weight loss) and fci sequelae (tissue fibrosis, lymphedema, exterminator dysphagia potentially requiring a permanent feeding tube,xerostomia, osteoradionecrosis, increased risk of dental caries, esophageal stricture, and the possibility of significant damage to soft tissue, bone or skin requiring surgical or medical intervention). Mr. Anaya expressed an understanding of these risks. The patient had a number of questions regarding optimal therapy and potential side effects. These questions were answered to his satisfaction Concurrent chemotherapy recommendations: to discuss with medical oncology Therapy Decision Proceed with definitive chemoradiotherapy Supportive Care Prophylactic feeding tube: TBD Referral to Egyptologist / TYING IN MACHINE OPERATOR Dental Issues: he has no recent dental care, and will require dental evaluation FERNANDO. OTHER ISSUES None Lydia Allison RN - 06/07/2021 10:00 AM EDT RADIATION ONCOLOGY NURSING INITIAL NURSING ASSESSMENT IDENTIFICATION: Miriam Anaya is a 60 y.o. year-old male with newly diagnosed HPV left tonsil squamous cell ca. PRESENTING SYMPTOMS/CHIEF COMPLAINT: Initially presented with left neck mass. REVIEW OF SYSTEMS: Review of Systems - Oncology REVIEW OF SYSTEMS 06/07/2021 Constitutional Weight loss, Fatigue, lack of energy, Pain Ear / nose / throat / mouth None of the above Eyes None of the above Respiratory Shortness of breath Cardiovascular Fluttering heart beat (heart palpitations) Gastrointestinal Constipation, Change in stools Skin, hair None of the above Musculoskeletal Reduced range of motion Neurological Headaches Hematologic / Lymphatic Sore or swollen lymph nodes, glands IN THE PAST 12 MONTHS HAVE YOU: Fallen more than one time? No Injured yourself as result of the fall? No Experienced difficulty with walking/problems with balance? At times. Worried that knee gives out. Do you use any assistive devices? Cane. Any history of collagen vascular diseases: no Any Implanted Devices/Hardware: no If yes please put alert in ARIA patient summary Prior Radiotherapy: no Prior Chemotherapy: no Prior Hormone Therapy: no LEARNING ASSESSMENT REVIEWED: yes ADVANCED DIRECTIVE: Not addressed this encounter. PAIN ASSESSMENT: 2 out of 10 *eD-H Adult PCS Flow Sheet if 4 or above SOCIAL ASSESSMENT: See EDH social assessment information entered. Support Systems: Lives alone. Has some friends for support. Barriers to treatment: Transportation No recent dental care. Not connected to a dentist. Referrals/Interventions: TUBE HEATER RADIATION SPECIFIC TEACHING: [facility]CI Radiation Therapy and You Site specific teaching : Head and Neck teaching to be done by nursing on day of simulation. Other: PLAN: Per Dr. Pinto documented in this encounter Plan of Treatment Upcoming Encounters Date Type Specialty Care Team Description 03/30/2022 Office Visit Hematology and Oncology Kristan Perry MD [facility] DR ONCOLOGY DEPT. [place], [place] [address] (Wo rk) Scheduled Referrals Name Type Priority Associated Diagnoses Order S chedule Referral to Speech Outpatient Referral Routine Squamous cell O rdered: Therapy carcinoma of 06/07/2021 palatine tonsil Referral to Outpatient Referral Routine Squamous cell Ordered : Nutrition Services carcinoma of palatine tonsil documented as of this encounter Visit Diagnoses Diagnosis Squamous cell carcinoma of palatine tons il Malignant neoplasm of tonsil documented in this encounter Care Teams Supply Chain Vice President Relationship Specialty Start Date End Date Ava Morales MD PCP - General Family Medicine 04/04/21 [address] [place] [address] documented as of this encounter
--- OUTSIDE RECORDS SUMMARY | 2022-03-23 07:49 | XMS_ITS | Encounter Summary ---
:1960 Author Organization [facility] [place] [address] Care Team Providers Name Role Phone Ava Morales MD Primary Care Provider Reason for Visit Reason Onset Date Comments Other 05/31/2021 transportation Encounter Details Date Type Department Care Team Description 05/31/2021 Telephone Radiation Oncology at Shasta Garcia, [facility] er (transportation) [facility] [address] OFFICE OF CARE [place], [place] MANAGEMENT [phone] Social History Tobacco Use Types Packs/Day Years Used Date Never Smoker Smokeless Tobacco: Never Used Financial Resource Strain Answer Date Recorded How [...] this encounter Miscellaneous Notes Telephone Encounter - Shasta Garcia MSW - 05/31/2021 9:57 AM EDT Request to reach out to pt as reports he is having difficulty arranging transportaiton through his [employer] insurance. TC pt to discuss. Pt indicated he called [employer] ([phone]) to request ride for his 06-07-21 visit to [facility]. Pt indicated he was told our facility was not in their plan. MACHINERY DISMANTLER agreed to call [employer] to discuss. TC [employer] and spoke with Lorraine. Clarified pt's appointment date/time for 06-07-21 at [facility] to see (trip confirmation # [id number]) and was informed this request was sent for prior authorization to insurance company yesterday and to expect a 2-3 day turn around for a decision. Verified pt will be informed of the decision. Also gave [employer] pt's appointment information for 06-19-21 to [facility] to see Dr. Perry (trip confirmation # [id number]) and asked for prior authorization for this trip too. TC pt back with this information but no answer. Left him a message requesting a call back. SW Interventions: Brief assessment Transportation resources Add: 1:50 pm -TC pt and discussed the above. documented in this encounter Plan of Treatment Upcoming Encounters Date Type Specialty Care Team Description 03/30/2022 Office Visit Hematology and Oncology Kristan Perry MD [facility] [address] ONCOLOGY DEPT. [place], [place] [address] (Wo rk) documented as of this encounter Visit Diagnoses Not on filedocumented in this encounter Care Teams Editor Relationship Specialty Start Date End Date Ava Morales MD PCP - General Family Medicine 04/04/[address] [place] [phone] documented as of this encounter
--- OUTSIDE RECORDS SUMMARY | 2022-03-23 07:49 | XMS_ITS | Encounter Summary ---
:1960 Author Organization [facility] [place] [address] Care Team Providers Name Role Phone Ava Morales MD Primary Care Provider Encounter Details Date Type Department Care Team Description 07/10/2021 Office Visit Hematology/Oncology at [facility] onsil cancer; [facility] LABEL PINKER Dysphagia, unspecified type [address] [place] [address] Social History Tobacco Use Types [...] documented as of this encounter Miscellaneous Notes Initial Evaluation - Lynnette Figueredo, LABEL PINKER - 07/10/2021 10:00 AM EDT Speech Language Pathology Clinical Swallow Evaluation Patient Profile: Miriam Anaya is a 60 y.o. male with newly diagnosed HPV left tonsil squamous cell cancer; left neck mass s/p biopsy obtained on 05/19/2021. Currently undergoing definitive BANQUET SUPERVISOR. Feeding Tube Present? No Weight Loss? Yes patient reports recent ~3 lb decrease Prior Level of Swallow Function: WFL Most Recent RD Visit / Date: 07/10/21 Subjective: Miriam Anaya seen for clinical swallowing evaluation and motivational interview today. Miriam Anaya reports main issue with regard to po intake has been reduced jaw opening/trismus, however he has been able to continue to tolerate IDDSI Levels 7 Regular / 7 Easy to Chew solids, moving tow brigette softer foods lately; no overt s.s aspiration with thin liquids. Does report question of drop in weight during assessment today (~3 lbs) with RD also present. Objective: Pain: 2/10 Respiratory Status: Room air Vision: WFL per pt Hearing: Hearing impairment, unaided Current Diet: No diet orders on file Feeding / Oral Care Status: Pt is independent Cognitive-Linguistic Status: alert, oriented to person, place, and time Follows Commands: Follows multi-step commands Positioning: Pt up to chair Oral / Laryngeal Mechanism Clinical Assessment: ?? Lingual: WFL ?? Labial / Buccal: WFL ?? Velar: WFL ?? Sensation: WFL ?? Vocal fold function and airway protection: mildly rough vocal quality per informal assessment ?? Speech Intelligibility: WFL ?? Mucosa: WFL ?? Jaw: Impaired ?? Trismus: Yes ?? MEHREEN: 28 mm Moderate (15-29 mm) (Marvel et al, 2006) ?? Lateral Excursion: 11 mm Mild (8-11 mm) (AAOMS Parameters of Care, 2007) ?? Dentition: present and adequate, reports recent dental extraction prior to beginning BANQUET SUPERVISOR Concerns with oral hygiene care/routine? No ?? Osteoradionecrosis (ORN) Risk Factors: High radiotherapy dosages (>60 Gys) Bolus Presentation(s) Thin liquid sequential sips Oral Preparatory Phase ?? Mastication: Reduced and mild, primarily d/t trsimus ?? Oral Transit: Likely WFL ?? Bolus Cohesion: Likely WFL ?? Labial Seal / Loss: WFL ?? Oral Stasis: N/A Pharyngeal Phase ?? Laryngeal Elevation: Likely WFL ?? Vocal quality change: N/A - reports recent mild change in vocal quality (roughness) ?? Cough / throat clear: N/A ?? Pt. complaint of food/pills/liquids feeling 'stuck': No ?? Fatigue across trials: No ?? Respiratory rate and respiratory swallow pattern: WFL Esophageal Phase ?? Appears to be WFL, No overt clinical s/s of esophageal phase dysphagia noted during this evaluation Standardized Assessment(s) Arielle Swallow Protocol (Leon et al, 2014) Patient results: Pass [Complete, uninterrupted drinking of entire 3 oz water without overt s/sx aspiration during or after administration] GTQ The [place] Trismus Questionnaire [GTQ] is a multidimensional, self- administered, trismus-specific questionnaire used to measure trismus and its treatment outcomes when appropriate. Items 1-23: General Issues 43 / 115 mild (24-46) Items 16-20: Facial Pain in Past Week 5 / 25 Scale of 5 (no facial pain) to 25 (very severe facial pain) None (5) Location: not applicable Items 21-23: Mouth Opening Ability 5 / 15 Scale of 3 (no limitation) to 15 (very severe limitation) mild (4-6) Education Addressed: - Exercise physiology specific to swallowing mechanism in context of patient's diagnoses - Oropharyngeal swallowing mechanism, aspiration and trismus s/sx, precautions and self-monitoring techniques - especially given moderate trismus at baseline today - Other: Discussed importance of thorough oral care to reduce overall oral bacteria load / reduce risks of asp PNA; pharyngocise as tolerated; energy conservation to maximize po intake during mealtimes as patient progresses through treatment in absence of enteral feeding - Additional Roles / Responsibilities of Speech Language Pathologist - (As needed) discussed rationale for and logistics involved with potential Instrumental Assessment Options: Videofluoroscopic Swallow Study / Modified Barium Swallow Study [VFSS/MBSS] and Flexible Endoscopic Evaluation of Swallowing [FEES] - Risk Management Compensatory Techniques/Precautions: Slow Rate, Small Bites, Small Sips and Alternate liquids/solids Upright position during meals and for at least 30 mins following Excellent oral care Assessment Miriam Anaya seen today for clinical swallowing evaluation, provided education/counseling re: available resources and precautions related to potential effects of BANQUET SUPERVISOR on voice/speech/swallowing function; patient demonstrates mild oral dysphagia primarily characterized by trismus ( MEHREEN 28 mm, moderate)which casues occasional difficulties with mastication effectiveness; patient has started to eat moresoft foods lately per his report, otherwise has not had much difficulty with pharyngeal and/or esophageal phase to date. Pt was able to demonstrate comprehension of results from today's assessment aswell as outlined recommendations. FOIS: Level 6 - Total Oral Intake with no special preparation, but must avoid specific foods or liquid items Patient is likely to benefit from continued treatment and monitoring of above symptoms for ongoing care with focus on function and quality of life. Diagnosis: Oral dysphagia Recommendations: Instrumentation: N/A at this time Diet: IDDSI 7 Easy to Chew Liquids: IDDSI Level 0 - Thin PO medications: whole with sip of liquid Refer to Risk Management as Outlined Referrals to Maximize Patient Outcomes: N/A Speech Therapy Goals: (To be met by discharge) Pt will tolerate least restrictive diet without evidence of dysphagia / aspiration. Pt / caregiver will be independent with aspiration precautions, diet modifications, and safe swallowing strategies. Pt will demonstrate effortful swallows with good execution Pt will maintain hydration / nutrition with optimal safety and efficiency. Plan: Discussed subsequent visit in 6 weeks (sooner per patient discretion). Pt./family are in agreement with treatment plan. Thank you for this consult. Please feel free to call me with any questions or concerns regarding Miriam Anaya's care. Lynnette Figueredo MA [facility]-LABEL PINKER Speech-Language Pathologist [email or web address] documented in this encounter Plan of Treatment Upcoming Encounters Date Type Specialty Care Team Description 03/30/2022 Office Visit Hematology and Oncology Kristan Perry MD [facility] ONCOLOGY DEPT. [place] [phone] (Wo rk) documented as of this encounter Visit Diagnoses Diagnosis Tonsil cancer Malignant neoplasm of tonsil Dysphagia, unspecified type documented in this encounter Care Teams Poultry Picker Relationship Specialty Start Date End Date Ava Morales MD PCP - General Family Medicine 04/04/[address] [place] [phone] documented as of this encounter
--- OUTSIDE RECORDS SUMMARY | 2022-03-23 07:49 | XMS_ITS | Encounter Summary ---
:1960 Author Organization [facility] [place] [address] Care Team Providers Name Role Phone Ava Morales MD Primary Care Provider Encounter Details Date Type Department Care Team Description 07/03[facility]20[facility] [address] [phone] Social History Tobacco Use [...] Visit Hematology and Oncology Kristan Perry MD [facility] [address] ONCOLOGY DEPT. [place], [place] [address] (Wo rk) documented as of this encounter Visit Diagnoses Not on filedocumented in this encounter Care Teams Flight Test Supervisor Relationship Specialty Start Date End Date Ava Morales MD PCP - General Family Medicine 04/04/21 [address] [place] [address] documented as of this encounter
--- OUTSIDE RECORDS SUMMARY | 2022-03-23 07:49 | XMS_ITS | Encounter Summary ---
:1960 Author Organization [facility] Address [address] [place] [address] Care Team Providers Name Role Phone Ava Morales MD Primary Care Provider Reason for Visit Reason Onset Date Comments Other 07/03/2021 transportation Encounter Details Date Type Department Care Team Description 07/03/2021 Telephone Hematology/Oncology at Shasta Garcia, Ot her (transportation) [facility] [address] OFFICE OF CARE [place], [place]EMENT [phone] Social History Tobacco Use [...] Telephone Encounter - Shasta Garcia MSW - 07/03/2021 10:58 AM EDT Request from Jeremy Krishnan RN, Nurse Navigator to reach out to pt re challenges he is having getting mileage reimbursement from [employer]. Pt did not show up for his appointments today. Schedulers addressing this with him. TC pt. Pt reports he is waiting for mileage reimbursement for a trip to [facility] back in April. It appears he submitted 3 trips for reimbursement on the same form. One was paid and they found the form with the other two trips. Another trip was paid and the third is under review. Pt is scheduling his own rides with [employer]. He hopes to be using [employer] as the vendorgoing forward. Suggested requesting [employer] each time her schedules a ride and also give [employer] the heads up when he requests a ride so they can be looking for it also. Pt agreeable to this and appears to understand the system to request rides through his insurance. Transportation resources documented in this encounter Plan of Treatment Upcoming Encounters Date Type Specialty Care Team Description 03/30/2022 Office Visit Hematology and Oncology Kristan Perry MD [facility] [address] ONCOLOGY DEPT. [place], [place] [address] (Wo rk) documented as of this encounter Visit Diagnoses Not on filedocumented in this encounter Care Teams Correctional Facility Psychiatrist Relationship Specialty Start Date End Date Ava Morales MD PCP - General Family Medicine 04/04/[address] [place] [phone] documented as of this encounter
--- OUTSIDE RECORDS SUMMARY | 2022-03-23 07:49 | XMS_ITS | Encounter Summary ---
:1960 Author Organization [facility] Address [address] [place] [address] Care Team Providers Name Role Phone Ava Morales MD Primary Care Provider Encounter Details Date Type Department Care Team Description 2021 TH Visit Hematology/Oncology at [place], joana Kulkarni MD Tonsil cancer (TeleHealth) [facility] [address] [place], [place] ONCOLOGY DEPT. [phone] [place] [address] [phone] (Wo rk) Social History Tobacco Use Types [...] encounter Progress Notes Edwar Perry MD - 2021 8:45 AM EDT [facility] Head/Neck Oncology Telephone Office Visit during COVID-19 epidemic Patient Active Problem List Diagnosis ??? Tonsil [...] of 50.0-59.9, adult ??? Chronic atrial fibrillation History: Today's visit was conducted on the telephone, as he was unable to get into the clinic. He has been troubled by very frequent watery diarrhea over the past 2 days. Last week when we met he was actually having trouble with constipation. Bowel medications were recommended but not taken. He is not antibiotics. He did come in on 07/13 for planned hydration and dexamethasone; my plan was to give him a dose of prophylactic ondansetron but he declined to receive this. He is not sure why diarrhea might of become a problem in the past 2 days. He has not taken any antidiarrheal. As of this morning the diarrhea has slowed up a bit, but he felt unable to tolerate the hour ride from home to the cancer center. He is also been troubled by very severe leakage from the left neck tumor. This is mostly serous, with some thicker pus component. He has not been on antibiotics for this since late May. Its been very bothersome, as he cannot find any dressing to control the leakage. He has had no fevers or chills that would suggest recurrent infection. Because of the telephonic nature of today's visit I was unable to perform a physical exam, but his voice sounds strong and he sounds alert and in no acute distress. Impression: Regionally advanced tonsil cancer. Ongoing problems with drainage from the left neck mass. Acute problems with diarrhea, etiology uncertain, possibly due to the dexamethasone or late effectof chemotherapy. The latter is a bit unusual, as cisplatin chemotherapy and supportive care are usually associated with constipation rather than diarrhea. Plan: I asked him to come in tomorrow at 1 PM for intravenous hydration. I think it may be prudent to skip this weeks chemotherapy. [facility] will visit today and draw laboratory studies. I recommended that he put in a supply of Imodium [id number] to control the diarrhea, and use it per package instructions. I also suggested that he get some disposable diapers and work on applying those to the neck wound tohelp control the liquid discharge. We will get him some tubular elastic fishnet when he is here tomorrow. Outpatient Medications Marked as Taking for the 07/17/21 encounter (TH Visit (TeleHealth)) with Edwar Perry MD Medication Sig Dispense Refill ??? prochlorperazine (Compazine) 10 mg Tablet TAKE 1 TABLET BY MOUTH EVERY 6 HOURS NEEDED FOR NAUSEA 30 tablet 3 ??? traMADoL (Ultram) 50 mg Tablet Take 0.5-1 tablets by mouth as needed. 30 tablet 0 ??? LORazepam (Ativan) 1 mg Tablet Take one pill by mouth a 1/2 hour prior to radiation therapy 40 tablet 0 ??? meloxicam (MOBIC) 7.5 mg Tablet 2 times daily. ??? acetaminophen (Tylenol) 500 mg Tablet Take 1,000 mg by mouth every 6 hours as needed for Pain. ??? metoprolol tartrate (Lopressor) 50 mg Tablet Take 50 mg by mouth 2 times daily. Current Facility-Administered Medications for the 07/17/21 encounter (TH Visit ([facility])) with Edwar Perry MD Medication Dose Route Frequency Provider Last Rate Last Admin ??? lidocaine (Xylocaine) 4 % (40 mg/mL) solution Topical (Top) Once PRN Tomy Pinto MD ??? lidocaine (Xylocaine) 4 % (40 mg/mL) solution Topical (Top) Once PRN Tomy Pinto MD The patient verbally consented to this telephone visit and understands that the visit may be billed,similar to a clinic office visit.I provided care to the patient today via telephone or videotelephone call; 15 minutes was spent in discussion with patient on the issues outlined above. Edwar Perry MD, FACP Hematology/Oncology Section, [facility] roll tender, [facility] [employer] at [facility] [phone] documented in this encounter Miscellaneous Notes Addendum Note - Edwar Perry MD - 2021 8:45 AM EDT Addended by: EDWAR PERRY on: 2021 03:59 PM Modules accepted: Orders documented in this encounter Plan of Treatment Upcoming Encounters Date Type Specialty Care Team Description 03/30/2022 Office Visit Hematology and Oncology Kristan Perry MD [address] [facility] [address] ONCOLOGY DEPT. [place], [place] [address] (Wo rk) documented as of this encounter Visit Diagnoses Diagnosis Tonsil cancer Malignant neoplasm of tonsil documented in this encounter Care Teams Potter Or Ceramic Artist Relationship Specialty Start Date End Date Ava Morales MD PCP - General Family Medicine 04/04/21 [address] [place] [address] documented as of this encounter
--- OUTSIDE RECORDS SUMMARY | 2022-03-23 07:49 | XMS_ITS | Encounter Summary ---
:1960 Author Organization [facility] [place] [address] Care Team Providers Name Role Phone Ava Morales MD Primary Care Provider Reason for Visit Reason Comments Chemotherapy Cycle 1, Day 15 - Cisplatin Treatment/Therapy Plan Authorization (Routine) - Closed Specialty Diagnoses / Procedures Referred By Contact Refer red To Contact Diagnoses Tonsil cancer Edwar Perry MD [facility] Infusion Procedures TC PALONOSETRON HCL, 25MCG, INJECTION (ALOXI) TC APREPITANT, 1 MG, INJECTION TC CISPLATIN, POWDER OR SOLUTION, 10MG, INJECTION J2469 palonosetron (Aloxi) 0.25 MG J0185 aprepitant (CINVANTI) 130 MG J9060 CISplatin (Platinol) 109 MG [facility] [address] [place] [address] [place] [phone] Fax: Referral ID Status Reason Start Date Expiration Date Visits Requ ested Visits Authorized [id number] Closed 07/10/2021 09/22/2021 99 99 Encounter Details Date Type Department Care Team Description 07/24/2021 Infusion Hematology Oncology at [facility] Tonsil cancer [address] [place] [phone] Social History Tobacco Use Types [...] encounter Progress Notes Ava Goodwin RN - 07/24/2021 10:00 AM EDT INFUSION THERAPY ADMINISTRATION NOTES DIAGNOSIS: Tonsillar cancer CYCLE #: Cycle 1, Day 15 - Cisplatin and magnesium infusion REASON FOR VISIT: To receive chemotherapy and magnesium replacement. SUBJECTIVE: Miriam offers no complaints. He denies diarrhea and will not need imodium today. OBJECTIVE: Seen by provider. Ready to treat. LAB DATA: WBC - 6.55, H/H - 12.0/37.1, Plt Ct - 199, ANC - 4.50, Lytes wnl, BUN/CR - 22/1.1, MG++ - 1.7 - will receive 4 grams of magnesium today. IV ACCESS: Port accessed off site. Flushes readily with brisk blood return. Pre administration: Chemotherapy orders independently verified for drug name, route, and dosage per patient's height, weight and BSA by Marleen Goodwin RN and Staff Pharmacist(s). REACTIONS [...] and Oncology Kristan Perry MD [facility] [address] ONCOLOGY DEPT. [place], [place] [address] (Wo rk) documented as of this encounter Visit Diagnoses Diagnosis Tonsil cancer Malignant neoplasm of tonsil documented in this encounter Administered Medications Inactive Administered Medications - up to 3 most recent administrations Medication Order MAR Action Action Date Dose Rate Site aprepitant (CINVANTI) injection Given 07/24/2021 10:55 AM EDT 13 0 mg Emul 130 mg 130 mg, Intravenous, ONCE, 1 dose, On Sat07/24/21 at 1045, Alternative administration of IV push over 2 minutes is a recommendation from the parks and recreation worker. Administer prior to chemotherapy., Routine CISplatin (Platinol) 109 mg in New Bag 07/24/2021 12:16 PM EDT 109 mg 349 mL/hr sodium chloride 0.9% 349 mL infusion 109 mg (rounded from 108.8 mg = 40 mg/m2/dose ? 2.72 m2 Treatment Plan BSA from Recorded weight), Intravenous, ONCE, 1 dose, On Sat07/24/21 at 1145, Administer over 60 Minutes, Warning Vesicant/Irritant Medication dexamethasone (Decadron) tablet 10 mg Given 07/24/2021 10:54 AM EDT 10 mg 10 mg, Oral, ONCE, 1 dose, On Sat07/24/21 at 1045, Administer prior to chemotherapy, Routine heparin (pf) (porcine) (100 units/mL) Given 07/24/2021 1:22 PM E DT 500 Units flush 5 mL syringe 500 Units 500 Units, Intravenous, ONCE PRN, Starting on Sat07/24/21 at 1025, Until Sat07/24/21 at 1531, Line Care, Refer to Intravenous (IV) Procedure: Accessing Implanted Vascular Access Devices (674) procedure and/or Intravenous (IV) Job Aid: Adult Flushing & Catheter Care (8746) job aid for additional information regarding guidelines and administration., Routine magnesium sulfate 2 g in sterile water New Bag 07/24/2021 10:5 6 AM EDT 4 g 50 mL/hr 50 mL infusion 2 g, Intravenous, EVERY 2 HOURS PRN, 2 doses, Starting on Sat07/24/21 at 1038, Until Sat07/24/21 at 1531, Administer over 120 Minutes, for electrolyte replacement, Total dose is 4 grams. palonosetron (Aloxi) (0.05 mg/mL) injection Given 09/2020 10:55 AM EDT 0.25 mg 0.25 mg 0.25 mg, Intravenous, ONCE, 1 dose, On Sat07/24/21 at 1045, Administer over 30 seconds. Administer prior to chemotherapy, Routine sodium chloride 0.9 % (flush) (BD PosiFlush Given 07/24/2021 1:21 PM EDT 20 mLs Normal Saline 0.9) flush 5-20 mL 5-20 mL, Intravenous, EVERY 1 MIN PRN, Starting on Sat07/24/21 at 1025, Until Sat07/24/21 at 1531, Line Care, Flush pertains to all indwelling lines. Flush per protocol found in the job aid using the link provided on this medication record. Refer to Intravenous (IV) Job Aid: Adult Flushing & Catheter Care (9329) job aid for additional information regarding guidelines and administration., Routine sodium chloride 0.9% infusion New Bag 07/24/2021 10:10 AM EDT 1,000 mLs 1000 mL/hr 1,000 mL, at 1,000 mL/hr, Intravenous, CONTINUOUS, Starting on Sat07/24/21 at 1045, Until Sat07/24/21 at 1144, Pre-CISplatin sodium chloride 0.9% infusion New Bag 07/24/2021 12:16 PM EDT 500 mLs 500 mL/hr 500 mL, at 500 mL/hr, Intravenous, CONTINUOUS, Starting on Sat07/24/21 at 1245, Until Sat07/24/21 at 1344, Post CISplatin documented in this encounter Care Teams Materials Technician Relationship Specialty Start Date End Date Ava Morales MD PCP - General Family Medicine 04/04/[address] [place] [phone] documented as of this encounter
--- OUTSIDE RECORDS SUMMARY | 2022-03-23 07:49 | XMS_ITS | Encounter Summary ---
:1960 Author Organization [facility] [place] [address] Care Team Providers Name Role Phone Ava Morales MD Primary Care Provider Encounter Details Date Type Department Care Team Description 07/10/2021 [facility] Tonsil cancer [address] HEMATOLOGY AND [id number] ONCOLOGY [phone] [place], [place] [address] (Wo rk) Social History Tobacco [...] documented as of this encounter Progress Notes JulietaLeslie, RD - 07/10/2021 11:00 AM EDT [facility] Nutrition Assessment Progress Note Miriam Anaya Diagnosis: SCC left tonsil stage III Assessment: Nutrition Screen 07/10/2021 Reason for assessment Unintentional weight loss Total MST Score - Functional Status 07/10/2021 Appetite - Odynophagia Present Patient reports he still had headaches, though the location of the pain has changed. He has difficulty opening his mouth due to jaw pain. Patient does have poor dentition and had some molars extracted recently. He has only occasional pain when swallowing; this does not impact his PO intake. He says he is taking Tylenol for pain. Food History, Access and Intake 07/10/2021 Patient Reported Diet Regular Usual Intake: Breakfast: Late morning--breakfast of eggs (scrambled or omelet with cheese), sometimes also home fries Lunch: None Dinner: Mac[employer] with sausage, etienne's pie, occasionally tuna salad or a frozen meal Snacks: Peanut butter with molasses Beverages: coffee, coffee and more coffee, juice, some water ONS: Low carb protein drinks, not very often (150 kcals, 30 grams protein) Saw patient along with EDD Perez while he was in infusion today. Patient lives alone and prepares his own meals. He has been trying to eat more after a period of weight loss, considering that he is starting concurrent chemoradiation therapy today. He is not able to open his mouth wide enough to eat triple layer sandwich due to jaw pain but is otherwise not limited in regards to foods and drinks he is able to consume. Patient was surprised that he is down 3# in the past three weeks, given how much he feels he has been eating. Food Insecurity Screening 07/10/2021 Within the past 12 months, you worried that your food would run out before you got the money to buy more. 1 Wt Readings from Last 3 Encounters: 07/10/21 (!) 150 kg (330 lb 9.6 oz) 06/28/21 (!) 157.4 kg (347 lb) 06/19/21 (!) 151 kg (333 lb) BMI 48.82 Previous weights: 333# on 05/19 Lost 40# over the summer per patient Weight of 347# on 06/28 appears inaccurate Medications: Antibiotic, tramadol, compazine, ativan prn, oxycodone prn, meloxicam, tylenol prn, metoprolol Patient is starting chemotherapy (cisplatin) today 07/10 as well as RT Labs on 07/10: Ca 9.0, BG 92, BUN 22H, Creat 1.1, Alb 3.5, TBili 0.6, AlkPhos 56, Na 141, K 4.0, AST17, ALT 14L, WBC 14.36H, H/H 13.8/42.5, platelet 319, ANC 9.31H, Mg 2.1 Nutrition Diagnosis 06/14/2021 Problems Involuntary weight loss related to pain (mainly headaches) as evidenced by 40# loss in summer 2020 with some recent re-gain per patient.--stable/slightly down in past 3 weeks. Estimated needs based on current weight of 150 [id number] kcals (15-20 kcal/kg) obese 120 grams protein (0.8 g/kg) ~2.2-2.5 L fluid Intervention: * Discussed different protein supplement drinks; he made need a higher calorie one compared to his current choice if PO intake is limited during treatment. * Encouraged optimizing PO intake. * Encouraged adequate hydration (he drinks quite a bit of coffee). Follow Up: On 07/17. Note: Please see Hematology/Oncology malnutrition flowsheet for complete RD assessment/documentation documented in this encounter Plan of Treatment Upcoming Encounters Date Type Specialty Care Team Description 03/30/2022 Office Visit Hematology and Oncology Kristan Perry MD [facility] ONCOLOGY DEPT. [place], [place] [address] (Wo rk) documented as of this encounter Visit Diagnoses Diagnosis Tonsil cancer Malignant neoplasm of tonsil documented in this encounter Care Teams Fluorescent Lamp Replacer Relationship Specialty Start Date End Date Ava Morales MD PCP - General Family Medicine 04/04/21 [address] [place] [address] documented as of this encounter
--- OUTSIDE RECORDS SUMMARY | 2022-03-23 07:49 | XMS_ITS | Encounter Summary ---
:1960 Author Organization [facility] [place] [address] Care Team Providers Name Role Phone Ava Morales MD Primary Care Provider Reason for Referral Diagnostic Test (Routine) - Closed Specialty Diagnoses / Procedures Referred By Contact Refer red To Contact Radiology Diagnoses Tonsil cancer Edwar Perry MD [facility] Interventionl Rad Procedures IR Mediport Placement [facility] [place] [address] [place] [address] Referral ID Status Reason Start Date Expiration Date Visits V isits Requested Authorized [id number] Closed Specialty 06/20/2021 12/18/2022 1 1 Service Requested Reason for Visit Consultation (Routine) - Closed Specialty Diagnoses / Procedures Referred By Contact Refer red To Contact Hematology and Oncology Diagnoses Squamous cell carcinoma of left tonsil Lelia Tyler APRN [facility] [address] [place], [place] OTOLARYNGOLOGY DEPT. [id number] [place] [address] Referral ID Status Reason Start Date Expiration Date Visits V isits Requested Authorized [id number] Closed Consult, 05/25/2021 05/25/2022 1 1 Test & Treat Encounter Details Date Type Department Care Team Description 06/19/2021 Office Visit Hematology/Oncology Edwar Perry Tons il cancer; at [facility] Claustrophobia; [address] [facility] Chemotherapy induced [place] [address] ONCOLOGY DEPT. [phone] VE[address] 0375 Social History Tobacco Use Types Packs/Day [...] Sign Reading Time Taken Comments Blood Pressure 135/84 06/19/2021 1:56 PM EDT Pulse 62 06/19/2021 1:56 PM EDT Temperature 36.2 ??C (97.1 ??F) 06/19/2021 1:56 PM EDT Respiratory Rate 20 06/19/2021 1:56 PM EDT Oxygen Saturation 98% 06/19/2021 1:56 PM EDT Inhaled Oxygen Concentration - - Weight 151 kg (333 lb) 06/19/2021 1:56 PM EDT Height 176.5 cm (5' 9.49) 06/19/2021 1:56 PM EDT Body Mass Index 48.49 06/19/2021 1:56 PM EDT documented in this encounter Progress Notes Edwar Perry MD - 06/19/2021 1:45 PM EDT Images from the original note were not included. Head and Neck Cancer Medical Oncology Patient Active Problem List Diagnosis ??? Tonsil cancer cT1 N3 M0, p16(+) (AJCC 8th ed) A. L parotid mass noted 09/2020; progressive enlargement, local pain, headache B. 7 X 6 cm L upper mass at evaluation -02/2021, FNA X 2 nondiagnostic C. EUA 05/19/2021: small L BOT mass, Bx: p16 (+) non-keratinizing SCCa, HPV type 33 (+), L neck Bx nondiagnostic D. Definitive chemoradiation planning in progress 05/2021 ??? Claustrophobia Difficulty with MRI, PET/CT scanning ??? History of gout ??? Essential hypertension ??? JOHN not on CPAP (though recommended) ??? Neck mass ??? Morbid obesity with BMI of 50.0-59.9, adult ??? Chronic atrial fibrillation CC: referred for medical oncology consultation by Lelia Tyler APRN and River Cordoba MD for discussion of chemotherapy as part of curative intent treatment for newly diagnosed left base of tongue cancer. The patient is a 60-year-old with a number of underlying comorbidities who first noticed a pea sized mass in the left parotid region in September 2020. At first he attributed this to a sinus infection he had the prior month but the mass continued to grow over the next several months. He sought medicalattention, and ultrasound was done on 01/25/2021 confirming the mass and several other lymph nodes, and he was referred to PASHA Richardson and Escobar Naranjo MD of [facility] otolaryngology. On their evaluation on 02/09/2021 they found a 4 x 6.5 cm left neck mass. A fine-needle aspirate was done at that visit, but was nondiagnostic. A CT scan of the neck was done 02/13, and he was referred to [facility] otolaryngology. He was seen by Dr. Cordoba on 03/16/2021. On his clinic exam he noted a 7 x 6 cm left mass, firm, fixed, and tender, spanning zones 2 through 3. Fiberoptic laryngoscopy in the office did not show a focal lesion, noting fullness at the base of tongue bilaterally likely due to the patient's large body habitus. A PET/CT was scheduled for 04/13, but the patient could not tolerate the immobilization and the scan could not be completed. He was taken to the operating room on 05/19/2021 for exam under anesthesia. At this point, a tumor could be seen at the left base of tongue bordering the inferior palatine tonsil. This was biopsied and returned squamous cell carcinoma. A biopsy of the left neck mass was performed, but was nondiagnosticas noted below. His case was reviewed at head and neck tumor board on 05/26/2021. Because of the radiographic findingssuggesting invasion of the carotid sheath, definitive chemoradiation was recommended rather than a surgical approach. He met with Dr. Pinto to discuss radiation on 06/07, and comes today to discuss the chemotherapy portion of treatment with me here in [facility]. Over the course of this history his symptoms have progressed. He notes increasing pain in the left neck, with radiation up to the head, sometimes posteriorly and sometimes along the nondenominational. This is nowconstant. He has been using meloxicam, which she has for chronic joint pain, and this is somewhat hel pful; oxycodone and tramadol have been of modest benefit in the past. At first he had no throat complaints, but now has mild dysphagia largely from increased discomfort in the neck when he swallows. Between the pain and generalized anorexia he is lost about 40 pounds in the last 6 months. In preparation for radiation, he underwent dental evaluation and recently had a number of diseased teeth extracted. He has had no complications from the procedure. Past medical history: As noted in the problem list. Most notable for morbid obesity. This is associated with obstructive sleep apnea, but he does not use CPAP. He has chronic atrial fibrillation, whichfailed 2 attempts at cardioversion and he is now on medical rate control. 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 He has a history of gout as well. He found that he was claustrophobic when attempting to get into the PET/CT machine; he finds it is not the small space but it was being strapped down that caused him disabling anxiety. He suffered a severe tibial fracture as a boy, which left him with some degree of lifelong impairment. He endorses left-sided chronic hearing loss. He denies peripheral neuropathy. His exercise toleranceis very limited; he has to take even 1 flight of stairs very slowly. He is able to walk on the flat without restriction. Social history shows that he is single, lives alone in [facility]. He is a non-smoker, butadmits to drinking up to 12 beers per day on occasions, but not daily. Physical exam: A pleasant, well-informed, morbidly obese male in no acute distress Oral exam shows healing extraction sites. Remaining dentition in good condition Tympanic membranes clear bilaterally Tongue is mobile Pharyngeal visibility is limited by Mallampati IV anatomy. I'm unable to see the tongue base tumor. Tongue appears mobile. No trismus. Neck exam shows a very large, firm, fixed, moderately tender left neck mass filling zones 2 and 3, extending to 4 and 5, up to the level of the mandible. There is a superficial point with squamous debris and serous fluid weeping from it. There is surrounding erythema of the skin. There is no distinct adenopathy in any other site in the neck or peripherally. The lungs are clear Cardiac exam shows a regular rate and rhythm consistent with atrial fibrillation, average rate around 100. No gallop. Abdomen is morbidly obese but without overt hepatosplenomegaly or masses, or ascites Extremities show grade 1 nonpitting edema in both lower extremities, with evidence of chronic skin irritation in the right ng at the site of a distant leg fracture. Neurologic exam is grossly normal, antalgic gait because of knee pain. Reflexes 1+. Cranial nerves normal with no obvious evidence of Elen syndrome Imaging: CT 02/13/2021: Repeat CT 05/25/2021: Per report: FINDINGS: Interval enlargement of the large left level 2A lymph node again with irregular borders indicative of extracapsular spread of tumor, with invasion of the left sternocleidomastoid muscle, the left parotid tail, in the left platysma muscle, and occlusion of the left internal jugular vein. There is increased central necrosis. The node measures up to 5.8 cm in AP diameter by 4.7 cm in craniocaudad length by 5.5 cm in transverse width, previously 4.4 x 4.0 x 4.4 cm. Additional subcentimeter to borderline size left sided lymph nodes are not significantly changed in size. ?? The josé luis mass surrounds the left external carotid artery proximally by roughly 100 degrees. The left internal carotid artery remains a retropharyngeal position free of tumor. Previously there was a fat plane the josé luis mass from the left paraspinal muscles anteriorly the fat plane is no longer present with the known directly abutting the left paraspinal musculature (series 3 image 56), with no definite muscular invasion. ?? There is persistent soft tissue fullness at the left tongue base which is similar to the prior study, from known biopsy-proven tumor. Chest CT 05/25/2021: no signs of malignancy Echocardiogram 05/16/2021: SUMMARY: 1. Rhythm appears to be atrial fibrillation. 2. There is normal global left ventricular systolic function with an estimated EF of 55% and no wall motion abnormalities. 3. The right ventricle is mildly dilated. Right ventricular global systolic function is normal. The estimated pulmonary artery systolic pressure is normal at 31 mmHg. 4. The left atrium is normal in size. The right atrium is mildly dilated. 5. There is no hemodynamically signficant valve disease. 6. The pericardium appears normal and there is no evidence of a pericardial effusion. Pathology from EUA/Bx: DIAGNOSIS A - LEFT lower tonsil, biopsy: Non-keratinizing squamous cell carcinoma, p16 positive. (see Discussion) B - LEFT deep neck biopsy: Fibroadipose tissue and muscle with fibrosis and patchy non-specific chronic ??inflammation. DNA testing showed HPV type 33. 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 It appears now to be extruding through the skin. This is not a good case for primary surgery, and I agree with the plan for definitive chemoradiation. His cancer related pain is not very well controlled at present. Plan: 1. We had a long discussion about the natural history of this cancer, and options for therapy. He wishes to move ahead with chemotherapy and radiation. He understands that our goal is cure, but that this outcome cannot be guaranteed. I think it is distinctly possible that he may not have a complete response of the neck, and surgical salvage may be necessary. He understands and wishes to proceed. Radiation simulation is scheduled for 06/21; I will tentatively schedule his chemotherapy to start on 07/03 if the radiation plan is ready by then. 2. We talked about the logistics and potential toxicity of this regimen. I see no contraindication to using cisplatin, as his shortness of breath with exertion appears to be due to obesity rather than heart failure, and thus I do not anticipate problems with fluid overload from hydration. 3. We discussed the use of a mediport for IV access, and he is agreeable. I will get this scheduled at [facility] in the near future. 4. We discussed the importance of nutrition getting through therapy, and the possibility of his needing a G-tube. He would strongly like to avoid this, and as he has no major current swallowing problems I think it is possible we can get through without 1. He understands that if he loses weight throughtherapy we may need to reconsider. 5. For his cancer related pain, I have sent in a prescription for tramadol 25-50 mg every 6 hours asneeded. Edwar Perry MD, FACP inspector set up and lay out Hematology/Oncology Section [place] [phone] Voice recognition software used for this note; please excuse clean rice grader and reel tender errors. I personally reviewed past medical, surgical, family medical histories, reviewed current medications, vital signs, labs, and performed full review of systems. These are documented below the narrative for clarity and succinctness. Outpatient Medications Marked as Taking for the 06/19/21 encounter (Office Visit) with Edwar Perry MD Medication Sig Dispense Refill ??? meloxicam (MOBIC) 7.5 mg Tablet 2 times daily. ??? amoxicillin-clavulanate (Augmentin) 875-125 mg Tablet Take 1 tablet by mouth 2 times daily. 20 tablet 0 ??? acetaminophen (Tylenol) 500 mg Tablet Take 1,000 mg by mouth every 6 hours as needed for Pain. ??? metoprolol tartrate (Lopressor) 50 mg Tablet Take 50 mg by mouth 2 times daily. Past Medical History: Diagnosis Date ??? Essential hypertension 04/12/2021 ??? JOHN not on CPAP (though recommended) 04/12/2021 Past Surgical History: Procedure Laterality Date ??? PRO BX/REMV, LYMPH NODE, DEEP CERV Left 05/19/2021 BIOPSY OR EXCISION OF LYMPH NODE(S), OPEN, DEEP CERVICAL NODES (WRVU 6.74) performed by River Cordoba MD at [facility] MAIN OR ??? PRO LARYNGOSCOPY, DIRCT, OP SCOPE, BIOPSY Left 05/19/2021 LARYNGOSCOPY, MICROSCOPE, WITH BIOPSY (WRVU 3.55) performed by River Cordoba MD at [facility] MAIN OR ??? PRO OTOLARYNGOLOGIC EXAM UNDER GENERAL ANESTHESIA Midline 05/19/2021 OTOLARYNGOLOGIC EXAM UNDER ANESTHESIA (WRVU 1.51) performed by River Cordoba MD at [facility] MAIN OR History reviewed. No pertinent family history. Social History Socioeconomic History ??? Marital status: [...] Last Year: Not on file Transportation Needs: No Transportation Needs ??? Lack of Transportation (Medical): No ??? Lack of Transportation (Non-Medical): No Physical Activity: ??? Days of Exercise per Week: Not on file ??? Minutes of Exercise per Session: Not on file Review of Systems: Review of systems is negative for other CIGAR TOBACCO REHANDLER, bone, pulmonary, cardiac, GI, , extremity, neurologic, endocrine, skin, constitutional, emotional, or functional problems. Vitals Office Visit from 06/19/2021 in Hematology/Oncology at [facility] Weight 151 kg (333 lb) Height 176.5 cm (5' 9.49) BSA (Calculated - sq m) 2.72 sq meters BMI (Calculated) 48.48 Temp 36.2 ??C (97.1 ??F) Temp src Temporal Heart Rate 62 Heart Rate Source Right, NIBP Resp 20 BP 135/84 BP Location Right arm Patient Position Sitting SpO2 98 % Karnofsky Score 70 Motor Neuropathy N/A Sensory Neuropathy N/A Body surface area is 2.72 meters squared. Wt Readings from Last 3 Encounters: 06/19/21 (!) 151 kg (333 lb) 06/15/21 (!) 147.9 kg (326 lb) 06/07/21 (!) 148.1 kg (326 lb 6.4 oz) No results found for this or any previous visit (from the past 72 hour(s)). ++++++++++++++++++++++++++++++++++++++++++++++++++++ Ava Goodwin RN - 06/19/2021 1:45 PM EDT MEDICAL ONCOLOGY INITIAL NURSING ASSESSMENT ADVANCE DIRECTIVES: In EDH [ ] Has documents [ ] Will bring in [ ] Has ACP documents IF NO: Advance Directive pamphlet provided : Referral to Care Management : no PRESENTING SYSTEMS and PATHOLOGY: as per Dr. Perry REVIEW OF SYSTEMS: as per Dr. Perry Prior Radiotherapy: no[ x ] Yes[ ]Site Date Facility Prior Chemotherapy: no[ x ] Yes[ ] Drug: Oncologist- LastTreatment: NO: YES: Claustrophobia or requires sedation for MRIs x Allergy to CT or MRI contrast agent or iodine or shellfish x Diabetic and on metformin x Metal in body, implanted device, worked with metal, body piercings,braces x Dentures or hearing device x Pacemaker x Difficulty breathing while lying flat x Kidney problems/creatinine x Balance difficulty: [ ]no [ x ]yes At risk for fall: [ ] no [ xx ] yes If yes, actions implemented to prevent fall. Patient/family instructed to avoid independent ambulation. Use wheelchair and ask for assistance of staff while in the clinic. ADL [ x ] no limits [ ] needs dressing assistance [ ] needs meal assistance Assistive device:[ ]none [x ]cane [ ]walker [ ]wheelchair [ ]other: explain PAIN ASSESSMENT: [ 7 ] out of 10 Location: left neck Description: [ ] Dull [ x ] Sharp [ ] Burning [ ] Throbbing [ ] Radiating [ ] Continuous [ ]Intermittent Aggravating Factors: [ ] Movement [ x ] Position [ ]Immobility [ ]Other Alleviating Factors: [ x ]Medication [ x ] Positioning [ ] Other Current Pain Management Plan: [ ]Satisfied [ x] Not satisfied SOCIAL ASSESSMENT: See EDH social assessment information entered. Support Systems: alone for appointment transportation plan: [x ]private vehicle [ ] RCT needs Social Work referral [ ] Unknown at this time needs Social Work referral Barriers to treatment: no Referrals/Interventions: LEARNING STYLE: Visual and verbal, wants written material and verbal discussion. TEACHING: _x_ [facility] ???Chemotherapy and You?? and folder given. Discussed chemotherapy and side effects. Will need port. __ Specific chemotherapy literature provided and reviewed with patient documented in this encounter Plan of Treatment Upcoming Encounters Date Type Specialty Care Team Description 03/30/2022 Office Visit Hematology and Oncology Kristan Perry MD [facility] [address] ONCOLOGY DEPT. [place], [place] [address] (Wo rk) documented as of this encounter Results IR Mediport Placement (06/27/2021 10:35 AM EDT) Anatomical Region Laterality Modality X-Ray Angiography Specimen (Source) Anatomical Location Collection Method / Collectio n Time Received Time / Laterality Volume Narrative 06/27/2021 12:47 PM EDT Interventional Radiology Procedure Note Procedure: Subcutaneous venous port impl ant Indication: head/neck cancer, durable lo ngterm central venous access for chemotherapy Procedure summary: 1.) Venous access with ultrasound guidan ce 2.) Tunneled port insertion under fluoro scopic guidance Pre-procedure: Informed consent for the procedure including risks, benefits, and alternatives was obtained. Active time-out was performed prior to the procedure. The site was pre pared and draped using maximal sterile barrier technique. ?? Sedation: The patient received doses of intravenous fentanyl from the interventional radiology nurse while pul se, pressure, and oxygen saturation were continuously monitored. Technique: The right internal jugular ve in was sonographically evaluated and determined to be patent. A permanent image was stored. Local anesthetic was administered. The vein wa s accessed via real-time ultrasound and micropuncture set with 21 gauge needle. A 0.018 wire was advanced into superior vena cava. The remainder of the procedure was perfo rmed under fluoroscopic guidance. A 4 Fr introducer sheath was placed and the wire exchanged for a 0.035 J wire. The wire was advanced into the inf erior vena cava. Local anesthetic was administered on the anterior chest w all inferolateral to the puncture site. A 2 cm transverse incision was mad e in the right anterior chest wall, and with blunt dissection the port pocket was created. A trocar was then used to advance the catheter subcut aneously to the venous access site. The catheter was trimmed to approp riate length and the attached port was inserted into the pocket. A 4 Fr int roducer sheath was exchanged for a peel-away sheath over the wire. The wire and inner obturator were removed and the catheter advanced into the super ior vena cava under fluoroscopic guidance and the sheath was removed. Cat heter tip location was identified and a permanent image was stored. The po rt flushed and aspirated well. ?? The pocket was closed using a two-layer technique with 2-0 vicryl deep interrupted and 4-0 vicryl running sutur es. The skin closed was with dermabond. The port was not left accesse d. Medications: Lidocaine 1% <10 cc subcuta neous, lidocaine 1% with epinephrine <20 cc subcutaneous, fentany l 250 mcg IV; prophylaxis: Cefazolin 3g IV Contrast: None Fluoroscopy: 3.51 mGy Estimated blood loss: <10 mL Complications: No immediate Findings 1. Patent, compressible right internal j ugular vein by ultrasound evaluation. 2. Catheter tip located in the superior cavoatrial junction. Impression 1. Successful implantation of power-inje ctable, Bard 8 Fr Vas-Cath Vaccess single-lumen port in right chest. The po rt may be used immediately. Service provider: Cyril Ram PA-C Present during the intraservice time as documented by the interventional radiolo gy nurse. Attending of record: Edwin Trujillo MD 06/27/2021 Edwar Perry MD IMG IR ORDERABLES documented in this encounter Visit Diagnoses Diagnosis Tonsil cancer Malignant neoplasm of tonsil Claustrophobia Other isolated or specific phobias Chemotherapy induced nausea and vomiting Nausea with vomiting Tonsil cancer Malignant neoplasm of tonsil documented in this encounter Care Teams Instrument Checker Relationship Specialty Start Date End Date Ava Morales MD PCP - General Family Medicine 04/04/[address] [place] [phone] documented as of this encounter
--- OUTSIDE RECORDS SUMMARY | 2022-03-23 07:49 | XMS_ITS | Encounter Summary ---
:1960 Author Organization [facility] [place] [address] Care Team Providers Name Role Phone Ava Morales MD Primary Care Provider Encounter Details Date Type Department Care Team Description 07/12/2021 Office Visit Radiation Oncology at Tomy Pinto, Squamous cell [facility] carcinoma of palatine [address] [place] [address] [place] [address] RADIATION ONCOLOGY [phone] [place], [place] [address] Social History Tobacco Use Types [...] Sign Reading Time Taken Comments Blood Pressure 119/67 07/12/2021 2:37 PM EDT Pulse 75 07/12/2021 2:37 PM EDT Temperature 36.7 ??C (98.1 ??F) 07/12/2021 2:37 PM EDT Respiratory Rate 20 07/12/2021 2:37 PM EDT Oxygen Saturation 97% 07/12/2021 2:37 PM EDT Inhaled Oxygen Concentration - - Weight 155.3 kg (342 lb 6.4 07/12/2021 2:37 PM with fli p flops oz) EDT Height - - Body Mass Index 50.56 07/10/2021 8:40 AM EDT documented in this encounter Progress Notes Carter Reeves MD - 07/12/2021 2:00 PM EDT Images from the original note were not included. ON TREATMENT VISIT NOTE Miriam Anaya is a 60 y.o. 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 Definitive chemoradiotherapy. Current treatment dose: 6 Gy in 3 fractions. Anticipated total dose: 70 Gy in 35 fractions. Concomitant Therapy: Y ONC BCA CHEMO (AMB) 07/10/2021 Day, Cycle Day 1, Cycle 1 CISplatin (Platinol) IV 40 mg/m2/dose Plan Images: Evaluation of Port Verification Films: PORT films have been reviewed, please see ARIA for details. Changes in medical condition Pain: Denies pain. Secretions/Dryness: Denies xerostomia/dysgeusia Swallowing Function: Denies issues Nutrition / G tube: no feeding tube. All by mouth Skin: Discomfort associated with skin erosion left neck GI: -Nausea: denies -Bowels: no issues Nutrition Assessment: Weight : 155.3kg initial Change: NA Objective: Vitals: 07/12/21 1437 BP: 119/67 Patient Position: Sitting Pulse: 75 Resp: 20 Temp: 36.7 ??C (98.1 ??F) TempSrc: Temporal SpO2: 97% Weight: (!) 155.3 kg (342 lb 6.4 oz) SKIN: fixed mass spanning levels II-IV in the left neck, with associated skin erythema and an ~ 3 cmarea of skin breakdown. MUCOSA: no mucositis Assessment: No toxicity, treatment started within the last week. CTCAE TOXICITY GRADES (see below for isaacs): Site Grade Skin 0 Xerostomia 0 Pharyngeal Mucositis 0 Dysphagia 0 Hoarseness 0 TREATMENT RESPONSE: No change Plan: ?? Continue RT per prescription ?? Pain control: none needed at this time ?? Skin: Jeans cream prn ?? Mucositis: ?? Pain control: see above ?? Oral hygiene consisting of baking soda/salt rinse at least 8 times daily ?? Alimentation: stave block splitter following ?? Weight stable, all by mouth at this time Attending Statement: I saw the patient with Dr. Reeves and agree with the history, physical, assessment, and plan as stated. CTCAE v4.03 scales for reference Skin 0 [...] MD [facility] DR ONCOLOGY DEPT. [place], [place] [address] (Wo rk) documented as of this encounter Visit Diagnoses Diagnosis Squamous cell carcinoma of palatine tons il Malignant neoplasm of tonsil documented in this encounter Care Teams Tonsorial Artist Relationship Specialty Start Date End Date Ava Morales MD PCP - General Family Medicine 04/04/21 [address] [place] [address] documented as of this encounter
--- OUTSIDE RECORDS SUMMARY | 2022-03-23 07:49 | XMS_ITS | Encounter Summary ---
:1960 Author Organization [facility] [place] [address] Care Team Providers Name Role Phone Ava Morales MD Primary Care Provider Reason for Referral Consultation (Routine) - Closed Specialty Diagnoses / Procedures Referred By Contact Refer red To Contact Radiation Oncology Diagnoses Squamous cell carcinoma of palatine tonsil Tomy Pinto MD [facility] Procedures Re-simulation for Radiation Therapy Planning [address] RADIATION ONCOLOGY [place], [place] [phone] Fax: Referral ID Status Reason Start Date Expiration Date Visits V isits Requested Authorized [id number] Closed Consult, 07/19/2021 07/19/2022 1 1 Test & Treat Encounter Details Date Type Department Care Team Description 07/19/2021 Office Visit [facility] palatine [address] [facility] [place] [address] RADIATION ONCOLOGY [phone] [place], [place] [address] Social History Tobacco Use Types [...] Sign Reading Time Taken Comments Blood Pressure 120/77 07/19/2021 1:26 PM EDT Pulse 92 07/19/2021 1:26 PM EDT Temperature 37 ??C (98.6 ??F) 07/19/2021 1:26 PM EDT Respiratory Rate 20 07/19/2021 1:26 PM EDT Oxygen Saturation 98% 07/19/2021 1:26 PM EDT Inhaled Oxygen Concentration - - Weight 147.7 kg (325 lb 9.6 oz) 07/19/2021 1:26 PM EDT Height - - Body Mass Index 47.41 07/18/2021 12:57 PM EDT documented in this encounter Progress Notes Tomy Pinto MD - 07/19/2021 1:15 PM EDT Images from the original note were not included. ON TREATMENT VISIT NOTE Miriam Anaya is a 61 y.o. 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 Definitive chemoradiotherapy. Current treatment dose: 14 Gy in 7 fractions. Anticipated total dose: 70 Gy in 35 fractions. Concomitant Therapy: Y ONC BCA CHEMO (AMB) 07/10/2021 Day, Cycle Day 1, Cycle 1 CISplatin (Platinol) IV 40 mg/m2/dose Plan Images: Evaluation of Port Verification Films: PORT films have been reviewed, please see MAGGIE for details. Changes in medical condition Pain: Left sided headaches have resolved, now occasional occipital headaches. Using 1 - 2 gm of Tylenol daily. Some discomfort associated with the mass on the left neck. Secretions/Dryness: Denies xerostomia, minimal dysgeusia. Not using BSSW. Using Biotene. Swallowing Function: Occasional food hanging up, but rare. Nutrition / G tube: no feeding tube. All by mouth Skin: Discomfort associated with skin erosion left neck GI: -Nausea: Rare nausea, associated gagging. No vomiting. -Bowels: loose stools, prior diarrhea has resolved. Nutrition Assessment: Weight : 155.3kg initial Change: 155.3 => 147.7 kg Objective: Vitals: 07/19/21 1326 BP: 120/77 Patient Position: Sitting Pulse: 92 Resp: 20 Temp: 37 ??C (98.6 ??F) TempSrc: Temporal SpO2: 98% Weight: (!) 147.7 kg (325 lb 9.6 oz) SKIN: fixed mass spanning levels II-IV in the left neck, with associated skin erythema and an ~ 3 cmarea of skin breakdown. Smaller, but still MUCOSA: no mucositis Assessment: Mild toxicity, significant weight loss and tumor shrinkage. Re-simulate today. CTCAE TOXICITY GRADES (see below for isaacs): Site Grade Skin 0 Xerostomia 0 Pharyngeal Mucositis 0 Dysphagia 0 Hoarseness 0 TREATMENT RESPONSE: No change Plan: ?? Continue RT per prescription ?? Pain control: ?? Tylenol prn ?? Skin: Jeans cream prn ?? Mucositis: ?? Pain control: see above ?? Oral hygiene consisting of baking soda/salt rinse at least 8 times daily ?? Alimentation: sales representative printing paper following ?? Weight decreased, all by mouth at this time. Emphasized need to increase oral intake to maintain weight. CTCAE v4.03 scales for reference Skin 0 [...] Oncology Kristan Perry MD [facility] DR ONCOLOGY DEPT. [place], [place] [address] (Wo rk) Scheduled Orders Name Type Priority Associated Diagnoses Order S chedule Re-simulation for Procedures Routine Squamous cell carcinoma Ordered: 07/19/2021 Radiation Therapy of palatine tonsil Planning documented as of this encounter Visit Diagnoses Diagnosis Squamous cell carcinoma of palatine tons il Malignant neoplasm of tonsil documented in this encounter Care Teams Composition Floor Setter Relationship Specialty Start Date End Date Ava Morales MD PCP - General Family Medicine 04/04/[address] [place] [phone] documented as of this encounter
--- OUTSIDE RECORDS SUMMARY | 2022-03-23 07:49 | XMS_ITS | Encounter Summary ---
:1960 Author Organization [facility] [place] [address] Care Team Providers Name Role Phone Ava Morales MD Primary Care Provider Reason for Visit Reason Onset Date Comments Other 06/05/2021 transportation Encounter Details Date Type Department Care Team Description 06/05/2021 Telephone Radiation Oncology at Shasta Garcia, [facility] er (transportation) [facility] [address] [facility] OFFICE OF CARE [place], [place] MANAGEMENT [phone] Social History Tobacco Use [...] Telephone Encounter - Shasta Garcia MSW - 06/05/2021 8:30 AM EDT TC follow up with pt to see if he heard from [employer] re his request for rides on 06-07-21and 06-19-21. Pt reports he did get approval for the rides and he all set. SW Interventions: Care Coordination Transportation resources documented in this encounter Plan of Treatment Upcoming Encounters Date Type Specialty Care Team Description 03/30/2022 Office Visit Hematology and Oncology Kristan Perry MD [facility] ONCOLOGY DEPT. [place], [place] [address] (Wo rk) documented as of this encounter Visit Diagnoses Not on filedocumented in this encounter Care Teams Creative Consultant Relationship Specialty Start Date End Date Ava Morales MD PCP - General Family Medicine 04/04/[address] [place] [phone] documented as of this encounter
--- OUTSIDE RECORDS SUMMARY | 2022-03-23 07:49 | XMS_ITS | Encounter Summary ---
:1960 Author Organization [facility] [place] [address] Care Team Providers Name Role Phone Ava Morales MD Primary Care Provider Encounter Details Date Type Department Care Team Description 07/24/2021 Office Visit Hematology/Oncology at [facility] joana Kulkarni MD Tonsil cancer; [facility] [address] G[address]on [address] [place] [address] ONCOLOGY DEPT. [place], [place] [phone] Social History Tobacco Use Types Packs/Day Years [...] Sign Reading Time Taken Comments Blood Pressure 131/86 07/24/2021 9:25 AM EDT Pulse 94 07/24/2021 9:25 AM EDT Temperature 36.6 ??C (97.8 ??F) 07/24/2021 9:25 AM EDT Respiratory Rate 16 07/24/2021 9:25 AM EDT Oxygen Saturation 100% 07/24/2021 9:25 AM EDT Inhaled Oxygen Concentration - - Weight 147.4 kg (325 lb) 07/24/2021 9:25 AM EDT Height 176.5 cm (5' 9.49) 07/24/2021 9:25 AM EDT Body Mass Index 47.32 07/24/2021 9:25 AM EDT documented in this encounter Progress Notes Edwar Perry MD - 07/24/2021 9:30 AM EDT Images from the original note were not included. Hematology/Oncology Clinic [facility] Patient Active Problem List Diagnosis ??? [...] Chronic atrial fibrillation ONCBCN ONCOLOGY (AMB) 07/10/2021 Day, Cycle Day 1, Cycle 1 CISplatin (Platinol) IV 40 mg/m2/dose = 109 mg Due for dose #2 chemo, and RT fraction #10. We held last week's chemo due to grade 3 diarrhea of unclear etiology. This has resolved. He thinks in hindsight that he might have been caused by some bad food. His taste sensation is diminishing, and this is made oral intake more challenging. He has had no dysphagia, but the lack of taste makes eating unpleasant. He has been rinsing his mouth with salt water; he has noted an increase in sticky phlegm. The drainage from the left neck has stopped. He continues to have mild left neck pain but the global headache has resolved. Background low-level tinnitus unchanged. No peripheral neuropathy. He is tolerating the radiation well. He had to be re- simulated. KPS 80, some increase in fatigue since starting treatment. Disturbed, unrestful sleep has been a chronic problem for him, a bit worse since starting treatment. He does take a short nap in the afternoonwhich helps. Chronic arthritis, mainly in the knees, is unchanged. He has had no new problems from his atrial fibrillation. He does get occasional palpitations mostly when laying down at night. He tells me that in the past hypomagnesemia has been associated with more arrhythmia. Physical exam: He is in good spirits, in no acute distress Oral exam shows no sign of infection, no visible mucositis. Bulky tongue makes examination difficultand I am unable to see the tonsils. There is no trismus. Neck exam shows again bulky left neck adenopathy, slightly diminished from pretreatment, with a cystic textured focus in the upper aspect. There is no active drainage, but some crusting is visible. Themass is nontender. There is no obvious evidence of cellulitis. The lungs are clear Right chest Mediport is benign Cardiac exam shows atrial fibrillation with reasonable rate control. Abdomen is benign, quiet bowel sounds, no hepatosplenomegaly. Extremities are without edema. Reflexes 1+ Labs: Chemistry panel notable only for magnesium now low at 1.7. Creatinine stable at 1.1 with BUN 22. Hepatic enzymes normal. Albumin has declined slightly at 3.3. White count 6.55, hemoglobin 12.0, platelets 199. Impression: T1N3 nontobacco related tonsil cancer, doing reasonably well on chemoradiation although we had to skip last week's chemotherapy due to diarrhea of uncertain etiology. Diarrhea like this is unusual with this chemo regimen, which more typically causes constipation. Hypomagnesemia likely due to combination of cisplatin effect on the kidney tubules plus her recent bout of diarrhea. Plan: 1. I will add extra magnesium to the intravenous supportive care regimen on the day of chemotherapy and on day for hydration 2. I recommended that he use magnesium oxide 400 mg tablets twice a day. This is available [id number] but I will send in a prescription to see if this might be reimbursed through insurance. 3. We talked about food as medicine philosophy when lack of taste sensation makes eating less attractive. He will be meeting with the cancer center dietitian later today. 4. Follow-up next week. Edwar Perry MD, FACP process assistant Hematology/Oncology Section [facility] [place] [address] Voice recognition software used for this note; please excuse golf caddy errors. I personally reviewed past medical, surgical, family medical histories, reviewed current medications, vital signs, labs, and performed full review of systems. These are documented below the narrative for clarity and succinctness. Outpatient Medications Marked as Taking for the 07/24/21 encounter (Office Visit) with Edwar Perry MD Medication Sig Dispense Refill ??? loperamide (IMODIUM A-D) 2 mg Tablet Take 2 mg by mouth 4 times daily as needed for Diarrhea. Maximum 16 mg in 24 hours ??? prochlorperazine (Compazine) 10 mg Tablet TAKE 1 TABLET BY MOUTH EVERY 6 HOURS NEEDED FOR NAUSEA 30 tablet 3 ??? LORazepam (Ativan) 1 mg Tablet Take [...] times daily. Current Facility-Administered Medications for the 07/24/21 encounter (Office Visit) with Edwar Perry MD Medication Dose Route Frequency Provider Last Rate Last Admin ??? lidocaine (Xylocaine) 4 % (40 mg/mL) solution Topical (Top) Once PRN Tomy Pinto MD ??? lidocaine (Xylocaine) 4 % (40 mg/mL) solution Topical (Top) Once PRN Tomy Pinto MD Review of Systems: Review of systems is negative for other MANAGER IN HOME, bone, pulmonary, cardiac, GI, , extremity, neurologic, endocrine, skin, constitutional, emotional, or functional problems. Vitals Office Visit from 07/24/2021 in Hematology/Oncology at [facility] Weight 147.4 kg (325 lb) Height 176.5 cm (5' 9.49) BSA (Calculated - sq m) 2.69 sq meters BMI (Calculated) 47.32 Temp 36.6 ??C (97.8 ??F) Temp src Temporal Heart Rate 94 Heart Rate Source Right, NIBP Resp 16 BP 131/86 BP Location Right arm Patient Position Sitting SpO2 100 % Karnofsky Score 70 Body surface area is 2.69 meters squared. Wt Readings from Last 3 Encounters: 07/24/21 (!) 147.4 kg (325 lb) 07/19/21 (!) 147.7 kg (325 lb 9.6 oz) 07/18/21 (!) 146.5 kg (323 lb) No results found for this or any previous visit (from the past 72 hour(s)). ++++++++++++++++++++++++++++++++++++++++++++++++++++ documented in this encounter Plan of Treatment Upcoming Encounters Date Type Specialty Care Team Description 03/30/2022 Office Visit Hematology and Oncology Kristan Perry MD [facility] DR ONCOLOGY DEPT. [place], [place] [address] (Wo rk) documented as of this encounter Visit Diagnoses Diagnosis Tonsil cancer Malignant neoplasm of tonsil Hypomagnesemia Disorders of magnesium metabolism documented in this encounter Care Teams Real Estate Operations Manager Relationship Specialty Start Date End Date Ava Morales MD PCP - General Family Medicine 04/04/21 [address] [place] [address] documented as of this encounter
--- OUTSIDE RECORDS SUMMARY | 2022-03-23 07:49 | XMS_ITS | Encounter Summary ---
:1960 Author Organization [facility] [place] [address] Care Team Providers Name Role Phone Ava Morales MD Primary Care Provider Reason for Visit Reason Onset Date Comments Other 06/21/2021 transportation Encounter Details Date Type Department Care Team Description 06/21/2021 Telephone Radiation Oncology at Shasta Garcia [facility] er (transportation) [facility] [address] [facility] OFFICE OF CARE [place], [place] [phone] Social History Tobacco Use [...] Telephone Encounter - Shasta Garcia MSW - 06/21/2021 11:59 AM EDT Informed pt called and cancelled his appointment today. Was informed his ride did not pick him up. TC pt to discuss. Pt reports he did call [employer] to schedule his ride for today. When the company providing the ride did not show up pt called the company dispatcher and was informed the dray driver percy be theresoon but this did not happen. Pt unable to afford to pay a friend to bring him in. Requested pt call [employer] today to tell them what happened and ask a reliable company toprovide future rides. Pt to call to discuss this and to request rides for his next appointments. Asked pt to let me know if he has any issues with this. SW Interventions: Transportation resources documented in this encounter Plan of Treatment Upcoming Encounters Date Type Specialty Care Team Description 03/30/2022 Office Visit Hematology and Oncology Kristan Perry MD [facility] DR ONCOLOGY DEPT. [place], [place] [address] (Wo rk) documented as of this encounter Visit Diagnoses Not on filedocumented in this encounter Care Teams Mechanical Engineering Draftsperson Relationship Specialty Start Date End Date Ava Morales MD PCP - General Family Medicine 04/04/[address] [place] [phone] documented as of this encounter
--- OUTSIDE RECORDS SUMMARY | 2022-03-23 07:49 | XMS_ITS | Encounter Summary ---
:1960 Author Organization [facility] [place] [address] Care Team Providers Name Role Phone Ava Morales MD Primary Care Provider Reason for Visit Reason Comments Chemotherapy Cycle 1 Day 1 Treatment/Therapy Plan Authorization (Routine) - Closed Specialty Diagnoses / Procedures Referred By Contact Refer red To Contact Diagnoses Tonsil cancer Edwar Perry MD [facility] Infusion Procedures TC PALONOSETRON HCL, 25MCG, INJECTION (ALOXI) TC APREPITANT, 1 MG, INJECTION TC CISPLATIN, POWDER OR SOLUTION, 10MG, INJECTION J2469 palonosetron (Aloxi) 0.25 MG J0185 aprepitant (CINVANTI) 130 MG J9060 CISplatin (Platinol) [address] [place] [phone] Fax: Referral ID Status Reason Start Date Expiration Date Visits Requ ested Visits Authorized [id number] Closed 07/10/2021 09/22/2021 99 99 Encounter Details Date Type Department Care Team Description 07/10/2021 Infusion Hematology Oncology at [facility] Tonsil cancer [address] [place] [phone] Social History Tobacco Use Types [...] documented as of this encounter Progress Notes Madelyn Mcguire RN - 07/10/2021 9:30 AM EDT INFUSION THERAPY ADMINISTRATION NOTES DIAGNOSIS: Head and Neck Cancer CYCLE #:1 Day 1 REASON FOR VISIT: Chemotherapy SUBJECTIVE Miriam Anaya offers no complaints. OBJECTIVE LAB DATA: adequate for treatment. Seen by Dr Perry IV ACCESS: Mediport. Previously accessed Pre administration: Chemotherapy orders independently verified for drug name, route, and dosage per patient's height, weight and BSA by MADELYN MCGUIRE, NGUYEN & and pharmacist on site. REACTIONS (DESCRIPTION, TIME, INTERVENTION AND EFFECTIVENESS) none ASSESSMENT Miriam Anaya was awake, alert and tolerated treatment well. Pt. chemo teaching instructions included: During clinic hours (8am-5pm Saturday-Saturday): pt. can call [phone] with questions or concerns. After clinic hours (5pm-8am Saturday-Saturday and weekends) pt can call [phone] and ask for the nurse staff community health/oncologist employee relations representative. Miriam Anaya verbalized understanding of potential chemotherapy side effects and home care including but not limited to- handwashing to prevent infection, signs and symptoms of low blood counts (fever, fatigue, bleeding), to call with a fever of 100.4 or greater, any significant constipation/diarrhea, importance of nutrition and fluid intake (drinking at least 32-64 ounces of non-caffeinated beverages/day), mouth care. Miriam Anaya verbalized understanding of how to take prescription medications given for home use after chemotherapy. Pt has filled prescription for Compazine PLAN Return to clinic per routine. documented in this encounter Plan of Treatment Upcoming Encounters Date Type Specialty Care Team Description 03/30/2022 Office Visit Hematology and Oncology Kristan Perry MD [facility] ONCOLOGY DEPT. [place], [place] [address] (Wo rk) documented as of this encounter Visit Diagnoses Diagnosis Tonsil cancer Malignant neoplasm of tonsil documented in this encounter Administered Medications Inactive Administered Medications - up to 3 most recent administrations Medication Order MAR Action Action Date Dose Rate Site aprepitant (CINVANTI) injection Given 07/10/2021 10:33 AM EDT 13 0 mg Emul 130 mg 130 mg, Intravenous, ONCE, 1 dose, On Sat07/10/21 at 1015, Alternative administration of IV push over 2 minutes is a recommendation from the aluminum boat assembly supervisor. Administer prior to chemotherapy., Routine CISplatin (Platinol) 109 mg in New Bag 07/10/2021 11:05 AM EDT 109 mg 359 mL/hr sodium chloride 0.9% 359 mL infusion 109 mg (rounded from 108.8 mg = 40 mg/m2/dose ? 2.72 m2 Treatment Plan BSA from Recorded weight), Intravenous, ONCE, 1 dose, On Sat07/10/21 at 1115, Administer over 60 Minutes, Warning Vesicant/Irritant Medication dexamethasone (Decadron) tablet 10 mg Given 07/10/2021 10:32 AM EDT 10 mg 10 mg, Oral, ONCE, 1 dose, On Sat07/10/21 at 1015, Administer prior to chemotherapy, Routine heparin (pf) (porcine) (100 units/mL) Given 07/10/2021 12:19 PM EDT 500 Units flush 5 mL syringe 500 Units 500 Units, Intravenous, ONCE PRN, Starting on Sat07/10/21 at 0953, Until Sat07/10/21 at 1817, Line Care, Refer to Intravenous (IV) Procedure: Accessing Implanted Vascular Access Devices (654) procedure and/or Intravenous (IV) Job Aid: Adult Flushing & Catheter Care (1290) job aid for additional information regarding guidelines and administration., Routine palonosetron (Aloxi) (0.05 mg/mL) injection Given 06/23 10:33 AM EDT 0.25 mg 0.25 mg 0.25 mg, Intravenous, ONCE, 1 dose, On Sat07/10/21 at 1015, Administer over 30 seconds. Administer prior to chemotherapy, Routine sodium chloride 0.9 % (flush) (BD PosiFlush Given 06/23 12:19 PM EDT 20 mLs Normal Saline 0.9) flush 5-20 mL 5-20 mL, Intravenous, EVERY 1 MIN PRN, Starting on Sat07/10/21 at 0953, Until Sat07/10/21 at 1817, Line Care, Flush pertains to all indwelling lines. Flush per protocol found in the job aid using the link provided on this medication record. Refer to Intravenous (IV) Job Aid: Adult Flushing & Catheter Care (6018) job aid for additional information regarding guidelines and administration., Routine sodium chloride 0.9% infusion New Bag 07/10/2021 10:03 AM EDT 1,000 mLs 1000 mL/hr 1,000 mL, at 1,000 mL/hr, Intravenous, CONTINUOUS, Starting on Sat07/10/21 at 1015, Until Sat07/10/21 at 1114, Pre-CISplatin sodium chloride 0.9% infusion New Bag 07/10/2021 11:10 AM EDT 500 mLs 500 mL/hr 500 mL, at 500 mL/hr, Intravenous, CONTINUOUS, Starting on Sat07/10/21 at 1215, Until Sat07/10/21 at 1314, Post CISplatin documented in this encounter Care Teams Knit Goods Mender Relationship Specialty Start Date End Date Ava Morales MD PCP - General Family Medicine 04/04/[address] [place] [phone] documented as of this encounter
--- OUTSIDE RECORDS SUMMARY | 2022-03-23 07:49 | XMS_ITS | Encounter Summary ---
:1960 Author Organization [facility] [place] [address] Care Team Providers Name Role Phone Ava Morales MD Primary Care Provider Reason for Visit Reason Onset Date Comments Other 06/12/2021 dental services Encounter Details Date Type Department Care Team Description 06/12/2021 Telephone Hematology/Oncology at [facility] (dental services) [address] OFFICE OF CARE [place], [place]NA[place]EMENT [phone] Social History Tobacco Use [...] Telephone Encounter - [facility] MSW - 06/12/2021 12:23 PM EDT TC message from pt reporting he is able to get into [facility] ([phone]) tomorrow for a visit. TC pt back to discuss. Pt reports this practice does not take his insurance and he understands there will be a cost for this visit. Pt indicated he also left a message with Abbey Krishnan RN, Nurse Navigator re this. documented in this encounter Plan of Treatment Upcoming Encounters Date Type Specialty Care Team Description 03/30/2022 Office Visit Hematology and Oncology Kristan Perry MD [facility] [address] ONCOLOGY DEPT. [place], [place] [address] (Wo rk) documented as of this encounter Visit Diagnoses Not on filedocumented in this encounter Care Teams Railcar Brake Operator Relationship Specialty Start Date End Date Ava Morales MD PCP - General Family Medicine 04/04/[address] [place] [phone] documented as of this encounter
--- OUTSIDE RECORDS SUMMARY | 2022-03-23 07:49 | XMS_ITS | Encounter Summary ---
:1960 Author Organization [facility] [place] [address] Care Team Providers Name Role Phone Ava Morales MD Primary Care Provider Reason for Referral Home Health Care (Routine) - Closed Specialty Diagnoses / Procedures Referred By Contact Refer red To Contact Unknown Specialty Diagnoses Squamous cell carcinoma of palatine tonsil Tomy Pinto MD [facility] D R [place] [address] Referral ID Status Reason Start Date Expiration Date Visits V isits Requested Authorized [id number] Closed Consult, 06/23/2021 12/20/2021 1 1 Test & Treat Encounter Details Date Type Department Care Team Description 06/23/2021 Orders Only Radiation Oncology at [facility] amous cell carcinoma [facility] Mathew RN of palatine tonsil [address] [place] [phone] Social History Tobacco Use Types Packs/Day [...] and Oncology Kristan Perry MD [facility] [address] ONCOLOGY DEPT. [place], [place] [address] (Wo rk) Scheduled Referrals Name Type Priority Associated Diagnoses Order S chedule Referral to Home Outpatient Referral Routine Squamous cell Ord ered: Health - Clinic carcinoma of 06/23/2021 Use palatine tonsil documented as of this encounter Visit Diagnoses Diagnosis Squamous cell carcinoma of palatine tons il Malignant neoplasm of tonsil documented in this encounter Care Teams Lot Associate Relationship Specialty Start Date End Date Ava Morales MD PCP - General Family Medicine 04/04/[address] [place] [phone] documented as of this encounter
--- OUTSIDE RECORDS SUMMARY | 2022-03-23 07:49 | XMS_ITS | Encounter Summary ---
:1960 Author Organization [facility] [place] [address] Care Team Providers Name Role Phone Ava Morales MD Primary Care Provider Reason for Referral Diagnostic Test (Routine) - Closed Specialty Diagnoses / Procedures Referred By Contact Refer red To Contact Radiology Diagnoses Tonsil cancer Edwar Perry MD [facility] Interventionl Rad Procedures IR [facility] [place] [address] [place] [address] Referral ID Status Reason Start Date Expiration Date Visits V isits Requested Authorized [id number] Closed Specialty 06/20/2021 12/18/2022 1 1 Service Requested Reason for Visit Diagnostic Test (Routine) - Closed Specialty Diagnoses / Procedures Referred By Contact Refer red To Contact Radiology Diagnoses Tonsil cancer Edwar Perry MD [facility] Interventionl Rad Procedures IR [facility] [place] [address] [place] [address] Referral ID Status Reason Start Date Expiration Date Visits V isits Requested Authorized [id number] Closed Specialty 06/20/2021 12/18/2022 1 1 Service Requested Encounter Details Date Type Department Care Team Description 06/27/2021 Hospital Encounter Radiology at [facility] Edwar Perry MD Tonsil cancer [facility] [place] [address] [place] [address] ONCOLOGY DEPT. [phone] [place] [address] (Wo rk) Social History Tobacco Use [...] Sign Reading Time Taken Comments Blood Pressure 122/59 06/27/2021 10:45 AM EDT Pulse 91 06/27/2021 10:15 AM EDT Temperature 36.3 ??C (97.3 ??F) 06/27/2021 10:37 AM EDT Respiratory Rate 18 06/27/2021 10:45 AM EDT Oxygen Saturation 96% 06/27/2021 10:45 AM EDT Inhaled Oxygen Concentration - - Weight - - Height - - Body Mass Index - - documented in this encounter Discharge Instructions Discharge InstructionsGiorgi Mcmahon RN - 06/27/2021 10:16 AM EDT Images from the original note were not included. [facility] Department of Vascular and Interventional Radiology Discharge Instructions for your Chest Port You have received a ???Power Port?? , which provides access for infusions and blood draws. What makes this a ???Power Port?? is the unique ability to ???power inject?? contrast (intravenous dye) through the port when getting a CT scan, which produces superior images (pictures). Patients who don???thave these special ports need to have an IV started if they need dye injected for their CT scan. Your port is printed with the letters ???CT?? which can be detected by x- ray to identify it as a ???Power Port?? . You will be provided with an ID card stating the compliance monitor and type of port you have. Please carry this with you in a safe place. Bandage: There is a sterile dressing over the port site consisting of small gauze with a clear dressing (Tegaderm or [id number] ). This dressing should be left in place for 48 hours. If the clear dressing becomes loose you should place tape over the edges to secure it in place. Note: If you have steri-strips beneath your dressing, simply allow them to fall off. Do not peel them off. There may be [place]-ferreira (skin glue) also, allow this to flake off. Pain: Apply ice bag to site (s) at 30 minute intervals (30 minutes on and 30 minutes off) for 24 hours?? . May use as needed for pain and/or bruising after 24 hours. Bathing: Do not take a shower until 48 hours after your port is placed; after this time you may shower with the dressing in place, then remove it and pat your skin dry. After 48 hours, we recommend that you cover the area with THE AQUA GUARD PROVIDED for 1 week while showering, facing away from the shower stream. You may use a bandaid to cover the site after the 48 hours are up if there is any drainage. No tub baths, whirlpools or swimming for one week following port placement. Flushing the mediport: If your port has not been used, it must be flushed every 30 days. What to expect when your port is accessed: 1. You may feel tenderness the first few times it is accessed but generally this subsides over time.Ask your healthcare provider to use a local anesthetic on the site if discomfort is a problem for you. You may ask for a prescription for a topical cream (EMLA) from your clinician; you may apply at home prior to your appointments, to help numb the skin over your port. 2. The clinician should be wearing sterile gloves and a mask during the access procedure. Anyone in the room with you should also have a mask on. 3. The skin over and 2 inches around the port should be cleaned with a disinfectant 4. Tell the clinician if you would like the skin numbed (lidocaine) before the access needle is placed. 5. Unless you are unable to take heparin (blood thinner), the port should be injected with a heparinsolution before deaccess (at end of each treatment or blood draw). When to call your healthcare provider: ??? If you notice bleeding from the puncture site in your neck, or from the port incision on your chest, you should apply firm pressure over the site for 10-15 minutes, keeping the site covered. Call if you are still bleeding after 10-15 minutes. ??? If you develop pain, redness, drainage or swelling at or around the port site, or the puncture site in the neck ??? If you develop fever (elevation of more than 2 degrees or greater than 101F) and/or shaking chills When to call the Interventional Radiology Department: Please call with any questions or concerns. Ifit is during regular office hours, please call [phone]. If it is after regular office hours, oron weekends or holidays, please call [phone] and ask to speak to the Zipper Repairer on callfor Interventional Radiology. XXX You have received medication during your procedure to help lessen anxiety and keep you comfortable. These medications affect judgement and reaction time. We recommend that you do not drive, operateequipment, sign any important documents, or smoke unattended for 24 hours following your procedure. Because of the sedation, be careful on stairs, as you may be unsteady on your feet. You may resume your regular diet as tolerated. IV site -- slight redness, or tenderness is normal, you can use a warm compress. If tenderness and redness increases or foul drainage occurs, please contact your M. D. Revised 07/09/19 documented in this encounter Medications at Time of Discharge Medication Sig Dispensed Refills Start Date End Date traMADoL (Ultram) 50 mg Take 0.5-1 tablets 30 tablet 0 05/25 TabletIndications: Tonsil by mouth as needed. cancer oxyCODONE (Roxicodone) 5 Take 1 tablet by 45 tablet 0 06/07 mg Tablet mouth every 4 hours as needed for Pain. meloxicam (MOBIC) 7.5 mg 2 times daily. 0 021 Tablet acetaminophen (Tylenol) Take 1,000 mg by 0 500 mg Tablet mouth every 6 hours as needed for Pain. metoprolol tartrate Take 75 mg by mouth 0 (Lopressor) 50 mg Tablet 2 times daily. amoxicillin-clavulanate Take 1 tablet by 20 tablet 0 202007/17/2021 (Augmentin) 875-125 mg mouth 2 times Tablet daily. prochlorperazine Take 1 tablet by 30 tablet 3 06/20/2021 (Compazine) 10 mg mouth every 6 hours TabletIndications: Tonsil as needed for cancer, Chemotherapy Nausea. induced nausea and vomiting LORazepam (Ativan) 1 mg Take one pill by 40 tablet 0 202007/26/2021 Tablet mouth a 1/2 hour prior to radiation therapy meloxicam (MOBIC) 15 mg Take 15 mg by mouth 0 07/10/2021 Tablet daily. documented as of this encounter Progress Notes Beverly Ash RN - 06/27/2021 11:59 PM EDT Interventional and Vascular Radiology Post-Procedure Call Name: Faizan Anaya Age: 60 y.o. Sex: Male Date of : 1960 (home) No relevant phone numbers on file. PCP Ava Morales MD [phone] Date/Time of call: June 28, 2021/10:38 AM Procedure: Mediport Placement Procedural Provider: PASHA Urbina Contact with patient or if not, with whom? Message left on answering machine? Yes Are you having pain related to your procedure now? Are you having any swelling or bleeding from the site? Are there any improvement in your symptoms? Are you having any other problems related to your procedure? Did you understand the discharge instructions given and do you have any questions? Do you have any comments about your Nurse or Provider or the care you received? Comments (if applicable): Giorgi Mcmahon RN - 06/27/2021 9:35 AM EDT [facility] NURSING DATABASE Name: FAIZAN ANAYA Date of : 1960 AGE: 60 y.o. Address: [address] [place] [address] (home) Mobile: No relevant phone numbers on file. Referring Provider: Edwar Perry REASON FOR VISIT: Order Questions Answers Where will study be performed? [facility] Radiology [120] Prefered insertion location: Right side Is the patient on anticoagulant / antiplatelet therapy ? No Reason for exam and clinical history: head/neck cancer, need for chemo access Does patient require sedation? IV Please ensure a History and Physical exam is completed within 30 days of the Radiology Procedure [place] rationale: Anxiety/Claustrophobia No Known Allergies Pertinent PMH: Patient Active Problem List Diagnosis Code ??? Neck mass R22.1 ??? Morbid obesity with BMI of 50.0-59.9, adult E66.01, Z68.43 ??? Chronic atrial fibrillation I48.20 ??? Essential hypertension I10 ??? JOHN not on CPAP (though recommended) G47.33 ??? Tonsil cancer C09.9 ??? Claustrophobia F40.240 ??? History of gout Z87.39 Date/Procedure Meds Given/Comments 06/27/2021 Mediport placement Fentanyl 250 mcg IV (Fentanyl only, patient had cream in their coffee this AM) 0929 to procedure room 6 via stretcher. Onto table supine. All monitors, O2, safety strap in place. Meds per protocol. Laboratory Results: Lab Results Component Value Date CREATININE 0.93 04/13/2021 Lab Results Component Value Date K 3.9 04/13/2021 Lab Results Component Value Date PLATELET 307 04/13/2021 documented in this encounter H&P Notes Viktoriya Chandler PA - 06/27/2021 8:37 AM EDT INTERVENTIONAL RADIOLOGY FOCUSED H&P: Procedure: Planned procedure: Mediport placement The patient's history and physical exam have been reviewed and completed. There has been no intervalchange from that of the pre-operative history and physical exam done within the last 30 days. Physical Exam: Cardiovascular: Regular, Normal Pulmonary: Breath sounds clear to auscultation The planned procedure (and sedation plan if appropriate) , its benefits and risks, and alternatives were discussed with the patient. The patient consented to the procedure. PRE-SEDATION ASSESSMENT: Sedation Plan: moderate (conscious sedation) ASA: 2: Patient with mild systemic disease Mallampati: III: only the base of the uvula can be seen Confirm NPO status: Yes History of anesthetic complications: No Current medications reviewed: Yes Allergies reviewed: Yes Source Note - Viktoriya Chandler PA - 06/23/2021 9:36 AM EDT Images from the original note were not included. Interventional Radiology Focused Pre-procedure H&P: PCP: Ava Morales MD Referring Provider: Edwar Perry Planned procedure: Mediport placement Procedure indication: Tonsillar cancer, need for long-term durable venous access for systemic chemotherapy IR workflow: Procedure request received through Interventional Radiology eDH order queue. Order Questions Answers Where will study be performed? [facility] Radiology [120] Prefered insertion location: Right side Is the patient on anticoagulant / antiplatelet therapy ? No Reason for exam and clinical history: head/neck cancer, need for chemo access Does patient require sedation? IV Please ensure a History and Physical exam is completed within 30 days of the Radiology Procedure [place] rationale: Anxiety/Claustrophobia History of Present Illness: Per chart review, Faizan Anaya is a 60 y.o. male with PMH of tonsillar cancer who presents to Interventional Radiology to undergo Mediport placement for systemic chemotherapy. First infusion is scheduled for 06/28/21. Remainder of patient's medical and surgical history, allergies, medications, and social/family history obtained below as previously outlined in patient's medical record. IR History: No prior procedures. Imagin05/25/21 Assessment: 60 y.o. male with tonsillar CA presenting to Interventional Radiology for port placement. Plan Planned procedure: Mediport placement Labs to be performed day of procedure: No labs Sedation: Moderate (Conscious sedation) Prophylactic antibiotic : Ancef Contrast: No contrast Additional medications for procedure: Lidocaine Planned access site: Right IJ vein Position: Supine Consent: Pending Medications to discontinue (and days held): None Cytopathology presence needed: No Case Urgency:: G- Other (non E or F elective cases) Labs: Lab Results Component Value Date HGB 15.0 04/13/2021 HCT 46.0 04/13/2021 WBC 13.4 (H) 04/13/2021 PLATELET 307 04/13/2021 BUN 17 04/13/2021 CREATININE 0.93 04/13/2021 ALBUMIN 4.4 04/13/2021 BILITOT 0.5 04/13/2021 AST 16 04/13/2021 ALT 16 04/13/2021 ALKPHOS 61 04/13/2021 Allergies: Patient has no known allergies. Medications: Current Outpatient Medications on File Prior to Encounter Medication Sig Dispense Refill ??? amoxicillin-clavulanate (Augmentin) 875-125 mg Tablet Take 1 tablet by mouth 2 times daily. 20 tablet 0 ??? traMADoL (Ultram) 50 mg Tablet Take 0.5-1 tablets by mouth as needed. 30 tablet 0 ??? prochlorperazine (Compazine) 10 mg Tablet Take 1 tablet by mouth every 6 hours as needed for Nausea. 30 tablet 3 ??? LORazepam (Ativan) 1 mg Tablet Take one pill by mouth a 1/2 hour prior to radiation therapy (Patient not taking: Reported on 06/15/2021) 40 tablet 0 ??? oxyCODONE (Roxicodone) 5 mg Tablet Take 1 tablet by mouth every 4 hours as needed for Pain. (Patient not taking: Reported on 06/15/2021) 45 tablet 0 ??? meloxicam (MOBIC) 7.5 mg Tablet 2 times daily. ??? acetaminophen (Tylenol) 500 mg Tablet Take 1,000 mg by mouth every 6 hours as needed for Pain. ??? metoprolol tartrate (Lopressor) 50 mg Tablet Take 50 mg by mouth 2 times daily. ??? meloxicam (MOBIC) 15 mg Tablet Take 15 mg by mouth daily. Current Facility-Administered Medications on File Prior to Encounter Medication Dose Route Frequency Provider Last Rate Last Admin ??? lidocaine (Xylocaine) 4 % (40 mg/mL) solution Topical (Top) Once PRN Tomy Pinto MD ??? iohexoL (Omnipaque) (300 mg/mL) injection solution 100 mL 100 mL Intravenous Once PRN Tomy Pinto MD Past Medical/Surgical history: Patient Active Problem List Diagnosis Code ??? Neck mass R22.1 ??? Morbid obesity with BMI of 50.0-59.9, adult E66.01, Z68.43 ??? Chronic atrial fibrillation I48.20 ??? Essential hypertension I10 ??? JOHN not on CPAP (though recommended) G47.33 ??? Tonsil cancer C09.9 ??? Claustrophobia F40.240 ??? History of gout Z87.39 Past Medical History: Diagnosis Date ??? Essential hypertension 04/12/2021 ??? JOHN not on CPAP (though recommended) 04/12/2021 Past Surgical History: Procedure Laterality Date ??? PRO BX/REMV, LYMPH NODE, DEEP CERV Left 05/19/2021 BIOPSY OR EXCISION OF LYMPH NODE(S), OPEN, DEEP CERVICAL NODES (WRVU 6.74) performed by River Cordoba MD at [facility] MAIN OR ??? PRO LARYNGOSCOPY, DIRCT, OP SCOPE, BIOPSY Left 05/19/2021 LARYNGOSCOPY, MICROSCOPE, WITH BIOPSY (WRVU 3.55) performed by River Cordoba MD at [facility] MAIN OR ??? PRO OTOLARYNGOLOGIC EXAM UNDER GENERAL ANESTHESIA Midline 05/19/2021 OTOLARYNGOLOGIC EXAM UNDER ANESTHESIA (WRVU 1.51) performed by River Cordoba MD at [facility] MAIN OR Social History and Habits: Social History Tobacco Use ??? Smoking status: Never Smoker ??? Smokeless tobacco: Never Used Vaping Use ??? Vaping Use: Never used Substance Use Topics ??? Alcohol use: Not Currently ??? Drug use: Not on file Significant Family History: No family history on file. Pertinent ROS: as per HPI Physical Exam: Pending (to be performed in IR the day of procedure) ASA: Pending (to be assessed in IR the day of procedure) Mallampati class: Pending (to be assessed in IR the day of procedure) 06/23/2021 Viktoriya Chandler PA-C Viktoriya Chandler PA - 06/23/2021 9:36 AM EDT Images from the original note were not included. Interventional Radiology Focused Pre-procedure H&P: PCP: Ava Morales MD Referring Provider: Edwar Perry Planned procedure: Mediport placement Procedure indication: Tonsillar cancer, need for long-term durable venous access for systemic chemotherapy IR workflow: Procedure request received through Interventional Radiology eDH order queue. Order Questions Answers Where will study be performed? [facility] Radiology [120] Prefered insertion location: Right side Is the patient on anticoagulant / antiplatelet therapy ? No Reason for exam and clinical history: head/neck cancer, need for chemo access Does patient require sedation? IV Please ensure a History and Physical exam is completed within 30 days of the Radiology Procedure [place] rationale: Anxiety/Claustrophobia History of Present Illness: Per chart review, Faizan Anaya is a 60 y.o. male with PMH of tonsillar cancer who presents to Interventional Radiology to undergo Mediport placement for systemic chemotherapy. First infusion is scheduled for 06/28/21. Remainder of patient's medical and surgical history, allergies, medications, and social/family history obtained below as previously outlined in patient's medical record. IR History: No prior procedures. Imagin05/25/21 Assessment: 60 y.o. male with tonsillar CA presenting to Interventional Radiology for port placement. Plan Planned procedure: Mediport placement Labs to be performed day of procedure: No labs Sedation: Moderate (Conscious sedation) Prophylactic antibiotic : Ancef Contrast: No contrast Additional medications for procedure: Lidocaine Planned access site: Right IJ vein Position: Supine Consent: Pending Medications to discontinue (and days held): None Cytopathology presence needed: No Case Urgency:: G- Other (non E or F elective cases) Labs: Lab Results Component Value Date HGB 15.0 04/13/2021 HCT 46.0 04/13/2021 WBC 13.4 (H) 04/13/2021 PLATELET 307 04/13/2021 BUN 17 04/13/2021 CREATININE 0.93 04/13/2021 ALBUMIN 4.4 04/13/2021 BILITOT 0.5 04/13/2021 AST 16 04/13/2021 ALT 16 04/13/2021 ALKPHOS 61 04/13/2021 Allergies: Patient has no known allergies. Medications: Current Outpatient Medications on File Prior to Encounter Medication Sig Dispense Refill ??? amoxicillin-clavulanate (Augmentin) 875-125 mg Tablet Take 1 tablet by mouth 2 times daily. 20 tablet 0 ??? traMADoL (Ultram) 50 mg Tablet Take 0.5-1 tablets by mouth as needed. 30 tablet 0 ??? prochlorperazine (Compazine) 10 mg Tablet Take 1 tablet by mouth every 6 hours as needed for Nausea. 30 tablet 3 ??? LORazepam (Ativan) 1 mg Tablet Take one pill by mouth a 1/2 hour prior to radiation therapy (Patient not taking: Reported on 06/15/2021) 40 tablet 0 ??? oxyCODONE (Roxicodone) 5 mg Tablet Take 1 tablet by mouth every 4 hours as needed for Pain. (Patient not taking: Reported on 06/15/2021) 45 tablet 0 ??? meloxicam (MOBIC) 7.5 mg Tablet 2 times daily. ??? acetaminophen (Tylenol) 500 mg Tablet Take 1,000 mg by mouth every 6 hours as needed for Pain. ??? metoprolol tartrate (Lopressor) 50 mg Tablet Take 50 mg by mouth 2 times daily. ??? meloxicam (MOBIC) 15 mg Tablet Take 15 mg by mouth daily. Current Facility-Administered Medications on File Prior to Encounter Medication Dose Route Frequency Provider Last Rate Last Admin ??? lidocaine (Xylocaine) 4 % (40 mg/mL) solution Topical (Top) Once PRN Tomy Pinto MD ??? iohexoL (Omnipaque) (300 mg/mL) injection solution 100 mL 100 mL Intravenous Once PRN Tomy Pinto MD Past Medical/Surgical history: Patient Active Problem List Diagnosis Code ??? Neck mass R22.1 ??? Morbid obesity with BMI of 50.0-59.9, adult E66.01, Z68.43 ??? Chronic atrial fibrillation I48.20 ??? Essential hypertension I10 ??? JOHN not on CPAP (though recommended) G47.33 ??? Tonsil cancer C09.9 ??? Claustrophobia F40.240 ??? History of gout Z87.39 Past Medical History: Diagnosis Date ??? Essential hypertension 04/12/2021 ??? JOHN not on CPAP (though recommended) 04/12/2021 Past Surgical History: Procedure Laterality Date ??? PRO BX/REMV, LYMPH NODE, DEEP CERV Left 05/19/2021 BIOPSY OR EXCISION OF LYMPH NODE(S), OPEN, DEEP CERVICAL NODES (WRVU 6.74) performed by River Cordoba MD at [facility] MAIN OR ??? PRO LARYNGOSCOPY, DIRCT, OP SCOPE, BIOPSY Left 05/19/2021 LARYNGOSCOPY, MICROSCOPE, WITH BIOPSY (WRVU 3.55) performed by River Cordoba MD at [facility] MAIN OR ??? PRO OTOLARYNGOLOGIC EXAM UNDER GENERAL ANESTHESIA Midline 05/19/2021 OTOLARYNGOLOGIC EXAM UNDER ANESTHESIA (WRVU 1.51) performed by River Cordoba MD at [facility] OR Social History and Habits: Social History Tobacco Use ??? Smoking status: Never Smoker ??? Smokeless tobacco: Never Used Vaping Use ??? Vaping Use: Never used Substance Use Topics ??? Alcohol use: Not Currently ??? Drug use: Not on file Significant Family History: No family history on file. Pertinent ROS: as per HPI Physical Exam: Pending (to be performed in IR the day of procedure) ASA: Pending (to be assessed in IR the day of procedure) Mallampati class: Pending (to be assessed in IR the day of procedure) 06/23/2021 Viktoriya Chandler PA-C documented in this encounter Plan of Treatment Upcoming Encounters Date Type Specialty Care Team Description 03/30/2022 Office Visit Hematology and Oncology Kristan Perry MD [facility] [address] ONCOLOGY DEPT. [place], [place] [address] (Wo rk) documented as of this encounter Procedures Procedure Name Priority Date/Time Associated Diagnosis Comme nts IR MEDIPORT Routine 06/27/2021 10:35 AM Tonsil cancer Results for this PLACEMENT EDT procedure are i n the results section. documented in this encounter Results IR Mediport Placement (06/27/2021 [...] MAR Action Action Date Dose Rate Site ceFAZolin (Ancef) 3 g in New Bag 06/27/2021 10:10 AM EDT 3 g 218 mL/hr dextrose 5% 109 mL infusion 3 g, Intravenous, ONCE, 1 dose, On Sat06/27/21 at 0930, Administer over 30 Minutes, Redose every 3 hours if CrCl is greater than 20. Redose every 8 hours if CrCl is less than 20., Angio/IR (Day of Procedure), Indication for (Active or Suspected): Prophylaxis fentaNYL (pf) (50 mcg/mL) multi-dose Given 06/27/2021 10:13 AM E DT 50 mcg injection 25-50 mcg 25-50 mcg, Intravenous, EVERY 3 MIN PRN, Starting on Sat06/27/21 at 0906, Until Sat06/27/21 at 1051, Pain, per unit protocol, - Start dose 50 mcg (reduce dose to 25 mcg if history of sedation sensitivity). - Titration dose 25-50 mcg IV, (based on patient response) every 3 minutes PRN, to maintain procedural pain less than 2 per pain Scale. Maximum dose: 50 mcg/dose, 250 mcg/hour For use in Interventional Radiology (IR) only for procedural sedation with direct provider supervision and verbal order., Angio/IR (Day of Procedure), Routine Given 06/27/2021 10:06 AM EDT 50 mcg Given 06/27/2021 9:59 AM EDT 50 mcg lidocaine (Xylocaine) 1% (10 mg/mL) injection Given 9:53 AM EDT 10 mg 10 mg 10 mg, Subcutaneous, ONCE, 1 dose, On Sat06/27/21 at 0930, For use in Interventional Radiology (IR) only for procedure with direct provider supervision and verbal order., Angio/IR (Day of Procedure), Routine lidocaine-EPINEPHrine (1% - 1:100,000) Given 06/27/2021 9:54 AM EDT 50 mLs injection 50 mL 50 mL, Intradermal, ONCE, 1 dose, On Sat06/27/21 at 0930, For use in Interventional Radiology (IR) only for Radiofrequency Ablation of Saphenous Vein procedure with direct provider supervision and verbal order., Angio/IR (Day of Procedure), Routine sodium chloride 0.9 % (flush) (BD PosiFlush Given 06/27/2021 9:3 4 AM EDT 5 mLs Normal Saline 0.9) flush 5 mL 5 mL, Intravenous, 2 TIMES DAILY, First dose on Sat06/27/21 at 0930, Until Discontinued, Angio/IR (Day of Procedure), Routine documented in this encounter Care Teams Assessment Nurse Relationship Specialty Start Date End Date Ava Morales MD PCP - General Family Medicine 04/04/21 [address] [place] [address] documented as of this encounter
--- OUTSIDE RECORDS SUMMARY | 2022-03-23 07:49 | XMS_ITS | Encounter Summary ---
:1960 Author Organization [facility] [place] [address] Care Team Providers Name Role Phone Ava Morales MD Primary Care Provider Encounter Details Date Type Department Care Team Description 2021 [facility] [address] HEMATOLOGY AND ONCOLOGY [place], [place] [phone] [place] [address] [phone] (Wo rk) Social History Tobacco Use Types [...] Telephone Encounter - Leslie Rendon RD - 2021 3:02 PM EDT Nutrition Follow-Up Patient unable to come to clinic for planned appointment with Dr. Perry and chemotherapy today due to diarrhea which began on Monday 07/16. Diarrhea worsened throughout the day on Saturday and was aggravated by everything he tried to eat and drink. Patient reports diarrhea has improved somewhat today. He has been drinking water, spicy V8 juice, 1/2 cup coffee, stuffed cabbage, beans, and egg and sausage so far today (small amounts of each). 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 He reports he has trouble keeping various types of bandages on it. Encouraged patient to stay well hydrated, especially with diarrhea. Encouraged water, diluted Gatorade or Pedialyte. He has not obtained Imodium yet, as suggested by Dr. Perry. Encouraged small, frequent PO intake of solids with more bland foods (gave examples of white rice, toast, pasta, applesauce, ripe banana) and avoiding spicy foods, fresh fruits and vegetables, whole grains to help control diarrhea. Will see him on 07/21. documented in this encounter Plan of Treatment Upcoming Encounters Date Type Specialty Care Team Description 03/30/2022 Office Visit Hematology and Oncology Kristan Perry MD [facility] DR ONCOLOGY DEPT. [place], [place] [address] (Wo rk) documented as of this encounter Visit Diagnoses Not on filedocumented in this encounter Care Teams Director Of Market Intelligence Relationship Specialty Start Date End Date Ava Morales MD PCP - General Family Medicine 04/04/[address] [place] [phone] documented as of this encounter
--- OUTSIDE RECORDS SUMMARY | 2022-03-23 07:49 | XMS_ITS | Encounter Summary ---
:1960 Author Organization [facility] [place] [address] Care Team Providers Name Role Phone Ava Morales MD Primary Care Provider Encounter Details Date Type Department Care Team Description 06/22/2021 Orders Only Radiation Oncology a t [facility] Tomy Pinto MD [facility] [place] [phone] RADIATION ONCOLOGY [phone] [place], [place] [address] (Wo rk) Social History Tobacco [...] Visit Hematology and Oncology Kristan Perry MD [facility] [place], [place] [address] (Wo rk) documented as of this encounter Visit Diagnoses Not on filedocumented in this encounter Care Teams Marketing Operations Analyst Relationship Specialty Start Date End Date Aav Morales MD PCP - General Family Medicine 04/04/[address] [place] [phone] documented as of this encounter
--- OUTSIDE RECORDS SUMMARY | 2022-03-23 07:49 | XMS_ITS | Encounter Summary ---
:1960 Author Organization [facility] Address [facility] [address] [place] [address] Care Team Providers Name Role Phone Ava Morales MD Primary Care Provider Reason for Visit Reason Comments Medication Refill Encounter Details Date Type Department Care Team Description 07/10/2021 Refill Hematology/Oncology at [facility] joana Kulkarni MD Tonsil cancer; [facility] Chemotherapy induced nausea and vomiting [address] [place], [place] ONCOLOGY DEPT. [address] [place] [address] [phone] (Wo rk) Social History Tobacco Use Types [...] Kristan Perry MD [facility] DR ONCOLOGY DEPT. [place], [place] [address] (Wo rk) documented as of this encounter Visit Diagnoses Diagnosis Tonsil cancer Malignant neoplasm of tonsil Chemotherapy induced nausea and vomiting Nausea with vomiting documented in this encounter Care Teams Senior Electrical Project Manager Relationship Specialty Start Date End Date Ava Morales MD PCP - General Family Medicine 04/04/[address] [place] [phone] documented as of this encounter
--- OUTSIDE RECORDS SUMMARY | 2022-03-23 07:49 | XMS_ITS | Encounter Summary ---
:1960 Author Organization [facility] [place] [address] Care Team Providers Name Role Phone Ava Morales MD Primary Care Provider Reason for Visit Reason Comments Other Hydration Treatment/Therapy Plan Authorization (Routine) - Closed Specialty Diagnoses / Procedures Referred By Contact Refer red To Contact Diagnoses Tonsil cancer Edwar Perry MD [facility] Infusion Procedures TC PALONOSETRON HCL, 25MCG, INJECTION (ALOXI) TC APREPITANT, 1 MG, INJECTION TC CISPLATIN, POWDER OR SOLUTION, 10MG, INJECTION J2469 palonosetron (Aloxi) 0.25 MG J0185 aprepitant (CINVANTI) 130 MG J9060 CISplatin (Platinol) 109 MG [facility] [address] [place] [address] [place] [phone] Fax: Referral ID Status Reason Start Date Expiration Date Visits Requ ested Visits Authorized [id number] Closed 07/10/2021 09/22/2021 99 99 Encounter Details Date Type Department Care Team Description 07/18/2021 Infusion Hematology Oncology at [facility] Tonsil cancer [address] [place] [phone] Social History Tobacco Use Types [...] Sign Reading Time Taken Comments Blood Pressure 137/90 07/18/2021 12:57 PM EDT Pulse 62 07/18/2021 12:57 PM EDT Temperature 36.2 ??C (97.1 ??F) 07/18/2021 12:57 PM EDT Respiratory Rate 20 07/18/2021 12:57 PM EDT Oxygen Saturation 98% 07/18/2021 12:57 PM EDT Inhaled Oxygen Concentration - - Weight 146.5 kg (323 lb) 07/18/2021 12:57 PM EDT Height 176.5 cm (5' 9.49) 07/18/2021 12:57 PM EDT Body Mass Index 47.03 07/18/2021 12:57 PM EDT documented in this encounter Progress Notes Mary August RN - 07/18/2021 1:00 PM EDT INFUSION THERAPY ADMINISTRATION NOTES DIAGNOSIS: Tonsil cancer REASON FOR VISIT: Hydration SUBJECTIVE Miriam Anaay offers no complaints. Reports that diarrhea has [...] Visit Hematology and Oncology Kristan Perry MD [facility] DR ONCOLOGY DEPT. [place], [place] [address] (Wo rk) documented as of this encounter Visit Diagnoses Diagnosis Tonsil cancer Malignant neoplasm of tonsil documented in this encounter Administered Medications Inactive Administered Medications - up to 3 most recent administrations Medication Order MAR Action Action Date Dose Rate Site sodium chloride 0.9% New Bag 07/18/2021 1:21 PM EDT 1,000 mLs 100 0 mL/hr infusion 1,000 mL (1 L), at 1,000 mL/hr, Intravenous, ONCE, 1 dose, On Sat07/18/21 at 1315 documented in this encounter Care Teams Instrument Technician Apprentice Relationship Specialty Start Date End Date Ava Morales MD PCP - General Family Medicine 04/04/[address] [place] [phone] documented as of this encounter
--- OUTSIDE RECORDS SUMMARY | 2022-03-23 07:49 | XMS_ITS | Encounter Summary ---
:1960 Author Organization [facility] [place] [address] Care Team Providers Name Role Phone Ava Morales MD Primary Care Provider Reason for Visit Consultation (Routine) - Closed Specialty Diagnoses / Procedures Referred By Contact Refer red To Contact Radiation Oncology Diagnoses Squamous cell carcinoma of palatine tonsil Tomy Pinto MD [facility] Rad Onc Office Procedures Re-simulation for Radiation Therapy Planning [facility] [address] [place] [address] [place] [phone] Fax: Referral ID Status Reason Start Date Expiration Date Visits V isits Requested Authorized [id number] Closed Consult, 07/26/2021 07/26/2022 1 1 Test & Treat Encounter Details Date Type Department Care Team Description 07/26/2021 Ancillary Radiation Oncology Tomy Pinto cell Appointment at St Neptali Bowers MD carcinoma of [address] [place] [address] MEDICAL palatine tonsil [place], [place] CENTER [address] RADIATION [phone] [place] [address] Social History Tobacco Use Types Packs/Day Years [...] encounter Progress Notes Lydia Allison RN - 07/26/2021 10:15 AM EDT Section of Radiation Oncology Contrast Information Safety Questions 1. Has the patient ever had an x-ray study before which involved injection of a contrast agent or x-ray dye? yes If yes, did the patient have any reaction to the injection? no If yes, please describe the reaction: n/a 2. Is the patient allergic to any foods, medicines, or other substances? no No Known Allergies 3. Has the patient received any contrast within the past 24 hours? no 4. Does the patient have any procedures scheduled in the next 24 hours? no 5. Does the patient have a history of renal/kidney problems or kidney surgery? no 6. Does the patient have diabetes? no 7. Does the patient have high blood pressure? yes 8. Is the patient currently being treated for gout? no 9. If the answer to any of the questions #5-8 was yes, has the patient had a creatinine level and eGFR drawn within the past 45 days? yes Lab Results Component Value Date CREATININE 0.93 04/13/2021 If no, when will it be drawn? 07/24/21 creatinine 1.1 A creatinine less than or equal to [...] Kombiglyze, Metaglip, PrandiMet, Glugophage, Glumetza, Riomet, Metformin) no If yes, when was last dose taken? n/a 9. If patient is on any of the medications in question #10, consult with the ordering provider if the patient needs to stop the medication and if they will require further lab studies. Lydia Allison RN - 07/26/2021 10:[address] Contrast Simulation Nursing Note: Miriam Anaya [id number] 12/18/1986 IV ACCESS: Mediport GAUGE: Please see infusion note for details BLOOD RETURN: yes CT simulation of: Head and neck MD present for contrast injection: Dr. Pinto, Dr. 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 His port was accessed in anticipation of contrast administration. The patient was then brought to the simulation room and a time-out was performed per protocol. he was then placed on the simulation table and a custom cushion was constructed for his neck. The extent of the exophytic tumor was marked with radio-opaque markers, and bolus was placed under physician supervision. A customaquaplast mask was then created. The simulation CT scan was performed with contrast, images were reviewed and approved by the physician, and tattoos were created by the therapy staff as indicated. The patient tolerated the procedure without difficulty, and will continue on current radiotherapy plan until new adaptive plan is ready. Attending Statement: I saw the patient with Dr. Reeves and agree with the assessment as stated. -Tomy Pinto MD, PhD documented in this encounter Plan of Treatment Upcoming Encounters Date Type Specialty Care Team Description 03/30/2022 Office Visit Hematology and Oncology Kristan Perry MD [facility] DR ONCOLOGY DEPT. 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
--- OUTSIDE RECORDS SUMMARY | 2022-03-23 07:49 | XMS_ITS | Encounter Summary ---
:1960 Author Organization [facility] [address] Care Team Providers Name Role Phone Ava Morales MD Primary Care Provider Reason for Visit Reason Onset Date Comments Other 06/08/2021 dental resources Encounter Details Date Type Department Care Team Description 06/08/2021 Telephone Radiation Oncology at [facility] (dental [facility] resources) [address] OFFICE OF CARE [place], [place] MANAGEMENT [phone] Social History Tobacco Use [...] Telephone Encounter - Shasta Garcia MSW - 06/08/2021 8:45 AM EDT Request from Dr. Pinto and Abbey Krishnan, RN, Nurse Navigator to reach out to pt re getting a dental exam. TC pt re this. Pt reports he did call [facility] [phone] yesterday andwas given an appointment for 07-18-21. He asked to be put on their wait list for a sooner appointment. Pt did indicate he would be willing to travel for a sooner dental appointment if needed. Updated Ms. Krishnan re this and asked if she had any other suggestions for another dental practice that percy take pt's insurance. SW Interventions: Community Resource: dental documented in this encounter Plan of Treatment Upcoming Encounters Date Type Specialty Care Team Description 03/30/2022 Office Visit Hematology and Oncology Kristan Perry MD [facility] DR ONCOLOGY DEPT. [place], [place] [address] (Wo rk) documented as of this encounter Visit Diagnoses Not on filedocumented in this encounter Care Teams Ct Scan Special Procedures Technologist Relationship Specialty Start Date End Date Ava Morales MD PCP - General Family Medicine 04/04/[address] [place] [phone] documented as of this encounter
--- OUTSIDE RECORDS SUMMARY | 2022-03-23 07:49 | XMS_ITS | Encounter Summary ---
:1960 Author Organization [facility] [place] [address] Care Team Providers Name Role Phone Ava Morales MD Primary Care Provider Encounter Details Date Type Department Care Team Description 07/07[facility]20[facility] [address] [phone] Social History Tobacco Use [...] Visit Hematology and Oncology Kristan Perry MD [facility] DR ONCOLOGY DEPT. [place], [place] [address] (Wo rk) documented as of this encounter Visit Diagnoses Not on filedocumented in this encounter Care Teams Lace Machine Operator Relationship Specialty Start Date End Date Ava Morales MD PCP - General Family Medicine 04/04/21 [address] [place] [phone] documented as of this encounter
--- OUTSIDE RECORDS SUMMARY | 2022-03-23 07:49 | XMS_ITS | Encounter Summary ---
:1960 Author Organization [facility] [place] [address] Care Team Providers Name Role Phone Ava Morales MD Primary Care Provider Reason for Visit Consultation (Routine) - Pending Review Specialty Diagnoses / Procedures Referred By Contact Refer red To Contact Radiation Oncology Diagnoses Squamous cell carcinoma of palatine tonsil Tomy Pinto MD [facility] Rad Onc Office Procedures Simulation for Radiation Therapy Planning [facility] [address] [place] [address] [place] [phone] Fax: Referral ID Status Reason Start Expiration Visits Visits Date Date Requested Authorized [id number] Pending Consult, 06/14/2021 06/14/2022 36 36 Review Test & Treat Encounter Details Date Type Department Care Team Description 06/28/2021 Ancillary Radiation Oncology Tomy Pinto cell Appointment at [facility] Neptali Bowers MD carcinoma of [address] [place] [address] MEDICAL palatine tonsil [place], [place] CENTER [address] RADIATION [phone] [place] [address] Social History Tobacco Use Types Packs/Day Years [...] Sign Reading Time Taken Comments Blood Pressure 144/81 06/28/2021 1:45 PM EDT Pulse 94 06/28/2021 1:45 PM EDT Temperature 36 ??C (96.8 ??F) 06/28/2021 1:45 PM EDT with fl ip flops Respiratory Rate 20 06/28/2021 1:45 PM EDT Oxygen Saturation 98% 06/28/2021 1:45 PM EDT Inhaled Oxygen Concentration - - Weight 157.4 kg (347 lb) 06/28/2021 1:45 PM EDT Height - - Body Mass Index 50.53 06/19/2021 1:56 PM EDT documented in this encounter Patient Instructions Patient InstructionsLydia Allison RN - 06/28/2021 2:30 PM EDT General instructions for Radiation therapy Radiation Oncology Team ?? Radiation Oncologist -The doctor who will direct all aspects of your radiation treatments ?? Nurse Practitioner - They assist your doctor in treating your side effects and with follow up appointments. ?? Registered Nurse - They adrienne you in learining about you radaiton treatments, , and things you can do to help manage the side effects. ?? Biophysics Teacher - They take the doctors radiation prescription and customize it into doses (or days of treatments) specific for you. ?? Physicist - They make sure all the machines are operating correctly and double check calculationsfor your treatment. ?? Radiation Technologists - They operate the machines which deliver your radiation. You see them daily and they schedule your treatments. ?? Simulation CT/ Planning Session- Your first step after deciding to start radiation treatments is done on a special CT scanner in radiation oncolcgy. The images obtained are used to plan your treatments. This may be scheduled the sameday you meet your doctor or in a separate visit. This usually takes between 30 minutes to one hour. You may need an IV for contrast. If so our nurse will let you know that day along with any other special instructions. During this visit we may helene Your skin with a tiny ???tattoos?? , take pictures ormake special molds or masks to help us place you in the exact treatment position every day. After this session it takes up to two weeks for your plan to be developed and checked by your doctor, the dosimetrists and the physicist. ?? Skin Care - Your nurse/physician will provide you with the necessary creams and supplies as you need them during your treatments. Please make sure to keep the treatment area clean and dry. Be sure to notice if your clothing rubs or digs into the treatment area and try to wear clothes which are less abrasive, like cotton or loosefitting. Do not use harsh soaps, ointments, deodorants or tapes in the treatment area unless directed by your nurse or doctor. Keep the treatment area out of the sun during treatments. ?? General precautions- DO NOT USE heating pads, hot water bottles, hot poultices, heat lamps, heat in any form, or ice packs to the area of your body being treated. It is common to start feeling fatigue after a few weeks of being treated. You can help minimize this by getting regular exercise or walking and getting plenty of rest. In general a well balanced diet is recommended. The outer diameter technician and nurse will inform you of any special diet requirements. Avoid shaving the treatment area with a razor. If you must shave use an electric razor. Our Contact numbers Section of Radiation Oncology Our normal business hours are: Saturday - Saturday: 8:00 AM to 5:00 PM [facility]: [facility]: If you have questions about your radiation appointments please ask to speak to one of our medical secretary staff. If you have questions for a nurse/doctor about radiation treatments, radiation side effects or you are not feeling well it is best to call early in the day. This allows a nurse to return your call by 5PM the same day. If you call after 4 PM, a nurse will return your call by 5 PM the following day unless it is emergent. If you experience any of the following you need to seek emergency care immediately by calling 911 1. Sudden and unexpected breathing difficulty without any exertion 2. Sudden onset of chest pain 3. Sudden onset of severe pain or uncontrolled pain 4. Sudden onset of severe weakness and/or unable to ambulate 5. Sudden new onset of a seizure 6. Fall resulting in injury ?? A Radiation Oncology doctor is frontend engineer after our normal hours and on weekends. ?? To call for urgent medical issues from radiation treatments that can not wait until normal business hours: ?? Call for either location and have the welder operator page the Radiation Oncologist frontend engineer. documented in this encounter Progress Notes Lydia Allison RN - 06/28/2021 2:30 PM EDT Section of Radiation Oncology Contrast Information Safety Questions 1. Has the patient ever had an x-ray study before which involved injection of a contrast agent or x-ray dye? yes If yes, did the patient have any reaction to the injection? No If yes, please describe the reaction: n/a [...] If no, when will it be drawn? Drawn 06/19/21- Creatinine 1.0 EGFR >=60 A creatinine less than or equal to [...] further lab studies. Lydia Allison RN - 06/28/2021 2:[address] Contrast Simulation Nursing Note: Miriam Anaya [id number] 12/18/1986 IV ACCESS: Power port. GAUGE: Please see infusion note from today. BLOOD RETURN: yes CT simulation of: Head and neck MD present for contrast injection: Dr. Pinto Contrast material: Omnipaque 300mgI/ml Volume of Contrast Injected: 100 ml's Volume of Contrast wasted: 0ml's Procedure done in Radiation Oncology CT Simulator Room __: No Reaction Any S/Sx of Infiltration/Extravasation:no IV discontinued: please see infusion note __: Reaction: Specify : none Comments: none Tomy Pinto MD - 06/28/2021 2:30 PM EDT Images from the original note were not included. Radiation Oncology Follow Up Patient Visit PATIENT NAME: Miriam Anaya DATE OF : 1960 HISTORY OF PRESENT ILLNESS Miriam Anaya is a 60 y.o. male who is seen in follow up in the section of Radiation Oncology at [facility] regarding his HN cancer ONCOLOGIC HISTORY [...] within the chest. Other Pertinent Issues: None Interval History: he has noted increased drainage over the past few weeks, and was placed on Augmentin (which he is still taking) for concern regarding an underlying infectious process associated with his asha progression. ECOG PS: 2 Grade ECOG PERFORMANCE STATUS [...] confined to bed or chair EXAM Vitals: 06/28/21 1345 BP: 144/81 Patient Position: Sitting Pulse: 94 Resp: 20 Temp: 36 ??C (96.8 ??F) TempSrc: Temporal SpO2: 98% Weight: (!) 157.4 kg (347 lb) Physical Exam Constitutional: Appearance: He is well-developed. HENT: Mouth/Throat: Comments: Visual inspection of OC and OP revealed no evidence of suspicious masses or lesions, but due to body habitus visualization of posterior OP was challenging. Palpation revealed no suspicious masses and no induration along the posterior tongue. Moisture good. Eyes: Pupils: Pupils are equal, round, and reactive to light. Neck: Comments: Palpation reveals a fixed mass spanning levels II-IV in the left neck, with associated skin erythema and an ~ 3 cm area of skin breakdown. Otherwise no adenopathy in cervical, SCLV, ICLV asha basins. Cardiovascular: Rate and Rhythm: Normal rate. Pulmonary: Effort: Pulmonary effort is normal. Breath sounds: Normal breath sounds. Skin: Findings: No erythema. Neurological: Mental Status: He is alert and oriented to person, place, and time. Cranial Nerves: No cranial nerve deficit. Psychiatric: Behavior: Behavior normal. PROCEDURE Flexible laryngoscopy was performed. The right naris was anesthetized with aerosolized lidocaine, and the laryngoscope was passed without difficulty. The nasopharynx was visualized and was without masses or lesions. The oropharynx, larynx, and piriform sinuses were visualized; no clear mass was evident excepting fullness / asymmetry L > R. The vocal cords apposed without difficulty. HISTORY Allergies as of 06/28/2021 ??? (No Known Allergies) Past Medical History: Diagnosis Date ??? Essential hypertension 04/12/2021 ??? JOHN not on CPAP (though recommended) 04/12/2021 Past Surgical History: Procedure Laterality Date ??? IR MEDIPORT PLACEMENT 06/27/2021 IR Mediport Placement 06/27/2021 Cyril Ram PA [facility] INTERVENTIONL RAD ??? PRO BX/REMV, LYMPH NODE, DEEP CERV Left 05/19/2021 BIOPSY OR EXCISION OF LYMPH NODE(S), OPEN, DEEP CERVICAL NODES (WRVU 6.74) performed by River Cordoba MD at [facility] MAIN OR ??? PRO LARYNGOSCOPY, DIRCT, OP SCOPE, BIOPSY Left 05/19/2021 LARYNGOSCOPY, MICROSCOPE, WITH BIOPSY (WRVU 3.55) performed by River Cordoba MD at [facility] MAIN OR ??? PRO OTOLARYNGOLOGIC EXAM UNDER GENERAL ANESTHESIA Midline 05/19/2021 OTOLARYNGOLOGIC EXAM UNDER ANESTHESIA (WRVU 1.51) performed by River Cordoba MD at [facility] MAIN OR Social History Socioeconomic History ??? [...] of Exercise per Session: Not on file Housing Stability: Low Risk [...] to Visit Medication Sig Dispense Refill ??? amoxicillin-clavulanate (Augmentin) 875-125 mg Tablet Take 1 tablet by mouth 2 times daily. 20 tablet 0 ??? traMADoL (Ultram) 50 mg Tablet Take 0.5-1 tablets by mouth as needed. 30 tablet 0 ??? oxyCODONE (Roxicodone) 5 mg Tablet Take 1 tablet by mouth every 4 hours as needed for Pain. 45 tablet 0 ??? meloxicam (MOBIC) 7.5 mg Tablet 2 times daily. ??? acetaminophen (Tylenol) 500 mg Tablet Take 1,000 mg by mouth every 6 hours as needed for Pain. ??? metoprolol tartrate (Lopressor) 50 mg Tablet Take 50 mg by mouth 2 times daily. ??? prochlorperazine (Compazine) 10 mg Tablet Take 1 tablet by mouth every 6 hours as needed for Nausea. (Patient not taking: Reported on 06/28/2021) 30 tablet 3 ??? LORazepam (Ativan) 1 mg Tablet Take one pill by mouth a 1/2 hour prior to radiation therapy (Patient not taking: Reported on 06/15/2021) 40 tablet 0 ??? meloxicam (MOBIC) 15 mg Tablet Take 15 mg by mouth daily. Current Facility-Administered Medications on File Prior to Visit Medication Dose Route Frequency Provider Last Rate Last Admin ??? lidocaine (Xylocaine) 4 % (40 mg/mL) solution Topical (Top) Once PRN Tomy Pinto MD IMAGING I have personally reviewed the imaging reports and images referenced in the oncologic hx and agree with the assessment as stated. Further pertinent imaging data below LABORATORY VALUES CONTRAINDICATIONS TO RADIOTHERAPY NO YES: Date, site, dose (women only) X Prior Radiotherapy X Collagen-Vascular dz X ASSESSMENT /PLAN HN CANCER Staging CT HN / Chest EUA w/ DL; Pathologic evaluation of the primary Further Staging He is unwilling to get a PET-CT due to concerns regarding claustrophobia Therapy Discussion Miriam Anaya returns for simulation in anticipation of definitive chemoradiotherapy. He has unfortunately progressed since his last visit, with increased asha disease burden and increased skin breakthrough. We again discussed the rationale and logistics (including simulation, planning, and treatment) of definitive radiotherapy. We discussed the risks of therapy, including but not limited to short term sequelae (fatigue, skin erythema, mucositis, dysphagia, ageusia, xerostomia, weight loss) and long termsequelae (tissue fibrosis, lymphedema, detention dysphagia potentially requiring a permanent feedingtube, xerostomia, osteoradionecrosis, increased risk of dental caries, esophageal stricture, and thepossibility of significant damage to soft tissue, bone or skin requiring surgical or medical intervention). Mr. Anaya expressed an understanding of these risks. The patient had a number of questions regarding optimal therapy and potential side effects. These questions were answered to his satisfaction Concurrent chemotherapy recommendations: planned Therapy Decision Proceed with definitive chemoradiotherapy Supportive Care Prophylactic feeding tube: he wishes to defer at this time Referral to Combustion Engineer / COSMETIC SALES ADVISOR Dental Issues: cleared OTHER ISSUES None documented in this encounter Plan of Treatment Upcoming Encounters Date Type Specialty Care Team Description 03/30/2022 Office Visit Hematology and Oncology Kristan Perry MD [facility] DR ONCOLOGY DEPT. 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
--- OUTSIDE RECORDS SUMMARY | 2022-03-23 07:49 | XMS_ITS | Encounter Summary ---
:1960 Author Organization [facility] Address [address] [place] [address] Care Team Providers Name Role Phone Ava Morales MD Primary Care Provider Reason for Visit Reason Comments Medication Refill Encounter Details Date Type Department Care Team Description 07/14/2021 Refill Hematology/Oncology at [facility] joana Kulkarni MD Tonsil cancer; [facility] Chemotherapy induced nausea and vomiting [address] [place], [place] ONCOLOGY DEPT. [address] [place] [address] [phone] (Wo rk) Social History Tobacco Use Types [...] [facility] DR ONCOLOGY DEPT. [place], [place] [address] (Wo rk) documented as of this encounter Visit Diagnoses Diagnosis Tonsil cancer Malignant neoplasm of tonsil Chemotherapy induced nausea and vomiting Nausea with vomiting documented in this encounter Care Teams Warehouse Packer Relationship Specialty Start Date End Date Ava Morales MD PCP - General Family Medicine 04/04/[address] [place] [phone] documented as of this encounter
--- OUTSIDE RECORDS SUMMARY | 2022-03-23 07:49 | XMS_ITS | Encounter Summary ---
:1960 Author Organization [facility] [address] Care Team Providers Name Role Phone Ava Morales MD Primary Care Provider Reason for Referral Consultation (Routine) - Closed Specialty Diagnoses / Procedures Referred By Contact Refer red To Contact Radiation Oncology Diagnoses Squamous cell carcinoma of palatine tonsil Tomy Pinto MD St Rad Onc Office Procedures Re-simulation for Radiation Therapy Planning [address] [place] [phone] Fax: Referral ID Status Reason Start Date Expiration Date Visits V isits Requested Authorized [id number] Closed Consult, 07/26/2021 07/26/2022 1 1 Test & Treat Encounter Details Date Type Department Care Team Description 07/26/2021 Office Visit Radiation Oncology at [facility] of palatine [address] [facility] [place] [address] RADIATION ONCOLOGY [phone] [place], [place] [address] Social History Tobacco Use Types [...] Sign Reading Time Taken Comments Blood Pressure 123/53 07/26/2021 10:15 AM EDT Pulse 85 07/26/2021 10:15 AM EDT Temperature 36.6 ??C (97.9 ??F) 07/26/2021 10:15 AM EDT Respiratory Rate 18 07/26/2021 10:15 AM EDT Oxygen Saturation 99% 07/26/2021 10:15 AM EDT Inhaled Oxygen Concentration - - Weight 153 kg (337 lb 3.2 oz) 07/26/2021 10:39 AM witho ut shoes EDT Height - - Body Mass Index 49.1 07/24/2021 9:25 AM EDT documented in this encounter Progress Notes Carter Reeves MD - 07/26/2021 10:00 AM EDT Images from the original note were not included. ON TREATMENT VISIT NOTE Miriam Anaya is a 61 y.o. 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 Definitive chemoradiotherapy. Current treatment dose: 22 Gy in 11 fractions. Anticipated total dose: 70 Gy in 35 fractions. Concomitant Therapy: Y ONC BCA CHEMO (AMB) 07/10/2021 07/24/2021 Day, Cycle Day 1, Cycle 1 Day 15, Cycle 1 CISplatin (Platinol) IV 40 mg/m2/dose 40 mg/m2/dose Plan Images: Evaluation of Port Verification Films: PORT films have been reviewed, please see ARIA for details. Changes in medical condition Pain: Left sided headaches have resolved, occasional occipital headaches continue. Using 1 - 2 gm ofTylenol daily. Minimal occasional discomfort associated with the left neck mass. Secretions/Dryness: Denies xerostomia, minimal dysgeusia. Using SW rinses & Biotene. Swallowing Function: Occasional food hanging up, but rare. Nutrition / G tube: No feeding tube. All by mouth Skin: Discomfort associated with skin erosion left neck GI: -Nausea: No recent nausea/vomiting. Has not taken compazine in a few weeks. -Bowels: loose stools, prior diarrhea has resolved. Nutrition Assessment: Weight : 155.3kg initial Change: 155.3 => 147.7 kg +>154.0 Objective: Vitals: 07/26/21 1015 BP: 123/53 Pulse: 85 Resp: 18 Temp: 36.6 ??C (97.9 ??F) TempSrc: Temporal SpO2: 99% Weight: (!) 154 kg (339 lb 6.4 oz) SKIN: fixed mass spanning levels II-IV in the left neck, with associated skin erythema and an ~ 3 cmarea of skin breakdown. Smaller, but still present. MUCOSA: no mucositis Assessment: Mild toxicity, significant weight loss and tumor shrinkage. Adaptive plan started today with considerable changes since previous re-simulation 1 week ago. Re-simulate today. CTCAE TOXICITY GRADES (see below for isaacs): Site Grade Skin 1 Xerostomia 0 Pharyngeal Mucositis 0 Dysphagia 0 Hoarseness 0 TREATMENT RESPONSE: No change Plan: ?? Continue RT per prescription ?? Pain control: ?? Tylenol prn ?? Refill ativan 2mg pretreatment ?? Skin: Jeans cream prn ?? Mucositis: ?? Pain control: see above ?? Oral hygiene consisting of baking soda/salt rinse at least 8 times daily ?? Alimentation: blow pit operator following ?? Weight increased, all by mouth at this time. Emphasized [...] Visit Hematology and Oncology Kristan Perry MD [facility] DR ONCOLOGY DEPT. 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
--- OUTSIDE RECORDS SUMMARY | 2022-03-23 07:49 | XMS_ITS | Encounter Summary ---
:1960 Author Organization [facility] [place] [address] Care Team Providers Name Role Phone Ava Morales MD Primary Care Provider Encounter Details Date Type Department Care Team Description 07/26/2021 Office Visit [facility]ematology[facility]Oncology at [facility]; [facility] EDUCATION SPECIALIST Dysphagia, unspecified type [address] [place] [address] Social History Tobacco Use Types [...] documented as of this encounter Miscellaneous Notes Treatment - Therapy - Lynnette Figueredo, EDUCATION SPECIALIST - 07/26/2021 10:00 AM Monae: EDUCATION SPECIALIST Treatment Speech Language Pathology Treatment Patient Profile: Miriam Anaya is a 61 y.o. male with HPV left tonsil squamous cell cancer; left neck mass s/p biopsy obtained on 05/19/2021. Currently undergoing definitive MC KAY MACHINE OPERATOR. Feeding Tube Present? No Weight Loss? Per RD from 07/19 - Patient is down about 5# in the past week (1.5% body weight)--significant Prior Level of Swallow Function: WFL Most Recent RD Visit / Date: 07/19/21 Subjective: Miriam Anaya seen for brief review of aspiration precautions and check-in re: monitoring for changes in trismus s/sx today. Miriam Anaya reports main issue with regard to po intake has been taste changes / dysgeusia, and although he continues feel jaw tightness, he feels that jaw opening/trismus has actually gotten a bit better; currently continues to tolerate IDDSI Levels 7 Easy to Chew/6 soft/bite sized solids, transitioning towards more soft foods lately; no overt s.s aspiration with thin liquids. Questions whether his perception of trismus severity is due to not eating double jc sandwiches like he normally would. Objective: Pain: 2/10 Respiratory Status: Room air Vision: WFL per pt Hearing: Hearing impairment, unaided Current Diet: No diet orders on file Feeding / Oral Care Status: Pt is independent Cognitive-Linguistic Status: alert, oriented to person, place, and time Follows Commands: Follows multi-step commands Positioning: Pt up to chair Oral / Laryngeal Mechanism Clinical Assessment: N/A due to time constraints Jaw: Impaired ?? Trismus: Yes ?? MEHREEN: 28 mm (formal measurement as of 07/10; subjectively reports has improved as of 07/26) Moderate (15-29 mm) (Marvel et al, 2006) ?? Lateral Excursion: 11 mm Mild (8-11 mm) (AAOMS Parameters of Care, 2007) ?? Dentition: present and adequate, reports recent dental extraction prior to beginning MC KAY MACHINE OPERATOR Concerns with oral hygiene care/routine? No ?? Osteoradionecrosis (ORN) Risk Factors: High radiotherapy dosages (>60 Gys) Standardized Assessment(s) Arielle Swallow Protocol (Emeliar et al, 2014) Patient results: 07/10: Pass [Complete, uninterrupted drinking of entire 3 oz water without overt s/sx aspiration during or after administration] GTQ The [place] Trismus Questionnaire [GTQ] is a multidimensional, self- administered, trismus-specific questionnaire used to measure trismus and its treatment outcomes when appropriate. As of 07/10 Items 1-23: General Issues 43 / 115 mild (24-46) Items 16-20: Facial Pain in Past Week / Scale of 5 (no facial pain) to 25 (very severe facial pain) None (5) Location: not applicable Items 21-23: Mouth Opening Ability 5 / 15 Scale of 3 (no limitation) to 15 (very severe limitation) mild (4-6) Education Addressed: - Reviewed aspiration and trismus s/sx, precautions and self-monitoring techniques as patient continues with MC KAY MACHINE OPERATOR; importance of thorough oral care to reduce overall oral bacteria load / reduce risks ofasp PNA; pharyngocise as tolerated; energy conservation to maximize po intake during mealtimes as patient progresses through treatment in absence of enteral feeding - Contact Information for Speech Language Pathologist - Risk Management Compensatory Techniques/Precautions: Slow Rate, Small Bites, Small Sips and Alternate liquids/solids Upright position during meals and for at least 30 mins following Excellent oral care Assessment Miriam Anaya seen today for brief follow up visit, provided education/counseling re: aspiration andtrismus s/sx, precautions and self- monitoring techniques; patient demonstrates mild oral dysphagia primarily characterized by trismus ( MEHREEN 28 mm, moderate) which casues occasional difficulties with mastication effectiveness; patient has continued to regress through EAT-RT steps and is currently tolerating more soft foods lately per his report (IDDSI Levels 7 ETC/6), otherwise has not had much difficulty with pharyngeal and/or esophageal phase to date; does continue to lose weight however. Pt was able to demonstrate comprehension of outlined recommendations. FOIS: Level 6 - Total [...] regarding Miriam Anaya's care. Lynnette Figueredo MA [facility]-EDUCATION SPECIALIST Speech-Language Pathologist [email or web address] documented in this encounter Plan of Treatment Upcoming Encounters Date Type Specialty Care Team Description 03/30/2022 Office Visit Hematology and Oncology Kristan Perry MD [facility] DR ONCOLOGY DEPT. [place], [place] [address] (Wo rk) documented as of this encounter Visit Diagnoses Diagnosis Tonsil cancer Malignant neoplasm of tonsil Dysphagia, unspecified type documented in this encounter Care Teams Market Analysis Director Relationship Specialty Start Date End Date Ava Morales MD PCP - General Family Medicine 04/04/[address] [place] [phone] documented as of this encounter
--- OUTSIDE RECORDS SUMMARY | 2022-03-23 07:49 | XMS_ITS | Encounter Summary ---
:1960 Author Organization [facility] [address] Care Team Providers Name Role Phone Ava Morales MD Primary Care Provider Encounter Details Date Type Department Care Team Description 06/26/2021 [facility] [place] [phone] Social History Tobacco Use Types Packs/Day [...] this encounter Miscellaneous Notes Telephone Encounter - Lydia Allison RN - 06/26/2021 11:41 AM EDT Telephone call to patient to assess status. He reports that he is taking Augmentin though is not sure if he has noticed any changes in the drainage he is seeing which continues to be weird and intermittent. At times it drains heavier like a broken pipe and other times much less. Notes increased drainage at night. Denies pain though describes jaw as just sore. Aggravating and annoying but no worse than it has been. Denies fevers. He plans to come in Saturday for scheduled CT sim as well as his scheduled port placement tomorrow in [facility]. I let him know that referral to [facility] is being faxed to their intakefax at [phone]. He is agreeable to this plan. Dr.s Pinto and Orlando updated with this note. Telephone Encounter - Lydia Allison RN - 06/26/2021 11:40 AM EDT ----- Message from Supriya French RN sent at 06/26/2021 9:47 AM EDT ----- Regarding: can you call him Do you have time to check in with him today, Orlando said not infection just needs to start treatment,supriya documented in this encounter Plan of Treatment Upcoming Encounters Date Type Specialty Care Team Description 03/30/2022 Office Visit Hematology and Oncology Kristan Perry MD [facility] ONCOLOGY DEPT. [place], [place] [address] (Wo rk) documented as of this encounter Visit Diagnoses Not on filedocumented in this encounter Care Teams Outside Sales Representative Relationship Specialty Start Date End Date Ava Morales MD PCP - General Family Medicine 04/04/[address] [place] [phone] documented as of this encounter
--- OUTSIDE RECORDS SUMMARY | 2022-03-23 07:49 | XMS_ITS | Encounter Summary ---
:1960 Author Organization [facility] [address] Care Team Providers Name Role Phone Ava Morales MD Primary Care Provider Reason for Visit Reason Comments IV Access Port access and flush for SI M Encounter Details Date Type Department Care Team Description 07/26/2021 Infusion Hematology Oncology at [facility] Tonsil cancer [address] [place] [phone] Social History Tobacco Use Types Packs/Day [...] as of this encounter Progress Notes Ava Goodwin, RN - 07/26/2021 10:30 AM EDT INFUSION THERAPY ADMINISTRATION NOTES TIME TREATMENT STARTED: 1030 TIME TREATMENT ENDED: 1035 DIAGNOSIS: Tonsillar cancer REASON FOR VISIT: Port access and flush for SIM IV ACCESS: Mediport GAUGE: 19G; power set BLOOD RETURN: yes ANY S/S OF INFECTION/EXTRAVASATIONS: no signs of IV complications observed IV FLUSHED WITH: 20 cc NS IV DISCONTINUED: yes at 1110. ASSESSMENT: Patient tolerated treatment well. PLAN: Return to clinic per routine. documented in this encounter Plan of Treatment Upcoming Encounters Date Type Specialty Care Team Description 03/30/2022 Office Visit Hematology and Oncology Kristan Perry MD [facility] DR ONCOLOGY DEPT. [place], [place] [address] (Wo rk) documented as of this encounter Visit Diagnoses Diagnosis Tonsil cancer Malignant neoplasm of tonsil documented in this encounter Care Teams Platform Material Handler Manager Relationship Specialty Start Date End Date Ava Morales MD PCP - General Family Medicine 04/04/[address] [place] [phone] documented as of this encounter
--- OUTSIDE RECORDS SUMMARY | 2022-03-23 07:49 | XMS_ITS | Encounter Summary ---
:1960 Author Organization [facility] [place] [address] Care Team Providers Name Role Phone Ava Morales MD Primary Care Provider Encounter Details Date Type Department Care Team Description 06/22/2021 [facility] [place] [phone] Social History Tobacco Use Types Packs/Day [...] this encounter Miscellaneous Notes Telephone Encounter - Rina Apodaca RN - 06/22/2021 3:05 PM EDT Called to let Miriam know Dr. Pinto had sent antibiotic order to his Pharmacy. Miriam states he willget a ride tomorrow to pick it up. Discussed that he should go to the ED if he has worsening pain, or a fever/chills develop. Verbalized understanding. Miriam said he will check in with us tomorrow if he has worsening symptoms, otherwise we will call him Saturday to check in to see how things are. He is having a port placed on Saturday. documented in this encounter Plan of Treatment Upcoming Encounters Date Type Specialty Care Team Description 03/30/2022 Office Visit Hematology and Oncology Kristan Perry MD [facility] DR ONCOLOGY DEPT. [place], [place] [address] (Wo rk) documented as of this encounter Visit Diagnoses Not on filedocumented in this encounter Care Teams Putty Mixer And Applier Relationship Specialty Start Date End Date Ava Morales MD PCP - General Family Medicine 04/04/[address] [place] [phone] documented as of this encounter
--- OUTSIDE RECORDS SUMMARY | 2022-03-23 07:49 | XMS_ITS | Encounter Summary ---
:1960 Author Organization [facility] [place] [address] Care Team Providers Name Role Phone Ava Morales MD Primary Care Provider Encounter Details Date Type Department Care Team Description 07/03/2021 [facility] [address] HEMATOLOGY AND ONCOLOGY [place], [place] [phone] [place] [address] [phone] (Wo rk) Social History Tobacco Use Types [...] Telephone Encounter - [place] Rendon RD - 07/03/2021 11:58 AM EDT Nutrition Follow-Up Spoke with patient briefly on the phone this morning as he is unable to come to appointments in clinic today. He treatment will start next week 07/10. He reports that he is eating well at home and evengaining a bit of weight. Patient reports no difficulty with PO intake. He did mention increased drainage from wound; relayed this to RN. Wt Readings from Last 3 Encounters: 06/28/21 (!) 157.4 kg (347 lb) 06/19/21 (!) 151 kg (333 lb) 06/15/21 (!) 147.9 kg (326 lb) Will see patient in clinic on 07/10. documented in this encounter Plan of Treatment Upcoming Encounters Date Type Specialty Care Team Description 03/30/2022 Office Visit Hematology and Oncology Kristan Perry MD [facility] DR ONCOLOGY DEPT. [place], [place] [address] (Wo rk) documented as of this encounter Visit Diagnoses Not on filedocumented in this encounter Care Teams Exercise Teacher Relationship Specialty Start Date End Date Ava Morales MD PCP - General Family Medicine 04/04/21 [address] [place] [phone] documented as of this encounter
--- OUTSIDE RECORDS SUMMARY | 2022-03-23 07:49 | XMS_ITS | Encounter Summary ---
:1960 Author Organization [facility] [place] [address] Care Team Providers Name Role Phone Ava Morales MD Primary Care Provider Encounter Details Date Type Department Care Team Description 07/19/2021 [facility] Tonsil cancer [address] HEMATOLOGY AND [phone] ONCOLOGY [phone] [place], [place] [address] (Wo rk) Social History Tobacco [...] of this encounter Progress Notes Julieta, [place] Bowers, RD - 07/19/2021 1:00 PM EDT [facility] Nutrition Assessment Progress Note Miriam Anaya Diagnosis: SCC left tonsil stage III Assessment: Nutrition Screen 07/19/2021 Reason for assessment Unintentional weight loss Total MST Score - Functional Status 07/19/2021 Appetite - Odynophagia Present Impaired wound healing Present Patient reports diarrhea from earlier this week has improved--says BMs are back to being more regular. Food History, Access and Intake 07/10/2021 Patient Reported Diet Regular Briefly spoke with patient in infusion. Patient reports eating some eggs and canned chicken dumplings today. He does have protein supplement drinks at home. Food Insecurity Screening 07/10/2021 Within the past 12 months, you worried that your food would run out before you got the money to buy more. 1 Wt Readings from Last 3 Encounters: 07/19/21 (!) 147.7 kg (325 lb 9.6 oz) 07/18/21 (!) 146.5 kg (323 lb) 07/13/21 (!) 155.1 kg (342 lb) 330# 10oz on 07/10 333# on 06/19 333# on 05/19 BMI 47.03 Patient is down about 5# in the past week (1.5% body weight)--significant Malnutrition Characteristics 07/19/2021 Insufficient Energy Intake Less than or equal to 70% for 7 days Unintended Weight Loss 1-2% in a week 5# loss in past week (1.5% body weight) Medications: Compazine prn, Tramadol prn, Ativan prn, oxycodone prn, meloxicam, tylenol, lopressor Patient started Cisplatin and RT on 07/10. He did not have chemotherapy this week. 07/17 labs: BG 126H, BUN 23, Creat 1.27, Na 130L, K 4.0, Mg 1.6L, Alb 4.2, AST 11L, ALT 10, AlkPhos 53 Nutrition Diagnosis 06/14/2021 Problems Involuntary weight loss related to concurrent chemotherapy radiation as evidenced by 5# loss in past week (1.5% body weight)and diarrhea. Estimated needs based on 147.7 k kcals (20 kcal/kg) obese 118 grams protein (0.8 g/kg) ~3L fluid Intervention: * Encouraged PO intake with small frequent meals * [place], low fiber diet for diarrhea was reviewed on 07/17 Follow Up: 07/24 Note: Please see Hematology/Oncology malnutrition flowsheet for complete RD assessment/documentation documented in this encounter Plan of Treatment Upcoming Encounters Date Type Specialty Care Team Description 03/30/2022 Office Visit Hematology and Oncology Kristan Perry MD [facility] DR ONCOLOGY DEPT. [place], [place] [address] (Wo rk) documented as of this encounter Visit Diagnoses Diagnosis Tonsil cancer Malignant neoplasm of tonsil documented in this encounter Care Teams Fitness Plan Coordinator Relationship Specialty Start Date End Date Ava Morales MD PCP - General Family Medicine 04/04/[address] [place] [phone] documented as of this encounter
--- OUTSIDE RECORDS SUMMARY | 2022-03-23 07:50 | XMS_ITS | Encounter Summary ---
:1960 Author Organization [facility] [place] [address] Care Team Providers Name Role Phone Ava Morales MD Primary Care Provider Encounter Details Date Type Department Care Team Description 04/28/2021 Multidisciplinary Care Otolaryngology at [facility] Krunal Cordoba [facility] [place] [address] CENTER [phone] [place] [address] Social History Tobacco Use Types Packs/Day Years [...] documented as of this encounter Progress Notes River Cordoba MD - 04/28/2021 7:34 AM EDT Head and Neck Tumor Board Note PATIENT PRESENTED April 13, 2021 Site/Stage Tx Synopsis with pertinent exam findings 60-year-old male with morbid obesity who become aware of a small mass in the posterior inferior aspect of the left parotid region over the last 6 or 7 months whichhas increased in size and has become symptomatic with pain and pressure sensation. Denies TMJ issue,as well as denying facial nerve change, accessory nerve dysfunction, change in taste/speech/breathing/voice. FNAB x 2 unrevealing Pathology Imaging Patient could not tolerate PET CT CT neck: 52 mm x 39 mm infiltrative mass level 2 left neck, possible subtle Left BOT prominence Tumor Board Recs Plan EUA,/micro/DL and bx of neck mass * (Based on past studies and the information available at the time of presentation) Specific treatment to be undertaken must ultimaly be determined on an individual basis by the patient and those invoved in her/his treatment) documented in this encounter Plan of Treatment Upcoming Encounters Date Type Specialty Care Team Description 03/30/2022 Office Visit Hematology and Oncology Kristan Perry MD [facility] DR ONCOLOGY DEPT. [place], [place] [address] (Wo rk) documented as of this encounter Visit Diagnoses Not on filedocumented in this encounter Care Teams Desk Clerk Relationship Specialty Start Date End Date Ava Morales MD PCP - General Family Medicine 04/04/[address] [place] [phone] documented as of this encounter
--- OUTSIDE RECORDS SUMMARY | 2022-03-23 07:50 | XMS_ITS | Encounter Summary ---
:1960 Author Organization [facility] Address [facility] [place] [address] Care Team Providers Name Role Phone Ava Morales MD Primary Care Provider Encounter Details Date Type Department Care Team Description 05/09/2021 Telephone Otolaryngology at [facility] Yeimi Barksdale [facility] [place] [phone] Social History Tobacco Use Types Packs/Day [...] this encounter Miscellaneous Notes Telephone Encounter - Yeimi Barksdale - 05/09/2021 6:27 PM EDT Called LVM on [phone] to let Miriam know that I faxed over the order for Echo at [facility] and gave him # to call them at [phone] and also said to call me if he has any problems. Telephone Encounter - Yeimi Barksdale - 05/09/2021 10:34 AM EDT Miriam called to say on 05/03 he went to [facility] to have the stress test / nuc med and he is very claustrophobic and could not do it. They advised he had to call us to put in another order test that would need to be done prior to his surgery. documented in this encounter Plan of Treatment Upcoming Encounters Date Type Specialty Care Team Description 03/30/2022 Office Visit Hematology and Oncology Kristan Perry MD [facility] DR ONCOLOGY DEPT. [place], [place] [address] (Wo rk) documented as of this encounter Visit Diagnoses Not on filedocumented in this encounter Care Teams Power Transformer Assembler Relationship Specialty Start Date End Date Ava Morales MD PCP - General Family Medicine 04/04/21 [address] [place] [phone] documented as of this encounter
--- OUTSIDE RECORDS SUMMARY | 2022-03-23 07:50 | XMS_ITS | Encounter Summary ---
:1960 Author Organization [facility] [place] [address] Care Team Providers Name Role Phone Ava Morales MD Primary Care Provider Encounter Details Date Type Department Care Team Description 05/09/2021 Telephone Otolaryngology at [facility] Guera Bautista [facility] [place] [phone] Social History Tobacco Use Types Packs/Day [...] this encounter Miscellaneous Notes Telephone Encounter - Guera Bautista - 05/09/2021 11:00 AM EDT Received call from Violeta Mobile Home Servicer at Dr. Morales's office. She was calling back regarding patients Stress test that was not completed. She asked if it was needed to proceed with surgery. She said if we have any questions or need anything to please give her a call at [phone] documented in this encounter Plan of Treatment Upcoming Encounters Date Type Specialty Care Team Description 03/30/2022 Office Visit Hematology and Oncology Kristan Perry MD [facility] DR ONCOLOGY DEPT. [place], [place] [address] (Wo rk) documented as of this encounter Visit Diagnoses Not on filedocumented in this encounter Care Teams Bank Teller Relationship Specialty Start Date End Date Ava Morales MD PCP - General Family Medicine 04/04/[address] [place] [phone] documented as of this encounter
--- OUTSIDE RECORDS SUMMARY | 2022-03-23 07:50 | XMS_ITS | Encounter Summary ---
:1960 Author Organization [facility] Address [facility] [place] [address] Care Team Providers Name Role Phone Ava Morales MD Primary Care Provider Encounter Details Date Type Department Care Team Description 05/16/2021 Orders Only Otolaryngology at [facility] Wesley Stallings, Neck mass [facility] [place] [phone] Social History Tobacco Use Types Packs/Day [...] Kristan Perry MD [facility] DR ONCOLOGY DEPT. [place], [place] [address] (Wo rk) documented as of this encounter Visit Diagnoses Diagnosis Neck mass Swelling, mass, or lump in head and neck documented in this encounter Care Teams Cargo Vessel Stewardess Relationship Specialty Start Date End Date Ava Morales MD PCP - General Family Medicine 04/04/[address] [place] [phone] documented as of this encounter
--- OUTSIDE RECORDS SUMMARY | 2022-03-23 07:50 | XMS_ITS | Encounter Summary ---
:1960 Author Organization [facility] Address [facility] [place] [address] Care Team Providers Name Role Phone Ava Morales MD Primary Care Provider Encounter Details Date Type Department Care Team Description 04/24/2021 Telephone Otolaryngology at [facility] Yeimi Barksdale [facility] [place] [phone] Social History Tobacco Use Types Packs/Day [...] Notes Telephone Encounter - Yeimi Barksdale - 04/24/2021 9:02 AM EDT Going to stress test at [facility] on 05/03 @9am wanted to schedule surgery, transferred to [facility] documented in this encounter Plan of Treatment Upcoming Encounters Date Type Specialty Care Team Description 03/30/2022 Office Visit Hematology and Oncology Kristan Perry MD [facility] DR ONCOLOGY DEPT. [place], [place] [address] (Wo rk) documented as of this encounter Visit Diagnoses Not on filedocumented in this encounter Care Teams Agricultural Engineer Relationship Specialty Start Date End Date Ava Morales MD PCP - General Family Medicine 04/04/[address] [place] [phone] documented as of this encounter
--- OUTSIDE RECORDS SUMMARY | 2022-03-23 07:50 | XMS_ITS | Encounter Summary ---
:1960 Author Organization [facility] [place] [address] Care Team Providers Name Role Phone Ava Morales MD Primary Care Provider Encounter Details Date Type Department Care Team Description 05/26/2021 Telephone Otolaryngology at [facility] Wesley Stallings, RN [facility] [place] [phone] Social History Tobacco Use Types Packs/Day [...] this encounter Miscellaneous Notes Telephone Encounter - Wesley Stallings RN - 05/26/2021 11:46 AM EDT Told Miriam that I'm not sure of the details of his radiation and that he would need to have an appt with [facility]. Referral placed by ENT this week. DARWIN Thompson, HAIR BOILER OPERATOR/OMFS Triage Nurse documented in this encounter Plan of Treatment Upcoming Encounters Date Type Specialty Care Team Description 03/30/2022 Office Visit Hematology and Oncology Kristan Perry MD [facility] ER DR ONCOLOGY DEPT. [place], [place] [address] (Wo rk) documented as of this encounter Visit Diagnoses Not on filedocumented in this encounter Care Teams Fire Equipment Inspector Relationship Specialty Start Date End Date Ava Morales MD PCP - General Family Medicine 04/04/[address] [place] [phone] documented as of this encounter
--- OUTSIDE RECORDS SUMMARY | 2022-03-23 07:50 | XMS_ITS | Encounter Summary ---
:1960 Author Organization [facility] [place] [address] Care Team Providers Name Role Phone Ava Morales MD Primary Care Provider Encounter Details Date Type Department Care Team Description 05/12/2021 Telephone Otolaryngology at [facility] [place] [place] [phone] Social History Tobacco Use Types Packs/Day [...] place to sleep or slept in a group home (including now)? Sex Assigned at Date Recorded Not on file documented as of this encounter Miscellaneous Notes Telephone Encounter - Gracie Fernando - 05/12/2021 8:31 AM EDT Jc, Patient is scheduled to have surgery on 05/19/2021 and the packet has been mailed to the verified address on file. Follow up appointment is as follows: Follow-up visit: 1 week with DM/SB when BG in clinic Thank you!! documented in this encounter Plan of Treatment Upcoming Encounters Date Type Specialty Care Team Description 03/30/2022 Office Visit Hematology and Oncology Kristan Perry MD [facility] ER DR ONCOLOGY DEPT. [place], [place] [address] (Wo rk) documented as of this encounter Visit Diagnoses Not on filedocumented in this encounter Care Teams Oncology Navigator Relationship Specialty Start Date End Date Ava Morales MD PCP - General Family Medicine 04/04/[address] [place] [phone] documented as of this encounter
--- OUTSIDE RECORDS SUMMARY | 2022-03-23 07:50 | XMS_ITS | Encounter Summary ---
:1960 Author Organization [facility] Address [facility] [place] [address] Care Team Providers Name Role Phone Ava Morales MD Primary Care Provider Encounter Details Date Type Department Care Team Description 05/15/2021 Telephone Otolaryngology at [facility] Diane Pierre [facility] [place] [address] Social History Tobacco Use Types Packs/Day [...] this encounter Miscellaneous Notes Telephone Encounter - Diane Pierre - 05/16/2021 8:22 AM EDT Called pt and left a second message asking him to call back so that we could get his CT's scheduled. Telephone Encounter - Diane Pierre - 05/15/2021 11:21 AM EDT Called pt to schedule CT Neck and Chest with [facility] that is scheduled for 05/30. Need safety questions answered. LVM for pt to call back. documented in this encounter Plan of Treatment Upcoming Encounters Date Type Specialty Care Team Description 03/30/2022 Office Visit Hematology and Oncology Kristan Perry MD [facility] DR ONCOLOGY DEPT. [place], [place] [address] (Wo rk) documented as of this encounter Visit Diagnoses Not on filedocumented in this encounter Care Teams Waiter/Waitress Tavern Relationship Specialty Start Date End Date Ava Morales MD PCP - General Family Medicine 04/04/[address] [place] [phone] documented as of this encounter
--- OUTSIDE RECORDS SUMMARY | 2022-03-23 07:50 | XMS_ITS | Encounter Summary ---
:1960 Author Organization [facility] [place] [address] Care Team Providers Name Role Phone Ava Morales MD Primary Care Provider Reason for Referral Diagnostic Test (Routine) - Closed Specialty Diagnoses / Procedures Referred By Contact Refer red To Contact Radiology Diagnoses Neck mass River Cordoba MD [facility] Rad Ct Scan Procedures CT Neck Soft Tissue w Contrast (Generic) [facility] [place] [address] [place] [address] Referral ID Status Reason Start Date Expiration Date Visits V isits Requested Authorized [id number] Closed Specialty 05/23/2021 07/23/2021 1 1 Service Requested Encounter Details Date Type Department Care Team Description 05/14/2021 Orders Only Otolaryngology at [facility] River Cordoba Neck mass (Primary [facility] Subhash Gil MD Dx) [place] [address] [facility] [phone] [facility] OTOLARYNGOLOGY DEPT. [place], [place] [address] Social History Tobacco Use Types [...] Visit Hematology and Oncology Kristan Perry MD [facility] DR ONCOLOGY DEPT. [place], [place] [address] (Wo rk) documented as of this encounter Results CT Neck Soft Tissue w Contrast (Generic) (05/25/2021 9:07 AM EDT) Anatomical Region Laterality Modality Neck, Head Computed Tomography Specimen (Source) Anatomical Collection Method Collection Time Re ceived Time Location / / Volume Laterality 05/25/2021 9:27 AM EDT Impressions 05/25/2021 9:45 AM EDT 1. ??Stable soft tissue fullness at the left tongue base, known biopsy-proven tumor. 2. ??Interval worsening in size of the l eft level 2 josé luis mass with increased central necrosis and extracapsular sprea d of tumor with local invasion as discussed. 3. ??No evidence of regional distant met astatic disease. Thank you for letting us participate in the care of this patient. ??If you are a health care provider and have any questi ons regarding this report, please contact the number below. ??For patients who have questions please contact the health housekeeper child care that requested your imaging first. ? 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 Administered 110.0 ml of OMNIPAQUE 350.00 mg/ml. COMPARISON: CT scan of the neck 02/13/2021 FINDINGS: Interval enlargement of the large left l evel 2A lymph node again with irregular borders indicative of extracapsular spre ad of tumor, with invasion of the left sternocleidomastoid muscle, the left par otid tail, in the left platysma muscle, and occlusion of the left internal jugul ar vein. There is increased central necrosis. The node measures up to 5.8 cm in AP diameter by 4.7 cm in craniocaudad length by 5.5 cm in transve rse width, previously 4.4 x 4.0 x 4.4 cm. Additional subcentimeter to borderli ne size left sided lymph nodes are not significantly changed in size. The josé luis mass surrounds the left welder oxyhydrogen al carotid artery proximally by roughly 100 degrees. The left internal carotid a rtery remains a retropharyngeal position free of tumor. Previously there was a fa t plane the josé luis mass from the left paraspinal muscles anteriorly t he fat plane is no longer present with the known directly abutting the left par aspinal musculature (series 3 image 56), with no definite muscular invasion. There is persistent soft tissue fullness at the left tongue base which is similar to the prior study, from known b iopsy-proven tumor. No pulmonary nodules the visualized port ions of the lungs. No focal osseous lesions to suggest metastatic disease. T he visualized portions the brain are grossly normal. Procedure Note Chon Rogers MD - 05/25/2021Formatting o f this note might be different from the original. 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 Administered 110.0 ml of OMNIPAQUE 350.00 mg/ml. COMPARISON: CT scan of the neck 02/13/2021 FINDINGS: Interval enlargement of the large left l evel 2A lymph node again with irregular borders indicative of extracapsular spre ad of tumor, with invasion of the left sternocleidomastoid muscle, the left par otid tail, in the left platysma muscle, and occlusion of the left internal jugul ar vein. There is increased central necrosis. The node measures up to 5.8 cm in AP diameter by 4.7 cm in craniocaudad length by 5.5 cm in transve rse width, previously 4.4 x 4.0 x 4.4 cm. Additional subcentimeter to borderli ne size left sided lymph nodes are not significantly changed in size. The josé luis mass surrounds the left welder oxyhydrogen al carotid artery proximally by roughly 100 degrees. The left internal carotid a rtery remains a retropharyngeal position free of tumor. Previously there was a fa t plane the josé luis mass from the left paraspinal muscles anteriorly t he fat plane is no longer present with the known directly abutting the left par aspinal musculature (series 3 image 56), with no definite muscular invasion. There is persistent soft tissue fullness at the left tongue base which is similar to the prior study, from known b iopsy-proven tumor. No pulmonary nodules the visualized port ions of the lungs. No focal osseous lesions to suggest metastatic disease. T he visualized portions the brain are grossly normal. IMPRESSION 1. Stable soft tissue fullness at the le ft tongue base, known biopsy-proven tumor. 2. Interval worsening in size of the lef t level 2 josé luis mass with increased central necrosis and extracapsular sprea d of tumor with local invasion as discussed. 3. No evidence of regional distant metas tatic disease. Thank you for letting us participate in the care of this patient. If you are a health care provider and have any questi ons regarding this report, please contact the number below. For patients w ho have questions please contact the health housekeeper child care that requested your imaging first. River Cordoba MD IMG CT ORDERABLES documented in this encounter Visit Diagnoses Diagnosis Neck mass - Primary Swelling, mass, or lump in head and neck Neck mass Swelling, mass, or lump in head and neck Mass of neck with history of malignant n eoplasm documented in this encounter Care Teams Retirement Administrator Relationship Specialty Start Date End Date Ava Morales MD PCP - General Family Medicine 04/04/[address] [place] [phone] documented as of this encounter
--- OUTSIDE RECORDS SUMMARY | 2022-03-23 07:50 | XMS_ITS | Encounter Summary ---
:1960 Author Organization [facility] [place] [address] Care Team Providers Name Role Phone Ava Morales MD Primary Care Provider Reason for Referral Diagnostic Test (Routine) - Closed Specialty Diagnoses / Procedures Referred By Contact Refer red To Contact Radiology Diagnoses Neck mass Mass of neck with history of malignant neoplasm River Cordoba MD [facility] Rad Ct Scan Procedures CT Chest w Contrast [facility] [place] [address] [place] [address] Referral ID Status Reason Start Date Expiration Date Visits V isits Requested Authorized [id number] Closed Specialty 05/23/2021 07/23/2021 1 1 Service Requested Diagnostic Test (Routine) - Closed Specialty Diagnoses / Procedures Referred By Contact Refer red To Contact Radiology Diagnoses Neck mass River Cordoba MD [facility] Rad Ct Scan Procedures CT Neck Soft Tissue w Contrast (Generic) [facility] [place] [address] [place] [address] Referral ID Status Reason Start Date Expiration Date Visits V isits Requested Authorized [id number] Closed Specialty 05/23/2021 07/23/2021 1 1 Service Requested Reason for Visit Diagnostic Test (Routine) - Closed Specialty Diagnoses / Procedures Referred By Contact Refer red To Contact Radiology Diagnoses Neck mass River Cordoba MD [facility] Rad Ct Scan Procedures CT Neck Soft Tissue w Contrast (Generic) [facility] [place] [address] [place] [address] Referral ID Status Reason Start Date Expiration Date Visits V isits Requested Authorized [id number] Closed Specialty 05/23/2021 07/23/2021 1 1 Service Requested Encounter Details Date Type Department Care Team Description 05/25/[address] Scan at [facility] Neck mass; [facility] Mass of n zandra with history of [place] [address] Social History Tobacco Use Types Packs/Day [...] Sig Dispensed Refills Start Date End Date meloxicam (MOBIC) 7.5 mg 2 times daily. 0 021 Tablet acetaminophen (Tylenol) Take 1,000 mg by 0 500 mg Tablet mouth every 6 hours as needed for Pain. metoprolol tartrate Take 75 mg by mouth 0 (Lopressor) 50 mg Tablet 2 times daily. amoxicillin-clavulanate Take 1 tablet by 20 tablet 0 202006/22/2021 (Augmentin) 875-125 mg mouth 2 times Tablet daily. tramadol HCl (TRAMADOL Take by mouth as 0 06/20/2021 ORAL) needed. meloxicam (MOBIC) 15 mg Take 15 mg by mouth 0 07/10/2021 Tablet daily. documented as of this encounter Plan of Treatment Upcoming Encounters Date Type Specialty Care Team Description 03/30/2022 Office Visit Hematology and Oncology Kristan Perry MD [facility] DR ONCOLOGY DEPT. [place], [place] [address] (Wo rk) documented as of this encounter Procedures Procedure Name Priority Date/Time Associated Diagnosis Comme nts CT CHEST W CONTRAST Routine 05/25/2021 9:07 AM Neck mass Results for this EDT Mass of neck with procedure are in history of malignant the res ults neoplasm section. CT NECK SOFT TISSUE Routine 05/25/2021 9:07 AM Neck mass Re sults for this W CONTRAST EDT procedure are i n the results section. documented in this encounter Results CT Chest w Contrast (05/25/2021 9:07 AM EDT) Anatomical Region Laterality Modality Chest Computed Tomography Specimen (Source) Anatomical Collection Method Collection Time Re ceived Time Location / / Volume Laterality 05/25/2021 9:27 AM EDT Impressions 05/25/2021 9:34 AM EDT No evidence of metastatic disease within the chest. CT of the neck is reported separately. Thank you for letting us participate in the care of this patient. ??If you are a health care provider and have any questi ons regarding this report, please contact the number below. ??For patients who have questions please contact the health health care technician that requested your imaging first. ? Electronically signed by: Amber Velazquez MD, [facility] ([phone]), at 05/25/2021 9:34 AM Narrative 05/25/2021 9:34 AM EDT EXAMINATION: CT CHEST W CONTRAST CLINICAL HISTORY: Head/neck cancer, stag ing TECHNIQUE: Chest CT with 60 ml of Omnipa que 350 COMPARISON: None FINDINGS: Pulmonary parenchyma: No suspicious pulm onary lesion. Mild dependent atelectases. Airways: Central and segmental airways a re patent. Pleura: No effusion. Lymph nodes: No abnormal enlargement of lymph nodes within the chest. Heart and vasculature: Size of the heart is within normal limits. No pericardial effusion. Normal caliber and contour of the thoracic aorta. Limited upper abdomen: 2 subcentimeter h ypodensities in the right liver lobe measure water density consistent with cy sts. Cholelithiasis. Skeleton: Degenerative changes throughou t the spine. Anterior spinous ligament calcifications. No aggressive lesion. Procedure Note Amber Mckeon MD - 2020 EXAMINATION: CT CHEST W CONTRAST CLINICAL HISTORY: Head/neck cancer, stag ing TECHNIQUE: Chest CT with 60 ml of Omnipa que 350 COMPARISON: None FINDINGS: Pulmonary parenchyma: No suspicious pulm onary lesion. Mild dependent atelectases. Airways: Central and segmental airways a re patent. Pleura: No effusion. Lymph nodes: No abnormal enlargement of lymph nodes within the chest. Heart and vasculature: Size of the heart is within normal limits. No pericardial effusion. Normal caliber and contour of the thoracic aorta. Limited upper abdomen: 2 subcentimeter h ypodensities in the right liver lobe measure water density consistent with cy sts. Cholelithiasis. Skeleton: Degenerative changes throughou t the spine. Anterior spinous ligament calcifications. No aggressive lesion. IMPRESSION No evidence of metastatic disease within the chest. CT of the neck is reported separately. Thank you for letting us participate in the care of this patient. If you are a health care provider and have any questi ons regarding this report, please contact the number below. For patients w ho have questions please contact the health health care technician that requested your imaging first. Electronically signed by: Amber Velazquez MD, [facility] ([phone]), at 05/25/2021 9:34 AM River Cordoba MD IMG CT ORDERABLES CT Neck Soft Tissue [...] who have questions please contact the health health care technician that requested your imaging first. ? Narrative 05/25/2021 9:45 AM EDT EXAMINATION: CT [...] The josé luis mass surrounds the left development technologist al carotid artery proximally by roughly 100 [...] The josé luis mass surrounds the left development technologist al carotid artery proximally by roughly 100 [...] ho have questions please contact the health health care technician that requested your imaging first. River Cordoba MD IMG CT ORDERABLES documented in this encounter Visit Diagnoses Diagnosis Neck mass Swelling, mass, or lump in head and neck Mass of neck with history of malignant n eoplasm documented in this encounter Administered Medications Inactive Administered Medications - up to 3 most recent administrations Medication Order MAR Action Action Date Dose Rate Site iohexoL (Omnipaque) (350 mg/mL) Given 05/25/2021 9:08 AM EDT 50 mLs injection solution 0-200 mL 0-200 mL, Intravenous, ONCE PRN, 1 dose, Starting on Evy 05/25/21 at 0907, Until Evy 05/25/21 at 0908, Per Protocol, Warning Vesicant/Irritant Medication , Radiology Contrast, Routine iohexoL (Omnipaque) (350 mg/mL) injection Given 05/25/2021 9:07 AM EDT 60 mLs solution 0-200 mL 0-200 mL, Intravenous, ONCE PRN, 1 dose, Starting on Evy 05/25/21 at 0907, Until Evy 05/25/21 at 0907, Per Protocol, Warning Vesicant/Irritant Medication , Radiology Contrast, Routine documented in this encounter Care Teams Anthropometrist Relationship Specialty Start Date End Date Ava Morales MD PCP - General Family Medicine 04/04/[address] [place] [phone] documented as of this encounter
--- OUTSIDE RECORDS SUMMARY | 2022-03-23 07:50 | XMS_ITS | Encounter Summary ---
:1960 Author Organization [facility] [place] [address] Care Team Providers Name Role Phone Ava Morales MD Primary Care Provider Reason for Referral Diagnostic Test (Routine) - Closed Specialty Diagnoses / Procedures Referred By Contact Refer red To Contact Radiology Diagnoses Neck mass Mass of neck with history of malignant neoplasm River Cordoba MD [facility] Rad Ct Scan Procedures CT Chest w Contrast [facility] [place] [address] [place] [address] Referral ID Status Reason Start Date Expiration Date Visits V isits Requested Authorized [id number] Closed Specialty 05/23/2021 07/23/2021 1 1 Service Requested Encounter Details Date Type Department Care Team Description 05/15/2021 Orders Only Hematology and Abbey Krishnan Neck m ass; [facility] at [facility] [place] Mass of neck with [place] of [place] [address] Social History Tobacco Use Types Packs/Day Years [...] Visit Hematology and Oncology Kristan Perry MD [facility] DR ONCOLOGY DEPT. [place], [place] [address] (Wo rk) documented as of [...] have questions please contact the health career education teacher that requested your imaging first. ? Narrative 05/25/2021 9:34 AM EDT EXAMINATION: CT [...] have questions please contact the health career education teacher that requested your imaging first. River Cordoba MD IMG CT ORDERABLES documented in this encounter Visit Diagnoses Diagnosis Neck mass Swelling, mass, or lump in head and neck Mass of neck with history of malignant n eoplasm Neck mass Swelling, mass, or lump in head and neck Mass of neck with history of malignant n eoplasm documented in this encounter Care Teams Nuclear Equipment Design Engineer Relationship Specialty Start Date End Date Ava Morales MD PCP - General Family Medicine 04/04/[address] [place] [phone] documented as of this encounter
--- OUTSIDE RECORDS SUMMARY | 2022-03-23 07:50 | XMS_ITS | Encounter Summary ---
:1960 Author Organization [facility] [place] [address] Care Team Providers Name Role Phone Ava Morales MD Primary Care Provider Reason for Referral Diagnostic Test (Emergency) - Closed Specialty Diagnoses / Procedures Referred By Contact Refer red To Contact Cardiology Diagnoses Morbid obesity Longstanding persistent atrial fibrillation JOHN (obstructive sleep apnea) Hypertension, unspecified type Mari Tao MD [facility] Non-Inv Card Lab Procedures Echocardiogram Transthoracic([facility] [place] [address] [place] [phone] Fax: Referral ID Status Reason Start Date Expiration Date Visits V isits Requested Authorized [id number] Closed Specialty 05/09/2021 05/09/2022 1 1 Service Requested Reason for Visit Diagnostic Test (Emergency) - Closed Specialty Diagnoses / Procedures Referred By Contact Refer red To Contact Cardiology Diagnoses Morbid obesity Longstanding persistent atrial fibrillation JOHN (obstructive sleep apnea) Hypertension, unspecified type Mari Tao MD [facility] Non-Inv Card Lab Procedures Echocardiogram Transthoracic([facility] [place] [address] [place] [phone] Fax: Referral ID Status Reason Start Date Expiration Date Visits V isits Requested Authorized [id number] Closed Specialty 05/09/2021 05/09/2022 1 1 Service Requested Encounter Details Date Type Department Care Team Description 05/16/2021 Hospital Encounter Non-Invasive Mari Tao, Morbid obesity; Cardiology Lab Kerrie HERNANDEZ Longstanding persistent atrial fibrillat ion; [facility] JOHN (obst ructive sleep apnea); [facility] Luz, unspecified type [facility] [address] [phone] Social History Tobacco Use Types Packs/Day Years [...] Sig Dispensed Refills Start Date End Date acetaminophen (Tylenol) Take 1,000 mg by 0 500 mg Tablet mouth every 6 hours as needed for Pain. metoprolol tartrate Take 75 mg by mouth 0 (Lopressor) 50 mg Tablet 2 times daily. tramadol HCl (TRAMADOL Take by mouth as 0 06/20/2021 ORAL) needed. meloxicam (MOBIC) 15 mg Take 15 mg by mouth 0 07/10/2021 Tablet daily. documented as of this encounter Plan of Treatment Upcoming Encounters Date Type Specialty Care Team Description 03/30/2022 Office Visit Hematology and Oncology Kristan Perry MD [facility]. [place], [place] [address] (Wo rk) documented as of this encounter Procedures Procedure Name Priority Date/Time Associated Comments Diagnosis ECHOCARDIOGRAM COMPLETE STAT 05/16/2021 1:17 Morbid o besity Results for this W CONTRAST PM EDT Longstanding procedure are i n persistent atrial the result s fibrillation section. JOHN (obstructive sleep apnea) Hypertension, unspecified type documented in this encounter Results ECHOCARDIOGRAM COMPLETE W CONTRAST (05/16/2021 1:17 PM EDT) P athologist Signature EF 55 HEARTLAB SYSTEM Specimen (Source) Anatomical Location Collection Method / Collectio n Time Received Time / Laterality Volume 05/16/2021 Narrative HEARTLAB SYSTEM - 05/16/2021 2:09 PM EDT Procedure: ?Transthoracic Echocardiogram Patient: ?DI HARRIS M ? (Age): 1960(60y) Med Rec#: ? [id number] ?Sex: ?M ? [place] Loc: ? [facility] [place]Ht / Wt: ??178(cm)/156(kg) Pt. Loc: ?Echo Lab ?BSA: ?2.63 Study Date: ?? 05/16/2021 ?Pt. Type: Outpatient Tape: ? Referring: Mari Tao Reading: Arnaldo Hough ([id number]) County Coroner: Ada John Kitchen Steward: Patricia Barroso Diagnosis: *Obstructive sleep apnea (adult) (pedia tric) (G47.33) *Persistent atrial fibrillation (I48.1) *Morbid (severe) obesity due to excess calories (E66.01) *Essential (primary) hypertension (I10) Rhythm: ? A-Fib BP: ? 155/85 SUMMARY: 1. Rhythm appears to be atrial fibrillat ion. 2. There is normal global left ventricul ar systolic function with an estimated EF of 55% and no wall motion a bnormalities. 3. The right ventricle is mildly dilated . Right ventricular global systolic function is normal. The estimat ed pulmonary artery systolic pressure is normal at 31 mmHg. 4. The left atrium is normal in size. Th e right atrium is mildly dilated. 5. There is no hemodynamically signfican t valve disease. 6. The pericardium appears normal and th ere is no evidence of a pericardial effusion. Findings ? : Study Quality: ? Technically limited Left Ventricle: ? The left ventricul ar chamber size is normal. ?Left ventricular wall thickness is normal. ?No ventricular septal defect is vi sualized. ?There is normal global left ventri cular systolic function. ?The visually estimated left ventri cular ejection fraction is 55% with beat to beat variation with atrial fibrillation. Left Atrium: ? The left atrium is no rmal in size. ?The inter-atrial septum appears li pomatous. Right Ventricle: ? The right ventric le is mildly dilated. ?Right ventricular global systolic function is normal. ?The estimated pulmonary artery sys tolic pressure is 31 mmHg. ?The estimated right atrial pressur e is 8 mmHg. Right Atrium: ? The right atrium is mildly dilated. Aortic Valve: ? The aortic valve is tricuspid. ?There is no evidence of aortic regi ve thickening. ?Systolic excursion of the aortic v alve is normal. ?There is no evidence of aortic reg urgitation. Mitral Valve: ? The mitral valve is probably normal. ?There is trace mitral regurgitatio n present. Tricuspid Valve: ? The tricuspid regi ve is probably normal. ?There is mild (1+/4+) tricuspid re gurgitation present. Pulmonic Valve: ? The pulmonic valve appears normal in structure and function. Pericardium: ? The pericardium appea rs normal and there is no evidence of a pericardial effusion. ?A pericardial fat pad is visualize d. Aorta: ? There is mild dilatation of the aortic root. 3.8 cm. ?The ascending aorta is normal in s kendricke. Pulmonary Artery: ? The main pulmona ry artery is probably normal in size. Venous: ? The inferior vena cava yang ears dilated. ?There is a greater than 50% respir atory change in the inferior vena cava dimension. Misc: ? Technically difficult study. ?See remainder of report for additi onal findings. ?Two-dimensional echo, spectral Dop pler and color Doppler performed. ?Optison contrast (one 3 ml vial) w as used to enhance endocardial definition. Excess contrast was discarde d. Chambers 2D ?Value ?Units (Range) ? IVSd (2D) ? 0.9 ?cm ? LVPWd (2D) ?1 ?cm ? IVS:LVPW ratio (2D) 0.9 ?ratio ? RWT (2D) ?0.41 ? ratio ? RWT PW (2D) ? 0.43 ? ratio ? LVIDd (2D) ?4.6 ?cm ? LVIDs (2D) ?3.5 ?cm ? LVIDd (2D) index ?1.75 ? cm/m2 ? LVIDs (2D) index ?1.33 ? cm/m2 ? LV FS (2D) ?23.91 ?% ? EF Teichholz (2D) ?? 47.74 ?% ? Ao root diameter (2D3.8 ?cm (2.1 - 3.6) ? Ascending Ao ?3.4 ?cm (2 - 3.5) ? Volumes/Mass ?Value ?Units (Range) ? LA Area 4 CH ?27 ? cm2 (<21) ? RA AREA 4CH ? 21 ? cm2 ? LA ESV BP (MOD) inde33.23 ? ml/m2 ? LV mass (2D) ?148.1 ?g ? LV mass (2D) index ??56.31 ?g/m2 ? Diastolic/Systolic Function ?Value ?Units (Range) ? MV E-wave Vmax ?0.83 ? m/sec ? LV septal e' Vmax ?? 0.12 ? m/sec ? LV lateral e' Vmax ??0.13 ? m/sec ? LV average e' Vmax ??0.13 ? m/sec ? LV E:e' septal ratio6.92 ? ratio ? LV E:e' lateral rati6.38 ? ratio ? LV average E:e' rati6.64 ? ratio ? Aortic Valve ?Value ?Units (Range) ? LVOT diameter ? 2.1 ?cm ? LVOT Vmax ? 0.94 ? m/sec ? LVOT VTI ?13.5 ? cm ? LVOT peak gradient ??4 ?mmHg ? LVOT mean gradient ??2 ?mmHg ? SV LVOT ? 46.73 ?ml ? Tricuspid Valve ?Value ?Units (Range) ? TR Vmax ? 2.39 ? m/sec ? TR peak gradient ?22.85 ?mmHg ? RAP ? 8 ?mmHg ? RVSP ?31 ? mmHg ? This report has been electronically sign ed by: _ Arnaldo Hough M.D. ? 05/16/2021 14:07:56 Images reviewed and interpretation verif ied [facility] Cardiac Ultrasound Laboratory Procedure Note Arnaldo Hough MD - 05/16/2021Formatti ng of this note might be different from the original. Procedure: Transthoracic Echocardiogram Patient: DI Sumner (Age): [birth year](60y) Med Rec#: [id number] Sex: M [place] Loc: [facility] [place] Ht / Wt: 178(cm)/156(kg) Pt. Loc: Echo Lab BSA: 2.63 Study Date: 05/16/2021 Pt. Type: Outpati ent Tape: Referring: Mari Tao Reading: Arnaldo Hough ([id number]) County Coroner: Ada John Kitchen Steward: Patricia Barroso Diagnosis: *Obstructive sleep apnea (adult) (pedia tric) (G47.33) *Persistent atrial fibrillation (I48.1) *Morbid (severe) obesity due to excess calories (E66.01) *Essential (primary) hypertension (I10) Rhythm: A-Fib BP: 155/85 SUMMARY: 1. Rhythm appears to be atrial fibrillat ion. 2. There is normal global left ventricul ar systolic function with an estimated EF of 55% and no wall motion a bnormalities. 3. The right ventricle is mildly dilated . Right ventricular global systolic function is normal. The estimat ed pulmonary artery systolic pressure is normal at 31 mmHg. 4. The left atrium is normal in size. Th e right atrium is mildly dilated. 5. There is no hemodynamically signfican t valve disease. 6. The pericardium appears normal and th ere is no evidence of a pericardial effusion. Findings : Study Quality: Technically limited Left Ventricle: The left ventricular christophe mber size is normal. Left ventricular wall thickness is norm al. No ventricular septal defect is visuali zed. There is normal global left ventricular systolic function. The visually estimated left ventricular ejection fraction is 55% with beat to beat variation with atrial fibrillation. Left Atrium: The left atrium is normal i n size. The inter-atrial septum appears lipomat ous. Right Ventricle: The right ventricle is mildly dilated. Right ventricular global systolic funct ion is normal. The estimated pulmonary artery systolic pressure is 31 mmHg. The estimated right atrial pressure is 8 mmHg. Right Atrium: The right atrium is mildly dilated. Aortic Valve: The aortic valve is tricus pid. There is no evidence of aortic valve th ickening. Systolic excursion of the aortic valve is normal. There is no evidence of aortic regurgit ation. Mitral Valve: The mitral valve is probab ly normal. There is trace mitral regurgitation pre sent. Tricuspid Valve: The tricuspid valve is probably normal. There is mild (1+/4+) tricuspid regurgi tation present. Pulmonic Valve: The pulmonic valve appea rs normal in structure and function. Pericardium: The pericardium appears nor mal and there is no evidence of a pericardial effusion. A pericardial fat pad is visualized. Aorta: There is mild dilatation of the a ortic root. 3.8 cm. The ascending aorta is normal in size. Pulmonary Artery: The main pulmonary art joelle is probably normal in size. Venous: The inferior vena cava appears d ilated. There is a greater than 50% respiratory change in the inferior vena cava dimension. Misc: Technically difficult study. See remainder of report for additional findings. Two-dimensional echo, spectral Doppler and color Doppler performed. Optison contrast (one 3 ml vial) was us ed to enhance endocardial definition. Excess contrast was discarde d. Chambers 2D Value Units (Range) IVSd (2D) 0.9 cm LVPWd (2D) 1 cm IVS:LVPW ratio (2D) 0.9 ratio RWT (2D) 0.41 ratio RWT PW (2D) 0.43 ratio LVIDd (2D) 4.6 cm LVIDs (2D) 3.5 cm LVIDd (2D) index 1.75 cm/m2 LVIDs (2D) index 1.33 cm/m2 LV FS (2D) 23.91 % EF Teichholz (2D) 47.74 % Ao root diameter (2D3.8 cm (2.1 - 3.6) Ascending Ao 3.4 cm (2 - 3.5) Volumes/Mass Value Units (Range) LA Area 4 CH 27 cm2 (<21) RA AREA 4CH 21 cm2 LA ESV BP (MOD) inde33.23 ml/m2 LV mass (2D) 148.1 g LV mass (2D) index 56.31 g/m2 Diastolic/Systolic Function Value Units (Range) MV E-wave Vmax 0.83 m/sec LV septal e' Vmax 0.12 m/sec LV lateral e' Vmax 0.13 m/sec LV average e' Vmax 0.13 m/sec LV E:e' septal ratio6.92 ratio LV E:e' lateral rati6.38 ratio LV average E:e' rati6.64 ratio Aortic Valve Value Units (Range) LVOT diameter 2.1 cm LVOT Vmax 0.94 m/sec LVOT VTI 13.5 cm LVOT peak gradient 4 mmHg LVOT mean gradient 2 mmHg SV LVOT 46.73 ml Tricuspid Valve Value Units (Range) TR Vmax 2.39 m/sec TR peak gradient 22.85 mmHg RAP 8 mmHg RVSP 31 mmHg This report has been electronically sign ed by: _ Arnaldo Robert Hough M.D. 05/16/2021 14:07 :56 Images reviewed and interpretation alok lala [facility] Cardiac Ultrasound Laboratory Mari Tao MD ECHO ORDERABLES Performing Organization Address City/State/ZIP Code Phon e Number HEARTLAB SYSTEM documented in this encounter Visit Diagnoses Diagnosis Morbid obesity Longstanding persistent atrial fibrillat ion JOHN (obstructive sleep apnea) Obstructive sleep apnea (adult) (pediatr ic) Hypertension, unspecified type documented in this encounter Administered Medications Inactive Administered Medications - up to 3 most recent administrations Medication Order MAR Action Action Date Dose Rate Site perflutren protein-A microsphers Given 05/16/2021 1:00 PM EDT 2. 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
--- OUTSIDE RECORDS SUMMARY | 2022-03-23 07:50 | XMS_ITS | Encounter Summary ---
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 Procedures PRO OTOLARYNGOLOGIC EXAM UNDER GENERAL ANESTHESIA PRO LARYNGOSCOPY, DIRCT, OP SCOPE, BIOPSY PRO BX/REMV, LYMPH NODE, DEEP CERV OTOLARYNGOLOGIC EXAM UNDER ANESTHESIA (WRVU 1.51) LARYNGOSCOPY, MICROSCOPE, WITH BIOPSY (WRVU 3.55) BIOPSY OR EXCISION OF LYMPH NODE(S), OPE N, DEEP CERVICAL NODES-VARINDER (WRVU 6.74) Referral ID Status Reason Start Date Expiration Date Visits Requ ested Visits Authorized [id number] 1 1 Encounter Details Date Type Department Care Team Description 05/19/2021 Anesthesia Event Main Operating Room Elias Hensley DO [facility] [place] [address] [facility] Erlin Morales MD [facility] [place] [address] [facility] [place] [address] Anesthesia Record Procedure Summary Procedure Name Responsible Anesthesia Start Anesthesia Stop Anesthesiologist Time Time OTOLARYNGOLOGIC EXAM Elias Gill DO 05/19/21 1043 05/19/21 1235 UNDER ANESTHESIA (WRVU 1.51) (Midline Throat) Events Date Time Event Comment 05/19/2021 1005 1043 Start 1045 AN Verify 1046 An Start Data 1055 An Induction 1059 An Intubation 1104 Quick Note Monitors off for 180 degree spin 1105 Anesthesia Ready 1112 Procedure Start 1123 Break/Relief In I assumed care f or Break Relief before which we: 1. Identifie d the patient 2. Identified the responsible provider(s) 3. Reviewed the pertinent medica l history 4. Discussed the surgical plan an d course 5. Reviewed intra-op anesthesia manag ement and issues during anesthesia 6. Se t expectations for the relief (and/or post-pro cedure) period 7. Allowed opportunity for questions and acknowledgement of understanding Cristela Cyr, YUE 1148 Skin Incision 1152 Break/Relief Out 1223 Extubation/LMA Out Patient xuan steen adequate tidal volumes (>300ml), respir atory rate regular (10-14). Opens eyes to co mmand. Oropharynx suctioned, ETT removed, spo ntaneous ventilations maintained. 1228 an stop data 1233 Recovery or ICU Handoff Patient care was transferred to the destination unit staff after review of the patient's medica l history, current anesthetic/surgi mackenzie status and plan, according to the Provider Handoff Checklist. 1235 Stop Patient brought to recovery with 8L/min O2 via face mask. S pontaneous ventilations maintained. Crystal ent opening eyes to voice, resting comforta aaron. Name Total fentaNYL 100 mcg IV Lidocaine 100 mg Propofol 200 mg Ondansetron 4 mg Dexamethasone 8 mg ampicillin-sulbactam (Unasyn) 3 g vial attach to sodiu m chloride 0.9% 100 mL 3 g Mini-Bag Plus Succinylcholine 180 mg Propofol INF 513.4 mg Lidocaine 4% LTA 4 mL Dexmedetomidine 8 mcg Esmolol 40 mg lactated ringers infusion 500 mL Agents Name O2 Air N2O Sevoflurane (et) Blood No blood administrations on file. Lines, Drains, and Airways Type Details Placement Removal Incision 05/19/21; 1112; throat 05/19/21 1112 by Darshana Nelson RN Incision 05/19/21; 1148; Left; neck 05/19/21 1148 by Darshana Ojeda RN PIV 05/19/21; 1018; metacarpal 05/19/21 1018 by 10/0 02/10 0934 by vein (top of hand), right; Beverly Beckett RN McCullough, Jared M, RN [id number] catheter system; 22 gauge; Vladislav Beckett RN; intradermal injection, tolerated well; 0; 06/27/21; 0934 ETT Mask Ventilation: Easy (1); 05/19/21 1059 by Plu mmer, 05/19/21 1223 by ETT Type: Cuffed, Oral; ETT Kaley Louise, Kaley Schultz, Size: 7 mm; Indirect:Video SERVICE TRAINER (Elective CMAC use for limited neck extension and tongue lesion); Notes: Asleep, Pre-O2, Stylette, Troop Elev.; Attempts: 1; Laryngoscopy Grade: 1 (with CMAC D-blade); ETT Placement Verified By: Auscultation, Capnometry, Visual; Secured at Teeth: 22 cm; Inserted by: Nato Hurtado SERVICE TRAINER documented in this encounter Social History Tobacco Use Types Packs/Day Years [...] on file documented as of this encounter OR Notes Anesthesia Postprocedure Evaluation - Elias Gill DO - 05/19/2021 4:00 PM EDT Department of Anesthesiology Post-procedure Note Patient: Faizan Anaya Procedure Summary Date: 05/19/21 Room / Location: [facility] MAIN OR Anesthesia Start: 1043 Anesthesia Stop: 1235 Procedures: OTOLARYNGOLOGIC EXAM UNDER ANESTHESIA (WRVU 1.51) (Midline Throat) LARYNGOSCOPY, MICROSCOPE, WITH BIOPSY (WRVU 3.55) (Left Throat) BIOPSY OR EXCISION OF LYMPH NODE(S), OPEN, DEEP CERVICAL NODES (WRVU 6.74) (Left Neck) Diagnosis: (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 Patient Location: PACU/[facility] Level of Consciousness: Awake and Alert Pain Management: Satisfactory Analgesia PONV: None Cardiovascular Status: Hemodynamically Stable Respiratory Status: Room Air and Stable Respiratory Status Postoperative Fluid Status: Intravascular EUvolemia Possible Anesthetic Complications: NONE apparent at time of evaluation Final Primary Anesthesia Type: General (The anesthetic type performed was the same as planned.) Comments: Anesthesia Preprocedure Evaluation - Elias Gill DO - 05/16/2021 4:49 PM EDT Images from the original note were not included. Pre-Anesthesia Evaluation for: Faizan Anaya a 60 y.o. male. Patient Active Problem List Diagnosis ??? Essential hypertension ??? JOHN not on CPAP (though recommended) ??? Neck mass ??? Morbid obesity with BMI of 50.0-59.9, adult ??? Chronic atrial fibrillation Past Medical History: Diagnosis Date ??? Essential hypertension 04/12/2021 ??? JOHN not on CPAP (though recommended) 04/12/2021 No past surgical history on file. Social History Tobacco Use ??? Smoking status: Never Smoker ??? Smokeless tobacco: Never Used Substance Use Topics ??? Alcohol use: Not on file Social History Substance and Sexual Activity Drug Use Not on file No Known Allergies Medications: MAR and/or home medications have been reviewed. Physical Exam: Preprocedure Vitals Current as of 04/13/21 1324 BP: 168/96 Pulse: Resp: SpO2: 96 Temp: Height: 177.8 cm (5' 10) (04/13/21) Weight: 155.9 kg (343 lb 12.8 oz) (04/13/21) BMI: 49.32 IBW: 73 kg (160 lb 15 oz) Last edited 04/13/21 1210 by TK Airway Assessment: Mallampati: III TM distance: <3 FB Neck ROM: limited Cardiovascular Assessment: Rhythm: irregular Rate: normal (+) peripheral edema (trace) Pulmonary Assessment: unlabored breathing Dental Assessment: Misc Assessment: Patient is wearing No contact(s). Other exam findings: Neck ROM is limited in extension and rotation (R>L). 2+radial pulses b/l. Last Filed Perioperative Cognitive Screening None Anesthesia Plan: ASA 3 general, with a(n) intravenous induction 60 y/o here for ENT exam and laryngoscopy LN deep, metastatic to the neck See PAT clinic note: PMH- untreated JOHN, morbid obesity, and htn. Plan : review airway exam, General ETT, ?laser ETT discuss w/ surgeon,tylenol Will need video laryngoscopy for ETT placement. Patient was unable to tolerate exercise stress. And a stress MIBI was not performed since he is claustrophobic. Based on peripheral edema, elevated proBNP and SOB he may have a higher cardiac risk. I have explained this to the patient and he agrees to proceed. He does have good EF and no evidence of WMA on echo. SUMMARY:echo 04/2021?? 1. Rhythm appears to be atrial fibrillation. [...] mildly dilated. 5. There is no hemodynamically significant valve disease. 6. The pericardium appears normal and there is no evidence of a pericardial effusion. No other changes in his health. He has been vaccinated for Covid. NPO Region - Other Informed Consent: Anesthetic plan and risks discussed with patient. Plan discussed with SERVICE TRAINER and attending. Anesthesia Screening Note: Date and Time of Entry: 04/13/2021 1:26 PM Entered By: Reymundo Washington DO Reason for Evaluation: Surgeon Request Hx of Anesthesia Problem: JOHN, obesity, Afib, HTN, L neck mass Screening Visit Type: Interviewed in person Additional/Outside Records Requested? Requested medical information from outside organization. From Where? PCP and cardiology @ [facility] in [place], [place] Findings, Assessment and Plan: Faizan Anaya is a 60 y.o. male with past medical history of JOHN, morbid obesity, chronic afib, and HTN who presents for perioperative evaluation in preparation for surgerywith Dr. Cordoba, ENT, to address is L neck mass; date of surgery 05/19. Patient denies any recent changes in his past medical history. Patient states that he lives a very sedentary life; reports significant difficulty in terms of leg pain and SOB with exertion. Patient reports intermittent swelling of BLE (R>L). Patient also with mild stasis dermatitis b/l. He denies any CP or palpitations. Patient's afib is currently rate controlled on 50mg metoprolol bid and he takes aspirin daily for ananticoagulant, though he has not been taking it recently because he did not think this should be taken with tylenol, which he has been taking more often for worsening headaches related to his L neck mass. Patient states previously he was tried on warfarin, however he was unable to achieve a therapeutic INR so his PCP decided to keep him on aspirin only. Patient has also been cardioverted multiple times at [facility] in the past, however is unable to maintain a sinus rhythm. Patient has not seen a school bus technician since his last cardioversion several years ago. Patient denies ever having a TTE or cardiac stress test. Recently patient began taking tramadol for his headaches and reports only minimal relief with this medication. Patient denies any history of DM. Patient does have JOHN that was diagnosed several years ago via sleep study. States he should be wearing a CPAP, however he does not own one and states that he does not want to wear one. He states he gets poor quality sleep most often. Patient consumes etoh only occasionally, less so since neck mass diagnosis. Anesthesia history consists of mild to moderate sedation for cardioversion in the past. Patient denies ever having GA in the past. States he has never had an issues with the limited anesthesia he has had. EKG performed today (04/13/21) shows atrial fibrillation at rate of 93 and no evidence of ischemia. Labs from 04/13/21 are remarkable for elevated WBC count at 13.4 as well as a pro-BNP of 1014; otherwise labs are grossly unremarkable. Patient's elevated WBC count is most likely reactive from his neck mass. Discussed with patient the importance of him taking his aspirin to reduce risk of embolism and that this is okay to administer with tylenol. Also discussed importance of obtaining a CPAP to wear at night not only to improve his rest, but also for pulmonary and cardiovascular benefit. Given patient's limited functional status, CVhistory and elevated pro-BNP, will order a cardiac stress test for patient. Will also contact patient's PCP, Dr. Morales, to discuss referral to cardiology. Plan to follow-up with patient after stresstest and meeting with cardiology. Patient is okay with this plan and all questions were addressed. Reymundo Washington DO Anesthesiology, PGY1 Attending Assessment: I personally reviewed the patient's EMR and discussed the history, current clinical status, and perioperative management with the resident, and agree with the assessment and plan discussed above. 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 Given his morbid obesity, chronic AF, HTN, untreated JOHN, and limited functional status, I have spoken with his PCP and completed the prior authorizations for a cardiac stress test prior to mass resection and neck dissection. We will f/u with the results. Update 05/16: Unable to complete stress test due to claustrophobia. TTE 05/16/21 reassurin. Rhythm appears to be atrial fibrillation. 2. Normal LV systolic function, EF of 55%, no WMA 3. RV mildly dilated, global systolic function is normal. PASP 31 mmHg. 4. LA normal in size. RA is mildly dilated. 5. There is no hemodynamically signficant valve disease. 6. The pericardium appears normal and there is no evidence of a pericardial effusion. The patient was informed of the risks, benefits and alternatives of anesthesia. These risks included, but were not limited to, post-operative nausea and/or vomiting, pain, sore throat, dental/lip injury, and other rare but serious complications such as cardiac instability/arrest, neurologic event, awareness, severe allergic reactions, position-related nerve injuries, and need blood transfusions. All questions sought and answered. Consent was signed and placed in chart. Mari Tao MD 04/17/2021 documented in this encounter Plan of Treatment Upcoming Encounters Date Type Specialty Care Team Description 03/30/2022 Office Visit Hematology and Oncology Kristan Perry MD [facility] DR ONCOLOGY DEPT. [place], [place] [address] (Wo rk) documented as of this encounter Visit Diagnoses Not on filedocumented in this encounter Administered Medications Inactive Administered Medications - up to 3 most recent administrations Medication Order MAR Action Action Date Dose Rate Site ampicillin-sulbactam (Unasyn) 3 g New Bag 05/19/2021 11:06 AM EDT 3 g vial attach to sodium chloride 0.9% 100 mL Mini-Bag Plus 3 g, Intravenous, 30 MIN PRE-OP, 1 dose, On Sat05/19/21 at 1030, Administer over 15 Minutes, Warning Vesicant/Irritant Medication , Day of Surgery (Day of Procedure), Indication for (Active or Suspected): Prophylaxis dexamethasone (Decadron) injection Given 05/19/2021 11:09 AM EDT 8 mg Intravenous, PRN, Starting on Sat05/19/21 at 1109, Until Sat05/19/21 at 1236, Anesthesia Intra-op, Routine dexmedetomidine (Precedex) (4 mcg/mL) bolus Given 05/19/2021 11:35 AM EDT 8 mcg injection (Anesthsia) Intravenous, PRN, Starting on Sat05/19/21 at 1135, Until Sat05/19/21 at 1236, Anesthesia Intra-op, Routine esmoloL (Brevibloc) (10 mg/mL) injection Given 05/19/2021 12:09 PM EDT 10 mg Intravenous, PRN, Starting on Sat05/19/21 at 1144, Until Sat05/19/21 at 1236, Anesthesia Intra-op, Routine Given 05/19/2021 12:05 PM EDT 10 mg Given 05/19/2021 11:44 AM EDT 20 mg fentaNYL (pf) (50 mcg/mL) multi-dose Given 05/19/2021 10:56 AM E DT 100 mcg injection Intravenous, PRN, Starting on Sat05/19/21 at 1056, Until Sat05/19/21 at 1236, Anesthesia Intra-op, Routine lactated ringers infusion Restarted 05/19/2021 10:43 AM EDT 1,000 mL, at 100 mL/hr, Intravenous, CONTINUOUS, Starting on Sat05/19/21 at 1030, Until Sat05/19/21 at 1331, Day of Surgery (Day of Procedure) New Bag 05/19/2021 10:21 AM EDT 1,000 mLs 100 mL/hr lidocaine (pf) (Xylocaine) (20 mg/mL) 2% Given 05/19/2021 10:55 AM EDT 100 mg injection syringe Intravenous, PRN, Starting on Sat05/19/21 at 1055, Until Sat05/19/21 at 1236, Anesthesia Intra-op, Routine lidocaine (XYLOCAINE) 4 % external solut ion Given 05/19/2021 10:59 AM EDT 4 mLs Intratracheal, PRN, Starting on Sat05/19/21 at 1059, Until Sat05/19/21 at 1236, Anesthesia Intra-op ondansetron (pf) (Zofran) (2 mg/mL) inje ction Given 05/19/2021 12:10 PM EDT 4 mg Intravenous, PRN, Starting on Sat05/19/21 at 1210, Until Sat05/19/21 at 1236, Anesthesia Intra-op, Routine propofoL (Diprivan) 10 mg/mL bolus injection Given 10:55 AM EDT 200 mg (Anesthesia) Intravenous, PRN, Starting on Sat05/19/21 at 1055, Until Sat05/19/21 at 1236, Anesthesia Intra-op propofoL (Diprivan) infusion New Bag 05/19/2021 11:05 AM 50 mcg/kg/min 45.3 mL/hr Intravenous, CONTINUOUS PRN, EDT Starting on Sat05/19/21 at 1105, Until Sat05/19/21 at 1236, Anesthesia Intra-op, Routine succinylcholine (Anectine;Quelicin) (20 Given 05/19/2021 10:56 A M EDT 180 mg mg/mL) injection Intravenous, PRN, Starting on Sat05/19/21 at 1056, Until Sat05/19/21 at 1236, Anesthesia Intra-op, Routine documented in this encounter Care Teams Prosthetic Aides Teacher Relationship Specialty Start Date End Date Ava Morales MD PCP - General Family Medicine 04/04/[address] [place] [phone] documented as of this encounter
--- OUTSIDE RECORDS SUMMARY | 2022-03-23 07:50 | XMS_ITS | Encounter Summary ---
:1960 Author Organization [facility] [place] [address] Care Team Providers Name Role Phone Ava Morales MD Primary Care Provider Reason for Referral Diagnostic Test (Emergency) - Closed Specialty Diagnoses / Procedures Referred By Contact Refer red To Contact Cardiology Diagnoses Morbid obesity Longstanding persistent atrial fibrillation JOHN (obstructive sleep apnea) Hypertension, unspecified type Mari Tao MD [facility] Non-Inv Card Lab Procedures Echocardiogram Transthoracic([facility] or [facility]) [facility] [place] [address] [place] [address] Fax: Referral ID Status Reason Start Date Expiration Date Visits V isits Requested Authorized [id number] Closed Specialty 05/09/2021 05/09/2022 1 1 Service Requested Encounter Details Date Type Department Care Team Description 05/09/2021 Orders Only Anesthesiology Mari Tao MD Morbid obesity; [facility] gstanding persistent atrial fibrillation; Drive JOHN (obstructive sleep apnea); [place], [place] ANESTHESIOLOGY Hypertension, unspecified type [id number] [place] [address] [phone] Social History Tobacco Use Types Packs/Day Years [...] [facility] [place], [place] [address] (Wo rk) documented as of this encounter Results ECHOCARDIOGRAM COMPLETE W CONTRAST (05/16/2021 1:17 PM EDT) P athologist Signature EF 55 [facility] Specimen (Source) Anatomical Location Collection Method / Collectio n Time Received Time / Laterality Volume 05/16/2021 Narrative [facility] - 05/16/2021 2:09 PM EDT Procedure: ?Transthoracic Echocardiogram Patient: ?DI HARRIS M ? (Age): 1960(60y) Med Rec#: ? [id number] ?Sex: ?M ? Site Loc: ? DH ?Ht / Wt: ??178(cm)/156(kg) Pt. Loc: ?Echo Lab ?BSA: ?2.63 Study Date: ?? 05/16/2021 ?Pt. Type: Outpatient Tape: ? Referring: Mari Tao Reading: Arnaldo Hough ([id number]) Peritoneal Dialysis Registered Nurse: Ada John Checker And Packer: Patricia Barroso Diagnosis: *Obstructive sleep apnea (adult) [...] ?The ascending aorta is normal in s ize. Pulmonary Artery: ? The main pulmona ry [...] 14:07:56 Images reviewed and interpretation verif ied [facility] Cardiac Ultrasound Laboratory Procedure Note Arnaldo Hough MD - 05/16/2021Formatti ng of this note might be different from the original. Procedure: Transthoracic Echocardiogram Patient: DI Sumner (Age): [birth year](60y) Med Rec#: [id number] Sex: M Site Loc: [facility] Ht / Wt: 178(cm)/156(kg) Pt. Loc: Echo Lab BSA: 2.63 Study Date: 05/16/2021 Pt. Type: Outpati ent Tape: Referring: Mari Tao Reading: Arnaldo Hough ([id number]) Peritoneal Dialysis Registered Nurse: Ada John Checker And Packer: Patricia Barroso Diagnosis: *Obstructive sleep apnea (adult) [...] report has been electronically sign ed by: Mirian Hough M.D. 05/16/2021 14:07 :56 Images reviewed and interpretation verif ied [facility] Cardiac Ultrasound Laboratory Mari Tao MD ECHO ORDERABLES Performing Organization Address City/State/ZIP Code Phon e Number [facility] documented in this encounter Visit Diagnoses Diagnosis Morbid obesity Longstanding persistent atrial fibrillat ion JOHN (obstructive sleep apnea) Obstructive sleep apnea (adult) (pediatr ic) Hypertension, unspecified type Morbid obesity Longstanding persistent atrial fibrillat ion JOHN (obstructive sleep apnea) Obstructive sleep apnea (adult) (pediatr ic) Hypertension, unspecified type documented in this encounter Care Teams Cinder Snapper Relationship Specialty Start Date End Date Ava Morales MD PCP - General Family Medicine 04/04/[address] [place] [phone] documented as of this encounter
--- OUTSIDE RECORDS SUMMARY | 2022-03-23 07:50 | XMS_ITS | Encounter Summary ---
:1960 Author Organization [facility] [place] [address] Care Team Providers Name Role Phone Ava [...] Expiration Date Visits Requ ested Visits Authorized [id number] 1 1 Encounter Details Date Type Department Care Team Description 05/19/2021 [facility] [place] [address] [place] [address] [phone] (Wo rk) Social History Tobacco Use Types [...] Sign Reading Time Taken Comments Blood Pressure 138/83 05/19/2021 1:15 PM EDT Pulse 85 05/19/2021 1:15 PM EDT Temperature 36 ??C (96.8 ??F) 05/19/2021 12:35 PM EDT Respiratory Rate 14 05/19/2021 1:15 PM EDT Oxygen Saturation 100% 05/19/2021 1:15 PM EDT Inhaled Oxygen Concentration - - Weight 151 kg (333 lb) 05/19/2021 9:32 AM EDT Height 177.8 cm (5' 10) 05/19/2021 9:32 AM EDT Body Mass Index 47.78 05/19/2021 9:32 AM EDT documented in this encounter Discharge Instructions Discharge InstructionsHazel Carroll RN - 05/19/2021 1:11 PM EDT POST ANESTHESIA INSTRUCTIONS Go home, rest, use caution on stairs. Change positions slowly. Do not smoke if you are alone. Diet light to regular as tolerated today. If nausea occurs start with clear liquids and progress slowly. No driving, operating machinery, alcoholic beverages and no important decisions for 24 hours. Monitor IV site for signs and symptoms of infection: increasing redness, swelling, foul drainage, ifoccurs contact M.D. Patients who have had endotrachial tubes (this tube, used by anesthesia department, is passed down your throat after you are asleep, to ensure safe air passage during your operation). A sore throat is normal due to the tube. Cold liquids or soothing lozenges will help ease the discomfort. The generalized muscle aches are due to the medication given to you just before the tube is inserted. As the medication wears off, you may develop muscle soreness, which usually goes away in 12-24 hours.POST ANESTHESIA INSTRUCTIONS Go home, rest, use caution on stairs. Change positions slowly. Do not smoke if you are alone. Diet light to regular as tolerated today. If nausea occurs start with clear liquids and progress slowly. No driving, operating machinery, alcoholic beverages and no important decisions for 24 hours. Monitor IV site for signs and symptoms of infection: increasing redness, swelling, foul drainage, ifoccurs contact M.D. Patients who have had endotrachial tubes (this tube, used by anesthesia department, is passed down your throat after you are asleep, to ensure safe air passage during your operation). A sore throat is normal due to the tube. Cold liquids or soothing lozenges will help ease the discomfort. The generalized muscle aches are due to the medication given to you just before the tube is inserted. As the medication wears off, you may develop muscle soreness, which usually goes away in 12-24 hours. Patient InstructionsMuMonster fallon PA - 05/19/2021 12:21 PM EDT Instructions for Patient at Discharge: What to expect: You will have soreness which will improve over the next several days. The area around the incision may be numb. This should recover over the next few months. Medications: Pain Control - use acetaminophen (Tylenol) and/or ibuprofen (Motrin, Advil) as needed. Incision Care: Your incision was closed with absorbable sutures. These sutures do not need to be removed. The suture will dissolve and the knot will fall off in the next 1-2 weeks. Use diluted peroxide to clean the incision and apply antibiotic ointment twice daily. Keep the incision otherwise dry for the next two days. After that you may get the area wet and pat dry. Care of neck incisions: This is to be done daily: Using a sterile saline-soaked Q-tip, clean the neck incision, removing any loose crusts around the sutures. Apply a light coat of antibiotic ointment (such as Bacitracin or Aquaphor) to the incisions. You may leave the incisions exposed. When you are sleeping, keep your head elevated with an extra pillow under the back and two pillows under the head -this will minimize any swelling in the face and neck area. Activity: A good rule of thumb is if it hurts don't do it. Keep your head elevated when lying flat. No heavy lifting or strenuous activity for one to two weeks. No smoking, this is important for wound healing. Diet: Resume baseline diet. You should call your doctor if you develop: -Increasing pain and redness -Inreasing drainage from the wound -Increased swelling at the incision site -Fever > 38.5Celsius or 101 Fahrenheit -Bleeding -Breathing problems Contact: -You can reach the ENT clinic at [phone] for appointment questions. -The ENT triage nurse is available at [phone] -For urgent issues during evenings and weekends the ENT resident mobile application developer can be reached through the main hospital heading and priming operator at [phone] Follow Up: You will need to follow up with Dr. Cordoba or one of the associate providers in 1 week. This appointment has been requested. You will be notified once it is scheduled, if you do not already see it below. If you do not hear from us in a timely manner, please call to receive your date and time. Currently Scheduled Appointments and VNA instructions: Future Appointments and Orders Future Appointments and Orders Future Appointments Provider Department Dept Phone 05/30/2021 8:05 AM LAB, [facility] Lab [address] [place] [address] Arrive at: [facility] Machinist Area [phone] documented in this encounter Medications at Time [...] documented as of this encounter Progress Notes Rebeca Richardson RN - 05/19/2021 1:32 PM EDT Patient alert and oriented, vital signs stable. Reviewed discharge instructions; patient verbalized understanding. Copy of instruction sheet with contact numbers for questions/concerns with patient. Pain assessment documented 0/. Patient escorted out of department via wheelchair with Rn to meet his Larisa at [facility]. PIV removed prior to d/c. Swelling marked for patient to keep track. documented in this encounter H&P Notes Monster Noriega PA - 05/19/2021 10:06 AM EDT Pre-Operative H&P Update Patient was seen in the Pre-Operative Area today. I have reviewed, and agree with, the clinical history, physical examination findings, impression, and plan, as detailed in the original H&P Note. No new clinically-significant changes to the patient's health. Patient is ready to proceed with the planned surgical procedure. 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 Postoperative diagnosis: 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 Procedure(s) (LRB): OTOLARYNGOLOGIC EXAM UNDER ANESTHESIA (WRVU 1.51) (Midline) LARYNGOSCOPY, MICROSCOPE, WITH BIOPSY (WRVU 3.55) (Left) BIOPSY OR EXCISION OF LYMPH NODE(S), OPEN, DEEP CERVICAL NODES (WRVU 6.74) (Left) Anesthesia: General Findings: has a friable lesion in the base of the left tonsil and very indurated fixed 7 cm left neck mass Complications: none Intake: Intraprocedure Crystalloid Total Intake lactated ringers infusion 500.00 mL ampicillin-sulbactam (Unasyn) 3 g vial attach to sodium chloride 0.9% 100 mL Mini-Bag Plus 100.00 mL Total Intake 600 mL Output Blood Loss 15 mL Total Output 15 mL Net Net Volume 585 mL Transfusion No data found in the last 1 encounters. Output: Estimated Blood Loss: * No values recorded between 05/19/2021 11:12 AM and 05/19/2021 12:12 PM * Urine Output:: (no urine output recorded) Other Output: (no other output recorded) Drains: none Specimens removed during surgery: Order Name Source Comment Collection Info Order Time SPECIMEN TO PATHOLOGY OR#2, ex:[id number]. 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 LEFT lower tonsil biopsy 05/19/2021 11:23 AM Time specimen removed from patient: 11:22 AM Number of tissue samples (in container) 1 SPECIMEN TO PATHOLOGY for lymphoma work up OR#2, ex:[id number] 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 LEFT deep neck biopsy for lymphoma work up biopsy 05/19/2021 11:54 AM Time specimen removed from patient: 11:53 AM Number of tissue samples (in container) 1 Disposition: awakened from anesthesia, extubated and taken to the recovery room in a stable condition, having suffered no apparent untoward event. Condition: doing well without problems Attestation: Case Date: 05/19/2021 I performed this procedure without the involvement of a resident. (Please see the Surgical Encounter Summary for any Implant and Specimen details pertinent to this patient.) Infection Bundle used? 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 Postoperative diagnosis: 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 Procedure(s) (LRB): OTOLARYNGOLOGIC EXAM UNDER ANESTHESIA (WRVU 1.51) (Midline) LARYNGOSCOPY, MICROSCOPE, WITH BIOPSY (WRVU 3.55) (Left) BIOPSY OR EXCISION OF LYMPH NODE(S), OPEN, DEEP CERVICAL NODES (WRVU 6.74) (Left) Modifiers: : PA/FILIBERTO clinical lab assistant surgeon (no qualified resident available) Anesthesia: General Estimated Blood Loss: * No values recorded between 05/19/2021 11:12 AM and 05/19/2021 12:12 PM * Specimens removed during surgery: Order Name Source Comment Collection Info Order Time SPECIMEN TO PATHOLOGY OR#2, ex:[id number]. 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 LEFT lower tonsil biopsy 05/19/2021 11:23 AM Time specimen removed from patient: 11:22 AM Number of tissue samples (in container) 1 SPECIMEN TO PATHOLOGY for lymphoma work up OR#2, ex:[id number] 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 LEFT deep neck biopsy for lymphoma work up biopsy 05/19/2021 11:54 AM Time specimen removed from patient: 11:53 AM Number of tissue samples (in container) 1 Drains: * No LDAs found * Surgical Closure: Primary Closure - skin incision is completely closed without any wires, damian, drains or other devices Disposition: awakened from anesthesia, extubated and taken to the recovery room in a stable condition, having suffered no apparent untoward event. Condition: doing well without problems (Please see the Surgical Encounter Summary for any Implant and Specimen details pertinent to this patient.) HPI/Surgical Indications: This is a morbidly obese 60-year-old male who has been aware of the enlarging mass into the left neck with some discomfort for the last few months. Medical treatment did not seem to make any difference. He underwent diagnostic investigations including CT scan showing the presence of a large necrotic mass along levels 2 and 3 of the left neck and extending superiorly to the deep aspect of the left parotid gland. On office endoscopy and CT scan of the neck, there was no obvious anomaly noted in the oropharynx. Patient could not tolerate undergoing a PET/CT. He is taken to the operating room for work-up and hopefully identification of his primary tumor Procedure Description: After the patient was identified and brought to the operating room, he is placed in the supine position. The timeout is completed. The bed is turned 180 degrees away from anesthesia after the patient has a midline RA tube placed in position and general anesthesia is achieved. Evaluation of the oral cavity and pharynx are notable for no obvious palpable lesion within the floor of mouth or palpable tongue. There was no lesion on the palate. Even palpation of the base of tongue and tonsils was not very revealing. There was possibly a slight asymmetry of the left versus the right side of the palatine tonsil. At that point the microlaryngoscopy was done and the Ortiz scope was placed in the oral cavity to suspend the larynx using the Lewy device. There was no evidence of any obvious lesion within the supraglottis, glottis, nor subglottis using the 0 degree telescope, camera, and tower for photodocumentation. Upon slightly withdrawing the laryngoscope, we do identify an area of friability at the junction of the left palatine tonsil and the base of tongue. This is biopsied using the cup forceps. Hemostasis is achieved using adrenaline soaked neurosurgical pledgets. No other visible lesion is noted of concern. Because of the patient's body habitus and concerns about postoperative bleeding/hemorrhage we decided not to perform any additional blind biopsies. The counts from the endoscopic portion of the procedure confirmed after which the patient's neck is then prepped in a standard fashion for a deep node biopsy. On clinical examination the mass is noted is extensive measuring at least 7 cm in size and is rather fixed to the underlying soft tissues. It comes close but is not involving the overlying skin. An incision is marked out on the mid neck using amarking pen and infiltrated using 1% lidocaine with 100,000 epinephrine. Sufficient time is given for vasoconstriction and then the incision carried out using a 10 blade with dissection through the subcutaneous tissues, the subcutaneous fat, until we come across the platysma which appears to be pushed laterally. The platysma was incised and as we continued our dissection deep to this there is a fair amount of induration which is white color and at that point the 10 blade is used to take a wide segment of the tissue which is submitted for pathologic analysis. Hemostasis achieved using bipolar cautery. The wound is then filled with small custom pieces of Surgicel. The wound is then closed in layers using 4-0 Vicryl for the platysma, and subcutaneous layers and the skin closed with a 4-0 running Monocryl. The wound is covered with Aquaphor. Patient is then transferred recovery in stable condition after counts are confirmed Infection Bundle used? N/A Attestation: Case Date: 05/19/2021 I performed this procedure without the involvement of a resident. ODETTE CORDOBA MD 05/19/2021 documented in this encounter Plan of Treatment Upcoming Encounters Date Type Specialty Care Team Description 03/30/2022 Office Visit Hematology and Oncology Kristan Perry MD [facility] DR ONCOLOGY DEPT. [place], [place] [address] (Wo rk) documented as of this encounter Procedures Procedure Name Priority Date/Time Associated Comments Diagnosis BIOPSY OR EXC OF LYMPH Routine 05/19/2021 12:28 NODES; OPEN, DEEP PM EDT CERVICAL NODES CHROMO REPORT ACQUIRED Routine 05/19/2021 12:15 R esults for this PM EDT procedure are i n the results section. SPECIMEN TO PATHOLOGY Routine 05/19/2021 11:55 Re sults for this AM EDT procedure are i n the results section. IMMUNOPHENOTYPING FLOW Routine 05/19/2021 11:53 R esults for this CYTOMETRY AM EDT procedure are i n the results section. SURGICAL PATHOLOGY REPORT Routine 05/19/2021 11:24 Results for this AM EDT procedure are i n the results section. SPECIMEN TO PATHOLOGY Routine 05/19/2021 11:24 Re sults for this AM EDT procedure are i n the results section. BIOPSY OR EXCISION OF Yes 05/19/2021 10:46 Metastatic canc er LYMPH NODE(S), OPEN, DEEP AM EDT to the neck CERVICAL NODES (WRVU 6.74) LARYNGOSCOPY, MICROSCOPE, Yes 05/19/2021 10:46 Metastatic cancer WITH BIOPSY (WRVU 3.55) AM EDT to the neck OTOLARYNGOLOGIC EXAM Yes 05/19/2021 10:46 Metastatic cance r UNDER ANESTHESIA (WRVU AM EDT to the neck 1.51) OTOLARYNGOLOGIC EXAM Routine 05/19/2021 8:56 UNDER ANESTHESIA AM EDT LARYNGOSCOPY, MICROSCOPE, Routine 05/19/2021 8:56 WITH BIOPSY AM EDT documented in this encounter Results chromo report acquired (05/19/2021 12:15 PM EDT) Component Value Ref Test Analysis Performed At [facility] gist Range Method Time Signature Cytogenetics Final Report ADRIENNE Acquired Report [employer] JACOBY RIAL ? [id number] HOSPITAL LABORATORY Specimen Type: Lymph Node Specimen Condition: multiple pieces of LN .5-1.0mm^3 Collection Date/Time: 05/19/2021 12:15 Received Date/Time: 05/19/2021 14:28 Indication: ??Lymphoma ---Results--- Please see the chromosome an alysis scanned report in eD-H corresponding to this lymph node specimen. This report was completed by [facility] and is located in 'Chart Rev iew' under the 'Media' tab. The name of the document is titled External Ge netic Study. ---Karyotype--- ? See comments. ---Preparation--- Culture Type: Other FISH Method: N/A ---Comments--- The specimen was referred to [facility] ([place], [place], Tel: ) for cytogenetic dejon lysis. 05.31.21 (Electronic Signature) Verified By: Sue Ph.D., [facility], Jackie A Clinical Sebd Teacher/Watch Caser Specimen Anatomical Collection Method Collection Time Receive d Time (Source) Location / / Volume Laterality 05/19/2021 12:15 05/19/2021 2:28 PM EDT PM EDT Odette Cordoba MD HEMATOLOGY ORDERABLES Performing Organization Address City/[facility]/ZIP Code Phon e Number [address] Specimen to Pathology (05/19/2021 11:55 AM EDT) Specimen Anatomical Collection Method Collection Time Receive d Time (Source) Location / / Volume Laterality AP Specimen 05/19/2021 11:55 05/19/2021 AM EDT 11:55 AM EDT Narrative [facility] - 05/19/2021 11:55 AM EDT This result has an attachment that is no t available. Specimen requisition ordered. ??Separate Pathology report to follow Odette Cordoba MD PATHOLOGY/CYTOLOGY ORDERABLE S Performing Organization Address City/[facility]/[place]IP [place] [address] Immunophenotyping Flow Cytometry (05/19/2021 11:53 AM EDT) Component Value Ref Test Analysis Performed At [facility] Range Method Time Signature Immunophenotyping See [facility] Flow [facility] LABORATORY Comment: When completed by the Pathologist, the F low Cytometry Report ([id number]) will display under the Pathology Result s section within eDH. Specimen Anatomical Collection Method Collection Time Receive d Time (Source) Location / / Volume Laterality Other Other / Unknown 05/19/2021 11:53 05/19/20 21 AM EDT 12:59 PM EDT Resulting Agency Comment Spec In Lab Odette Cordoba MD HEMATOLOGY ORDERABLES Performing Organization Address City/[facility]/[place] [address] Surgical Pathology Report (05/19/2021 11:24 AM EDT) Component Value Ref Test Analysis Performed At [facility] Method Time Signature Surgical [id number] ? Location: SDP; SD38; A [facility] Pathology [place] Report The signing pathologist has (i) examined the relevant preparation(s) for the [facility] specimen(s) and (ii) rendered or confirmed the diagnosis(es) . HOSPITAL LABORATORY . ?Molecu lar Genetics RESULTS TEST: ??Human Papillomavirus (HPV) High-Risk Genotyping Anal ysis INDICATION: ??Non-keratinizing squamous cell carcinoma, p16 positive. SPECIMEN: ??A - LEFT lower tonsil, biopsy: RESULTS: ??Positive for HPV genotype 33. INTERPRETATION: ??Results in dicate that the submitted tissue contained one of the 14 HPV types detected by this assay. Not all high-risk HPV genotypes are included in this test. METHODS: ??Highly purified g enomic DNA was extracted from a formalin fixed paraffin embedded tissue section aft er lysing of the cells. HPV genotyping was performed using the [employer] M[employer] High-Risk HPV Genotyping Test th at assays for the qualitative detection of 14 high-risk HPV genotypes in a variety of tissues. This test uses PCR followed by h igh-resolution melting curve analysis for the detection of 14 high-risk HPV types ( 16, 18, 31, 33, 35, 39, 45, 51, 52, 56, 58, 59, 66, and 68). High-risk HPV subt ypes are differentiated in one single reaction with a sensitivity of 200 copies per reaction. LIMITATIONS AND DISCLAIMERS ??: Although unlikely, rare variants (known or unknown) have the potential to inter fere with the performance of this test, producing false negative or false positive results. When genotyping results are not consistent with other clinical observa tions or test results, additional testing should be considered. This test was developed and its performance maricruz acteristics determined by the [facility] [employer] [facility] at [facility]. It has not been cleared or approved by the FDA. The laboratory is regulated under CLIA as qualified to perform high-complexity testing. This test is used for clinical purposes. It should not be regarded as investigational or for research. ?_ Electronically signed by: ?Darrell Robison, Tristan Stephens Verified: ??05/31/2021 20:52 ??Molecular Pathologist Performed at: ??-[facility] Dept. of Pathology, [place], [place] ?Surgic al Pathology DIAGNOSIS A - LEFT lower tonsil, biopsy: Non-keratinizing squamous cell carcinoma, p16 positive. (see Discussion) B - LEFT deep neck biopsy: Fibroadipose tissue and muscle with fibrosis and patch y non-specific chronic inflammation. Electronically signed by: ?Mani HERNANDEZ, Connie Gil Verified: ??05/23/2021 10:40 ??Pathologist Performed at: ??-[facility] Dept. of Pathology, [place], [place] DISCUSSION A - HPV genotyping is ordered an will be reported separately . . ADDITIONAL STUDIES Immunohistochemistry Studies: Formalin-fixed, paraffin-emb edded tissue sections are studied using the polymer technique with appropriate positive and negative controls. ?These IHC studies provide the pathologist wit h adjunctive diagnostic information. Antibody specificity has been verified by testin g antibodies on a series of in-house tissues with known immunohistochemical perform ance characteristics. The clinical interpretation of any antibody positive stain ing or its absence is evaluated within the context of clinical presentation, morp hology, histopathological criteria and other diagnostic tests. Block ? Antibody ?Result (Positive /Negative) A1 ?p16 ?Strongly p ositive SPECIMEN(S) SUBMITTED A - LEFT lower tonsil, biopsy (1) B - LEFT deep neck biopsy for lymphoma work up, biopsy (1) CLINICAL INFORMATION 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 (part B-for lymphoma workup) SPECIMEN PROCESSING A - Labeled/Fixative: Left lower tonsil, saline. Quantity/Size: Fragments, aggregating 1.1 x 0.8 x 0.1 cm. Tissue Description: Soft, pink-white tissue. Sections/Processing: Entirely submitted in 1 cassette labeled A1. B - Labeled/Fixative: Left deep neck biopsy for lymphoma wor kup, fresh. Quantity/Size: ??Two, aggregating 1.5 x 0.9 x 0.4 cm. Tissue Description: Irregular fragments of lovell-yellow soft t issue. Sections/Processing: Touch prep(s) are prepared. Tissue is submitted to flow cytometry. Tissue is submitted to cytogenetics. Submitted en toto ??in 1 cassette labeled B1. ??pps ?Leo w Cytometry DIAGNOSIS Flow cytometric diagnosis: ?Normal immunophenotyping results. No monotypic B-cell population or phenotypicall y abnormal T-cell population or increase in blasts is detected. Please see morphology report for final delineation. NOTE: Some lymphomas are not detected by flow analysis. Electronically signed by: ?Samra HERNANDEZ, Prasanna Verified: ??05/19/2021 17:18 ??Hematopathologist Performed at: ??-[facility] Dept. of Pathology, [place], [place] DISCUSSION Blasts based on CD45 express ion and orthogonal light scatter, are not increased. The CD19 positive B-cells solis ve a polytypic expression of surface immunoglobulin light chain ([place]:Lambda ratio a t 1.3). The T-cells are an admixture of CD4+ and CD8+ T lymphocytes (ratio of 1.3). No loss or atypical intensity distributions are seen for any medina T antigen (CD2, 3, 4+8, 5, 7). There is no increase in DP90-yohendml/CD3-neg NK cells. . DISCUSSION Flow analysis is an ancillar y study. A definite diagnosis requires correlation with the morphologic features of this process and if necessary, correlation with other ancillary studies like immu nohistochemistry, enzyme cytochemistry and/or cyto/ molecular genetics. This test was developed and its performance maricruz acteristics determined by the Clinical Flow Cytometry Lab oratory at [facility]. It has not been cleared or approve d by the U.S. Food and Drug Administration. ??The FDA has determined that such cleara nce or approval is not necessary. ??This test is used for clinical purposes. ??It kristy uld not be regarded as investigational or for research. This laboratory is certifie d under the Clinical Laboratory Improvement Act of 1988 (CLIA) as qualified to perform high complexity clinic al laboratory testing. SPECIMEN PROCESSING [id number] Cells for immunophenotypic a nalysis were derived from left deep neck biopsy. CD45 vs side scatter gating was utilized to identify a lymphoid analysis region that comprises approximately 79% of all cells. The following markers were a ssessed: CD2, CD3, CD4, CD5, CD7, CD8, CD10, CD19, CD45, CD56, kappa light chain, and lambda light chain. CLINICAL INFORMATION adenopathy Specimen (Source) Anatomical Collection Method Collection Time Re ceived Time Location / / Volume Laterality 05/19/2021 11:24 AM EDT Odette Cordoba MD PATHOLOGY/CYTOLOGY ORDERABLE S Performing Organization Address City/State/[place] [address] Specimen to Pathology (05/19/2021 11:24 AM EDT) Specimen Anatomical Collection Method Collection Time Receive d Time (Source) Location / / Volume Laterality AP Specimen 05/19/2021 11:24 05/19/2021 AM EDT 11:24 AM EDT Narrative [facility] - 05/19/2021 11:24 AM EDT Specimen requisition ordered. ??Separate Pathology report to follow Odette Cordoba MD PATHOLOGY/CYTOLOGY ORDERABLE S Performing Organization Address City/State/[facility] [place] [address] documented in this encounter Visit Diagnoses Not on filedocumented in this encounter Administered Medications Inactive Administered Medications - up to 3 most recent administrations Medication Order MAR Action Action Date Dose Rate Site acetaminophen (Tylenol) tablet Given 05/19/2021 10:05 AM EDT 1,0 00 mg 1,000 mg 1,000 mg, Oral, ONCE, 1 dose, On Sat05/19/21 at 1030, Administer with SIP of H2O only., Day of Surgery (Day of Procedure), Routine acetaminophen (Tylenol) tablet 650 mg 650 mg, Oral, ONCE PRN, 1 dose, Starting on Sat05/19/21 at 1220, Until Sat05/19/21 at 1540, Pain, Maximum dose of acetaminophen is 4000 m g from all sources in 24 hours. When ordered for pain, acetaminop hen should be given even when other ordered pain medications are indicated. , Routine lactated ringers infusion Restarted 05/19/2021 10:43 AM EDT 1,000 mL, at 100 mL/hr, Intravenous, CONTINUOUS, Starting on Sat05/19/21 at 1030, Until Sat05/19/21 at 1331, Day of Surgery (Day of Procedure) New Bag 05/19/2021 10:21 AM EDT 1,000 mLs 100 mL/hr oxyCODONE (Roxicodone) tablet 5 mg 5 mg, Oral, ONCE PRN, 1 dose, Starting o n Sat05/19/21 at 1220, Until Sat05/19/21 at 1540, For pain not well controlled with tylenol, Franchesca henriquez documented in this encounter Active and Recently Administered Medications Times are shown in EDT. Scheduled Medication Order 05/17/2021 05/18/2021 05/19/2021 acetaminophen (Tylenol) tablet 1,000 mg (COMPLETED) 1005 (Given - Provider: Beverly Beckett RN) 1,000 mg, Oral, ONCE, 1 dose, On 04/24 at 1030, Administer with SIP of H2O only., Day of Surgery (Day of Procedure), Routine ampicillin-sulbactam (Unasyn) 3 g vial a ttach to sodium chloride 0.9% 100 mL Mini-Bag Plus (COMPLETED) 1106 (New Bag - Provider: Kaley Hurtado CRNA) 3 g, Intravenous, 30 MIN PRE-OP, 1 dose, On Sat05/19/21 at 1030, Administer over 15 Minutes, Warning Vesicant/Irritant Medication , Day of Surgery (Day of Procedure), Indication for (Active or Suspected): Prophylaxis Continuous Medication Order 05/17/2021 05/18/2021 05/19/2021 lactated ringers infusion (CANCELED) 1021 (New Bag - Provider: Beverly Beckett RN)1042 (Paused - Provider: Kaley Hurtado CRNA - Comment: Switch to gravity)1043 (Restarted - Provider: Kaley Hurtado CRNA)1225 (Anesthesia Volume Adjustment - Provider: Kaley Hurtado CRNA) 1,000 mL, at 100 mL/hr, Intravenous, CON TINUOUS, Starting on Sat05/19/21 at 1030, Until Sat05/19/21 at 1331, Day of Surgery (Day of Procedure) PRN Medication Order 05/17/2021 05/18/2021 05/19/2021 acetaminophen (Tylenol) tablet 650 mg 650 mg, Oral, ONCE PRN, 1 dose, Starting on Sat05/19/21 at 1220, Until Sat05/19/21 at 1540, Pain, Maximum dose of acetaminophen is 4000 mg from all sources in 24 hours. When ordered for pain, acetaminop hen should be given even when other orde red pain medications are indicated. , Routine EPINEPHrine (Adrenalin) nasal solution (CANCELED) 1124 (Given - Provider: PASHA Matias) ONCE PRN, Starting on Sat05/19/21 at 112 4, Until Sat05/19/21 at 1540, Intra- Operative (Intra-Procedure), Routine lidocaine-EPINEPHrine (1% - 1:100,000) injection (CANCELED) 1135 (Given - Provider: PASHA Matias - Comment: left neck.) ONCE PRN, Starting on Sat05/19/21 at 113 5, Until Sat05/19/21 at 1540, Intra- Operative (Intra-Procedure), Routine oxyCODONE (Roxicodone) tablet 5 mg 5 mg, Oral, ONCE PRN, 1 dose, Starting o n Sat05/19/21 at 1220, Until Sat05/19/21 at 1540, For pain not well controlled with tylenol, Routine pantothenic Ac-Min Oil-Pet,Hyd (Aquaphor) 41 % ointment (CANCELE D) 1213 (Given - Provider: PASHA Matias) ONCE PRN, Starting on Sat05/19/21 at 121 3, Until Sat05/19/21 at 1540, Intra- Operative (Intra-Procedure) documented in this encounter Care Teams Skylights Assembler Relationship Specialty Start Date End Date Ava Morales MD PCP - General Family Medicine 04/04/[address] [place] [phone] documented as of this encounter
--- OUTSIDE RECORDS SUMMARY | 2022-03-23 07:50 | XMS_ITS | Encounter Summary ---
:1960 Author Organization [place] [address] Care Team Providers Name Role Phone Ava Morales MD Primary Care Provider Reason for Referral Consultation (Routine) - Closed Specialty Diagnoses / Procedures Referred By Contact Refer red To Contact Hematology and Oncology Diagnoses Squamous cell carcinoma of left tonsil Lelia Tyler APRN [facility] Hem Onc Office [address] [place], [place] OTOLARYNGOLOGY DEPT. [phone] [place] [address] Referral ID Status Reason Start Date Expiration Date Visits V isits Requested Authorized [id number] Closed Consult, 05/25/2021 05/25/2022 1 1 Test & Treat onsultation (Routine) - Closed Specialty Diagnoses / Procedures Referred By Contact Refer red To Contact Radiation Oncology Diagnoses Squamous cell carcinoma of left tonsil Lelia Tyler APRN St[facility] Rad Onc Treatment [address] [place] [phone] Fax: Referral ID Status Reason Start Date Expiration Date Visits V isits Requested Authorized [id number] Closed Consult, 05/25/2021 05/25/2022 1 1 Test & Treat Encounter Details Date Type Department Care Team Description 05/25/2021 Office Visit Otolaryngology at [facility] Squamous cell carcinoma of l eft tonsil; [facility] Center Subhash Gil [place] [phone] [facility] [phone] CENTER OTOLARYNGOLOGY DEPT. [place], [place] [address] Social History Tobacco Use Types [...] - Inhaled Oxygen Concentration - - Weight 156 kg (344 lb) 05/25/2021 9:25 AM EDT Height 177.8 cm (5' 10) 05/25/2021 9:25 AM EDT Body Mass Index 49.36 05/25/2021 9:25 AM EDT documented in this encounter Progress Notes Lelia Tyler, FILIBERTO - 05/25/2021 11:00 AM EDT [facility] OTOLARYNGOLOGY HEAD AND NECK TUMOR CLINIC FOLLOW UP NOTE Faizan Anaya is a 60 y.o. male followed for squamous cell carcinoma of the tonsil, p16 positive s/pbiopsy performed on 05/19/2021 with . HPI: this was copied from 's note from 04/21/2021 HPI this is a 60-year-old male with morbid obesity who become aware of a small mass in the posteriorinferior aspect of the left parotid region over the last 6 or 7 months which has increased in size and has become symptomatic with pain and pressure sensation. Denies TMJ issue, as well as denying facial nerve change, accessory nerve dysfunction, change in taste/speech/breathing/voice. Denies hemoptysis, throat pain, nosebleeds, sinus issues, change in smell/taste. Denies right sided symptoms. No significant smoking hx but does report drinking significantly in the past. Now about once a month will have 12 beers over period of 24-48 hours. Denies hx of DTs. No hospitalization related to EtOHism. ?? Was referred to Dr Naranjo where sizeable lesion noted in level2 of left neck with involvement of deep portion of parotid gland.FNAB done x 2 , also reviewed here, and unfortunately unrevealing. Deniesother neck masses. ?? Past medical history complex: Has hx of JOHN and A fib and underwent defib x 3 and is still in a fib treated with beta blockade and ASA. Hx of JOHN (last tested 9 years ago at [facility] - will get records) andCPAP recommended but patient not using. He is not sure of severity of JOHN but he does feel fatigued during the day. He has also gained 80 additional pounds in the last year or so (currently 160 lb). Has DÍAZ when climbing stairs as well as mateus knee pain from arthritis. Difficult time carrying groceriesto his appartment on second floor. Needs to take a break due to fatigue. ?? Patient was evaluated earlier today in anesthesia and a stress test was recommended that could be done at [facility]. This will be a chemical stress test. I had also planned a PET/CT since are on FNA that was done 2 weeks ago did not show any evidence of faizan cancer. When the patient presented to the PET/CT scanner was able to get his FDG injection however had a panic attack and could notundergo the planned PET/CT. He says that he would need general anesthesia. He was not able to withstand having a strap across his chest and had palpitations so procedure was aborted. ?? Patient was also discussed at our head and neck tumor board earlier today at which point we had not known that he would not be able to complete his PET/CT. The hope was that we would identify a lesion somewhere into the posterior oral cavity/oropharynx that would help us guide where he potentially hasa metastatic squamous cell cancer to his neck. He does not feel there is any changes in his neck mass. ?? Surgery: Case Date: 05/19/2021 ?? Surgeon: Surgeon(s) and Role: * Odette Cordoba MD - Primary * Monster Noriega PA - Physician Idea Worker ?? Preoperative diagnosis: 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 ?? Postoperative diagnosis: 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 ?? Procedure(s) (LRB): OTOLARYNGOLOGIC EXAM UNDER ANESTHESIA (WRVU 1.51) (Midline) LARYNGOSCOPY, MICROSCOPE, WITH BIOPSY (WRVU 3.55) (Left) BIOPSY OR EXCISION OF LYMPH NODE(S), OPEN, DEEP CERVICAL NODES (WRVU 6.74) (Left) ?? Modifiers: : PASHA/FILIBERTO assistant administrator surgeon (no qualified resident available) ?? Anesthesia: General ?? Estimated Blood Loss: * No values recorded between 05/19/2021 11:12 AM and 05/19/2021 12:12 PM * ?? Specimens removed during surgery: Order Name Source Comment Collection Info Order Time SPECIMEN TO PATHOLOGY ?? OR#2, [id number]. 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 LEFT lower tonsil biopsy 05/19/2021 11:23 AM Time specimen removed from patient: 11:22 AM ? Number of tissue samples (in container) 1 ? SPECIMEN TO PATHOLOGY ?? for lymphoma work up OR#2, [id number] 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 LEFT deep neck biopsy for lymphoma work up biopsy 05/19/2021 11:54 AM Time specimen removed from patient: 11:53 AM ? Number of tissue samples (in container) 1 ? Drains: * No LDAs found * ?? Surgical Closure: Primary Closure - skin incision is completely closed without any wires, damian, drains or other devices ?? Disposition: awakened from anesthesia, extubated and taken to the recovery room in a stable condition, having suffered no apparent untoward event. ?? Condition: doing well without problems ?? (Please see the Surgical Encounter Summary for any Implant and Specimen details pertinent to this patient.) ?? HPI/Surgical Indications: This is a morbidly obese [...] and hopefully identification of his primary tumor ? Procedure Description: After the patient was identified and brought to the operating room, he is placed in the supine position. The timeout is completed. The bed is turned 180 degrees away from anesthesia after the patient has a midline RA tube placed in position and general anesthesia is achieved. ?? Evaluation of the oral cavity and pharynx [...] not to perform any additional blind biopsies. ?? The counts from the endoscopic portion of [...] in stable condition after counts are confirmed ?? Infection Bundle used? N/A Discharge date: 05/19/2021 Discharged with regular diet. New issues since surgery: Faizan is here for a postoperative exam. He has noted some drainage from the neck since surgery. He feels the area feels hot at times. He is having some headaches that radiate on the left side. He has this under control with Tylenol and Tramadol. He has noticed mild trismus on the left. He did have a CT of the neck and chest today. Focused ROS: Fevers, chillls, unexplained fatigue: no Nausea/vomiting/abdominal pain/change in stool pattern: no Cough/choking: no Dyspnea:no Incisional drainage, edema, erythema: Drainage from the left neck mass. Pain: taking Tylenol and Tramadol daily. PROBLEM LIST Patient Active Problem List Diagnosis Code ??? Neck mass R22.1 ??? Morbid obesity with BMI of 50.0-59.9, adult E66.01, Z68.43 ??? Chronic atrial fibrillation I48.20 ??? Essential hypertension I10 ??? JOHN not on CPAP (though recommended) G47.33 PAST MEDICAL HISTORY Past Medical History: Diagnosis Date ??? Essential hypertension 04/12/2021 ??? JOHN not on CPAP (though recommended) 04/12/2021 SOCIAL HISTORY Social History Tobacco Use ??? Smoking status: Never Smoker ??? Smokeless tobacco: Never Used Substance Use Topics ??? Alcohol use: Not on file MEDICATIONS Current Outpatient Medications on File Prior to Visit Medication Sig Dispense Refill ??? tramadol HCl (TRAMADOL ORAL) Take by [...] facility-administered medications on file prior to visit. ALLERGIES No Known Allergies ROS Pertinent positive findings discussed above. No other findings on review of constitutional visual, cardiovascular, respiratory, gastrointestinal, musculoskeletal, neurological, hematologic systems. PHYSICAL EXAMINATION General: Well developed, no distress Weight: 344 lbs Head/face: Normocephalic, Oral cavity: Normal exam of the lips, teeth/gums, floor of mouth, tongue. Normal oral mucosa. Normal palate.wnl Oropharynx:difficult exam due to significant gag reflex. Mild trismus on the left Normal soft palate,lateral pharyngeal wall, posterior pharynx not well visualized. Neck: Neck mass on the left approximately 4 cm with serous drainage along the lower aspect withf milk white drainage with massage. This has mild erythema and is firm to palpation. Trachea midline. Resp: Normal speech, no stridor, normal respirations. MSK: Mild trismus on the left. Neuro: AxOx3; CN II-XII is grossly intact Psych: Normal mood and affect. Responds appropriately to questions. did examine this patient today. Pathology/Head & Neck Tumor Board Review: ? Surgical Pathology DIAGNOSIS A - LEFT lower tonsil, biopsy: Non-keratinizing squamous cell carcinoma, p16 positive. (see Discussion) B - LEFT deep neck biopsy: Fibroadipose tissue and muscle with fibrosis and patchy non-specific chronic ??inflammation. Electronically signed by: ?Mani HERNANDEZ, Connie Gil Verified: ??05/23/2021 10:40 ??Pathologist Performed at: ??-[facility] Dept. of Pathology, [place], [place] DISCUSSION A - HPV genotyping is ordered an will be reported separately. ADDITIONAL STUDIES Immunohistochemistry Studies: Formalin-fixed, paraffin-embedded tissue sections are studied using the polymer ??technique with appropriate positive and negative controls. ?These IHC studies ??provide the pathologist with adjunctive diagnostic information. Antibody specificity ??has been verified by testing antibodies on a series of in-house tissues with known ??immunohistochemical performance characteristics. The clinical interpretation of ??any antibody positive staining or its absence is evaluated within the context of ??clinical presentation, morphology, histopathological criteria and other diagnostic ??tests. Block ? Antibody ?Result (Positive/Negative) A1 ?p16 ?Strongly positive SPECIMEN(S) SUBMITTED A - LEFT lower tonsil, biopsy (1) B - LEFT deep neck biopsy for lymphoma work up, biopsy (1) CLINICAL INFORMATION 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 (part B-for lymphoma workup) SPECIMEN PROCESSING A - Labeled/Fixative: Left lower tonsil, saline. Quantity/Size: Fragments, aggregating 1.1 x 0.8 x 0.1 cm. Tissue Description: Soft, pink-white tissue. Sections/Processing: Entirely submitted in 1 cassette labeled A1. B??- Labeled/Fixative: Left deep neck biopsy for lymphoma workup, fresh. Quantity/Size: ??Two, aggregating 1.5 x 0.9 x 0.4 cm. Tissue Description: Irregular fragments of lovell-yellow soft tissue. Sections/Processing: Touch prep(s) are prepared. Tissue is submitted to flow cytometry. Tissue is submitted to cytogenetics. Submitted en toto ??in 1 cassette labeled B1. ?? pps . ? Flow Cytometry DIAGNOSIS Flow cytometric diagnosis: ?Normal immunophenotyping results. No monotypic B-cell ??population or phenotypically abnormal T-cell population or increase in blasts is ??detected. ??Please see morphology report for final delineation. ??NOTE: Some lymphomas are not detected by flow analysis. Electronically signed by: ?Samra HERNANDEZ, Prasanna Verified: ??05/19/2021 17:18 ??Hematopathologist Performed at: ??-[facility] Dept. of Pathology, [place], [place] Tumor Board Review: The discussion and plan from Tumor board review today is for Faizan to have referral to both Radiation Oncology and Hematology Oncology for further treatment. Referrals were placed for [facility] but he may want to get treated in [place]. PROCEDURES n/a IMAGE REVIEW CT of neck and chest done today. This was reviewed by and Radiology in clinic. Full report is not available at this time. ASSESSMENT/RECOMMENDATIONS Assessment: 1) hx of left tonsil squamous cell carcinoma of the tonsil, p16 + with left neck mass s/p biopsy obtained on 05/19/2021; cellulitis and drainage from neck with mild trismus. Plan: He will be treated with Augmentin 875 bid x 10 days. Monitor for further infection issues. Thereferrals were placed for [facility] for Hematology Oncology and Radiation Oncology. HE will let us know if he would like to go to [place]. He will need to see a dentist for dental extractions beforetreatment. Abbey Krishnan R.N. has been in touch with him for this. F/u in ENT per grid for ongoing evaluation. Referrals: [facility] Hematology Oncology and Radiation Oncology. ONT Odette Cordoba MD - 05/25/2021 11:00 AM EDT ENT ATTENDING STAFF NOTE: I personally reviewed the above note including the documented history. I examined the patient, as well as reviewed personally all additional investigations. Patient was discussed at our head and neck tumor board. 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 He would have significant morbidity if surgery was done. It is possible that there is a role for surgical salvage depending on his response. Patient was recommended to undergo a course of chemo radiation therapy. The patient lives in [facility] and the closest facility would be for referral in [place] which we will facilitate. His exam shows that the incision of his neck is healing well. There is a little bit of milky drainage and on that basis we decided to put him on Augmentin. I also personally reviewed the patient's CT scan of the neck and his CT of the chest that were done earlier today. 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 The lesion of the left base of tongue can be also seen better. I agree with the outlined plan. Odette Cordoba MD documented in this encounter Miscellaneous Notes Addendum Note - Odette Cordoba MD - 05/25/2021 11:00 AM EDT Addended by: ODETTE CORDOBA on: 05/25/2021 10:01 PM Modules accepted: Level of Service documented in this encounter Plan of Treatment Upcoming Encounters Date Type Specialty Care Team Description 03/30/2022 Office Visit Hematology and Oncology Kristan Perry MD [facility] DR ONCOLOGY DEPT. [place], [place] [address] (Wo rk) Scheduled Referrals Name Type Priority Associated Order Schedule Diagnoses Referral to Outpatient Referral Routine Squamous cell Ordered : Radiation Oncology carcinoma of left 10/2020 tonsil Referral to Outpatient Referral Routine Squamous cell Ordered : Hematology and carcinoma of left 05/25/20 21 Oncology tonsil documented as of this encounter Visit Diagnoses Diagnosis Squamous cell carcinoma of left tonsil Cellulitis of neck Cellulitis and abscess of neck documented in this encounter Care Teams Bench Molder Relationship Specialty Start Date End Date Ava Morales MD PCP - General Family Medicine 04/04/[address] [place] [phone] documented as of this encounter
--- OUTSIDE RECORDS SUMMARY | 2022-03-23 07:50 | XMS_ITS | Encounter Summary ---
:1960 Author Organization [facility] [place] [address] Care Team Providers Name Role Phone Ava Morales MD Primary Care Provider Encounter Details Date Type Department Care Team Description 05/26/2021 Multidisciplinary Care Otolaryngology at [facility] Krunal Cordoba [facility] [place] [address] CENTER [phone] [place] [address] Social History Tobacco Use Types Packs/Day Years [...] encounter Progress Notes River Cordoba MD - 05/26/2021 7:32 AM EDT Images from the original note were not included. Head and Neck Tumor Board Note Site/Stage 3 Synopsis with pertinent exam findings 60 yo M 60-year-old male with morbid [...] tonsil, open bx of neck mass done Pathology A - LEFT lower tonsil, biopsy: Non-keratinizing squamous cell carcinoma, p16 positive. (see Discussion) B - LEFT deep neck biopsy: Fibroadipose tissue and muscle with fibrosis and patchy non-specific chronic ??inflammation. Imaging January 2021: Large left neck necrotic mass against lateral aspect of external carotid. Some mild left BOT asymmetry New neck and chest CT pending 8.2.21 Tumor Board Recs Definitive chemoradiation. Preference would be [facility] * (Based on past studies and the [...] [facility] DR ONCOLOGY DEPT. [place] [address] (Wo rk) documented as of this encounter Visit Diagnoses Not on filedocumented in this encounter Care Teams Swim Instructor Relationship Specialty Start Date End Date Ava Morales MD PCP - General Family Medicine 04/04/[address] [place] [phone] documented as of this encounter
--- OUTSIDE RECORDS SUMMARY | 2022-03-23 07:50 | XMS_ITS | Encounter Summary ---
:1960 Author Organization [employer] Address [facility] [place] [address] Care Team Providers Name Role Phone Ava Morales MD Primary Care Provider Encounter Details Date Type Department Care Team Description 05/19/[address] [facility] Yeimi Barksdale [facility] [place] [address] Social History Tobacco Use Types Packs/Day [...] Notes Telephone Encounter - Yeimi Barksdale - 05/19/2021 2:55 PM EDT LVM on [phone] of scheduled appointment and requested call back to confirm or re-pamela. Future Appointments Date Time Provider Department Center 05/25/2021 9:[address] [facility] [address] [facility] Rad 05/25/2021 11:00 AM Lelia Tyler APRN [facility] JACE [facility] documented in this encounter Plan of Treatment Upcoming Encounters Date Type Specialty Care Team Description 03/30/2022 Office Visit Hematology and Oncology Kristan Perry MD [facility] ER DR ONCOLOGY DEPT. [place], [place] [address] (Wo rk) documented as of this encounter Visit Diagnoses Not on filedocumented in this encounter Care Teams Rib Trim Separator Relationship Specialty Start Date End Date Ava Morales MD PCP - General Family Medicine 04/04/[address] [place] [phone] documented as of this encounter
--- OUTSIDE RECORDS SUMMARY | 2022-03-23 07:50 | XMS_ITS | Encounter Summary ---
:1960 Author Organization [facility] Address [facility] [place] [address] Care Team Providers Name Role Phone Ava [...] Expiration Date Visits Requ ested Visits Authorized [id number] 1 1 Encounter Details Date Type Department Care Team Description 05/19/2021 Surgery Main Operating Room Odette Cordoba OTOL ARYNGOLOGIC EXAM UNDER Kerrie Gil MD ANESTHESIA (WRVU 1.51) [facility] [place] [address] DEPT. [phone] [place], [place] [address] Social History Tobacco Use Types [...] Sign Reading Time Taken Comments Blood Pressure 117/62 05/19/2021 9:32 AM EDT Pulse 81 05/19/2021 9:32 AM EDT Temperature 36.2 ??C (97.2 ??F) 05/19/2021 9:32 AM EDT Respiratory Rate 18 05/19/2021 9:32 AM EDT Oxygen Saturation 95% 05/19/2021 9:32 AM EDT Inhaled Oxygen Concentration - - [...] -You can reach the ENT clinic at [phone] for appointment questions. -The ENT triage nurse is available at [phone] -For urgent issues during evenings and weekends the ENT resident online marketing specialist can be reached through the main hospital joy operator helper at [phone] Follow Up: You will need to follow [...] Provider Department Dept Phone 05/30/2021 8:05 AM RAYMON, THREE L Lab [address] [place] [address] Arrive at: Faculty Support Coordinator Area [phone] documented in this encounter Medications at Time [...] for questions/concerns with patient. Pain assessment documented 0. Patient escorted out of department via wheelchair with Rn to meet his Larisa at [facility]. PIV removed prior to d/c. Swelling marked [...] procedure. PASHA Matias 05/19/21 10:06 AM Pager: [phone] documented in this encounter Miscellaneous Notes Brief Op Note - Odette Cordoba MD - 05/19/2021 1:16 PM EDT Brief Operative Note Patient Name: Faizan Anaya : [id number] MR#: [id number] Case Date: 05/19/2021 Surgeon: Surgeon(s) and Role: * Odette Cordoba MD - Primary * Monster Noriega PA - Physician Childcare Attendant Preoperative diagnosis: 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 [...] Info Order Time SPECIMEN TO PATHOLOGY OR#2, ex:[id number]. 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 LEFT lower tonsil biopsy 05/19/2021 11:23 AM Time specimen removed from patient: 11:22 AM Number of tissue samples (in container) 1 SPECIMEN TO PATHOLOGY for lymphoma work up OR#2, ex:[id number] 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 LEFT deep [...] Cordoba MD - 05/19/2021 11:12 AM EDT [facility] Operative Note Patient Name: Faizan Anaya : [id number] MR#: [id number] Case Date: 05/19/2021 Surgeon: Surgeon(s) and Role: * Odette Cordoba MD - Primary * Monster Noriega PA - Physician Childcare Attendant Preoperative diagnosis: 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 Postoperative diagnosis: 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 Procedure(s) (LRB): OTOLARYNGOLOGIC EXAM UNDER ANESTHESIA (WRVU 1.51) (Midline) LARYNGOSCOPY, MICROSCOPE, WITH BIOPSY (WRVU 3.55) (Left) BIOPSY OR EXCISION OF LYMPH NODE(S), OPEN, DEEP CERVICAL NODES (WRVU 6.74) (Left) Modifiers: : PA/FILIBERTO habilitation assistant surgeon (no qualified resident available) Anesthesia: General Estimated Blood Loss: * No values recorded between 05/19/2021 11:12 AM and 05/19/2021 12:12 PM * Specimens removed during surgery: Order Name Source Comment Collection Info Order Time SPECIMEN TO PATHOLOGY OR#2, ex:[id number]. 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 LEFT lower tonsil biopsy 05/19/2021 11:23 AM Time specimen removed from patient: 11:22 AM Number of tissue samples (in container) 1 SPECIMEN TO PATHOLOGY for lymphoma work up OR#2, ex:[id number] 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 LEFT deep [...] [facility] DR ONCOLOGY DEPT. [place], [place] [address] (Wo rk) documented as of [...] Component Value Ref Test Analysis Performed At [facility] Range Method Time Signature Cytogenetics Final Report KERRIE Acquired Report CHARLY JACOBY RIAL ? [id number] HOSPITAL LABORATORY Specimen Type: Lymph Node Specimen Condition: multiple pieces of LN .5-1.0mm^3 Collection Date/Time: 05/19/2021 12:15 Received Date/Time: 05/19/2021 14:28 Indication: ??Lymphoma ---Results--- Please see the chromosome an alysis scanned report in eD-H corresponding to this lymph node specimen. This report was completed by [facility] and is located in 'Chart Rev iew' under the 'Media' tab. The name of the document is titled External Ge netic Study. ---Karyotype--- ? See comments. ---Preparation--- Culture Type: Other FISH Method: N/A ---Comments--- The specimen was referred to [facility] ([place], [place], Tel: ) for cytogenetic dejon lysis. 05.31.21 (Electronic Signature) Verified By: Sue Ph.D., [facility], [facility] A Clinical Senior Java Web Application Developer/Brake Lining Driller Specimen Anatomical Collection Method Collection Time Receive d Time (Source) Location / / Volume Laterality 05/19/2021 12:15 05/19/2021 2:28 PM EDT PM EDT Odette Cordoba MD HEMATOLOGY ORDERABLES Performing Organization Address City/[facility]/[place] [address] Specimen to Pathology (05/19/2021 11:55 AM EDT) Specimen Anatomical Collection Method Collection Time Receive d Time (Source) Location / / Volume Laterality AP Specimen 05/19/2021 11:55 05/19/2021 AM EDT 11:55 AM EDT Narrative [facility] - 05/19/2021 11:55 AM EDT This result has an attachment that is no t available. Specimen requisition ordered. ??Separate Pathology report to follow Odette Cordoba MD PATHOLOGY/CYTOLOGY ORDERABLE S Performing Organization Address City/[facility]/[place] [address] Immunophenotyping Flow Cytometry (05/19/2021 11:53 AM EDT) Component Value Ref Test Analysis Performed At [facility] Range Method Time Signature Immunophenotyping See [facility] LABORATORY Comment: When completed by the Pathologist, the F low Cytometry Report ([id number]) will display under the Pathology Result s section within eDH. Specimen Anatomical Collection Method Collection Time Receive d Time (Source) Location / / Volume Laterality Other Other / Unknown 05/19/2021 11:53 05/19/20 21 AM EDT 12:59 PM EDT Resulting Agency Comment Spec In Lab Odette Cordoba MD HEMATOLOGY ORDERABLES Performing Organization Address City/[facility]/[place] [address] Surgical Pathology Report (05/19/2021 11:24 AM EDT) Component Value Ref Test Analysis Performed At [facility] Method Time Signature Surgical [id number] ? Location: SDP; SD38; A [facility] Report The signing pathologist has (i) examined [...] determined by the Clinical Genomics and [employer] (CGAT) Laboratory at [facility]. It has not been cleared or approved by the FDA. The laboratory is regulated under CLIA as qualified to perform high-complexity testing. This test is used for clinical purposes. It should not be regarded as investigational or for research. ?_ Electronically signed by: ?Darrell Robison, Tristan Stephens Verified: ??05/31/2021 20:52 ??Molecular Pathologist Performed at: ??-[facility] Dept. of Pathology, [place], [place] ?Surgic al Pathology DIAGNOSIS A - LEFT lower tonsil, biopsy: Non-keratinizing squamous cell carcinoma, p16 positive. (see Discussion) B - LEFT deep neck biopsy: Fibroadipose tissue and muscle with fibrosis and patch y non-specific chronic inflammation. Electronically signed by: ?Mani HERNANDEZ, Connie Gil Verified: ??05/23/2021 10:40 ??Pathologist Performed at: ??-[facility] Dept. of Pathology, [place], [place] DISCUSSION A - HPV genotyping is [...] Prasanna Verified: ??05/19/2021 17:18 ??Hematopathologist Performed at: ??-[facility] Dept. of Pathology, [place], [place] DISCUSSION Blasts based on CD45 express ion and orthogonal light scatter, are not increased. The CD19 positive B-cells solis ve a polytypic expression of surface immunoglobulin light chain (Smolan:Lambda ratio a t 1.3). The T-cells are an admixture of CD4+ and CD8+ T lymphocytes (ratio of 1.3). No loss or atypical intensity distributions are seen for any medina T antigen (CD2, 3, 4+8, 5, 7). There is no increase in CH81-itypjhfh/CD3-neg NK cells. . DISCUSSION Flow analysis is an ancillar y study. A definite diagnosis requires correlation with the morphologic features of this process and if necessary, correlation with other ancillary studies like immu nohistochemistry, enzyme cytochemistry and/or cyto/ molecular genetics. This test was developed and its performance maricruz acteristics determined by the Clinical Flow Cytometry Lab oratory at [facility]. It has not been cleared or approve [...] complexity clinic al laboratory testing. SPECIMEN PROCESSING [id number] Cells for immunophenotypic a nalysis were derived [...] MD PATHOLOGY/CYTOLOGY ORDERABLE S Performing Organization Address City/[facility]/ZIP [facility] Phon e Number [address] Specimen to Pathology (05/19/2021 11:24 AM EDT) Specimen Anatomical Collection Method Collection Time Receive d Time (Source) Location / / Volume Laterality AP Specimen 05/19/2021 11:24 05/19/2021 AM EDT 11:24 AM EDT Narrative [facility] - 05/19/2021 11:24 AM EDT Specimen requisition ordered. ??Separate Pathology report to follow Odette Cordoba MD PATHOLOGY/CYTOLOGY ORDERABLE S Performing Organization Address City/[facility]/ZIP [facility] [place] [address] documented in this encounter [...] ordered pain medications are indicated. , Routine EPINEPHrine (Adrenalin) nasal solution Given 05/19/2021 11:24 AM EDT 25 mLs ONCE PRN, Starting on Sat05/19/21 at 1124, Until Sat05/19/21 at 1540, Intra-Operative (Intra-Procedure), Routine lactated ringers infusion Restarted 05/19/2021 10:43 AM EDT 1,000 mL, at 100 mL/hr, Intravenous, CONTINUOUS, Starting on Sat05/19/21 at 1030, Until Sat05/19/21 at 1331, Day of Surgery (Day of Procedure) New Bag 05/19/2021 10:21 AM EDT 1,000 mLs 100 mL/hr lidocaine-EPINEPHrine (1% - Given 05/19/2021 11:35 AM 3 mLs 19- Surgical Site 1:100,000) injection EDT ONCE PRN, Starting on Sat05/19/21 at 1135, Until Sat05/19/21 at 1540, Intra-Operative (Intra-Procedure), Routine oxyCODONE (Roxicodone) tablet 5 mg 5 mg, Oral, ONCE PRN, 1 dose, Starting o n Sat05/19/21 at 1220, Until Sat05/19/21 at 1540, For pain not well controlled with tylenol, Routi ne pantothenic Ac-Min Oil-Pet,Hyd (Aquaphor) 41 Given 12:13 PM EDT 1 each % ointment ONCE PRN, Starting on Sat05/19/21 at 1213, Until Sat05/19/21 at 1540, Intra-Operative (Intra-Procedure) documented in this encounter Active and Recently [...] Switch to gravity)1043 (Restarted - Provider: Kaley Hrutado CRNA)1225 (Anesthesia Volume Adjustment - Provider: Kaley [...] (Intra-Procedure) documented in this encounter Care Teams Certified Surgical Technician Relationship Specialty Start Date End Date Ava Morales MD PCP - General Family Medicine 04/04/21 [address] [place] [address] documented as of this encounter
--- OUTSIDE RECORDS SUMMARY | 2022-03-23 07:51 | XMS_ITS | Encounter Summary ---
:1960 Author Organization [facility] Address [facility] [place] [address] Care Team Providers Name Role Phone Unavailable Primary Care Provider Unavailable Encounter Details Date Type Department Care Team Description 03/06/2021 Telephone Otolaryngology at [facility] Diane Pierre [facility] [place] [address] Social History Tobacco Use Types Packs/Day Years Used Date Never Assessed Financial Resource Strain Answer Date Recorded How [...] Notes Telephone Encounter - Diane Pierre - 03/06/2021 11:43 AM EDT Called pt to talk with him about moving his 03/16 apt with [facility] from 10 am to 9am. LVM asking pt to call back. documented in this encounter Plan of Treatment Upcoming Encounters Date Type Specialty Care Team Description 03/30/2022 Office Visit Hematology and Oncology Kristan Perry MD [facility] DR ONCOLOGY DEPT. [place], [place] [address] (Wo rk) documented as of this encounter Visit Diagnoses Not on filedocumented in this encounter
--- OUTSIDE RECORDS SUMMARY | 2022-03-23 07:51 | XMS_ITS | Encounter Summary ---
:1960 Author Organization [facility] Address [facility] [place] [address] Care Team Providers Name Role Phone Unavailable Primary Care Provider Unavailable Encounter Details Date Type Department Care Team Description 03/17/2021 Notes Only Radiology at [facility] Niki Robledo MD [facility] [place] [address] DIAGNOSTIC RADIOLOGY [phone] [place], [place] [address] (Wo rk) Social History Tobacco [...] on file documented as of this encounter H&P Notes Niki Robledo MD - 03/17/2021 1:33 PM EDTSummary: Ultrasound guided left neck mass sampling Images from the original note were not included. INTERVENTIONAL RADIOLOGY FOCUSED H&P and PRE-PROCEDURE NOTE: PCP: No primary care provider on file. Referring Provider: No ref. provider found Planned Procedure: Planned procedure: 20 GA core biopsy left neck mass Ultrasound guided left neck mass 20 Ga core biopsy or FNA Procedure Indication: Enlarging left neck mass with central necrosis concerning for metastatic disease There are no answered order specific questions. Presenting Diagnosis/ Complaint: Miriam Anaya is a 60 y.o. male with enlarging left neck mass deep tosternocleidomastoid muscle and invading the deep lobe of the parotid. Encasement of the left IJV andprobable extracapsular spread. The mass abuts and displaces the ECA. Past Medical/Surgical History: Patient Active Problem List Diagnosis Code ??? Neck mass R22.1 ??? Morbid obesity with BMI of 50.0-59.9, adult E66.01, Z68.43 ??? Chronic atrial fibrillation I48.20 No past medical history on file. No past surgical history on file. Medications: Current Outpatient Medications on File Prior to Visit Medication Sig Dispense Refill ??? metoprolol tartrate (Lopressor) 50 mg Tablet Take 50 mg by mouth 2 times daily. ??? meloxicam (MOBIC) 15 mg Tablet Take 15 mg by mouth daily. No current facility-administered medications on file prior to visit. Allergies: Patient has no known allergies. Social History and Habits: Social History Socioeconomic History ??? Marital status: [...] Strain: ??? Difficulty of Paying Living Expenses: Food Insecurity: ??? Worried About Running Out of Food in the Last Year: ??? Ran Out of Food in the Last Year: Transportation Needs: ??? Lack of Transportation (Medical): ??? Lack of Transportation (Non-Medical): Physical Activity: ??? Days of Exercise per Week: ??? Minutes of Exercise per Session: Significant Family History: No family history on file. Pertinent ROS: as per HPI Labs: None Imaging: Physical Exam: Pending (to be performed in angio the day of procedure) Assessment: 60 y.o. male with enlarging left neck mass concerning for metastatic disease. Had prior nondiagnostic FNA x 2. Plan for core needle biopsy under ultrasound guidance. Plan: Plan Planned procedure: 20 GA core biopsy left neck mass Labs to be performed day of procedure: No labs Sedation: No Sedation Prophylactic antibiotic : None Contrast: No contrast Additional medications for procedure: Lidocaine Planned access site: left neck, inferior to parotid Position: Supine Consent: Pending Medications to discontinue (and days held): None Cytopathology presence needed: No 03/17/2021 documented in this encounter Plan of Treatment Upcoming Encounters Date Type Specialty Care Team Description 03/30/2022 Office Visit Hematology and Oncology Kristan Perry MD [facility] ONCOLOGY DEPT. [place], [place] [address] (Wo rk) documented as of this encounter Visit Diagnoses Not on filedocumented in this encounter
--- OUTSIDE RECORDS SUMMARY | 2022-03-23 07:51 | XMS_ITS | Encounter Summary ---
:1960 Author Organization [facility] [place] [address] Care Team Providers Name Role Phone Ava Morales MD Primary Care Provider Reason for Referral Diagnostic Test (Routine) - Closed Specialty Diagnoses / Procedures Referred By Contact Refer red To Contact Radiology Diagnoses Neck mass River Cordoba MD [facility] Rad Nuclear Med Procedures NM PET CT Standard Plus Head and Neck [facility] [place] [address] [place] [address] Referral ID Status Reason Start Date Expiration Date Visits V isits Requested Authorized [id number] Closed Specialty 03/29/2021 09/25/2021 1 1 Service Requested Reason for Visit Diagnostic Test (Routine) - Closed Specialty Diagnoses / Procedures Referred By Contact Refer red To Contact Radiology Diagnoses Neck mass River Cordoba MD [facility] Rad Nuclear Med Procedures NM PET CT Standard Plus Head and Neck [facility] [place] [address] [place] [address] Referral ID Status Reason Start Date Expiration Date Visits V isits Requested Authorized [id number] Closed Specialty 03/29/2021 09/25/2021 1 1 Service Requested Encounter Details Date Type Department Care Team Description 04/13/2021 Hospital Encounter Nuclear Medicine at [facility] [place], Neck mass Kerrie Alfonso MD [facility] [place] [address] OTOLARYNGOLOGY DEPT. [phone] [place] [address] (Wo rk) Social History Tobacco Use [...] Kristan Perry MD [facility] ER DR ONCOLOGY DEPT. [place], [place] [address] (Wo rk) documented as of this encounter Procedures Procedure Name Priority Date/Time Associated Diagnosis Comme nts NM PET CT STANDARD Routine 04/13/2021 2:52 PM Neck mass Res ults for this PLUS HEAD AND NECK EDT procedure are in the results section. documented in this encounter Results NM PET CT Standard Plus Head and Neck (04/13/2021 2:52 PM EDT) Anatomical Region Laterality Modality Positron Emission To mography (PET) Specimen (Source) Anatomical Location Collection Method / Collectio n Time Received Time / Laterality Volume Impressions 04/13/2021 4:06 PM EDT No scan performed. Thank you for letting us participate in the care of this patient. ??If you are a health care provider and have any questi ons regarding this report, please contact the number below. ??For patients who have questions please contact the health rn wound care that requested your imaging first. ? Electronically signed by: Burak Matthews, [facility] ([phone]), at 04/13/2021 4:06 PM Narrative 04/13/2021 4:06 PM EDT EXAMINATION: NM PET CT STANDARD PLUS HEAD AND NECK CLINICAL HISTORY: Head/neck cancer, stag ing Large left upper neck/parotid region mas s in patient with morbid obesity. Please evaluate for potential primary so urce versus parotid gland etiology TECHNIQUE: Fluorine 18 FDG was administe red intravenously in a dose of 18 mCi. This patient was then unable to undergo scanning. FINDINGS: No scan performed. Procedure Note Juan Carlos De La Cruz MD - 04/13/2021 EXAMINATION: NM PET CT STANDARD PLUS HEA D AND NECK CLINICAL HISTORY: Head/neck cancer, stag ing Large left upper neck/parotid region mas s in patient with morbid obesity. Please evaluate for potential primary so urce versus parotid gland etiology TECHNIQUE: Fluorine 18 FDG was administe red intravenously in a dose of 18 mCi. This patient was then unable to undergo scanning. FINDINGS: No scan performed. IMPRESSION No scan performed. Thank you for letting us participate in the care of this patient. If you are a health care provider and have any questi ons regarding this report, please contact the number below. For patients w ho have questions please contact the health rn wound care that requested your imaging first. Electronically signed by: Burak Matthews, [facility] ([phone]), at 04/13/2021 4:06 PM River Cordoba MD IMG PET ORDERABLES documented in this encounter Visit Diagnoses Diagnosis Neck mass Swelling, mass, or lump in head and neck documented in this encounter Administered Medications Inactive Administered Medications - up to 3 most recent administrations Medication Order MAR Action Action Date Dose Rate Site ALPRAZolam (Xanax) tablet 0.5 mg Given 04/13/2021 1:45 PM EDT 0.5 mg 0.5 mg, Oral, ONCE, 1 dose, On Evy 04/13/21 at 1400, Radiology Protocol Medication, Routine fludeoxyglucose (F-18) FDG injection Given 04/13/2021 1:50 PM ED T 18 mCi Right Arm 0-20 mCi 0-20 mCi, Intravenous, ONCE PRN, 1 dose, Starting on Evy 04/13/21 at 1358, Until Evy 04/13/21 at 1350, Per Protocol, Radiology Contrast, Routine documented in this encounter Care Teams Associate Professor Of Biblical Studies Relationship Specialty Start Date End Date Ava Morales MD PCP - General Family Medicine 04/04/[address] [place] [phone] documented as of this encounter
--- OUTSIDE RECORDS SUMMARY | 2022-03-23 07:51 | XMS_ITS | Encounter Summary ---
:1960 Author Organization [facility] Address [facility] [place] [address] Care Team Providers Name Role Phone Unavailable Primary Care Provider Unavailable Encounter Details Date Type Department Care Team Description 03/30/2021 Patient Outreach Hematology and Oncology Imelda Krishnan at [facility] [place] [address] Social History Tobacco Use Types Packs/Day [...] encounter Progress Notes Abbey Krishnan RN - 03/31/2021 5:52 PM EDT Patient called to inform me that he did not make his biopsy in IR today, stating that he had a transportation glitch. He confirmed that he rescheduled his biopsy for 04/04 and he did not anticipate any transportation needs. However, he stated that he was extremely frustrated with the fact that he even needed another biopsy or a PET scan, both of which are scheduled and were described at his surgicalconsult: Why aren't we just removing this thing?! I just feel like there is delay after delay. Why can't we just cut this out? Discussed how the biopsy would provide us with pathology of the specific cancer so that we could determine the appropriate treatment,reviewing that different cancers were treated with different methods/medications. Explained that the PET scan would provide us with information regarding whether or not the tumor had spread distantly, and that this meant that the cancer was no longer curable and would warrant a different treatment altogether. Patient stated that he would still proceed with the biopsy and PET, but that he still did not see the reason for either step: I just don't understand why we can't cut this out. Informed patient that he may need either definitive or adjuvant radiation therapy for his suspected cancer, so it might be prudent to find a dentist who can perform a pre-radiation dental evaluation. Patient states that he does not have a regular dentist, nor does he know where to begin. Remind Faizan that our Operator [employer] can assist in finding a dentist; he is open to our SW calling him. Discussed with the H&N SW this patient's needs for extra supports and assistance in finding a dentist for evaluation prior to likely definitive/adjuvant radiation. documented in this encounter Plan of Treatment Upcoming Encounters Date Type Specialty Care Team Description 03/30/2022 Office Visit Hematology and Oncology Kristan Perry MD [facility] DR ONCOLOGY DEPT. [place], [place] [address] (Wo rk) documented as of this encounter Visit Diagnoses Not on filedocumented in this encounter
--- OUTSIDE RECORDS SUMMARY | 2022-03-23 07:51 | XMS_ITS | Encounter Summary ---
:1960 Author Organization [facility] [place] [address] Care Team Providers Name Role Phone Ava Morales MD Primary Care Provider Reason for Referral Diagnostic Test (Routine) - Closed Specialty Diagnoses / Procedures Referred By Contact Refer red To Contact Radiology Diagnoses Neck mass River Cordoba MD [facility] Interventionl Rad Procedures IR Biopsy Soft Tissue Neck IR FNA Thyroid Nodule [facility] [place] [address] [place] [address] Referral ID Status Reason Start Date Expiration Date Visits V isits Requested Authorized [id number] Closed Specialty 03/16/2021 09/15/2022 1 1 Service Requested Reason for Visit Diagnostic Test (Routine) - Closed Specialty Diagnoses / Procedures Referred By Contact Refer red To Contact Radiology Diagnoses Neck mass River Cordoba MD [facility] Interventionl Rad Procedures IR Biopsy Soft Tissue Neck IR FNA Thyroid Nodule [facility] [place] [address] [place] [address] Referral ID Status Reason Start Date Expiration Date Visits V isits Requested Authorized [id number] Closed Specialty 03/16/2021 09/15/2022 1 1 Service Requested Encounter Details Date Type Department Care Team Description 04/04/2021 Hospital Encounter Radiology [place] [facility] River Cordoba J, Neck [facility] [place] [address] OTOLARYNGOLOGY Subhash FLORIAN. [place], [place] [address] (Wo rk) Social History Tobacco [...] Sig Dispensed Refills Start Date End Date metoprolol tartrate Take 75 mg by mouth 0 (Lopressor) 50 mg Tablet 2 times daily. meloxicam (MOBIC) 15 mg Take 15 mg by mouth 0 07/10/2021 Tablet daily. documented as of this encounter Progress Notes Giorgi Mcmahon RN - 03/30/2021 9:20 AM EDT ANGIO NURSING DATABASE Name: MIRIAM ANAYA Date of : 1960 AGE: 60 y.o. Address: [address] [place] [address] (home) Mobile: Telephone Information: Referring Provider: River Cordoba REASON FOR VISIT: Order Questions Answers Where will study be performed? [facility] Radiology [120] Reason for exam and clinical history: 60-year-old male with large left parotid region necrotic appearing mass with unclear etiology. Could be metastatic squamous cell cancer from unknown primary versusparotid primary Clinical information / isaacs questions: Please consider doing a core biopsy Does this patient have any known bleeding risk factors or conditions that places them at higher riskfor a procedural hemorrhage? None Is the patient on anticoagulant / antiplatelet therapy ? Aspirin No Known Allergies Pertinent PSH: No past surgical history on file. Date/Procedure Meds given/comments None prior Laboratory Results: documented in this encounter Plan of Treatment Upcoming Encounters Date Type Specialty Care Team Description 03/30/2022 Office Visit Hematology and Oncology Kristan Perry MD [facility] [address] ONCOLOGY DEPT. [place], [place] [address] (Wo rk) documented as of this encounter Procedures Procedure Name Priority Date/Time Associated Diagnosis Comme nts IR BIOPSY SOFT Routine 04/04/2021 10:47 AM Neck mass Result s for this TISSUE NECK EDT procedure are i n the results section. SPECIMEN TO Routine 04/04/2021 9:13 AM Results f or this PATHOLOGY EDT procedure are i n the results section. SURGICAL PATHOLOGY Routine 04/04/2021 9:12 AM Res ults for this REPORT EDT procedure are i n the results section. documented in this encounter Results IR Biopsy Soft Tissue Neck (04/04/2021 10:47 AM EDT) Anatomical Region Laterality Modality X-Ray Angiography Specimen (Source) Anatomical Location Collection Method / Collectio n Time Received Time / Laterality Volume Impressions 04/05/2021 3:44 PM EDT Technically successful ultrasound-guided core biopsy of a left submandibular gland/sternocleidomastoid mass. Operators: Resident: Monster Guzman MD Attending: Miguel Angel Traylor MD Procedure/Teaching Attestation: I was pr esent for the entire procedure. I have personally reviewed the image(s) and the resident's interpretation and agree with the findings, Carine Landry MD at 04/05/2021 3:44 PM Thank you for letting us participate in the care of this patient. ??If you are a health care provider and have any questi ons regarding this report, please contact the number below. ??For patients who have questions please contact the health wound care technician that requested your imaging first. ? Electronically signed by: Carine garibay MD, [facility] ([phone]), at 04/05/2021 3:44 PM Narrative 04/05/2021 3:44 PM EDT NEURORADIOLOGY PROCEDURE NOTE Procedure: US-guided core biopsy of a le ft submandibular gland/sternocleidomastoid mass Indication for Procedure: 60-year-old ma le with large left parotid region necrotic appearing mass with unclear brenda ology. ??Could be metastatic squamous cell cancer from unknown primary versus parotid primary. Consent: After discussing the risks (inc luding infection, hemorrhage, damage to surrounding structures, nondiagnostic bi opsy) and benefits, the patient consented to the procedure. Technique: Prior to beginning the proced ure, a standard Time Out was performed. The patient was in the supine position. ??Initial grayscale and color Doppler images of the mass were used to localize the target and surrounding structures. The skin was prepped and draped in the u sual sterile fashion. Local anesthesia provided with less than 5 mL of 1% lidoc cain. Under ultrasound guidance, 16-gauge core biopsy bard coaxial system was advanced into the mass and three 1 cm core biopsy specimens were obtained. Once sufficient samples were collected, the procedure was ended. The patient tolerated the procedure well. Medications: Lidocaine 1% <5 mL SQ EBL: 0 cc Complications: No immediate Specimens: Three 1 cm core biopsy specim ens. Findings: Preprocedure ultrasound images demonstrated a hypoechoic mixed heterogeneity mass adjacent to the super ior aspect of the left sternocleidomastoid muscle. Position of the needle tip was confirmed in the target lesion by ultrasound. Procedure Note Carine Landry MD - 04/05/2021Formatt ing of this note might be different from the original. NEURORADIOLOGY PROCEDURE NOTE Procedure: US-guided core biopsy of a le ft submandibular gland/sternocleidomastoid mass Indication for Procedure: 60-year-old ma le with large left parotid region necrotic appearing mass with unclear brenda ology. Could be metastatic squamous cell cancer from unknown primary versus parotid primary. Consent: After discussing the risks (inc luding infection, hemorrhage, damage to surrounding structures, nondiagnostic bi opsy) and benefits, the patient consented to the procedure. Technique: Prior to beginning the proced ure, a standard Time Out was performed. The patient was in the supine position. Initial grayscale and color Doppler images of the mass were used to localize the target and surrounding structures. The skin was prepped and draped in the u sual sterile fashion. Local anesthesia provided with less than 5 mL of 1% lidoc cain. Under ultrasound guidance, 16-gauge core biopsy bard coaxial system was advanced into the mass and three 1 cm core biopsy specimens were obtained. Once sufficient samples were collected, the procedure was ended. The patient tolerated the procedure well. Medications: Lidocaine 1% <5 mL SQ EBL: 0 cc Complications: No immediate Specimens: Three 1 cm core biopsy specim ens. Findings: Preprocedure ultrasound images demonstrated a hypoechoic mixed heterogeneity mass adjacent to the super ior aspect of the left sternocleidomastoid muscle. Position of the needle tip was confirmed in the target lesion by ultrasound. IMPRESSION Technically successful ultrasound-guided core biopsy of a left submandibular gland/sternocleidomastoid mass. Operators: Resident: Monster Guzman MD Attending: Miguel Angel Traylor MD Procedure/Teaching Attestation: I was pr esent for the entire procedure. I have personally reviewed the image(s) and the resident's interpretation and agree with the findings, Carine Landry MD at 04/05/2021 3:44 PM Thank you for letting us participate in the care of this patient. If you are a health care provider and have any questi ons regarding this report, please contact the number below. For patients w ho have questions please contact the health wound care technician that requested your imaging first. River Cordoba MD IMG IR ORDERABLES Specimen to Pathology (04/04/2021 9:13 AM EDT) Specimen Anatomical Collection Method Collection Time Receive d Time (Source) Location / / Volume Laterality AP Specimen 04/04/2021 9:13 AM 9:13 EDT AM EDT Narrative [facility] - 04/04/2021 9:13 AM EDT Specimen requisition ordered. ??Separate Pathology report to follow River Cordoba MD PATHOLOGY/CYTOLOGY ORDERABLE S Performing Organization Address City/State/[place] [address] Surgical Pathology Report (04/04/2021 9:12 AM EDT) Component Value Ref Test Analysis Performed At [facility] gist Range Method Time Signature Surgical [id number] ? Location: 3ZV [facility] Report The signing pathologist has (i) examined the relevant preparation(s) for the [facility] specimen(s) and (ii) rendered or confirmed the diagnosis(es) . HOSPITAL LABORATORY . ?Surgic al Pathology DIAGNOSIS Let parotid region of neck, biopsy: - Partially atrophic skeletal muscle with patchy ?chron ic ?inflammation, fibrosis, and focal detached acute ?inflammatory debris. (see Discussion.) - ??There is no evidence of malignancy. Electronically signed by: ?MD Mariel, Luis Velazquez Verified: ??04/10/2021 14:15 ??Pathologist Performed at: ??-[facility] Dept. [place], [place], [place] ADDITIONAL STUDIES The findings are not specifi c for etiology. ?Clinical correlation is required to determine whether this biop sy is customer retention representative of a clinically suspected lesion. SPECIMEN(S) SUBMITTED A - left parotid region of neck, biopsy (Multiple) CLINICAL INFORMATION 60-year-old male with large left parotid region necrotic appearing mass with unclear etiology. Could be metastat ic squamous cell cancer from unknown primary vs parotid primary. SPECIMEN PROCESSING A - Labeled/Fixative: Left parotid region of neck, formalin. Quantity/Size: Three, ranging from 0.6 x 0.1 cm to 0.9 x 0.1 cm Tissue Description: [place]-white needle core biopsies. Sections/Processing: Entirely submitted in 1 cassette labeled A1. ??sns Specimen (Source) Anatomical Collection Method Collection Time Re ceived Time Location / / Volume Laterality 04/04/2021 9:12 AM EDT River Cordoba MD PATHOLOGY/CYTOLOGY ORDERABLE S Performing Organization Address City/State/ZIP Code Phon e Number [address] documented in this encounter Visit Diagnoses Diagnosis Neck mass Swelling, mass, or lump in head and neck documented in this encounter Care Teams Urban Design Consultant Relationship Specialty Start Date End Date Ava Morales MD PCP - General Family Medicine 04/04/[address] [place] [phone] documented as of this encounter
--- OUTSIDE RECORDS SUMMARY | 2022-03-23 07:51 | XMS_ITS | Encounter Summary ---
:1960 Author Organization [facility] Address [facility] [place] [address] Care Team Providers Name Role Phone Ava Morales MD Primary Care Provider Encounter Details Date Type Department Care Team Description 04/13/2021 Laboratory Appointment Lab at [facility] Atrial fibrillation, unspeci fied type; [facility] Essential hypertension; Drive JOHN (obstructive sleep apnea ); [place], [place] Dyspnea, unspec ified type [phone] Social History Tobacco Use Types Packs/Day [...] MD [facility] ER DR ONCOLOGY DEPT. [place] [address] (Wo rk) documented as of this encounter Procedures Procedure Name Priority Date/Time Associated Diagnosis Comme nts HEMOGRAM Routine 04/13/2021 12:24 Essential Results for this PM EDT hypertension procedure are in JOHN (obstructive the results sleep apnea) section. DIFFERENTIAL, Routine 04/13/2021 12:24 Essential Results fo r this AUTOMATED PM EDT hypertension procedure are in JOHN (obstructive the results sleep apnea) section. HC CBC,PLT & AUTO Routine 04/13/2021 12:24 Essential DIFF PM EDT hypertension JOHN (obstructive sleep apnea) HC PROBNP Routine 04/13/2021 12:24 Atrial fibrillation, Res ults for this PM EDT unspecified type procedure are in Essential the results hypertension section. JOHN (obstructive sleep apnea) Dyspnea, unspecified type HC VENIPUNCTURE Routine 04/13/2021 12:24 Atrial fibrillation, Results for this PM EDT unspecified type procedure are in Essential the results hypertension section. JOHN (obstructive sleep apnea) documented in this encounter Results (ABNORMAL) Differential, Automated (04/13/2021 12:24 PM EDT) [facility] gist Method Time Signature Neutrophils % 61.7 % [facility] LABORATORY Neutr Abs (ANC) 8.24 (H) 1.70 - [facility] 6.10 [facility] x10(3)/[facility] L LABORATORY Lymphocytes % 28.5 % [facility] LABORATORY Lymphocytes Abs 3.8 (H) 0.9 - 3.2 [facility] x10(3)/[facility] LABORATORY Monocytes % 7.2 % [facility] LABORATORY Monocyte Abs 1.0 (H) 0.3 - 0.9 [facility] x10(3)/[facility] LABORATORY Eosinophils % 1.7 % [facility] LABORATORY Eosinophils Abs 0.2 0.0 - 0.4 [facility] x10(3)/[facility] LABORATORY Basophils % 0.5 % [facility] LABORATORY Basophils Abs 0.1 0.0 - 0.1 [facility] x10(3)/[facility] LABORATORY Immature Gran % 0.40 % [facility] LABORATORY Comment: Immature granulocytes(IG's)percentage an d absolute count will include metamyelocytes, myelocytes, and promyelo cytes. Blood smears from CBCs yielding IG's will be scanned manually for concor dance. If this scan disagrees with the automated IG or if promyelocytes are not ed, a manual differential will be performed. Mirian Gran Abs 0.05 (H) 0.00 - 0.04 x10(3)/[facility] LABORATORY Specimen Anatomical Collection Method Collection Time Receive d Time (Source) Location / / Volume Laterality Blood 04/13/2021 12:24 04/13/2021 PM EDT 12:33 PM EDT Resulting Agency Comment Spec In Lab Mari Tao MD HEMATOLOGY ORDERABLES Performing Organization Address City/State/[place] [address] (ABNORMAL) Hemogram (04/13/2021 12:24 PM EDT) Analysis Performed At Patho logist Time Signature WBC 13.4 (H) 4.0 - 9.5 [facility] x10(3)/[facility] LABORATORY RBC 4.95 4.58 - [facility] CHARLY 5.54 [facility] x10(6)/[facility] LABORATORY Hemoglobin 15.0 13.7 - [facility] 16.5 gm/dL [facility] LABORATORY Hematocrit 46.0 40.5 - [facility] CHARLY 48.5 % [facility] LABORATORY MCV 92.9 82.9 - [facility] 93.1 fL [facility] LABORATORY MCH 30.3 27.5 - [facility] CHARLY 32.1 pg [facility] LABORATORY MCHC 32.6 32.0 - [facility] 35.7 gm/dL [facility] LABORATORY Platelets 307 145 - 357 [facility] x10(3)/[facility] LABORATORY RDWSD 47.8 (H) 36.0 - [facility] 45.0 [facility] LABORATORY RDWCV 14.1 (H) 11.4 - [facility] 13.8 % [facility] LABORATORY MPV 11.5 7.6 - 12.9 [facility] LABORATORY nRBC % Auto 0.0 % [facility] LABORATORY nRBC Abs Auto 0.000 0.000 - [facility] 0.000 [facility] x10(3)/[facility] LABORATORY Specimen Anatomical Collection Method Collection Time Receive d Time (Source) Location / / Volume Laterality Blood 04/13/2021 12:24 04/13/2021 PM EDT 12:33 PM EDT Resulting Agency Comment Spec In Lab Mari Tao MD HEMATOLOGY ORDERABLES Performing Organization Address City/State/ZIP Code Phon e Number [address] (ABNORMAL) pro-Brain Natriuretic Peptide (04/13/2021 12:24 PM EDT) P athologist Signature ProBNP 1,014 (H) <=124 [facility] pg/mL [facility] LABORATORY Specimen Anatomical Collection Method Collection Time Receive d Time (Source) Location / / Volume Laterality Blood 04/13/2021 12:24 04/13/2021 PM EDT 12:33 PM EDT Resulting Agency Comment Spec In Lab Mari Tao MD CHEMISTRY ORDERABLES Performing Organization Address City/State/[place] [address] (ABNORMAL) Comprehensive metabolic panel (non-fasting) (04/13/2021 12:24 PM EDT) P athologist Signature Glucose Lvl 109 65 - 199 [facility] mg/dL [facility] LABORATORY Comment: Diabetes: >=200 mg/dL plus symp toms BUN 17 10 - 20 mg/dL [facility] LABORATORY Creatinine 0.93 0.80 - 1.50 mg/dL [facility] LABORATORY Sodium 140 135 - 145 mmol/L [facility] LABORATORY Potassium 3.9 3.5 - 5.0 mmol/L [facility] LABORATORY Comment: Please note: ??Patients with WBC >100,00 0 may have falsely elevated Potassium levels. ??For accurate Potassium quantif ication in these patients send serum separator tube (gold top) for subsequent determinations. ??Contact the Clinical Chemistry Laboratory if there are any qu estions. Chloride 102 98 - 107 mmol/L [facility] LABORATORY CO2 27 22 - 31 mmol/L [facility] LABORATORY Anion Gap 11 5 - 15 mmol/L [facility] LABORATORY Calcium 9.3 8.5 - 10.5 mg/dL [facility] LABORAT[facility] Total Protein 8.1 (H) 6.1 - 8.0 gm/dL [facility] LABORATORY Albumin 4.4 3.2 - 5.2 gm/dL [facility] LABORATORY AST 16 0 - 39 unit/L [facility] LABORATORY ALT 16 0 - 55 unit/L [facility] LABORATORY Alk Phos 61 40 - 130 unit/L [facility] LABORATORY Total Bilirubin 0.5 0.2 - 1.3 mg/dL [facility] LABORATORY Estimated GFR 89 >=60 mL/min/1.73 m?? [facility] LABOR[facility]ORY Comment: This patient? s estimated glomerular filtration rate (eGFR) is between 89 mL/min/1.73 m2 (patients with less muscl e mass per kg body weight) and 103 mL/min/1.73 m2 (patients with more muscl e mass per kg body weight) as determined by the CKD-EPI equation. Asse ssment of eGFR is not appropriate when creatinine concentrations are rapidly ch anging. For clinical decisions where creatinine clearance will affect therapy , a 24-hour urine creatinine clearance may be advised. Assignment of CKD stage 1 - 5 for patien ts with an eGFR near the transition point between stages may be based on cli nical assessment of muscle mass and symptoms in addition to eGFR. Specimen Anatomical Collection Method Collection Time Receive d Time (Source) Location / / Volume Laterality Blood 04/13/2021 12:24 04/13/2021 PM EDT 12:33 PM EDT Resulting Agency Comment Spec In Lab Mari Tao MD CHEMISTRY ORDERABLES Performing Organization Address City/State/ZIP [place] [address] documented in this encounter Visit Diagnoses Diagnosis Atrial fibrillation, unspecified type Essential hypertension Unspecified essential hypertension JOHN (obstructive sleep apnea) Obstructive sleep apnea (adult) (pediatr ic) Dyspnea, unspecified type documented in this encounter Care Teams Machine Striper Relationship Specialty Start Date End Date Ava Morales MD PCP - General Family Medicine 04/04/[address] [place] [phone] documented as of this encounter
--- OUTSIDE RECORDS SUMMARY | 2022-03-23 07:51 | XMS_ITS | Encounter Summary ---
:1960 Author Organization [facility] [place] [address] Care Team Providers Name Role Phone Unavailable Primary Care Provider Unavailable Encounter Details Date Type Department Care Team Description 02/27/2021 Hospital Encounter Laboratory [facility] [place] [address] Social History Tobacco Use Types Packs/Day [...] Kristan Perry MD [facility] ONCOLOGY DEPT. [place], [place] [address] ( rk) documented as of this encounter Procedures Procedure Name Priority Date/Time Associated Comments Diagnosis IMMUNOPHENOTYPING FLOW Routine 02/27/2021 2:07 Re sults for this CYTOMETRY PM EDT procedure are i n the results section. NON-PHOTO MASK CLEANER FINAL REPORT Routine 02/27/2021 2:07 Resu lts for this PM EDT procedure are i n the results section. SURGICAL PATHOLOGY REPORT Routine 02/27/2021 2:07 Results for this PM EDT procedure are i n the results section. documented in this encounter Results Non-Pattern Stamper Final Report (02/27/2021 2:07 PM EDT) Component Value Ref Test Analysis Performed At [facility] Range Method Time Signature Non-Pattern Stamper Final [id number] ? Location: [facility] The signing pathologist has (i) examined the relevant preparation(s) for the [facility] specimen(s) and (ii) rendered or confirmed the diagnosis(es) . HOSPITAL LABORATORY . ? No n-Pattern Stamper Final DIAGNOSIS See Discussion Electronically signed by: ?Kim HERNANDEZ, Miguel Angel Gil Verified: ??03/06/2021 14:30 ??Cytopathologist Performed at: ??-[facility] Dept. of Pathology, [place], [place] DISCUSSION Neck mass: left (FNA) - Salivary gland parenchyma (i ncluding acini), adipocytes, leukocytes (including some lymphocytes), and a few benign squamous cells are present. No overtly malignant cells are seen. The material might not be fully sales representative facility services of the target lesion. (Cell block was examined.) CLINICAL INFORMATION Specimen Source : Neck mass: left (FNA) Pertinent Clinical Data and Significant Therapy: Patient has a left neck mass located just below the left angle of the mandible. It has been present for 6 o r so months and is increasing in size. It started out the size of a pea and gradu ally enlarged. He believes it started after a sinus infection in August 2020 and he is a non-smoker. Abnormal CT with encasement of left internal carotid artery. Clinical Impression : Malignancy vs lymphoma Pertinent Radiologic Findings ??: (not provided) Gross Description: Received ??in CytoLyt approx imately 15 mL total volume of ?? clear, colorless fluid, with light flecks. Total Preparation: Liquid-Based Prep 2; Pap Stain 1; Cell Bl ock 1. Referring Identifier: ??[id number] Specimen (Source) Anatomical Collection Method Collection Time Re ceived Time Location / / Volume Laterality 02/27/2021 2:07 PM EDT Resulting Agency Comment Spec In Lab / [facility] Esocbar Naranjo DO PATHOLOGY/CYTOLOGY ORDERABLE S Performing Organization Address City/State/[place] [address] [facility] [address] Surgical Pathology Report (02/27/2021 2:07 PM EDT) Component Value Ref Test Analysis Performed At [facility] gist Range Method Time Signature Surgical [id number] ? Location: [facility] Report The signing pathologist has (i) examined the relevant preparation(s) for the [facility] specimen(s) and (ii) rendered or confirmed the diagnosis(es) . HOSPITAL LABORATORY . ?Surgic al Pathology DIAGNOSIS Left neck mass, biopsy ??- - Scant fatty tissue with benign salivary acini - ?(see Discussion.) Electronically signed by: ?Yohana Garcia DO Verified: ??03/06/2021 16:02 ??Pathologist Performed at: ??-[facility] Dept. of Pathology, [place], [place] DISCUSSION Step sections were examined. The tissue is insufficient t o rule out a josé luis metastasis or lymphoma. ??Consider repeat biopsy if clinically indicated. SPECIMEN(S) SUBMITTED A - Left neck mass, biopsy (1) Referring Identifier: ??[id number] CLINICAL INFORMATION Patient has a left neck mass located just below the left angle of the mandible. It has been present for six or so months and is increasing in size. It started out this is P and gradually enl arged. He believes it started after a sinus infection August 2020 and is a nons moker. Abnormal CT with encasement of left internal carotid artery. Malignancy vs lymphoma SPECIMEN PROCESSING A - Labeled/Fixative: Patient demographics, .RPMI media Quantity/Size: Single, 0.4 x 0.1 cm Tissue Description: Thin, yellow-red needle core biopsy. Sections/Processing: Tissue is submitted to flow cytometry. Entirely submitted in 1 cassette labeled A1. ??shb ?Leo w Cytometry DIAGNOSIS Flow cytometric diagnosis: ? ? Normal immunophenotyping results. No monotypic B-cell population or phenotypicall y abnormal T-cell population or increase in blasts is detected. Please see morphology report for final delineation. ??NOTE: Some lymphomas are not detected by flow analysis. Electronically signed by: ?Samra HERNANDEZ, Prasanna Verified: ??02/28/2021 16:47 ??Hematopathologist Performed at: ??-[facility] Dept. of Pathology, [place], [place] DISCUSSION Blasts based on CD45 express ion and orthogonal light scatter, are not increased. . DISCUSSION The CD19 positive B-cells solis ve a polytypic expression of surface immunoglobulin light chain (Nitro:Lambda ratio a t 1.2). The T-cells are an admixture of CD4+ and CD8+ T lymphocytes (ratio of 1.8). No loss or atypical intensity distributions are seen for any medina T antigen (CD2, 3, 4+8, 5, 7). There is no increase in EU70-dasdgcai/CD3-neg NK cells. Flow analysis is an ancillar y study. A definite diagnosis requires correlation with the morphologic features of this process and if necessary, correlation with other ancillary studies like immu nohistochemistry, enzyme cytochemistry and/or cyto/ molecular genetics. This test was developed and its performance maricruz acteristics determined by the Clinical Flow Cytometry Lab oratory at [facility]. It has not been cleared or approve [...] complexity clinic al laboratory testing. SPECIMEN PROCESSING [id number] Cells for immunophenotypic a nalysis were derived from left neck mass. CD45 vs side scatter gating was utilized to identify a lymphoid analysis region that comprises approximately 26-30% of all cells. The following markers were a ssessed: CD2, CD3, CD4, CD5, CD7, CD8, CD10, CD19, CD45, CD56, kappa light chain, and lambda light chain. CLINICAL INFORMATION neck mass Specimen (Source) Anatomical Collection Method Collection Time Re ceived Time Location / / Volume Laterality 02/27/2021 2:07 PM EDT Resulting Agency Comment Spec In Lab / [facility] Escobar Naranjo DO PATHOLOGY/CYTOLOGY ORDERABLE S Performing Organization Address City/[facility]/ZIP Code Phon e Number [address] [place] [address] Immunophenotyping Flow Cytometry (02/27/2021 2:07 PM EDT) Component Value Ref Test Analysis Performed At [facility] gist Range Method Time Signature Immunophenotyping See ADRIENNE Tao Robin [facility] LABOR[facility]ORY Comment: When completed by the Pathologist, the F low Cytometry Report ([id number]) will display under the Pathology Result s section within eDH. Specimen Anatomical Collection Method Collection Time Receive d Time (Source) Location / / Volume Laterality Other Other / Unknown 02/27/2021 2:07 PM 2020 EDT 10:32 PM EDT Resulting Agency Comment Spec In Lab / [facility] Escobar Naranjo DO HEMATOLOGY ORDERABLES Performing Organization Address City/[facility]/[place] [address] documented in this encounter Visit Diagnoses Not on filedocumented in this encounter
--- OUTSIDE RECORDS SUMMARY | 2022-03-23 07:51 | XMS_ITS | Encounter Summary ---
:1960 Author Organization [facility] [place] [address] Care Team Providers Name Role Phone Ava Morales MD Primary Care Provider Encounter Details Date Type Department Care Team Description 04/13/2021 Anesthesia Event Same Day at [facility] Mari Tao MD [facility] [address] JOHN not on CPAP (though recommended); [facility] Reymundo Washington, DO [facility] [place] [address] Chronic atrial fibrillation; Drive Neck mass; [place], [place] Morbid obesity with BMI of 50.0-59.9, adult; [phone] Essential hypertension [phone] Anesthesia Record Procedure Summary Procedure Name Responsible Anesthesia Start Anesthesia Stop Anesthesiologist Time Time AMB REFERRAL TO GENERAL ANESTHESIOLOGY Events No events on file. No medications on file. Agents No agents on file. Blood No blood administrations on file. Lines, Drains, and Airways No LDAs on file. documented in this encounter Social History Tobacco [...] as of this encounter OR Notes Anesthesia Preprocedure Evaluation - Mari Tao MD - 04/13/2021 1:24 PM EDT Images from the original note were not included. Pre-Anesthesia Evaluation for: Miriam Anaya a 60 y.o. male. Patient Active [...] Last Filed Perioperative Cognitive Screening None Anesthesia Plan Anesthesia Screening Note: Date and Time of Entry: 04/13/2021 1:26 PM Entered By: Reymundo Washington DO Reason for Evaluation: Surgeon Request Hx of Anesthesia Problem: JOHN, obesity, Afib, HTN, L neck mass Screening Visit Type: Interviewed in person Additional/Outside Records Requested? Requested medical information from outside organization. From Where? PCP and cardiology @ [facility] in [place], [place] Findings, Assessment and Plan: Miriam Anaya is a 60 y.o. male with past medical history of JOHN, morbid obesity, chronic afib, and HTN who presents for perioperative evaluation in preparation for surgerywith Dr. Cordoba, ENT, to address is L neck mass; date of surgery TBD. Patient denies any recent changes in his [...] has also been cardioverted multiple times at [facility] in the past, however is unable to maintain a sinus rhythm. Patient has not seen a software test manager since his last cardioversion several years ago. [...] dissection. We will f/u with the results. The patient was informed of the risks, [...] Kristan Perry MD [facility] ER DR ONCOLOGY DEPT. [place], [place] [address] (Wo rk) documented as of this encounter Visit Diagnoses Not on filedocumented in this encounter Care Teams Monitor And Storage Bin Tender Relationship Specialty Start Date End Date Ava Morales MD PCP - General Family Medicine 04/04/[address] [place] [phone] documented as of this encounter
--- OUTSIDE RECORDS SUMMARY | 2022-03-23 07:51 | XMS_ITS | Encounter Summary ---
:1960 [place] [address] Care Team Providers Name Role Phone Unavailable Primary Care Provider Unavailable Encounter Details Date Type Department Care Team Description 01/25/2021 Ancillary Procedure Radiology [facility] [place] [address] OTOLARYNGOLOGY [phone] [place]. [place], [place] [address] (Wo rk) Social History Tobacco [...] Oncology Kristan Perry MD [facility] ER DR ONCOLOGY DEPT. [place], [place] [address] (Wo rk) documented as of this encounter Procedures Procedure Name Priority Date/Time Associated Comments Diagnosis FILM LIBRARY STORAGE Routine 01/25/2021 12:00 AM Results for this ONLY ULTRASOUND EDT procedure ar e in STUDY the results section. documented in this encounter Results Film Library- Storage Only Ultrasound Study (01/25/2021 12:00 AM EDT) Specimen (Source) Anatomical Location Collection Method / Collectio n Time Received Time / Laterality Volume Narrative RAD - 02/22/2021 10:18 AM EDT This exam is auto-finalizing. It's purpo se is for storage only. River Cordoba MD IMArjun FILM LIBRARY ORDERABLES Performing Organization Address City/State/ZIP Code Phon e Number [facility] [place], [place] documented in this encounter Visit Diagnoses Not on filedocumented in this encounter
--- OUTSIDE RECORDS SUMMARY | 2022-03-23 07:51 | XMS_ITS | Encounter Summary ---
:1960 Author Organization [facility] [place] [address] Care Team Providers Name Role Phone Ava Morales MD Primary Care Provider Encounter Details Date Type Department Care Team Description 04/13/2021 Office Visit Otolaryngology at [facility] [place], [place] Neck mass; [facility] Subhash Gil MD Morbid obesity with BMI of 50.0-59.9, [place] [address] [facility] [phone] CENTER OTOLARYNGOLOGY DEPT. [place], [place] [address] Social History Tobacco Use Types [...] - Inhaled Oxygen Concentration - - Weight 155.6 kg (343 lb) 04/13/2021 4:08 PM EDT Height 177.8 cm (5' 10) 04/13/2021 4:08 PM EDT Body Mass Index 49.22 04/13/2021 4:08 PM EDT documented in this encounter Progress Notes River Cordoba MD - 04/13/2021 4:40 PM EDT Images from the original note were not included. Subjective: Patient ID: Miriam Anaya is a 60 y.o. male. HPI this is a 60-year-old male with [...] JOHN (last tested 9 years ago at [facility] - will get records) andCPAP recommended but [...] to take a break due to fatigue. Patient was evaluated earlier today in anesthesia and a stress test was recommended that could be done at [facility]. This will be a chemical stress test. I had also planned a PET/CT since are on FNA that was done 2 weeks ago did not show any evidence of miriam cancer. When the patient presented to the PET/CT scanner was able to get his FDG injection however had a panic attack and could notundergo the planned PET/CT. He says that he would need general anesthesia. He was not able to withstand having a strap across his chest and had palpitations so procedure was aborted. Patient was also discussed at our head [...] is any changes in his neck mass. Past Medical History: Diagnosis Date ??? Essential hypertension 04/12/2021 ??? JOHN not on CPAP (though recommended) 04/12/2021 No past surgical history on file. Patient Active Problem List Diagnosis Code ??? Neck mass R22.1 ??? Morbid obesity with BMI of 50.0-59.9, adult E66.01, Z68.43 ??? Chronic atrial fibrillation I48.20 ??? Essential hypertension I10 ??? JOHN not on CPAP (though recommended) G47.33 Current Outpatient Medications: ??? tramadol HCl (TRAMADOL ORAL), Take by mouth as needed., Disp: , Rfl: ??? acetaminophen (Tylenol) 500 mg Tablet, Take 1,000 mg by mouth every 6 hours as needed for Pain.,Disp: , Rfl: ??? metoprolol tartrate (Lopressor) 50 mg Tablet, Take 50 mg by mouth 2 times daily., Disp: , Rfl: ??? meloxicam (MOBIC) 15 mg Tablet, Take 15 mg by mouth daily., Disp: , Rfl: No current facility-administered medications for this visit. No Known Allergies Review of Systems: A [...] Week: ??? Minutes of Exercise per Session: Review of Systems Objective: Physical Exam Vitals and nursing note reviewed. Constitutional: General: He is not in acute distress. Appearance: He is well-developed. He is obese. He is not diaphoretic. HENT: Head: Normocephalic. Jaw: No trismus. Right Ear: Tympanic membrane, ear canal and external ear normal. No tenderness. No middle ear effusion. Left Ear: Tympanic membrane, ear canal and external ear normal. No tenderness. No middle ear effusion. Nose: Septal deviation present. No nasal deformity or mucosal edema. Right Turbinates: Enlarged. Left Turbinates: Enlarged. Mouth/Throat: Mouth: No oral lesions. Tongue: No lesions. Palate: No mass. Pharynx: Uvula midline. No [...] of motion and neck supple. Lymphadenopathy: Cervical: Cervical adenopathy ( Large firm level 2 and level 3 left sided neck mass indistinct fromthe sternomastoid) present. Skin: General: Skin is warm. Findings: No erythema. Neurological: Mental Status: He is alert and oriented to person, place, and time. Cranial Nerves: No cranial nerve deficit. Deep Tendon Reflexes: Reflexes are normal and symmetric. Psychiatric: Behavior: Behavior normal. Thought Content: Thought content normal. Judgment: Judgment normal. Assessment and Plan: We discussed the complexity of his case. The patient is frustrated that we do not have definitive answers as to what is going on. I stressed the complexity of his medical problems as well as the potential risks that he would face if we do the wrong procedure. Because of his significant limitationsin his physical activity, he reported at his last visit that he had a hard time climbing stairs, he is at risk of a cardiovascular event undergoing a simple procedure. He states empathically that he would only be able to undergo a PET/CT if he is put out. Long discussion regarding his management and that I was very suspicious that this represented a metastatic squamous cell carcinoma from the base of tongue or oropharynx. Discussed that there is about a10 to 15% risk that no primary tumor be identified. Prior to PET CT scans being available, would take patients to the OR and plan an otolaryngologic examination under anesthesia along with planning multiple blind biopsies that will be submitted for pathologic evaluation. The idea of the PET scan was that it would be helpful to direct biopsies. I think to try to arrange for him to undergo a PET/CT under general anesthesia with place and unnecessary delay in his care. He needs to undergo this stress test to see how he would do with general anesthesia. We discussed that a better solution would be for him to be taken to the OR for a complete ENT examination of anesthesia, blind biopsies, as well as a limited biopsy of the neck mass. The mass is known to encase the internal jugular vein as well as theexternal carotid artery and I discussed with the patient excising the mass completely could be challenging as well as risky, in particular with the surrounding neurovascular structures including the hypoglossal and glossopharyngeal and accessory nerves. Systemic work-up in this patient's case could befor him to undergo a CT of the chest since we have a recent CT of the neck We discussed that in general terms, treatment of a metastatic squamous cell carcinoma would be with chemo radiation therapy. I will book his endoscopy as soon as he is clear from anesthesia standpoint. Surgical orders have been placed documented in this encounter Plan of Treatment Upcoming Encounters Date Type Specialty Care Team Description 03/30/2022 Office Visit Hematology and Oncology Kristan Perry MD [facility] DR ONCOLOGY DEPT. [place], [place] [address] ( rk) documented as of this encounter Visit Diagnoses Diagnosis Neck mass Swelling, mass, or lump in head and neck Morbid obesity with BMI of 50.0-59.9, ad ult Morbid obesity documented in this encounter Care Teams Criminal Defense Lawyer Relationship Specialty Start Date End Date Ava Morales MD PCP - General Family Medicine 04/04/[address] [place] [phone] documented as of this encounter
--- OUTSIDE RECORDS SUMMARY | 2022-03-23 07:51 | XMS_ITS | Encounter Summary ---
:1960 Author Organization [facility] [place] [address] Care Team Providers Name Role Phone Ava Morales MD Primary Care Provider Reason for Visit Diagnostic Test (Routine) - Closed Specialty Diagnoses / Procedures Referred By Contact Refer red To Contact Radiology Diagnoses Neck mass River Cordoba MD [facility] Rad Nuclear Med Procedures NM PET CT Standard Plus Head and Neck [facility] Balaji [place] [address] [place] [address] Referral ID Status Reason Start Date Expiration Date Visits V isits Requested Authorized [id number] Closed Specialty 03/29/2021 09/25/2021 1 1 Service Requested Encounter Details Date Type Department Care Team Description 04/13/2021 Hospital Encounter Nuclear Medicine at [facility] Cord[facility] Mary Hitchcock MD [facility] [place] [address] OTOLARYNGOLOGY DEPT. [phone] [place], [place] [address] (Wo rk) Social History Tobacco [...] Hematology and Oncology Kristan Perry MD [facility] ONCOLOGY DEPT. [place], [place] [address] (Wo rk) documented as of this encounter Procedures Procedure Name Priority Date/Time Associated Diagnosis Comme nts NM PET CT STANDARD Routine 04/13/2021 2:52 PM Neck mass Res ults for this PLUS HEAD AND NECK EDT procedure are in the results section. POCT GLUCOSE Routine 04/13/2021 1:42 PM Results f or this EDT procedure are i n the results section. documented in this encounter Results POCT Glucose (04/13/2021 1:42 PM EDT) P athologist Signature POC Glucose 109 65 - 199 [facility] mg/dL [facility] Comment: Supplemental ranges: <140 mg/dL before meals <180 mg/dL all other times of the day Specimen Anatomical Collection Method Collection Time Receive d Time (Source) Location / / Volume Laterality Blood 04/13/2021 1:42 PM 1:42 EDT PM EDT River Cordoba MD POINT OF CARE TEST ORDERABLE S Performing Organization Address City/State/[facility] [place] [address] documented in this encounter Visit Diagnoses Not on filedocumented in this encounter Care Teams Tax Record Clerk Relationship Specialty Start Date End Date Ava Morales MD PCP - General Family Medicine 04/04/21 [address] [place] [address] documented as of this encounter
--- OUTSIDE RECORDS SUMMARY | 2022-03-23 07:51 | XMS_ITS | Encounter Summary ---
:1960 Author Organization [facility] [place] [address] Care Team Providers Name Role Phone Ava Morales MD Primary Care Provider Encounter Details Date Type Department Care Team Description 04/04/2021 Telephone Care Management Maxine Kim, DANIELLE [facility] [place] [address] Social History Tobacco Use Types Packs/Day [...] this encounter Miscellaneous Notes Telephone Encounter - Maxine Kim MSW - 04/04/2021 12:47 PM EDT [facility] TILT WALL SUPERVISOR Note SW called and left a message for Miriam to offer support re resources/assessment of need and to introduce the [facility] TILT WALL SUPERVISOR role. Requested call back to discuss. DANIELLE Sanches Continuing Integrity Specialist Pager [phone] documented in this encounter Plan of Treatment Upcoming Encounters Date Type Specialty Care Team Description 03/30/2022 Office Visit Hematology and Oncology Kristan Perry MD [facility] ER DR ONCOLOGY DEPT. [place], [place] [address] (Wo rk) documented as of this encounter Visit Diagnoses Not on filedocumented in this encounter Care Teams Transport Tech Relationship Specialty Start Date End Date Ava Morales MD PCP - General Family Medicine 04/04/[address] [place] [phone] documented as of this encounter
--- OUTSIDE RECORDS SUMMARY | 2022-03-23 07:51 | XMS_ITS | Encounter Summary ---
:1960 Author Organization [facility] [place] [address] Care Team Providers Name Role Phone Unavailable Primary Care Provider Unavailable Reason for Visit Diagnostic Test (Routine) - Closed Specialty Diagnoses / Procedures Referred By Contact Refer red To Contact Radiology Diagnoses Neck mass River Cordoba MD [facility] Interventionl Rad Procedures IR Biopsy Soft Tissue Neck IR FNA Thyroid Nodule [facility] [place] [address] [place] [address] Referral ID Status Reason Start Date Expiration Date Visits V isits Requested Authorized [id number] Closed Specialty 03/16/2021 09/15/2022 1 1 Service Requested Encounter Details Date Type Department Care Team Description 03/30/2021 Hospital Encounter Radiology [place] [facility] [place] Cordoba Canceled [facility] MD Louise (P-INCONVENIENT DATE Drive [facility]) [place], [place] CENTER [address] OTOLARYNGOLOGY [phone] [place] [address] Social History Tobacco Use Types Packs/Day Years [...] Oncology Kristan Perry MD [facility] DR ONCOLOGY DEPT. [place], [place] [address] (Wo rk) documented as of [...] who have questions please contact the health healthcare market consultant that requested your imaging first. ? Electronically signed by: Carine garibay MD, [facility] ([phone]), at 04/05/2021 3:44 PM Narrative 04/05/2021 3:44 [...] ho have questions please contact the health healthcare market consultant that requested your imaging first. River Cordoba MD IMG IR ORDERABLES documented in this encounter Visit Diagnoses Not on filedocumented in this encounter
--- OUTSIDE RECORDS SUMMARY | 2022-03-23 07:51 | XMS_ITS | Encounter Summary ---
:1960 Author Organization [facility] Address [facility] [place] [address] Care Team Providers Name Role Phone Unavailable Primary Care Provider Unavailable Encounter Details Date Type Department Care Team Description 03/16/2021 Patient Outreach Hematology and Oncology [facility] [place] [address] Social History Tobacco Use Types Packs/Day [...] encounter Progress Notes Abbey Krishnan, RN - 03/31/2021 4:23 PM EDT [facility] Oncology Nurse Navigation Patient Intake & Care Plan Met with 60 yo Faizan Anaya, who has a diagnosis of a neck mass highly concerning for cancer, to assess for nurse navigation services. Patient presents alone for this appointment. Etiology differentials include parotid gland tumor versus metastatic squamous cell cancer from an unknown head and neck primary. FNA sample on 02/27/21 was deemed insufficient to determine pathology; patient is frustrated with the indeterminate pathology. Mass is mostly fixed on exam. Per patient, pain is intermittent, and radiates from the back of the neck to the top of the head. Pain improves while lying down with pillows. Faizan describes the pain as rarely sharp, but often pulsing. Endorses intermittent otalgia, mild trismus, intermittent dysphagia, and dry mouth. Claims taste is often perceivedas extra salty. ROM of neck appears restricted. Reports mild hearing loss, however no evidence upon physical exam. Walks with a cane at baseline. PMH positive for Afib, HTN, HLD, insomnia, obesity, gout, and JOHN. States never smoker. Denies use of chew, snuff, or vaping products. Claims he had previous heavy use of alcohol, but now just drinks once monthly. Per patient, when he drinks once monthly, he drinks 12-18 beers at a time. No regular dental visits, and teeth in poor condition. Denies any concerns with transportation. Faizan does not drive, and has no vehicle. A neighbor brought him today to this appointment, and waits in the waiting room. He travels approximately 2.5 hours [facility]get to [facility]. Denies any concerns regarding finances. 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 He claims he stopped working in the early related to knee pain. 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 Feels his health insurance is adequate (well since managed Medicaid). Lives alone in an apartment complex with neighbors nearby. No other social support network disclosed; he was not forthcoming with this information. He did say that he was adopted so he did not know his family medical history. He confirmed that he did not have any advanced directives established, but was not interested in completing them at this time. Outlined main ancillary services available to help support patient, including Social Work, Psycho Onc, Nutrition, EXCAVATING MACHINE OPERATOR, and PT. Reviewed general timeline of both non-surgical management and surgery withadjuvant treatment, emphasizing the importance of early dental extractions, if needed. Also discussed long-term follow-up schedule. If non-surgical or adjuvant treatment is needed, patient would preferSt. Neptali. PLAN: ??? IR biopsy of neck mass ??? PET, BG, and Anesthesia after pathology confirmed ??? Referral to for assessment Nurse Navigator Barriers and Interventions Assessment Barriers Barriers 03/31/2021 Physical Dry mouth/dehydration;Pain Informational Incomplete information (staging, images, test results) Emotional/Psychological/Spiritual Anger Social Lack of peer support Practical Transportation Interventions Interventions 03/31/2021 Informational Literature/online resources;Supportive service referral/education Emotional/Psychological/Spiritual Social work Social Social work Practical Social work Head and Neck Oncology Nurse Navigator is Abbey Krishnan RN, BSN. documented in this encounter Plan of Treatment Upcoming Encounters Date Type Specialty Care Team Description 03/30/2022 Office Visit Hematology and Oncology Kristan Perry MD [facility] DR ONCOLOGY DEPT. [place] [address] (Wo rk) documented as of this encounter Visit Diagnoses Not on filedocumented in this encounter
--- OUTSIDE RECORDS SUMMARY | 2022-03-23 07:51 | XMS_ITS | Encounter Summary ---
:1960 [place] [address] Care Team Providers Name Role Phone Unavailable Primary Care Provider Unavailable Encounter Details Date Type Department Care Team Description 02/13/2021 Ancillary Procedure Radiology Library at [facility] [phone] OTOLARYNGOLOGY [phone] DEPT. [place], [place] [address] (Wo rk) Social History Tobacco [...] Perry MD [facility] ER DR ONCOLOGY DEPT. [place], [place] [address] (Wo rk) documented as of this encounter Procedures Procedure Name Priority Date/Time Associated Diagnosis Comme nts FILM LIBRARY Routine 02/13/2021 12:00 AM Results for this STORAGE ONLY CT EDT procedure ar e in HEAD AND SPINE the results section. documented in this encounter Results Film Library- Storage Only CT [facility] (02/13/2021 12:00 AM EDT) Specimen (Source) Anatomical Location Collection Method / Collectio n Time Received Time / Laterality Volume Narrative GABRIELA SAMPSON - 02/22/2021 10:17 AM EDT This exam is auto-finalizing. It's purpo se is for storage only. River Cordoba MD IMArjun FILM LIBRARY ORDERABLES Performing Organization Address City/State/ZIP Code Phon e Number CAMILLA SAMPSON [place], [place] documented in this encounter Visit Diagnoses Not on filedocumented in this encounter
--- OUTSIDE RECORDS SUMMARY | 2022-03-23 07:51 | XMS_ITS | Encounter Summary ---
:1960 Author Organization [place] [address] Care Team Providers Name Role Phone Unavailable Primary Care Provider Unavailable Reason for Referral Diagnostic Test (Routine) - Closed Specialty Diagnoses / Procedures Referred By Contact Refer red To Contact Radiology Diagnoses Neck mass River Cordoba MD [facility] Interventionl Rad Procedures IR Biopsy Soft Tissue Neck IR FNA Thyroid Nodule [facility] [place] [address] [place] [address] Referral ID Status Reason Start Date Expiration Date Visits V isits Requested Authorized [id number] Closed Specialty 03/16/2021 09/15/2022 1 1 Service Requested Consultation (Routine) - Closed Specialty Diagnoses / Procedures Referred By Contact Refer red To Contact Pre-Admission Testing Diagnoses Neck mass River Cordoba Mh Pre Admit Test MD 4v [facility] enter [facility] [place] [phone] Referral ID Status Reason Start Date Expiration Date Visits V isits Requested Authorized [id number] Closed Consult, 03/16/2021 03/16/2022 1 1 Test & Treat Diagnostic Test (Routine) - Closed Specialty Diagnoses / Procedures Referred By Contact Refer red To Contact Radiology Diagnoses Neck mass River Cordboa MD [facility] Rad Nuclear Med Procedures NM PET CT Standard Plus Head and Neck [facility] [address] [place] [address] Referral ID Status Reason Start Date Expiration Date Visits V isits Requested Authorized [id number] Closed Specialty 03/29/2021 09/25/2021 1 1 Service Requested Reason for Visit Consultation (Urgent) - Closed Specialty Diagnoses / Procedures Referred By Contact Refer red To Contact Otolaryngology Diagnoses localized swelling, mass and lump neck. abnormal findings on diagnostic imaging Yenny Abreu PA Paydarfar, Joseph A, [address] MIGUEL ÁNGEL [place]Z [place], [place] [id number] [place] [address] OTOLARYNGOLOGY DEPT. [place], [place] [address] Phone: Fax: Referral ID Status Reason Start Date Expiration Date Visits V isits Requested Authorized [id number] Closed Consult, 02/17/2021 02/17/2022 1 1 Test & Treat Encounter Details Date Type Department Care Team Description 03/16/2021 Office Visit Otolaryngology at [facility] River Cordoba Neck mass (Primary [facility] Subhash Gil MD Dx) [place] [address] [facility] [phone] [facility] OTOLARYNGOLOGY DEPT. [place], [place] [address] Social History Tobacco Use Types [...] - Inhaled Oxygen Concentration - - Weight 163.3 kg (360 lb) 03/16/2021 9:14 AM EDT Height 177.8 cm (5' 10) 03/16/2021 9:14 AM EDT Body Mass Index 51.65 03/16/2021 9:14 AM EDT documented in this encounter Progress Notes Ammy Meadows PA - 03/16/2021 9:00 AM EDT [facility] OT[facility]OLOG[facility] NEW PATIENT CONSULTATION I was asked to see Faizan Anaya in consultation by Yenny Abreu for Left neck mass. History was obtained through review of the relevant records, discussion with referring physician and/or patient interview. History of present illness: This is a 60 y.o. male with history of A.fib, obesity and JOHN presenting for work up of a left neck mass below the angle of the mandible. This originally started as a pea sized lump that has grown overthe last 6 months. He has had 2 FNAs with inconclusive results. He now has difficulty moving his neck and pain that radiates to the top of his head for the past month. He has also noticed some challenge swallowing oral secretions when in certain positions. Of note, he has a new salty taste in his mouth on occasion, however, he has noticed no dry mouth, bleeding or oozing from the mass. He reports some left ear pressure but no pain. No paresthesia of the area, no change in facial symmetry or drooling. No new breathing issues. He reports shortness of breath when walking up a flight of stairs at baseline. His a.fib is controlled with metoprolol and aspirin. He has JOHN, but does not use a CPAP, he hasnot had a sleep study for 9 years and does not remember the results of that test. Patient is a neversmoker, but has a heavy drinking history for 25 years (12+ beers daily) ending about 8 years ago with occasional binge drinking (12 beers). He has not been hospitalized for his drinking or experienced any withdrawal symptoms. Patient is adopted and does not know family medical history. PROBLEM LIST There is no problem list on file for this patient. PAST MEDICAL HISTORY No past medical history on file. SOCIAL HISTORY Social History Tobacco Use ??? Smoking status: Never Smoker ??? Smokeless tobacco: Never Used Substance Use Topics ??? 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 MEDICATIONS Current Outpatient Medications on File Prior to Visit Medication Sig Dispense Refill ??? metoprolol tartrate (Lopressor) 50 mg Tablet Take 50 mg by mouth 2 times daily. ??? meloxicam (MOBIC) 15 mg Tablet Take 15 mg by mouth daily. No current facility-administered medications on file prior to visit. ALLERGIES No Known Allergies ROS 8 point Review of Systems was normal except for pertinent positives and negatives included in the History of Present Illness. PHYSICAL EXAMINATION Physical Examination: VITALS - Height 177.8 cm (5' 10), weight (!) 163.3 kg (360 lb). GENERAL - obese - Breathing comfortably without stridor. - No acute distress. - Uses cane for bad knees FACE - Full and symmetric facial movement. EYES - Periocular structures and conjunctiva healthy without lesions. - Pupils are equal, round, and reactive to light. - Extraocular movement is full and intact. - No evidence of nystagmus. EARS Left: - Auricle normal exam. - External auditory canal normal exam. - Tympanic membrane bliss and translucent. Right: - Auricle normal exam. - External auditory canal normal exam. - Tympanic membrane bliss and translucent. NOSE - Patent anteriorly with adequate airflow, healthy pink mucosa. - Septum is midline without significant deviation. - Inferior turbinates normal exam. MOUTH - Lips and gingiva pink, moist, without lesions. - Gums healthy. Some missing teeth and bad dentition. - Tongue and floor of mouth soft without lesions or masses. - Hard palate without lesions. PHARYNX - Soft palate without lesions. - Uvula is midline. - Oropharynx symmetric. NECK - Left hand sized mostly immobile indurated mass on mandible extending into face, neck and near the inferior ear. No area of drainage. - Thyroid gland without masses or asymmetry. - Trachea midline without deviation. SKIN - Skin survey of the head and neck is without concerning lesion. NEURO - Cranial nerves II-XII intact and symmetric. - Responds appropriately to questions. PSYCHE - Normal mood and affect. PROCEDURES Procedure: Flexible Laryngoscopy: Indications: Evaluation for mucosal lesion of the upper airway. The risks of the procedure were reviewed, and verbal consent was obtained. Topical anesthetic and decongestant applied to the nasal cavity. The scope was passed through the nasal cavity, through the nasopharynx, and into the oropharynx. The examination was recorded on the TelePack Unit and uploaded tothe Meludia Operations Officer Afloat. Patient tolerated the procedure well without any complications. Nasal Cavity: Normal appearing mucosa. No obstructions or lesions noted. Nasopharynx: No lesions or masses noted. Oropharynx: Base of tongue/vallecula asymmetric with moderate deviation to the right. Normal appearing lingual tonsillar tissue. No ulcerations or mucosal lesions noted. Larynx: Epiglottis is thin and non-edematous. Arytenoids are symmetric. True cords demonstrate full and symmetric motion. Hypopharynx: Piriform sinuses are clear bilaterally, without evidence of masses or lesions. No significant pooling of secretions was noted. No overt laryngeal penetration or aspiration. ASSESSMENT/RECOMMENDATIONS Faizan Anaya is a 60 y.o. male with history of A.fib, obesity and JOHN presenting for work up of a left neck mass below the angle of the mandible. Mass is highly concerning for malignancy given presentation, rapid increase in size and review of prior CT showing potential involvement of the IJ and carotid. No noticeable involvement of the facial nerve, or oral mucosa. Will need biopsy to determine primary site. Anesthesia should also be consulted prior to any surgical intervention due to JOHN, a.fib andobesity history. - The patient expressed understanding of these points and agreement with the plan, and all questionsthat were asked were answered to the patient's satisfaction. Plan: > US or CT guided biopsy of the lesion. > PET scan > Anesthesia consult > Follow up appointment performed in conjunction with Anesthesia and PET after biopsy results received. > Patient should call if their symptoms worsen or fail to improve, if new concerning symptoms arise, or if they have any questions or concerns regarding their treatment. I appreciate the opportunity to be involved in Mr. Anaya's care. PASHA Calhoun [place], [place] [address] Office 03/16/2021 River Cordoba MD - 03/16/2021 9:00 AM EDT ENT CONSULTATION- ATTENDING STAFF NOTE: The patient has been requested in consultation by Yenny Abreu and Dr Escobar Naranjo for enlarging left upper neck mass x 6 months The patient's history and physical findings are confirmed. As noted this patient had become aware ofa small mass in the posterior inferior aspect of the left parotid region which has increased in sizeand has become symptomatic with pain and pressure sensation. Denies TMJ issue, as well as denying facial nerve change, accessory nerve dysfunction, change in taste/speech/breathing/voice. Denies hemoptysis, throat pain, nosebleeds, sinus issues, change in smell/taste. Denies right sided symptoms. No significant smoking hx but does report drinking significantly in the past. Now about once a month willhave 12 beers over period of 24-48 hours. Denies hx of DTs. No hospitalization related to EtOHism. Was referred to Dr Naranjo where sizeable lesion noted in level2 of left neck with involvement of deep portion of parotid gland.FNAB done x 2 , also reviewed here, and unfortunately unrevealing. Deniesother neck masses. Has hx of JOHN and A fib and underwent defib x 3 and is still in a fib treated with beta blockade andASA. Hx of JOHN (last tested 9 years ago at [facility] - will get records) and CPAP recommended but patient not using. He is not sure of severity of JOHN but he does feel fatigued during the day. He has also gained 80 additional pounds in the last year or so (currently 160 lb). Has DÍAZ when climbing stairs as well as mateus knee pain from arthritis. Difficult time carrying groceries to his appartment on second floor. Needs to take a break due to fatigue. A complete otolaryngologic exam is completed and pertinent findings include the following: Ht 177.8 cm (5' 10) Wt (!) 163.3 kg (360 lb) BMI 51.65 kg/m?? Pleasant morbidly obese male in no distress with obvious deformity of the left upper neck as a result of a large mass which does not involve the overlying skin.. He has normal facial nerve function bilaterally. Examination of the ears reveals normal canals and TMs. There is no external deformity of the nose and nasal passages are patent with small inferior maxillary crests. Oral cavity reveals no trismus. There is no focal lesion noted on the mucous membranes. Dentition infair condition. Tongue mobility is normal. There is a prominence of the base of tongue as a result of his body habitus. Examination of the neck reveals a large mass of level 2 of the left neck extending into the parotid tail. Mass is very indurated and barely mobile from the underlying structures and is slightly uncomfortable. It extends over the mastoid bone. Patient has normal accessory nerve function. Evaluation of cranial nerves otherwise normal. I also reviewed personally the hematologic and radiologic investigations and agree with the documentation reported. CT scan shows a large infiltrative mass of the deeper portion of the left parotid gland which appears to infiltrate the upper aspect of the sternomastoid muscle as well as level 2. Thereare areas of apparent necrosis. No other concerning masses noted. In view of the patient's symptoms and [...] mucosae are normal except for the following: Nasopharynx shows no obvious asymmetry or lesion. The eustachian tube openings are patent. He has a long uvula which comes in contact with the base of tongue. Both sides of the base of tongue are somewhat prominent as a result of his body habitus but no focal lesion is noted. The patient is post TNA and there is no lesion noted within the base of the palatine tonsils. There is some bulging deformity of the left side of the oropharynx as a result of the size of the mass. There is no ulcer noted. Piriform sinuses are normal. The post arytenoid region as well as the supraglottis, glottis, and subglottis are all unremarkable. The trachea is patent. Vocal cord mobility normal ASSESSMENT/PLAN: Based on today's findings, the patient presents with a large infiltrative mass of the left parotid/upper neck region. Etiology may be from the parotid gland versus metastatic squamous cell cancer from an unknown head and neck primary. Patient has morbid obesity as well as ongoing atrial fibrillation with some element of heart failure in view of his difficulties with climbing a flightof stairs safely. This would put him at a significant risk of perioperative complication from a medical standpoint. The other concern is regarding the findings on the imaging with a large infiltrative mass of the deep portion of the left parotid gland with necrosis which is encasing the internal carotid artery as well as completely effacing the internal jugular vein. Surgery might be difficult in view of the carotid encasement. We do not have a clear etiologic diagnosis from the FNA. The plan in this case would be for the patient to undergo a ultrasound-guided/CT-guided FNA to hopefully have an appropriate sample for analysis. At the time of his follow-up visit about 10 days later,we will plan a PET/CT as this most likely represents a malignancy. Patient will be also evaluated inanesthesia. Patient will be also discussed at an upcoming tumor board once all the information is obtained.. I agree with the plan outlined above. All the patient's questions were answered. River Cordoba MD, [facility] Attending Staff documented in this encounter Plan of Treatment Upcoming Encounters Date Type Specialty Care Team Description 03/30/2022 Office Visit Hematology and Oncology Kristan Perry MD [facility] ER DR ONCOLOGY DEPT. [place], [place] [address] (Wo rk) Scheduled Referrals Name Type Priority Associated Order Schedule Diagnoses Referral to General Outpatient Referral Routine Neck mass O rdered: Anesthesiology 03/16/2021 documented as of this encounter Results NM PET CT Standard [...] questions please contact the health child care lead teacher that requested your imaging first. ? Electronically signed by: Burak Matthews, [facility] ([phone]), at 04/13/2021 4:06 PM Narrative 04/13/2021 4:06 [...] questions please contact the health child care lead teacher that requested your imaging first. Electronically signed by: Burak Matthews, [facility] ([phone]), at 04/13/2021 4:06 PM River Cordoba MD IMG PET ORDERABLES IR Biopsy Soft Tissue Neck (04/04/2021 10:47 [...] questions please contact the health child care lead teacher that requested your imaging first. ? Electronically signed by: Carine garibay MD, [facility] ([phone]), at 04/05/2021 3:44 PM Narrative 04/05/2021 3:44 [...] questions please contact the health child care lead teacher that requested your imaging first. River Cordoba MD [facility] IR ORDERABLES documented in this encounter Visit Diagnoses Diagnosis Neck mass - Primary Swelling, mass, or lump in head and neck Neck mass Swelling, mass, or lump in head and neck Neck mass Swelling, mass, or lump in head and neck documented in this encounter
--- OUTSIDE RECORDS SUMMARY | 2022-03-23 07:51 | XMS_ITS | Encounter Summary ---
:1960 Author Organization [facility] [place] [address] Care Team Providers Name Role Phone Ava Morales MD Primary Care Provider Reason for Visit Consultation (Routine) - Closed Specialty Diagnoses / Procedures Referred By Contact Refer red To Contact Pre-Admission Testing Diagnoses Neck mass [place], [facility] Pre Admit Test 4v [facility] enter [address] [place] [phone] Referral ID Status Reason Start Date Expiration Date Visits V isits Requested Authorized [id number] Closed Consult, 03/16/2021 03/16/2022 1 1 Test & Treat Encounter Details Date Type Department Care Team Description 04/13/2021 [place] [facility] [place]rial fibrillation, unspeci fied type; [facility] Subhash preciado Essential hypertension; [place] [phone] JOHN (obstructive sleep apnea ); [phone] Dyspnea, unspec ified type Social History Tobacco Use Types Packs/Day Years [...] Sign Reading Time Taken Comments Blood Pressure 168/96 04/13/2021 12:10 PM EDT Pulse - - Temperature - - Respiratory Rate - - Oxygen Saturation 96% 04/13/2021 12:10 PM EDT Inhaled Oxygen Concentration - - Weight 155.9 kg (343 lb 12.8 oz) 04/13/2021 12:10 PM EDT Height 177.8 cm (5' 10) 04/13/2021 12:10 PM EDT Body Mass Index 49.33 04/13/2021 12:10 PM EDT documented in this encounter Progress Notes Little Alicia RN - 04/13/2021 1:00 PM EDT Perioperative care clinic - Patient here today to meet with anesthesia. VS as noted. Labs and EKG done as ordered. Meds / Allergies reviewed, pre op booklet given to patient. Surgery with Dr. Cordoba is not yet booked. documented in this encounter Plan of Treatment Upcoming Encounters Date Type Specialty Care Team Description 03/30/2022 Office Visit Hematology and Oncology Kristan Perry MD [facility] DR ONCOLOGY DEPT. [place], [place] [address] (Wo rk) documented as of this encounter Procedures Procedure Name Priority Date/Time Associated Diagnosis Comme nts EKG 12-LEAD Routine 04/13/2021 12:48 PM Atrial fibrillation, Results for this EDT unspecified type procedure are in Essential hypert ension the results JOHN (obstructive sleep secti on. apnea) documented in this encounter Results EKG 12 Lead (04/13/2021 12:48 PM EDT) Component Value Ref Range Test Analysis Performed Pathologis t Method Time At Signature Ventricular rate 96 BPM MUSE SYSTEM Atrial Rate 77 BPM MUSE SYSTEM QRS Duration 80 ms MUSE SYSTEM Q-T Interval 344 ms MUSE SYSTEM QTC Calculated 434 ms MUSE SYSTEM (Bezet) Calculated R [place] 40 degrees MUSE SYSTEM Calculated T [place] -35 degrees MUSE SYSTEM INTERPRETATION Atrial fibrillation MUSE SYSTEM Abnormal ECG No previous ECGs available Confirmed by MD Eda, Philip Salinas ([id number]) on 04/14/2021 6:14:5 3 AM Specimen Anatomical Collection Method Collection Time Receive d Time (Source) Location / / Volume Laterality 04/13/2021 12:48 04/14/2021 6:14 PM EDT AM EDT Mari Tao MD ECG ORDERABLES Performing Organization Address City/State/ZIP Code Phon e Number MUSE SYSTEM documented in this encounter Visit Diagnoses Diagnosis Atrial fibrillation, unspecified type Essential hypertension Unspecified essential hypertension JOHN (obstructive sleep apnea) Obstructive sleep apnea (adult) (pediatr ic) Dyspnea, unspecified type documented in this encounter Care Teams Geological Science Teacher Relationship Specialty Start Date End Date Ava Morales MD PCP - General Family Medicine 04/04/[address] [place] [phone] documented as of this encounter
--- OUTSIDE RECORDS SUMMARY | 2022-03-23 07:51 | XMS_ITS | Encounter Summary ---
:1960 Author Organization [facility] Address [facility] [place] [address] Care Team Providers Name Role Phone Ava Morales MD Primary Care Provider Encounter Details Date Type Department Care Team Description 04/21/2021 Telephone Otolaryngology at [facility] Diane Pierre [facility] [place] [address] Social History Tobacco Use Types Packs/Day [...] Notes Telephone Encounter - Diane Pierre - 04/21/2021 10:34 AM EDT Called pt per note received from : Can you please call Miriam to find out when and where (I think Yari?) his cardiac stress test isscheduled so that I know when to push Dr. Cordoba for surgical orders? Thanks! Abbey JEONG for pt to call back with this information. documented in this encounter Plan of Treatment Upcoming Encounters Date Type Specialty Care Team Description 03/30/2022 Office Visit Hematology and Oncology Kristan Perry MD [facility] DR ONCOLOGY DEPT. [place], [place] [address] (Wo rk) documented as of this encounter Visit Diagnoses Not on filedocumented in this encounter Care Teams Svp Digital Ad Sales Relationship Specialty Start Date End Date Ava Morales MD PCP - General Family Medicine 04/04/[address] [place] [phone] documented as of this encounter
--- OUTSIDE RECORDS SUMMARY | 2022-03-23 07:51 | XMS_ITS | Encounter Summary ---
:1960 Author Organization [facility] [place] [address] Care Team Providers Name Role Phone Ava Morales MD Primary Care Provider Encounter Details Date Type Department Care Team Description 04/11/2021 Telephone Care Management Maxine Kim, [facility] [place] [address] Social History Tobacco Use Types Packs/Day [...] Telephone Encounter - Maxine Kim MSW - 04/11/2021 9:41 AM EDT Continuing Residential Pest Control Technician-Social Work Initial Assessment Office of Care Management Referral/Contact: Miriam Anaya is a 60 y.o. who I provided a verbal introduction to over the phone. Present at Visit: self Understanding/Adjustment/Coping: Seems to be coping well. Hopes/Goals: Curative. Current living situation: Living at home in an apartment by himself. 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 Supports and Services: I have a couple of friends who help. Substance Use: Currently likes to drink alcohol in the summer time. Has been a couple of months since he's had. 18 pk once a month. Fair weather drinker Patient/Family Mental Health Concerns: undiagnosed depression, goes through periods of feeling down. Financial/Insurance Concerns: no Legal Concerns: None expressed. Advance Directives: NOT on file. Current Stressors: [X ] Limited Support [ ] Financial/Employment Concerns [ ] Transportation [ ] Domestic Violence [ ] Family Conflict [ ] Illness of Family Member [ ] Adult Protection involvement [ ] Insurance [ ] Substance Abuse [ ] Inadequate Coping Skills [ ] Loss/ [ ] Change in Home Environment [ ] Concerns about Diagnosis [X ] Mental health Issues [X ] Other: Comments: Assessment/Summary: Provided overview of [employer] support. 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 Needs help with dental. Rotted teeth, he has [employer] for insurance. SW contacted [facility], they accept [employer]. . Asked them to call Miriam to schedule dental evaluation. Plan: - Assist as necessary with resources for Dental assistance. - [facility] remains available for psychosocial assessment, support, and resource coordination as indicated. DANIELLE Sanches Pager:[phone] documented in this encounter Plan of Treatment Upcoming Encounters Date Type Specialty Care Team Description 03/30/2022 Office Visit Hematology and Oncology Kristan Perry MD [facility] ONCOLOGY DEPT. [place], [place] [address] (Wo rk) documented as of this encounter Visit Diagnoses Not on filedocumented in this encounter Care Teams Rubber Mixer Relationship Specialty Start Date End Date Ava Morales MD PCP - General Family Medicine 04/04/[address] [place] [phone] documented as of this encounter
--- OUTSIDE RECORDS SUMMARY | 2022-03-23 07:51 | XMS_ITS | Encounter Summary ---
:1960 Author Organization [facility] Address [facility] [place] [address] Care Team Providers Name Role Phone Ava Morales MD Primary Care Provider Encounter Details Date Type Department Care Team Description 04/13/2021 Patient Outreach Otolaryngology at [facility] Abbey Krishnan, [facility] [place] [phone] Social History Tobacco Use Types Packs/Day [...] encounter Progress Notes Abbey Krishnan RN - 04/21/2021 9:49 AM EDT Met with patient today after Tumor Board review. Consensus from Tumor Board was that, if no primary was seen on the PET scan, patient had options of 1.) open biopsy; 2.) core biopsy with cytology on site; or 3.) parotidectomy with neck dissection. Unfortunately, patient was unable to complete the PET with PO meds only. He would require general anesthesia for a PET, which Dr. Cordoba feels would delay treatment. Beryl will consider a CT Chest for staging, instead. Plan is for a chemical stress test at [facility] (ordered by Anesthesia). If cleared by Anesthesia, geronimowill go to the OR for surgery per Beryl. Miriam's friend, Larisa, was present at today's visit. She drove him to the appointment. Miriam complains of pressure in left eye, increased left otalgia, and more consistent headaches on the top of his head. He has increased his meloxicam and began taking tylenol. documented in this encounter Plan of Treatment Upcoming Encounters Date Type Specialty Care Team Description 03/30/2022 Office Visit Hematology and Oncology Kristan Perry MD [facility] DR ONCOLOGY DEPT. [place], [place] [address] (Wo rk) documented as of this encounter Visit Diagnoses Not on filedocumented in this encounter Care Teams Nutrition Services Aide Relationship Specialty Start Date End Date Ava Morales MD PCP - General Family Medicine 04/04/[address] [place] [phone] documented as of this encounter
--- OUTSIDE RECORDS SUMMARY | 2022-03-23 07:51 | XMS_ITS | Encounter Summary ---
:1960 Author Organization [facility] [place] [address] Care Team Providers Name Role Phone Unavailable Primary Care Provider Unavailable Encounter Details Date Type Department Care Team Description 02/09/2021 Hospital Encounter Laboratory [facility] [place] [address] Social History Tobacco Use Types Packs/Day Years Used Date Never Assessed Financial Resource Strain Answer Date Recorded How hard is it for you to pay for the very basics like Not h brigtete at all 07/10/2021 food, housing, medical care, [...] MD [facility] DR ONCOLOGY DEPT. [place] [phone] ( rk) documented as of this encounter Procedures Procedure Name Priority Date/Time Associated Diagnosis Comme nts NON-EMBLEM DRAWER IN FINAL Routine 02/09/2021 3:51 PM Results for this REPORT EDT procedure are i n the results section. documented in this encounter Results Non-Plant Operator Helper Final Report (02/09/2021 3:51 PM EDT) Component Value Ref Test Analysis Performed At [facility] Range Method Time Signature Non-Plant Operator Helper Final [id number] ? Location: [facility] [place] The signing pathologist has (i) examined the relevant preparation(s) for the [facility] specimen(s) and (ii) rendered or confirmed the diagnosis(es) . HOSPITAL LAB[facility] . ? No n-Plant Operator Helper Final DIAGNOSIS See Discussion Electronically signed by: ?Kim HERNANDEZ, Miguel Angel Gil Verified: ??02/14/2021 15:24 ??Cytopathologist Performed at: ??-[facility] [place], [place], [place] DISCUSSION Neck mass: left (FNA) - Very hypocellular aspirate. Exceedingly rare minute groups of cells - epithelial vs. lymphoid - are seen in a sample that is almost acellular. There is no definite evidence of substantive sampling of a 6.5 cm mass. (Cell block was examined.) CLINICAL INFORMATION Specimen Source : Neck mass: left (FNA) Pertinent Clinical Data and Significant Therapy: (not provided) Clinical Impression : Localized swelling, mass and lump, neck 6.5 x 4.0 cm left neck mass Pertinent Radiologic Findings ??: (not provided) Gross Description: Received ??in CytoLyt approx imately 10 mL total volume of ?? clear, janeth fluid, with light flecks. Total Preparation: Liquid-Based Prep 1; Pap Stain 1; Cell Bl ock 1. Specimen (Source) Anatomical Collection Method Collection Time Re ceived Time Location / / Volume Laterality 02/09/2021 3:51 PM EDT Resulting Agency Comment Spec In Lab / [facility] PATHOLOGY/CYTOLOGY ORDERABLE S Performing Organization Address City/State/ZIP Code Phon e Number [place] [phone] documented in this encounter Visit Diagnoses Not on filedocumented in this encounter
== END 2022-03-23 07:44 | disposition home or self-care (01) ==
LOC: LBO 07:46
PROVIDERS: PCP Preventive Medicine Undersea and Hyperbaric Medicine; Visit Provider Internal Medicine Hematology & Oncology

== ENCOUNTER 2022-03-30 02:06 | Outpatient (CLI) | payer MEDICAID, SELFPAY | END 2022-03-30 02:07 | disposition home or self-care (01) | LOC: LBO 02:06 | PROVIDERS: PCP Preventive Medicine Undersea and Hyperbaric Medicine; Visit Provider Internal Medicine Hematology & Oncology ==